=== PATIENT | male | born 1960 | race Caucasian/White ===

== ENCOUNTER 2016-11-04 17:59 | Observation (INO) | payer OTHER ==
[~2016-11-04] VITALS: Ht 185.4 cm; Wt 139.0 kg
[~2016-11-04 17:59] MED LIST: ASPI81TA3 PO; IPRA4AER INHALATION; LACT20SO2 PO; POTA20TA8 PO; PROP10TA6 PO; RIFA550T4 PO; SUCR1TAB56 PO
[2016-11-04] MEDS ORDERED: LACTULOSE 30ML CUP PO STA (18:02)
[2016-11-04] MEDS ORDERED: OMEP20CA16 PO (18:24)
[2016-11-04] MEDS ORDERED: LISI1TAB6 PO (18:29)
[2016-11-04] MEDS ORDERED: FURO40TA4 PO (18:29)
[2016-11-04] MEDS ORDERED: TRAZ50TA18 PO (18:30)
[2016-11-04] MEDS ORDERED: ALBU90AE INHALATION (18:30)
[2016-11-04] MEDS ORDERED: NABU-81 PO (18:31)
[2016-11-04 18:32] LABS: ADD SCAN DIFF NO
[2016-11-04] MEDS ORDERED: METH500T8 PO (18:32)
[2016-11-04 18:35] LABS: BASOPHILS % 0.6 % (0.0-2.0); EOSINOPHILS # 0.2 10^3/ul (0.0-0.5); EOSINOPHILS % 2.8 % (0.0-7.0); HEMATOCRIT 38.4 % (42.0-52.0); HEMOGLOBIN 13.8 g/dl (14.0-18.0); LYMPHOCYTES # 1.3 10^3/ul (0.8-2.9); LYMPHOCYTES % 20.5 % (15.0-51.0); MEAN CORPUSCULAR HEMOGLOBIN 31.1 pg (29.0-33.0); MEAN CORPUSCULAR HGB CONC 35.9 g/dl (32.0-37.0); MEAN CORPUSCULAR VOLUME 86.5 fl (82.0-101.0); MONOCYTE # 0.5 10^3/ul (0.3-0.9); MONOCYTES % 7.6 % (0.0-11.0); NEUTROPHIL # 4.5 10^3/ul (1.6-7.5); NEUTROPHILS % 68.2 % (39.0-77.0); PLATELET COUNT 162 10^3/UL (140-415); RED BLOOD COUNT 4.44 10^6/ul (4.70-6.10); RED CELL DISTRIBUTION WIDTH 13.7 % (11.5-14.5); WHITE BLOOD COUNT 6.5 10^3/ul (4.8-10.8)
[2016-11-04 18:45] LABS: ALBUMIN 4.1 g/dl (3.3-4.9); CHLORIDE 110 mmol/L (97-110); INR 1.18; PROTIME 15.1 Sec (12.2-14.2); PT RATIO 1.2
[2016-11-04 18:46] LABS: POTASSIUM 4.4 mmol/L (3.5-5.1); SODIUM 145 mmol/L (135-144)
[2016-11-04 18:48] LABS: ALANINE AMINOTRANSFERASE 42 IU/L (13-69); ALBUMIN/GLOBULIN RATIO 0.97; ALKALINE PHOSPHATASE 201 IU/L (42-121); ANION GAP 19 (8-16); ASPARTATE AMINO TRANSFERASE 72 IU/L (15-46); BILIRUBIN,INDIRECT 2.4 mg/dl (0-1.1); BILIRUBIN,TOTAL 2.4 mg/dl (0.2-1.3); BLOOD UREA NITROGEN 43 mg/dl (7-20); CARBON DIOXIDE 20 mmol/L (21-31); CREATININE 1.66 mg/dl (0.61-1.24); GLUCOSE 121 mg/dl (70-220); TOTAL PROTEIN 8.3 g/dl (6.1-8.1)
[2016-11-04 18:49] LABS: CALCIUM 10.7 mg/dl (8.4-10.2)
[2016-11-04 18:55] LABS: ACETAMINOPHEN < 10.0 ug/ml (10.0-30.0); ETHANOL < 10.0 mg/dl; SALICYLATE < 1.0 mg/dl (5.0-30.0)
[2016-11-04] MEDS ORDERED: LACTULOSE 30ML CUP NGT ONE (19:00)
[2016-11-04] MEDS ORDERED: ACETAMINOPHEN 325 MG TAB PO PRN (20:00)
[2016-11-04] MEDS ORDERED: LORAZEPAM 2 MG INJ IV ONE ×2 (20:00→21:00)
[2016-11-04] MEDS ORDERED: ONDANSETRON 4 MG INJ IV PRN (20:00)
[2016-11-04] MEDS ORDERED: LACTULOSE 30ML CUP PO ONE (20:00)
[2016-11-04 20:26] LABS: ADD UMIC NO; URINE BILIRUBIN (Dip) NEGATIVE (NEGATIVE); URINE BLOOD (Dip) NEGATIVE (NEGATIVE); URINE COLOR LT. YELLOW (YELLOW); URINE GLUCOSE (Dip) NEGATIVE (NEGATIVE); URINE KETONES (Dip) NEGATIVE (NEGATIVE); URINE LEUKOCYTE ESTERASE (Dip) NEGATIVE (NEGATIVE); URINE NITRITE (Dip) NEGATIVE (NEGATIVE); URINE TOTAL PROTEIN (Dip) NEGATIVE (NEGATIVE); URINE UROBILINOGEN (Dip) 0.2 E.U./dL (0.1-1.0)
--- NOTE | 2016-11-04 20:43 | ERA ---
ER Documentation Chief Complaint Date/Time DATE: 11/04/16 TIME: 20:41 Chief Complaint BROUGHT IN VIA EMS DUE TO ALOC WITH HX OF LIVER CIRRRHOSIS HPI Patient is a 55-year-old male with cirrhosis who presents with altered. Please note the history and physical exam is limited secondary to mental status. The patient was brought in by ambulance. The patient has cirrhosis. The patient was unable to give a history. He came from home. The is at bedside currently. ROS All systems reviewed and are negative except as per history of present illness. Medications Home Meds Reported Medications Methocarbamol* (Methocarbamol*) 500 Mg Tablet, 500 MG PO BID, TAB 11/04/16 Nabumetone* (Nabumetone*) 500 Mg Tablet, 500 MG PO BID, TAB 11/04/16 Trazodone Hcl* (Trazodone Hcl*) 50 Mg Tablet, 50 MG PO QHS, #30 TAB 11/04/16 Albuterol Sulfate (Proair Respiclick) 90 Mcg Aer.pow.ba, 1 PUFF INHALATION Q4 Y for SHORTNESS OF BREATH, #1 BOTTLE 11/04/16 Furosemide* (Furosemide*) 40 Mg Tablet, 40 MG PO DAILY, TAB 11/04/16 Lisinopril/Hydrochlorothiazide (Lisinopril-Hctz 20-12.5 mg Tab) 1 Each Tablet, 1 EACH PO DAILY, TAB 11/04/16 Omeprazole* (Omeprazole*) 20 Mg Capsule.dr, 20 MG PO BID, #60 CAP 11/04/16 Albuterol/Ipratropium* (Combivent Respimat*) 20-100 Mcg/Inh - 4 Gm Aer.w.adap, 1 PUFF INHALATION QID, #1 INHALER 03/02/16 Potassium Chloride* (Klor-Con*) 10 Meq Tabsr, 10 MEQ PO DAILY, TAB.SA 10/29/14 Propranolol Hcl* (Propranolol Hcl*) 10 Mg Tablet, 10 MG PO BID, TAB 10/29/14 Lactulose* (Lactulose*) 20 Gm/30 Ml Solution, 20 GM PO BID, ML 10/29/14 Discontinued Reported Medications Aspirin* (Aspirin* Chew) 81 Mg Tab.chew, 81 MG PO DAILY, TAB.CHEW 06/19/16 Sucralfate* (Carafate*) 1 Gm Tab, 1 GM PO TID, TAB 10/29/14 Discontinued Scripts Rifaximin* (Xifaxan*) 550 Mg Tablet, 550 MG PO BID for 30 Days, TAB home meds Prov:SRIKANTH GALVAN 03/04/16 Allergies Allergies: Coded Allergies: No Known Allergy (Unverified , 06/19/16) PMhx/Soc History of Surgery: No Anesthesia Reaction: No Hx Neurological Disorder: No Hx Respiratory Disorders: Yes (Lung scarring) Hx Cardiac Disorders: Yes (Htn) Hx Psychiatric Problems: No Hx Miscellaneous Medical Probl: Yes (OBESITY, HERNIA REPAIR,CHOLECYSTECTOMY) Hx Alcohol Use: Yes Hx Substance Use: Yes Hx Tobacco Use: Yes Smoking Status: Current every day smoker FmHx Unable to obtain Physical Exam Vitals Vital Signs Date Time Temp Pulse Resp B/P Pulse Ox O2 Delivery O2 Flow Rate FiO2 11/04/16 20:25 98.4 16 16/93 99 Room Air 11/04/16 18:14 98.4 87 18 173/110 99 Physical Exam Const: Altered Head: Atraumatic Eyes: Normal Conjunctiva ENT: Normal External Ears, Nose and Mouth. Neck: Full range of motion..~ No meningismus. Resp: Clear to auscultation bilaterally Cardio: Regular rate and rhythm, no murmurs Abd: Soft, obese, no tenderness abdomen Skin: No petechiae or rashes Back: No midline or flank tenderness Ext: No cyanosis, or edema Neur: Awake but does not answer questions Result Diagram: 11/04/16 1823 11/04/16 1823 Results 24 hrs Laboratory Tests Test 11/04/16 18:15 11/04/16 18:23 11/04/16 19:38 Bedside Glucose 116mg/dL White Blood Count 6.510^3/ul Red Blood Count 4.4410^6/ul Hemoglobin 13.8g/dl Hematocrit 38.4% Mean Corpuscular Volume 86.5fl Mean Corpuscular Hemoglobin 31.1pg Mean Corpuscular Hemoglobin Concent 35.9g/dl Red Cell Distribution Width 13.7% Platelet Count 64595^3/UL Mean Platelet Volume 12.0fl Neutrophils % 68.2% Lymphocytes % 20.5% Monocytes % 7.6% Eosinophils % 2.8% Basophils % 0.6% Nucleated Red Blood Cells % 0.0/100WBC Neutrophils # 4.510^3/ul Lymphocytes # 1.310^3/ul Monocytes # 0.510^3/ul Eosinophils # 0.210^3/ul Basophils # 0.010^3/ul Nucleated Red Blood Cells # 0.010^3/ul Prothrombin Time 15.1Sec Prothrombin Time Ratio 1.2 INR International Normalized Ratio 1.18 Activated Partial Thromboplast Time 32.0Sec Sodium Level 145mmol/L Potassium Level 4.4mmol/L Chloride Level 110mmol/L Carbon Dioxide Level 20mmol/L Anion Gap 19 Blood Urea Nitrogen 43mg/dl Creatinine 1.66mg/dl Glucose Level 121mg/dl Calcium Level 10.7mg/dl Total Bilirubin 2.4mg/dl Direct Bilirubin 0.00mg/dl Indirect Bilirubin 2.4mg/dl Aspartate Amino Transf (AST/SGOT) 72IU/L Alanine Aminotransferase (ALT/SGPT) 42IU/L Alkaline Phosphatase 201IU/L Ammonia 127umol/l Total Protein 8.3g/dl Albumin 4.1g/dl Globulin 4.20g/dl Albumin/Globulin Ratio 0.97 Salicylates Level < 1.0mg/dl Acetaminophen Level < 10.0ug/ml Ethyl Alcohol Level < 10.0mg/dl Urine Color LT. YELLOW Urine Clarity CLEAR Urine pH 6.5 Urine Specific [place] <=1.005 Urine Ketones NEGATIVE Urine Nitrite NEGATIVE Urine Bilirubin NEGATIVE Urine Urobilinogen 0.2 E.U./dL Urine Leukocyte Esterase NEGATIVE Urine Hemoglobin NEGATIVE Urine Glucose NEGATIVE% Urine Total Protein NEGATIVE Current Medications Medications (Trade) Dose Ordered Sig/Aron Route PRN Reason Start Time Stop Time Status Last Admin Dose Admin Lactulose (Enulose) 30 gm ONCE STAT PO 11/04/16 18:02 11/04/16 18:54 DC Lactulose (Enulose) 20 gm ONCE ONCE NGT 11/04/16 19:00 11/04/16 19:43 DC Ondansetron HCl (Zofran Inj) 4 mg BRIDGE ORDER PRN IV NAUSEA AND/OR VOMITING 11/04/16 20:00 11/05/16 19:59 Acetaminophen (Tylenol Tab) 650 mg ER BRIDGE PRN PO MILD PAIN/FEVER 11/04/16 20:00 11/05/16 19:59 Lorazepam (Ativan) 1 mg ONCE ONCE IV 11/04/16 20:00 11/04/16 20:00 DC Lactulose (Enulose) 20 gm ONCE ONCE PO 11/04/16 20:00 11/04/16 20:01 DC 11/04/16 19:50 Procedures/MDM Patient is a 55-year-old male who presents with altered mental status. The patient had an elevated ammonia of 127 which I believe is the cause of his altered mental status. At this point I doubt sepsis. I doubt spontaneous bacterial peritonitis. I doubt cystitis as the urine is negative. I doubt sepsis. I believe the patient will benefit from lactulose treatment. He did pass a bedside swallow evaluation and the lactulose was given by mouth. The patient will be admitted to the care of Dr. Ignacio as he has [employer] insurance. The patient will be admitted to a medical surgical bed. Critical Care: Time: 35 minutes excluding all billable procedures. Treatments/Evaluations: Close monitoring and treatment of unstable vital signs, cardiorespiratory, and neurologic status, while maintaining tight balance of fluid, respiratory, and cardiac interventions. Departure Diagnosis: Primary Impression: Hepatic encephalopathy Additional Impressions: Altered level of consciousness Anemia Qualified Code: D64.9 - Anemia, unspecified type Acute renal failure Qualified Code: N17.9 - Acute renal failure, unspecified acute renal failure type Condition: MICHAEL Hubbard MD Nov 04, 2016 20:43
[2016-11-04 20:52] LABS: BARBITURATES Negative (NEGATIVE); BENZODIAZEPINES Negative (NEGATIVE); CANNABINOIDS Negative (NEGATIVE); COCAINE Negative (NEGATIVE); OPIATES Negative (NEGATIVE)
[2016-11-05] MEDS ORDERED: ONDANSETRON 4 MG INJ IV PRN (00:30)
[2016-11-05] MEDS ORDERED: ACETAMINOPHEN 325 MG TAB PO PRN (00:30)
--- NOTE | 2016-11-05 00:38 | QN ---
Documentation Comment H&P dict a/p GI: cirrhosis secondary to hep c and etho (b) hepatic encephalopathy renal: acute renal failure, check FeNa, renal us, start fluid, hold lisinopril and diuretics proph; BETHEL Cabrera MD Nov 05, 2016 00:38
[2016-11-05] MEDS: SOD CHLORIDE 0.9% 1,000 ML IV SCH ×3 (01:00→23:43)
[2016-11-05] MEDS ORDERED: ALBUTEROL 0.083% (NEB) 2.5 MG/3 ML AMP HHN PRN (01:00)
[2016-11-05] MEDS: LACTULOSE 30ML CUP PO SCH ×5 (01:02→20:44)
[2016-11-05] MEDS: PROPRANOLOL 10 MG TAB PO SCH ×3 (01:11→18:02)
--- NOTE | 2016-11-05 01:52 | HP ---
DATE OF ADMISSION: 11/04/2016 CHIEF COMPLAINT: Altered mental status. HISTORY OF PRESENT ILLNESS: Mr. Jaramillo is brought by paramedics to the emergency room at [facility] with alteration of mental status. He is currently arousable and will answer to his name but is unable to provide any additional history. Calls to family have not been answered. According to the emergency room physician, this came on relatively suddenly. 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 MEDICATIONS AN OUTPATIENT: Include: 1. Combivent. 2. Albuterol. 3. Methocarbamol. 4. Lisinopril HCT. 5. Propranolol. 6. Nabumetone. 7. Trazodone. 8. Lasix. 9. Lactulose. 10. Potassium. 11. Omeprazole. ALLERGIES: NO KNOWN DRUG ALLERGIES. SOCIAL HISTORY: The patient lives at home in [place] with his . Unknown level of ability to p rovide for activities of daily living. FAMILY HISTORY: Unobtainable. REVIEW OF SYSTEMS: Unobtainable secondary to patient's mental status. PHYSICAL EXAMINATION: VITAL SIGNS: Blood pressure 155/90, pulse rate 108, respirations 16, temperature is 98.4. GENERAL: Obese, middle-aged man lying in bed, arousable, not conversational. HEENT: Normocephalic, atraumatic without any scleral icterus, perioral cyanosis. Mucous membranes are moist. NECK: Soft and supple without masses. No evidence of jugular venous distention or carotid bruits. CHEST: Clear to auscultation and percussion anteriorly. HEART: Regular rate and rhythm. S1, S2. No added sounds. ABDOMEN: Soft, nontender. I do not appreciate any ascites or hepatosplenomegaly. EXTREMITIES: Without clubbing, cyanosis or edema. SKIN: Without rashes. NEUROLOGIC: Arousable, not conversational. There is asterixis on exam. The patient is not coopera tive with the remainder of the neuro exam but is spontaneously moving all his limbs. LABORATORY STUDIES: A hemoglobin of 13.8 g/dL, white count of 6500, platelets of 162,000. INR is 1 .2. Sodium 145, potassium 4.4, chloride 110, bicarbonate 20, BUN 43, creatinine 1.66, glucose 121, calcium 10.7. Liver function tests remarkable, AST 72, ALT 42, alkaline phosphatase 201, total bili levi 2.4. Ammonia level is 127. Urine tox screen is negative. UA is negative for signs of infect ion. ASSESSMENT AND PLAN: 1. Gastrointestinal: The patient with likely hepatic encephalopathy. Restart lactulose and rifaxi min, monitor for clinical response. The patient with elevation of liver function tests, likely rela maite to underlying cirrhosis. However, will obtain abdominal ultrasound to rule out biliary disease. Cirrhosis secondary to hepatitis C and alcohol. 2. Renal: The patient with acute renal failure. Check fractional excretion of sodium. Hold lisin opril and diuretics. Begin IV fluids. Check renal ultrasound. 3. Prophylaxis with MAITE hose. Dictated By: BETHEL BARTLETT MD RER/NTS Conf#: [id number] DID#: [id number]
--- NOTE | 2016-11-05 02:07 | RADRPT ---
PROCEDURE: ULTRASOUND RETROPERITONEUM CLINICAL INDICATION: 55-year-old male with renal insufficiency. TECHNIQUE: Multiple sonographic images of the retroperitoneum were obtained. The images were revi ewed on a PACS workstation. COMPARISON: None. FINDINGS: The kidneys are difficult to visualize secondary to the patient's body habitus. The right kidney me asures 10.3 cm in maximal length. The left kidney measures 10.3 cm in maximal length. There are no f ocal areas of abnormal echogenicity. There is no evidence for obstructive uropathy. The bladder is without internal echoes or shadowing stones. IMPRESSION: Unremarkable retroperitoneal ultrasound. .Artur Garcia MD, MD Date Time Electronically viewed and signed by .Artur Garcia MD, on 11/05/2016 02:07 .[place]
[2016-11-05] MEDS: ALBUTEROL/IPRATROPIUM (NEB) 3 ML AMP HHN SCH ×4 (04:31→21:05)
[2016-11-05 05:54] VITALS: TEMP 97.7
[2016-11-05 06:00] LABS: ADD SCAN DIFF NO
[2016-11-05] MEDS: PANTOPRAZOLE (EC) 40 MG TAB PO SCH ×2 (06:00→18:01)
[2016-11-05 06:19] LABS: BASOPHIL # 0.1 10^3/ul (0.0-0.1); BASOPHILS % 0.7 % (0.0-2.0); EOSINOPHILS # 0.3 10^3/ul (0.0-0.5); EOSINOPHILS % 3.7 % (0.0-7.0); HEMATOCRIT 37.2 % (42.0-52.0); LYMPHOCYTES # 1.5 10^3/ul (0.8-2.9); MEAN CORPUSCULAR HGB CONC 34.9 g/dl (32.0-37.0); MEAN CORPUSCULAR VOLUME 88.8 fl (82.0-101.0); MEAN PLATELET VOLUME 12.1 fl (7.4-10.4); MONOCYTE # 0.8 10^3/ul (0.3-0.9); MONOCYTES % 11.2 % (0.0-11.0); NEUTROPHIL # 4.6 10^3/ul (1.6-7.5); PLATELET COUNT 154 10^3/UL (140-415); RED BLOOD COUNT 4.19 10^6/ul (4.70-6.10); RED CELL DISTRIBUTION WIDTH 14.3 % (11.5-14.5); WHITE BLOOD COUNT 7.2 10^3/ul (4.8-10.8)
[2016-11-05 06:56] LABS: ALBUMIN 3.5 g/dl (3.3-4.9)
[2016-11-05 06:57] LABS: POTASSIUM 3.7 mmol/L (3.5-5.1)
[2016-11-05 06:59] LABS: ALBUMIN/GLOBULIN RATIO 0.92; BILIRUBIN,INDIRECT 2.5 mg/dl (0-1.1); BILIRUBIN,TOTAL 2.5 mg/dl (0.2-1.3); CREATININE 1.56 mg/dl (0.61-1.24); TOTAL PROTEIN 7.3 g/dl (6.1-8.1)
[2016-11-05 07:00] LABS: CALCIUM 10.5 mg/dl (8.4-10.2)
--- NOTE | 2016-11-05 07:42 | RADRPT ---
PROCEDURE: US Abdomen (right upper quadrant). CLINICAL INDICATION: Abnormal LFTs TECHNIQUE: Multiple real-time longitudinal and transverse images of the right upper quadrant of th e abdomen were acquired utilizing a curved array transducer. Images were reviewed on a high-resoluti on PACS workstation. COMPARISON: 06/23/2016 FINDINGS: The liver is normal in size and demonstrates coarsened echotexture without the evidence of focal mas s or intrahepatic biliary dilatation. The pancreas, gallbladder, CBD, and portal vein are not well visualized secondary to body habitus and overlying bowel gas by The right kidney measures 10.51 cm in length. There is normal echogenicity within the right kidney. There is no perinephric fluid collection. No hydronephrosis, mass, or calculus is seen. IMPRESSION: 1. Limited exam secondary to patient's body habitus and overlying bowel gas. The pancreas, gallbla dder, CBD, and portal vein was not well visualized. 2. Coarsened hepatic echotexture with nodular surface contour, consistent with cirrhosis. RPTAT: JJ .Oziel Tamayo MD, MD Date Time Electronically viewed and signed by .Oziel Tamayo MD, on 11/05/2016 07:42 .A/
[2016-11-05] MEDS ORDERED: HYDROCHLOROTHIAZIDE 12.5 MG CAP PO SCH (09:00)
[2016-11-05] MEDS ORDERED: LISINOPRIL 20 MG TAB PO SCH (09:00)
[2016-11-05] MEDS: RIFAXIMIN 550 MG TAB PO SCH ×2 (09:00→20:44)
[2016-11-05 11:19] VITALS: BP 138/84; PULSE 90; RESP 20
[2016-11-05 11:40] VITALS: Ht 185.4 cm; Wt 139.0 kg
--- NOTE | 2016-11-05 13:57 | PN ---
Date/Time of Note Date/Time of Note DATE: 11/05/16 TIME: 13:29 Assessment/Plan VTE Prophylaxis VTE Prophylaxis Intervention: SCD's Assessment/Plan Assessment/Plan 55 yo male: 1. Hepatic encephalopathy and ALOC. Patient with known Hep C Cirrhosis and has been on Rifaximin until he ran out 1 1/2 month ago and could not refill due to [place] and lack of prior authorization. Monitor Ammonia level in AM and continue Lactulose Resumed Rifaximin on this admission and Mental status already much improved this afternoon D/c sitter 2. Acute Kidney injury: Holding lisinopril and diuretics. On IV fluids. Renal function improving slowly. Renal ultrasound wnl. 3. Chronic back pain: stable and controlled All meds on hold for now, stable 4. Morbid Obesity. Prophylaxis: Continue SCDs today and PPI for GI ppx Disposition: D/c home in AM if remains stable, will need Rifaximin at discharge Subjective 24 Hr Interval Summary Free Text/Dictation Patient much improved by this afternoon and much more oriented and no need for a sitter Renal function better Exam/Review of Systems Vital Signs Vitals Vital Signs Date Time Temp Pulse Resp B/P Pulse Ox O2 Delivery O2 Flow Rate FiO2 11/05/16 11:19 97.6 90 20 138/84 100 Room Air 11/05/16 08:17 21 Exam Constitutional: alert, obese, oriented (x2 to 3), well developed Respiratory: clear to auscultation, normal air movement Cardiovascular: nl pulses, regular rate and rhythm Gastrointestinal: non-tender, soft Musculoskeletal: nl extremities to inspection Extremities: normal pulses, other (no edema, clubbing or cyanosis ) 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, nl mental status, nl speech, nl strength Results Result Diagram: 11/05/16 0515 11/05/16 0515 Results 24 hrs Laboratory Tests Test 11/04/16 18:15 11/04/16 18:23 11/04/16 19:38 11/05/16 05:15 Bedside Glucose 116 White Blood Count 6.5 7.2 Red Blood Count 4.44 #L 4.19 L Hemoglobin 13.8 #L 13.0 L Hematocrit 38.4 #L 37.2 L Mean Corpuscular Volume 86.5 88.8 Mean Corpuscular Hemoglobin 31.1 31.0 Mean Corpuscular Hemoglobin Concent 35.9 34.9 Red Cell Distribution Width 13.7 14.3 Platelet Count 162 154 Mean Platelet Volume 12.0 #H 12.1 H Neutrophils % 68.2 63.0 Lymphocytes % 20.5 21.0 Monocytes % 7.6 11.2 H Eosinophils % 2.8 3.7 Basophils % 0.6 0.7 Nucleated Red Blood Cells % 0.0 0.0 Neutrophils # 4.5 4.6 Lymphocytes # 1.3 1.5 Monocytes # 0.5 0.8 Eosinophils # 0.2 0.3 Basophils # 0.0 0.1 Nucleated Red Blood Cells # 0.0 0.0 Prothrombin Time 15.1 H Prothrombin Time Ratio 1.2 INR International Normalized Ratio 1.18 Activated Partial Thromboplast Time 32.0 Sodium Level 145 H 147 H Potassium Level 4.4 3.7 Chloride Level 110 113 H Carbon Dioxide Level 20 L 21 Anion Gap 19 H 17 H Blood Urea Nitrogen 43 H 40 H Creatinine 1.66 H 1.56 H Glucose Level 121 103 Calcium Level 10.7 H 10.5 H Total Bilirubin 2.4 H 2.5 H Direct Bilirubin 0.00 0.00 Indirect Bilirubin 2.4 H 2.5 H Aspartate Amino Transf (AST/SGOT) 72 H 68 H Alanine Aminotransferase (ALT/SGPT) 42 43 Alkaline Phosphatase 201 H 173 H Ammonia 127 #H Total Protein 8.3 H 7.3 # Albumin 4.1 3.5 Globulin 4.20 H 3.80 H Albumin/Globulin Ratio 0.97 0.92 Salicylates Level < 1.0 L Acetaminophen Level < 10.0 L Ethyl Alcohol Level < 10.0 Urine Color LT. YELLOW Urine Clarity CLEAR Urine pH 6.5 Urine Specific [place] <=1.005 L Urine Ketones NEGATIVE Urine Nitrite NEGATIVE Urine Bilirubin NEGATIVE Urine Urobilinogen 0.2 E.U./dL Urine Leukocyte Esterase NEGATIVE Urine Hemoglobin NEGATIVE Urine Glucose NEGATIVE Urine Total Protein NEGATIVE Urine Opiates Screen Negative Urine Barbiturates Negative Urine Amphetamines Screen Negative Urine Benzodiazepines Screen Negative Urine Cocaine Screen Negative Urine Cannabinoids Negative Medications Medications Current Medications Lactulose (Enulose) 20 gm QID PO Last administered on 11/05/16t 01:02; Admin Dose 20 GM; Start 11/05/16 at 00:30 Rifaximin (Xifaxan) 550 mg BID PO ; Start 11/05/16 at 09:00 Acetaminophen (Tylenol Tab) 650 mg Q4H PRN PO pain/fever; Start 11/05/16 at 00: 30 Hydralazine HCl (Apresoline) 25 mg Q6H PRN PO sbp>160; Start 11/05/16 at 00:30 Propranolol HCl (Inderal) 10 mg Q8H PO Last administered on 11/05/16 01:11; Admin Dose 10 MG; Start 11/05/16 at 00:30 Ondansetron HCl (Zofran Inj) 4 mg Q4H PRN IV nausea; Start 11/05/16 at 00:30 Lisinopril (Zestril) 20 mg DAILY PO Last administered on 11/05/16 13:19; Admin Dose 20 MG; Start 11/05/16 at 09:00 Pantoprazole (Protonix Tab) 40 mg BID@06,18 PO ; Start 11/05/16 at 06:00 Albuterol/ Ipratropium (Duoneb) 3 ml Q6H HHN Last administered on 11/05/16 08: 16; Admin Dose 3 ML; Start 11/05/16 at 01:00 Albuterol 2.5 mg 2.5 mg Q4H PRN HHN sob/wheeze; Start 11/05/16 at 01:00 Sodium Chloride (NS) 1,000 ml @ 100 mls/hr Q10H IV Last administered on 13:21; Admin Dose 100 MLS/HR; Start 11/05/16 at 01:00 Hydrochlorothiazide (Hydrochlorothiazide) 12.5 mg DAILY PO Last administered on 11/05/16 13:19; Admin Dose 12.5 MG; Start 11/05/16 at 09:00 SRIKANTH GALVAN Nov 05, 2016 13:45
[2016-11-05 20:05] VITALS: BP 136/78; RESP 19
[2016-11-05] MEDS: HYDROmorphONE 2 MG TAB PO PRN (22:28)
[2016-11-06] MEDS: PROPRANOLOL 10 MG TAB PO SCH ×2 (00:30→07:57)
[2016-11-06] MEDS: ALBUTEROL/IPRATROPIUM (NEB) 3 ML AMP HHN SCH ×2 (02:09→09:34)
[2016-11-06] MEDS: HYDROmorphONE 2 MG TAB PO PRN ×2 (02:47→06:46)
[2016-11-06 05:19] LABS: ADD SCAN DIFF NO
[2016-11-06] MEDS: PANTOPRAZOLE (EC) 40 MG TAB PO SCH (05:29)
[2016-11-06 05:32] LABS: BASOPHIL # 0.1 10^3/ul (0.0-0.1); BASOPHILS % 0.8 % (0.0-2.0); EOSINOPHILS # 0.5 10^3/ul (0.0-0.5); EOSINOPHILS % 7.3 % (0.0-7.0); HEMATOCRIT 32.8 % (42.0-52.0); HEMOGLOBIN 11.3 g/dl (14.0-18.0); LYMPHOCYTES # 2.3 10^3/ul (0.8-2.9); LYMPHOCYTES % 36.9 % (15.0-51.0); MEAN CORPUSCULAR HEMOGLOBIN 30.9 pg (29.0-33.0); MEAN CORPUSCULAR HGB CONC 34.5 g/dl (32.0-37.0); MEAN CORPUSCULAR VOLUME 89.6 fl (82.0-101.0); MEAN PLATELET VOLUME 12.4 fl (7.4-10.4); MONOCYTE # 0.8 10^3/ul (0.3-0.9); NEUTROPHIL # 2.7 10^3/ul (1.6-7.5); NEUTROPHILS % 42.7 % (39.0-77.0); PLATELET COUNT 135 10^3/UL (140-415); RED BLOOD COUNT 3.66 10^6/ul (4.70-6.10); RED CELL DISTRIBUTION WIDTH 14.5 % (11.5-14.5); WHITE BLOOD COUNT 6.3 10^3/ul (4.8-10.8)
[2016-11-06 05:40] LABS: ALBUMIN/GLOBULIN RATIO 0.93; BILIRUBIN,INDIRECT 2.4 mg/dl (0-1.1); BILIRUBIN,TOTAL 2.4 mg/dl (0.2-1.3); CALCIUM 9.1 mg/dl (8.4-10.2); CREATININE 1.37 mg/dl (0.61-1.24); POTASSIUM 4.1 mmol/L (3.5-5.1); TOTAL PROTEIN 6.2 g/dl (6.1-8.1)
[2016-11-06 05:42] LABS: MAGNESIUM 1.4 mg/dl (1.7-2.5); PHOSPHORUS 4.3 mg/dl (2.5-4.9)
[2016-11-06 07:47] VITALS: BP 112/62; RESP 19
[2016-11-06] MEDS: RIFAXIMIN 550 MG TAB PO SCH (08:03)
[2016-11-06] MEDS: LACTULOSE 30ML CUP PO SCH ×2 (08:03→12:28)
[2016-11-06] MEDS: SOD CHLORIDE 0.9% 1,000 ML IV SCH (08:03)
--- NOTE | 2016-11-06 11:18 | PDOCDIS ---
Discharge Instructions DIAGNOSIS Discharge Diagnosis: Hepatic encephalopathy CONDITION Patient Condition: Good HOME CARE INSTRUCTIONS: Special Diet: 2 gm na ACTIVITY: Activity Restrictions: Slowly Increase Activity FOLLOW UP/APPOINTMENTS Appointments PCP in the next week. SULY SHORT M.D. Nov 06, 2016 11:18
--- NOTE | 2016-11-06 11:27 | DS ---
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 Patient had acute onset of decreased level of consciousness 36 hours ago. called paramedics, and he was transported with alterred mental status to the [facility] ER. History notable for alcohol and HCV- associated liver disease, with cirrhosis. Patient normally takes lactulose and Rifaxin, but ran out of the latter six weeks ago due to inability to afford the drug. Medical history: 1. Diskitis of the L3-L4, lumbar vertebrae. Blood cultures growing Staph aureus. Treated with IV Levaquin and vancomycin for a total of 6 weeks. 2. Hepatitis C virus infection. Records indicate a history of IV drug use. 3. Esophageal variceal banding, stable. No recent esophageal variceal bleeding. 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 4. Hypertension: Stable. 5. Cirrhosis: Stable. 6. No known drug allergies Hospital Course In the ER, he had an elevated ammonia level of 127 mmol/L, with no fever or other evidence of sepsis. Urine studies were normal. He was placed under observation by Dr. Vamsi Ignacio in a Med/Surg bed, and treated with lactulose, IV fluids, and Rifaxin. He did pass a bedside swallow evaluation in the ER. Creatinine improved from 1.56 to 1.37 this morning, suggestive of a pre- renal azotemia. Ammonia level was improved to 56. Renal ultrasound showed normal kidneys. Abdominal ultrasound showed nodular cirrhosis. He felt significantly better this morning, with resolution of some mild back pain overnight. Good appetite, wants to go home now. Normal neurologic exam this morning. Heavyset, but with normal abdominal, cardiac, and pulmonary exams. No ankle clonus or tremor. No peripheral edema or arthritis. Because of his dehydration and prerenal azotemia, Lasix and HCTZ will be held at discharge. Also hold potassium until diuretics are reinstated. Switching from combination lisinopril/HCTZ to lisinopril alone. Home Meds Active Scripts Lisinopril* (Lisinopril*) 20 Mg Tablet, 20 MG PO DAILY, #30 TAB Prov:SULY SHORT M.D. 11/06/16 Reported Medications Methocarbamol* (Methocarbamol*) 500 Mg Tablet, 500 MG PO BID, TAB 11/04/16 Nabumetone* (Nabumetone*) 500 Mg Tablet, 500 MG PO BID, TAB 11/04/16 Trazodone Hcl* (Trazodone Hcl*) 50 Mg Tablet, 50 MG PO QHS, #30 TAB 11/04/16 Albuterol Sulfate (Proair Respiclick) 90 Mcg Aer.pow.ba, 1 PUFF INHALATION Q4 Y for SHORTNESS OF BREATH, #1 BOTTLE 11/04/16 Omeprazole* (Omeprazole*) 20 Mg Capsule.dr, 20 MG PO BID, #60 CAP 11/04/16 Albuterol/Ipratropium* (Combivent Respimat*) 20-100 Mcg/Inh - 4 Gm Aer.w.adap, 1 PUFF INHALATION QID, #1 INHALER 03/02/16 Propranolol Hcl* (Propranolol Hcl*) 10 Mg Tablet, 10 MG PO BID, TAB 10/29/14 Lactulose* (Lactulose*) 20 Gm/30 Ml Solution, 20 GM PO BID, ML 10/29/14 Discontinued Reported Medications Furosemide* (Furosemide*) 40 Mg Tablet, 40 MG PO DAILY, TAB 11/04/16 Lisinopril/Hydrochlorothiazide (Lisinopril-Hctz 20-12.5 mg Tab) 1 Each Tablet, 1 EACH PO DAILY, TAB 11/04/16 Potassium Chloride* (Klor-Con*) 10 Meq Tabsr, 10 MEQ PO DAILY, TAB.SA 10/29/14 Aspirin* (Aspirin* Chew) 81 Mg Tab.chew, 81 MG PO DAILY, TAB.CHEW 06/19/16 Sucralfate* (Carafate*) 1 Gm Tab, 1 GM PO TID, TAB 10/29/14 Discontinued Scripts Rifaximin* (Xifaxan*) 550 Mg Tablet, 550 MG PO BID for 30 Days, TAB home meds Prov:SRIKANTH GALVAN 03/04/16 Follow-up Plan PCP in the next week. He said his had helped complete forms to obtain the Rifaxin, and he is set for the next year. Pending Labs Laboratory Tests Test 11/06/16 04:33 White Blood Count 6.310^3/ul (4.8-10.8) Red Blood Count 3.6610^6/ul (4.70-6.10) Hemoglobin 11.3g/dl (14.0-18.0) Hematocrit 32.8% (42.0-52.0) Mean Corpuscular Volume 89.6fl (82.0-101.0) Mean Corpuscular Hemoglobin 30.9pg (29.0-33.0) Mean Corpuscular Hemoglobin Concent 34.5g/dl (32.0-37.0) Red Cell Distribution Width 14.5% (11.5-14.5) Platelet Count 77877^3/UL (140-415) Mean Platelet Volume 12.4fl (7.4-10.4) Neutrophils % 42.7% (39.0-77.0) Lymphocytes % 36.9% (15.0-51.0) Monocytes % 12.0% (0.0-11.0) Eosinophils % 7.3% (0.0-7.0) Basophils % 0.8% (0.0-2.0) Nucleated Red Blood Cells % 0.0/100WBC (0.0-0.0) Neutrophils # 2.710^3/ul (1.6-7.5) Lymphocytes # 2.310^3/ul (0.8-2.9) Monocytes # 0.810^3/ul (0.3-0.9) Eosinophils # 0.510^3/ul (0.0-0.5) Basophils # 0.110^3/ul (0.0-0.1) Nucleated Red Blood Cells # 0.010^3/ul (0.0-0.0) Sodium Level 136mmol/L (135-144) Potassium Level 4.1mmol/L (3.5-5.1) Chloride Level 111mmol/L (97-110) Carbon Dioxide Level 20mmol/L (21-31) Anion Gap 9 (8-16) Blood Urea Nitrogen 36mg/dl (7-20) Creatinine 1.37mg/dl (0.61-1.24) Glucose Level 86mg/dl (70-220) Calcium Level 9.1mg/dl (8.4-10.2) Phosphorus Level 4.3mg/dl (2.5-4.9) Magnesium Level 1.4mg/dl (1.7-2.5) Total Bilirubin 2.4mg/dl (0.2-1.3) Direct Bilirubin 0.00mg/dl (0.00-0.20) Indirect Bilirubin 2.4mg/dl (0-1.1) Aspartate Amino Transf (AST/SGOT) 62IU/L (15-46) Alanine Aminotransferase (ALT/SGPT) 43IU/L (13-69) Alkaline Phosphatase 161IU/L (42-121) Ammonia 54umol/l (9-30) Total Protein 6.2g/dl (6.1-8.1) Albumin 3.0g/dl (3.3-4.9) Globulin 3.20g/dl (1.3-3.2) Albumin/Globulin Ratio 0.93 SULY SHORT M.D. Nov 06, 2016 11:27
[2016-11-06] MEDS ORDERED: LISI20TA11 PO (11:37)
== END 2016-11-06 13:00 | disposition home or self-care (01) ==
LOC: E/R 17:59 → PP2 19:33 → E/R 11-05 07:30 → PP2 11-05 07:51 → UNDOADMOB 11-05 07:51 → UNDODISOB 11-06 13:00
PROVIDERS: ADMIT Internal Medicine; ATTEND Internal Medicine
DX: K72.90 Hepatic failure, unspecified without coma (principal); B18.2 Chronic viral hepatitis C; I10 Essential (primary) hypertension; N17.9 Acute kidney failure, unspecified; E86.0 Dehydration; G89.29 Other chronic pain; M54.9 Dorsalgia, unspecified; E66.01 Morbid (severe) obesity due to excess calories; J44.9 Chronic obstructive pulmonary disease, unspecified; K70.30 Alcoholic cirrhosis of liver without ascites; F17.200 Nicotine dependence, unspecified, uncomplicated; Z68.41 Body mass index [BMI] 40.0-44.9, adult
CPT/HCPCS: 36415; 76705; 76775; 80053; 80306; 80307; 81003; 82140; 82962; 83735; 84100; 85025; 85610; 85730; 93005; 94640; 94664; 96360; 96361; 96374; 99291; A4310; G0378; J1170; J2060; J7030

== ENCOUNTER 2017-01-02 09:52 | Inpatient (IN) | payer OTHER ==
[~2017-01-02] VITALS: Ht 185.4 cm; Wt 113.6 kg
[2017-01-02] VITALS (56 sets, daily range): BP systolic 39–132; BP diastolic 23–81; PULSE 58–119; RESP 10–26; TEMP 96.4; Ht 185.4 cm; Wt 113.6 kg
[~2017-01-02 09:52] MED LIST changes: +ALBU90AE INHALATION; -ASPI81TA3 PO; +ETOMIDATE 20 MG INJ ONE; +LISI20TA11 PO; +METH500T8 PO; +NABU-81 PO; +OMEP20CA16 PO; -POTA20TA8 PO; -RIFA550T4 PO; +ROCURONIUM 50 MG INJ ONE; -SUCR1TAB56 PO; +TRAZ50TA18 PO
[2017-01-02] MEDS ORDERED: SOD CHLORIDE 0.9% 1,000 ML IV ONE (10:30)
[2017-01-02] MEDS ORDERED: LACTULOSE 30ML CUP PO ONE (10:30)
--- NOTE | 2017-01-02 10:33 | RADRPT ---
PROCEDURE: XR Chest. CLINICAL INDICATION: Abdominal Pain. Dyspnea. TECHNIQUE: Single frontal chest x-ray. COMPARISON: 06/27/2016 FINDINGS: The lungs are clear of acute infiltrates, edema, effusions, or masses.. The cardiomediastinal silho uette is unremarkable. The osseous structures are intact. IMPRESSION: No acute cardiopulmonary disease. RPTAT: QQ .Ruy Saenz MD, Date Time Electronically viewed and signed by .Ruy Saenz MD, on 01/02/2017 10:33 .L/
--- NOTE | 2017-01-02 10:43 | ERA ---
ER Documentation Chief Complaint Date/Time DATE: 01/02/17 TIME: 10:36 Chief Complaint ALTERED, HX OF CIRRHOSIS, UTO BP OR TEMP X2 HPI 56-year-old man brought in by for decreased mental status 3 days. She states she has a long recurrent history of hepatic encephalopathy and uses lactulose daily, which she has been giving as prescribed. She states his mental status got worse 2 days ago and continued to go downhill till this morning at which point he became mostly nonverbal. He has had no blood per rectum or melena, no fevers or chills, no complaints of chest pain or shortness of breath. He has a history of hepatitis C, alcoholic cirrhosis, but does not drink alcohol currently. ROS All systems reviewed and are negative except as per history of present illness. Medications Home Meds Active Scripts Lisinopril* (Lisinopril*) 20 Mg Tablet, 20 MG PO DAILY, #30 TAB Prov:SULY SHORT M.D. 11/06/16 Reported Medications Methocarbamol* (Methocarbamol*) 500 Mg Tablet, 500 MG PO BID, TAB 11/04/16 Nabumetone* (Nabumetone*) 500 Mg Tablet, 500 MG PO BID, TAB 11/04/16 Trazodone Hcl* (Trazodone Hcl*) 50 Mg Tablet, 50 MG PO QHS, #30 TAB 11/04/16 Albuterol Sulfate (Proair Respiclick) 90 Mcg Aer.pow.ba, 1 PUFF INHALATION Q4 Y for SHORTNESS OF BREATH, #1 BOTTLE 11/04/16 Omeprazole* (Omeprazole*) 20 Mg Capsule.dr, 20 MG PO BID, #60 CAP 11/04/16 Albuterol/Ipratropium* (Combivent Respimat*) 20-100 Mcg/Inh - 4 Gm Aer.w.adap, 1 PUFF INHALATION QID, #1 INHALER 03/02/16 Propranolol Hcl* (Propranolol Hcl*) 10 Mg Tablet, 10 MG PO BID, TAB 10/29/14 Lactulose* (Lactulose*) 20 Gm/30 Ml Solution, 20 GM PO BID, ML 10/29/14 Allergies Allergies: Coded Allergies: No Known Allergy (Unverified , 06/19/16) PMhx/Soc Alcoholic liver cirrhosis, recurrent hepatic encephalopathy, hepatitis C, esophageal varices, hypertension, acute kidney injury Anesthesia Reaction: No Hx Neurological Disorder: No Hx Respiratory Disorders: Yes (Spots on lungs (6 years)- use inhaler comovent/ provent) Hx Cardiac Disorders: Yes (HTN) Hx Psychiatric Problems: No Hx Miscellaneous Medical Probl: Yes (Hep C) Hx Alcohol Use: No Hx Substance Use: No Hx Tobacco Use: No Smoking Status: Never smoker FmHx Family History: diabetes Physical Exam Vitals Vital Signs Date Time Temp Pulse Resp B/P Pulse Ox O2 Delivery O2 Flow Rate FiO2 01/02/17 11:59 83 19 Nasal Cannula 2.0 01/02/17 11:40 75 16 97/65 100 Room Air 01/02/17 11:00 Nasal Cannula 2 01/02/17 09:54 88 20 100 Physical Exam GENERAL: Well-developed, well-nourished, appears encephalopathic HEENT: Dry mucous membranes, pink conjunctiva, no cervical spine tenderness or step-off deformities, no goiter, no jaundice or icterus, extraocular movements intact without pain. No submandibular induration, and no pharyngeal erythema NEURO: Nonverbal, eyes open, pupils equal round reactive to light, not following commands or answering questions, no focal deficits, no facial asymmetry CARDIAC: Regular rate and rhythm, no murmurs rubs or gallops LUNGS: Clear bilaterally no wheezing crackles or stridor ABDOMEN: Soft nontender, no guarding, no rigidity, no rebound, no psoas sign no obturator sign. Normoactive bowel sounds SKIN: Warm and dry to touch, no abrasions, contusions, or hematomas, no lacerations, no ecchymosis, no target lesions, and without ulcers EXTREMITIES: No clubbing cyanosis or edema, calves are bilaterally symmetrical, no Homans sign, no popliteal cord sign. Distal pulses equal and bilateral PSYCH: Normal affect without agitation or irritability Result Diagram: 01/02/17 1046 01/02/17 1046 Results 24 hrs Laboratory Tests Test 01/02/17 10:46 White Blood Count 7.610^3/ul Red Blood Count 3.7110^6/ul Hemoglobin 12.1g/dl Hematocrit 34.0% Mean Corpuscular Volume 91.6fl Mean Corpuscular Hemoglobin 32.6pg Mean Corpuscular Hemoglobin Concent 35.6g/dl Red Cell Distribution Width 13.2% Platelet Count 74811^3/UL Mean Platelet Volume 13.3fl Neutrophils % 65.3% Lymphocytes % 22.3% Monocytes % 10.0% Eosinophils % 1.6% Basophils % 0.4% Nucleated Red Blood Cells % 0.0/100WBC Neutrophils # 5.010^3/ul Lymphocytes # 1.710^3/ul Monocytes # 0.810^3/ul Eosinophils # 0.110^3/ul Basophils # 0.010^3/ul Nucleated Red Blood Cells # 0.010^3/ul Prothrombin Time 17.0Sec Prothrombin Time Ratio 1.3 INR International Normalized Ratio 1.38 Sodium Level 146mmol/L Potassium Level 7.6mmol/L Chloride Level 119mmol/L Carbon Dioxide Level 9mmol/L Anion Gap 26 Blood Urea Nitrogen 127mg/dl Creatinine 8.95mg/dl Glucose Level 93mg/dl Calcium Level 11.1mg/dl Total Bilirubin 2.0mg/dl Direct Bilirubin 0.00mg/dl Indirect Bilirubin 2.0mg/dl Aspartate Amino Transf (AST/SGOT) 79IU/L Alanine Aminotransferase (ALT/SGPT) 57IU/L Alkaline Phosphatase 107IU/L Ammonia 309umol/l Troponin I 0.037ng/ml Total Protein 8.2g/dl Albumin 4.7g/dl Globulin 3.50g/dl Albumin/Globulin Ratio 1.34 Lipase 284U/L Current Medications Medications (Trade) Dose Ordered Sig/Aron Route PRN Reason Start Time Stop Time Status Last Admin Dose Admin Lactulose 40 gm 40 gm ONCE ONCE PO 01/02/17 10:30 01/02/17 10:31 DC 01/02/17 11:49 Sodium Chloride (NS) 1,000 ml @ 1,000 mls/hr Q1H ONCE IV 01/02/17 10:30 01/02/17 11:29 DC 01/02/17 11:50 Furosemide 40 mg 40 mg ONCE ONCE IV 01/02/17 11:30 01/02/17 11:31 DC 01/02/17 11:49 Calcium Gluconate/ Sodium Chloride (Ca Gluc/NS) 110 ml @ 110 mls/hr ONCE ONCE IVPB 01/02/17 11:30 01/02/17 12:29 DC Dextrose (D50w Syringe) 50 ml ONCE STAT IV 01/02/17 11:18 01/02/17 11:22 DC 01/02/17 11:50 Insulin Human Regular (Novolin-R) 8 unit ONCE ONCE IV 01/02/17 11:30 01/02/17 11:31 DC Albuterol (Proventil 0.5% (Neb)) 5 mg ONCE STAT INH 01/02/17 11:18 01/02/17 11:22 DC 01/02/17 11:54 Procedures/MDM IV line was established patient was placed on machine gunner rhythm strip revealed a sinus rhythm at about 80 bpm with upright P and T waves. Patient was afebrile. I administered 500 cc normal saline intravenously, NG tube was passed, and administered lactulose 40 g via NG tube for hyperammonemia. One AP view of the chest performed, read by me reveals no acute infiltrates, normal mediastinum, sharp costophrenic and cardiac borders, no air under the diaphragm. Otherwise unremarkable chest x-ray. EKG performed, read by me: 78 bpm, normal sinus rhythm, normal axis, no acute ST segment changes, with a right ventricular conduction delay with a QRS duration of 100 ms, with good R-wave progression in precordial leads. CBC was unremarkable, electrolytes were abnormal with hyperkalemia 7.6 and a bicarbonate 9 consistent with severe metabolic acidosis, he also has renal failure with a BUN/creatinine of 127/9, liver function tests reveal mild hyperbilirubinemia, troponin negative, ammonia level elevated at just over 300. ABG was attempted although patient could not tolerate so was stopped. I obtained both verbal and written consent from who was at the bedside for central line and hemodialysis catheter placement as well as for intubation for protection of his airway and breathing. I obtained emergent consultation with brim pouncer machine operator regarding the patient's presentation and symptomatology. Emergent consultation with Dr. Suraj Brown nephrology was obtained, he agreed to emergent hemodialysis. I agreed to place the twin port Mark catheter in the right femoral vein. Endotracheal Intubation by me: Pre assessment performed. Etomidate 20 mg IV for sedation and rocuronium 100 mg IV for paralysis Pre-oxygenation performed with 100% oxygen RSI: Performed w/o complication or hypoxic events. Medications as ordered. Blade: Mac 4 ET Tube: 8 cm Depth: 20 cm at the lip Intubation confirmed by colorimetric CO2, equal breath sounds, quiet over the stomach. Central Line Placement by me: Patient consented, sterilely draped, full prep, gown, glove, mask, time out performed. Anesthesia: 1% lidocaine locally Location: Right femoral vein Device: Twin port 12 Erit[place]an, 20 cm Mark catheter Technique: Seldinger technique. Secured with suture. Results: Venous return from all ports with easy saline flush. No complications. The entire guidewire was removed Guide wire retrieved and disposed of. For acute severe hyperkalemia administered calcium gluconate 1 g IV, albuterol 5 mg via nebulizer, furosemide 40 mg IV, dextrose 25 g IV, and regular insulin 8 units IV. For continued sedation patient was placed on a propofol drip. I do not suspect sepsis or septic shock Patient presented severely encephalopathic today and was found to be dehydrated and acidotic with life-threatening hyperkalemia and new onset renal failure. He will require emergent hemodialysis and admission to the intensive care unit. Further management, intervention, imaging, and antibiotics if indicated deferred to admitting team. Critical Care: Time: 40 minutes, this was time separate from other procedures. Treatments/Evaluations: Close monitoring and treatment of unstable vital signs, cardiorespiratory, and neurologic status, while maintaining tight balance of fluid, respiratory, and cardiac interventions. Departure Diagnosis: Primary Impression: Hepatic encephalopathy Additional Impressions: Acute renal failure Qualified Code: N17.9 - Acute renal failure, unspecified acute renal failure type Acute hyperkalemia Uremic encephalopathy Dehydration Hyperammonemia Cirrhosis Qualified Code: K70.31 - Alcoholic cirrhosis of liver with ascites Hepatitis C Qualified Code: B17.11 - Acute hepatitis C virus infection with hepatic coma Condition: Critical LAUREN FERRERA MD Jan 02, 2017 10:43
[2017-01-02 11:06] LABS: ABNORMAL IP MESSAGE 1; BASOPHILS % 0.4 % (0.0-2.0); EOSINOPHILS # 0.1 10^3/ul (0.0-0.5); EOSINOPHILS % 1.6 % (0.0-7.0); HEMOGLOBIN 12.1 g/dl (14.0-18.0); LYMPHOCYTES # 1.7 10^3/ul (0.8-2.9); LYMPHOCYTES % 22.3 % (15.0-51.0); MEAN CORPUSCULAR HEMOGLOBIN 32.6 pg (29.0-33.0); MEAN CORPUSCULAR HGB CONC 35.6 g/dl (32.0-37.0); MEAN CORPUSCULAR VOLUME 91.6 fl (82.0-101.0); MEAN PLATELET VOLUME 13.3 fl (7.4-10.4); MONOCYTE # 0.8 10^3/ul (0.3-0.9); NEUTROPHILS % 65.3 % (39.0-77.0); PLATELET COUNT 147 10^3/UL (140-415); RED BLOOD COUNT 3.71 10^6/ul (4.70-6.10); RED CELL DISTRIBUTION WIDTH 13.2 % (11.5-14.5); WHITE BLOOD COUNT 7.6 10^3/ul (4.8-10.8)
[2017-01-02 11:08] LABS: INR 1.38; PT RATIO 1.3
[2017-01-02 11:10] LABS: ADD SCAN DIFF YES
[2017-01-02 11:14] LABS: ALBUMIN 4.7 g/dl (3.3-4.9); ALBUMIN/GLOBULIN RATIO 1.34; CALCIUM 11.1 mg/dl (8.4-10.2); CREATININE 8.95 mg/dl (0.61-1.24); TOTAL PROTEIN 8.2 g/dl (6.1-8.1)
[2017-01-02 11:18] LABS: POTASSIUM 7.6 mmol/L (3.5-5.1)
[2017-01-02] MEDS ORDERED: DEXTROSE 50% 50 ML SYRINGE IV STA (11:18)
[2017-01-02] MEDS ORDERED: ALBUTEROL 0.5% (NEB) 2.5 MG/0.5 ML AMP INH STA (11:18)
[2017-01-02 11:23] LABS: TROPONIN-I 0.037 ng/ml (0.00-0.12)
[2017-01-02] MEDS ORDERED: FUROSEMIDE 40 MG INJ IV ONE (11:30)
[2017-01-02] MEDS ORDERED: CALCIUM GLUCONATE 10% 1 GM in SOD CHLORIDE 0.9% 100 ML IVPB ONE (11:30)
[2017-01-02] MEDS ORDERED: INSULIN REGULAR 10 ML INJ IV ONE (11:30)
--- NOTE | 2017-01-02 11:46 | RADRPT ---
PROCEDURE: CT Brain without contrast. CLINICAL INDICATION: Neurologic deficit TECHNIQUE: A CT of the brain was performed on multidetector high-resolution CT scanner utilizing a xial sections from the skull base through the vertex without contrast. One or more of the following dose reduction techniques were used: Automated exposure control, Adjustment of the mA and/or kV acc ording to patient size, and/or use of iterative reconstruction technique. DOSE: CTDI = 44 mGy and the DLP = 720 mGy-cm. COMPARISON: Head CT 03/02/2016 FINDINGS: No acute intracranial hemorrhage, significant mass effect or midline shift. The rdz-white different iation is grossly preserved. The ventricles are stable size. Mild volume loss. Vascular calcifications. No significant opacification of the visualized paranasal sinuses or mastoids. IMPRESSION: No significant change. No acute intracranial findings. RPTAT: AA .Babar Mariee MD, MD Date Time Electronically viewed and signed by .Babar Mariee MD, on 01/02/2017 11:45 .T/
[2017-01-02] MEDS ORDERED: PROPOFOL 100 ML IV ONE (13:00)
[2017-01-02 13:26] LABS: AADO2 Arterial 248.3 mmHg (7.0-24.0); Allen Test ACCEPTAB; Arterial Base Excess -16.7 mmol/L (-3.0-3); Arterial COHb 0.2 % (0.0-3.0); Arterial Fraction of Oxyhgb 98.3 % (93.0-99.0); Arterial HCO3 9.8 mmol/L (22.0-26.0); Arterial MetHb 0.6 % (0.0-1.5); Arterial Total Hemglobin 12.9 g/dl (12.0-18.0); MODE VENT - AC
--- NOTE | 2017-01-02 13:30 | RADRPT ---
AMENDMENT: 01/03/2017 10:18:52 AM Ruy Saenz M.d There has also been placement of enteric catheter with the tip coiled in the stomach. PROCEDURE: XR Chest. CLINICAL INDICATION: Status post intubation TECHNIQUE: Single frontal chest x-ray. COMPARISON: 10:21 a.m. FINDINGS: Endotracheal tube has been place with tip 2 cm above the lacey. There is increased mild right basi lar atelectasis. . There are no acute infiltrates or effusions.. Cardiomediastinal silhouette is u nchanged.. The osseous structures are intact. IMPRESSION: Status post intubation. Increased right basilar atelectasis.. RPTAT: QQ .Ruy Saenz MD, MD Date Time Electronically viewed and signed by .Ruy Saenz MD, on 01/03/2017 10:18 .L/
[2017-01-02 13:53] LABS: ADD UMIC NO; UR BILIRUBIN (Dip) NEGATIVE (NEGATIVE); UR BLOOD (Dip) NEGATIVE (NEGATIVE); UR CLARITY CLEAR (CLEAR); UR COLOR YELLOW (YELLOW); UR GLUCOSE (Dip) NEGATIVE (NEGATIVE); UR KETONES (Dip) NEGATIVE (NEGATIVE); UR LEUKOCYTE ESTERASE (Dip) NEGATIVE (NEGATIVE); UR NITRITE (Dip) NEGATIVE (NEGATIVE); UR TOTAL PROTEIN (Dip) NEGATIVE (NEGATIVE); UR UROBILINOGEN (Dip) 0.2 E.U./dL (0.1-1.0)
[2017-01-02] MEDS ORDERED: SODIUM BICARBONATE (IV ADD) 100 MEQ in DEXTROSE 5% 1,000 ML IV SCH (14:00)
--- NOTE | 2017-01-02 14:23 | CONS ---
DATE OF ADMISSION: 01/02/2017 DATE OF CONSULTATION: 01/02/2017 TYPE OF CONSULTATION: Nephrology. REASON FOR CONSULTATION: Acute emergent hemodialysis for acute hyperkalemia, potassium 7.6, acute r enal failure with a BUN 127, creatinine 8.9. Severe metabolic acidosis with a bicarbonate of 9 HISTORY OF PRESENT ILLNESS: This is a 56-year-old male who has a past medical history of hypertensi on, gastroesophageal reflux disease, history of previous liver cirrhosis, history of hepatitis C, ca using liver cirrhosis, history of previous admissions for hepatic encephalopathy. He was brought in by his because of her decreased mental status for the last 3 days. The patient also had some low grade fever at home. The patient has previously had a history of previous longer recurrent hist ory of hepatic encephalopathy and has been using the lactulose as daily. His mental status has been slowly gradually getting worse for the last 2 days and today in the morning he became very nonverba l, noncommunicative. As per the , no history of any melena, fever, bright red blood per rectum, no fevers, chills. The patient was very lethargic in the emergency with a pneumonia level more than 300. His potassium was 7.6, altered, BUN 127, creatinine 8.9. His EKG was consistent with some hyperkalemia changes. ABG was attempted but they were not able to draw any blood gas on that. EKG was performed which sh ows a right ventricular contractions . The patient [facility] and also received lactulose through the NG tube. The chest x-ray shows no acute infiltr ates. The patient had emergent dialysis catheter placement in the emergency room and he is getting admitted to the ICU. Plan is to do emergent hemodialysis on the patient for acute hyperkalemia, sev ere metabolic acidosis and acute renal failure. REVIEW OF SYSTEMS: Unable to obtain from the patient, but as per the , he has been having slowl y decreasing mentation for the past 3 days associated with some decreased p.o. intake, nausea and sh ortness of breath. PAST MEDICAL HISTORY: Notable for hypertension, history of liver cirrhosis from hepatitis C, histor y of gastroesophageal reflux disease. PAST SURGICAL HISTORY: History of cholecystectomy, history of questionable liver stent placement in the liver as per the , history of previous wrist surgery. SOCIAL HISTORY: The patient has a history of hepatitis C, as per the , currently she denies any history of alcohol or smoking or recreational drug use, but the patient is not able to provide any detailed history on that. FAMILY HISTORY: Not available at this time, the patient. PHYSICAL EXAMINATION: VITAL SIGNS: Temperature not able to obtain heart rate 106, respiration 18, blood pressure is 97/65 on admission, after NS bolus it is 123/65, saturation is 100% through the ventilator. GENERAL: The patient is intubated in the emergency room, currently sedated on FIO2 100% on ventilat or. HEENT: Pupils equal, round, reactive to light and accommodation. ET tube in place. NECK: Supple, jugular venous distention up to the mid neck. LUNGS: Bilateral coarse breath sounds with minimal expiratory wheezing present. HEART: S1, S2, with regular rhythm, no murmur. ABDOMEN: Soft, mildly distended. Bowel sounds are hypoactive. EXTREMITIES: 1 to 2+ pitting edema, no clubbing, no cyanosis. NEUROLOGICAL: The patient is currently sedated, intubated on sedation not able to do any full neuro logical examination. PSYCHIATRIC: Not able to assess in this situation. SKIN: No rash. LABORATORY DATA/DIAGNOSTIC IMAGING: Sodium 146, potassium 7.6, chloride 119, bicarbonate 9, BUN 127 , creatinine 8.9, glucose 93, calcium is 11, total bilirubin 2, albumin is 4.7. Ammonia level 309. PT 17, PT INR 1.38. WBC 7.6, hemoglobin 12.1, platelet count 147. ABG, now able to obtain which s hows a pH of 7.19, pCO2 of 26, pO2 438, bicarbonate 9.8. Chest x-ray negative for any acute findings. CT head without contrast done that shows no significan t changes, no acute intracranial findings. The patient had a chest x-ray done after intubation whic h shows increased right basilar atelectasis. IMPRESSION: This is a 56-year-old male who has a history of liver cirrhosis from hepatitis C, histo ry of hypertension and gastroesophageal reflux disease. He was brought in by his for altered m ental status possibly secondary to acute hepatic encephalopathy. He is noted to have acute hyperkal emia with a potassium of 7.6, severe metabolic acidosis with a bicarbonate of 9, BUN 127 and renal h as been consulted for. 1. Acute hyperkalemia with a potassium of 7.6 with EKG changes. 2. Severe metabolic acidosis, bicarbonate 9, pH 7.19 on ABG. 3. Acute kidney injury with a BUN of 127, creatinine of 8.9 on admission, likely secondary to acute tubular necrosis. 4. Acute respiratory failure secondary to possibly acute fluid overload and possibly pneumonia. 5. History of liver cirrhosis from hepatitis C. 6. Hypernatremia. Sodium 146, mild, likely secondary to free water deficits. 7. No evidence of any coagulopathy and patient's albumin has been normal at 4.71. He does have a h istory of liver cirrhosis from hepatitis C. 8. Anemia of chronic disease. PLAN: 1. The patient was seen in the emergency room and he is currently intubated on FIO2 of 100%. Satur ation is around 98% to 100% with FIO2 of 100% on ventilator. 2. The patient received treatment for hyperkalemia including calcium gluconate, including Kayexalat e in the emergency room. I will start the patient on a bicarbonate drip with D5W and 2 amps of sodi um bicarbonate to run at 100 mL per hour. 3. The patient had a dialysis catheter placement in the emergency room and he is waiting for ICU be d available. As soon as the goes to the ICU, the plan is to do emergent hemodialysis with 2K, 2.5 c alcium bath and we will follow up on his potassium in the evening labs. 4. The patient's was at bedside, had a very long discussion with her about his renal failure a nd requirement for hemodialysis. All questions answered. He signed the consent for hemodialysis al so. 5. Ventilator management as per the pulmonary service. The patient is getting admitted by the [facility] by Dr. Juan Jose Flower. I will continue to follow this patient along with the primary car e service and pulmonary service. 6. Lactulose through the NG-tube for his acute hepatic encephalopathy. His ammonia level is 309 on admission. 7. The patient currently seen in the emergency room and he will be getting admitted to the ICU. Dictated By: MARII DALY MD, KP/OZZY Conf#: [id number] DID#: [id number]
[2017-01-02 15:10] LABS: PROTEIN/CREAT RATIO 0.03 RATIO
[2017-01-02] MEDS ORDERED: NORepinephrine 8MG/250 ML (PMX 250 ML ONE (15:16)
[2017-01-02] MEDS ORDERED: ALBUMIN HUMAN 25% 100 ML IV ONE (15:30)
[2017-01-02] MEDS ORDERED: NORepinephrine 8MG/250 ML (PMX 250 ML IV SCH (15:30)
[2017-01-02] MEDS ORDERED: LIDOCAINE 1% (MPF) 5 ML VIAL SC ONE (15:30)
[2017-01-02] MEDS: PROPOFOL 100 ML IV SCH (16:00)
[2017-01-02] MEDS ORDERED: PHENYLephrine 20MG IN 250 ML 250 ML ONE (16:14)
[2017-01-02] MEDS: PHENYLephrine 20MG IN 250 ML 250 ML IV SCH ×2 (16:37→18:30)
[2017-01-02] MEDS: ALBUMIN HUMAN 25% 100 ML IV SCH ×2 (16:38→17:30)
[2017-01-02] MEDS ORDERED: MIDAZOLAM 1 MG/ML 2 ML INJ ONE (16:57)
[2017-01-02] MEDS ORDERED: FENTAnyl 50 MCG/ML VIAL ONE (16:57)
[2017-01-02] MEDS ORDERED: MIDAZOLAM 1 MG/ML 2 ML INJ IV ONE (17:00)
[2017-01-02] MEDS ORDERED: SODIUM BICARBONATE (IV ADD) 100 MEQ in DEXTROSE 5% 1,000 ML IV ONE (17:00)
[2017-01-02] MEDS ORDERED: FENTAnyl 50 MCG/ML VIAL IV ONE (17:00)
--- NOTE | 2017-01-02 17:32 | EN ---
Date/Time of Note Date/Time of Note DATE: 01/02/17 TIME: 17:30 ER Progress Note I was consulted by the ICU to place a central line. In short this is a 56-year-old male who is now on pressors for hypotension, likely septic shock, history of cirrhosis. General: Obtunded, intubated, sedated Head: Normocephalic, atraumatic. Eyes: Reactive ENT: Intubated Neck: Supple, no lymphadenopathy Respiratory: Mechanical breath sounds Cardiovascular: Tachycardia, no murmurs, rubs, or gallops Abdominal: Protuberant : Deferred MSK: Limited movement of all 4 extremities, no bony abnormalities Neurologic: Limited exam, and encephalopathic, limited movement of all 4 extremities Skin: No rash, no significant breakdown Psych: Unable to assess Procedure: Central Line Note: Consent: I had a discussion with the patient and family regarding the procedure and discussed risks, benefits, alternatives. They have given verbal informed consent and a document was signed and placed in the chart. Indication: Critically ill patient requiring specialized vascular access for fluid or pressor management Location: Right IJ Procedure: Sterile procedure was observed throughout insertion of the central line. The insertion site was prepped with sterile solution. Ultrasound-guided identification of the vein was performed. Insertion of a needle into the vein was obtained with return of dark, nonpulsatile blood. The wire was then threaded through the needle without complication. The wire was then identified within the vein using ultrasound. A small skin incision was made, the needle was removed intact, dilation of the vein was performed and insertion of a triple lumen catheter was completed. The catheter was then sutured to the skin. All 3 ports raffy back and flushed without difficulty. A sterile dressing was applied. The patient tolerated the procedure well there were no complications. Emergency Bedside Ultrasound: The patient was verbally consented prior to procedure and understands the risks , benefits, and alternatives. The patient is agreeable to procedure and has given verbal consent. Indication: Central line Probe Type: Linear Findings: Dynamic ultrasound utilizing compressive technique with both linear and horizontal views, additional images showing wire within the venous system were obtained. A post-line chest x-ray was ordered as indicated. I recommended changing sedation from propofol to fentanyl and Versed. I ordered fentanyl and Versed boluses because the patient was agitated upon arrival and needed sedation for the procedure. He was given 100 of fentanyl, 2 of her side. He was given a bolus of propofol 40 mg. Further management by primary team. Diagnostic impression: PASTOR Pena MD Jan 02, 2017 17:32
[2017-01-02] MEDS: FENTAnyl (DRIP) 1000 mcg/100mL 100 ML IV SCH (17:33)
[2017-01-02] MEDS: MIDAZOLAM (DRIP) 50 mg/50 mL 50 ML IV SCH ×2 (17:33→20:03)
--- NOTE | 2017-01-02 17:42 | RADRPT ---
PROCEDURE: XR Chest. CLINICAL INDICATION: central line placement TECHNIQUE: Single frontal chest x-ray. COMPARISON: 01:10 p.m. FINDINGS: There is a new right-sided jugular central venous catheter in place with tip in the superior vena ca va. There is no evidence of pneumothorax. Endotracheal tube and nasogastric tube are in place unch anged. . Right basilar atelectasis is unchanged. Remainder of the lungs are clear.. Cardiomediast inal silhouette is stable.. The osseous structures are intact. IMPRESSION: New right-sided jugular central venous catheter with tip in superior vena cava and no evidence of pn eumothorax. Other tubes and lines are unchanged. Right basilar atelectasis unchanged.. RPTAT: QQ .Ruy Saenz MD, Date Time Electronically viewed and signed by .Ruy Saenz MD, on 01/02/2017 17:42 .L/
--- NOTE | 2017-01-02 18:59 | HP ---
DATE OF ADMISSION: 01/02/2017 CHIEF COMPLAINT: Altered mental status. HISTORY OF PRESENT ILLNESS: This 56-year-old male with long history of alcohol abuse and hepatitis C , brought in by with complaint of altered mental status for the last 2 to 3 days prior to admis karan. His noted a gradual decline in his condition. She denies the patient having fevers, chill s, nausea or vomiting. Initial evaluation revealed severe altered mentation and respiratory distress . Labs showed ammonia level of 307. The patient was also in acute renal failure with BUN of 127, cre atinine of 8.9 and potassium of 7.6. Serum bicarb was as low as 9. PAST MEDICAL HISTORY: 1. Hypertension. 2. End-stage alcoholic liver disease with cirrhosis. 3. Hepatitis C. 4. Gastroesophageal reflux disease. PAST SURGICAL HISTORY: Status post cholecystectomy. SOCIAL HISTORY: The patient has a long history of alcohol abuse, but according to his , he has n ot been smoking or drinking recently. PHYSICAL EXAMINATION: GENERAL: Well-developed, well-nourished male who is very lethargic and nonverbal. VITAL SIGNS: Blood pressure is 95/65, heart rate is 108, respirations 18. HEENT: The patient is intubated. Pupils are equal and reactive to light bilaterally. Oropharynx is c lear. NECK: Supple. LUNGS: Diffuse rhonchi and rales. CARDIAC: Regular rate and rhythm. No murmurs or gallops. ABDOMEN: Soft, somewhat distended. Bowel sounds present. EXTREMITIES: 1+ pitting edema. LABORATORY: Sodium 146, potassium 7.6, chloride 119, BUN 127, creatinine 8.9, bicarbonate is 9, tota l bilirubin 2, ammonia level 309. INR is 1.38. White blood cell count 7.6, hemoglobin 12.1, platelet count 147,000. Chest x-ray and CAT scan of the brain are unremarkable. ASSESSMENT: 1. A 56-year-old male, presenting with hepatic encephalopathy and markedly elevated ammonia. 2. Acute respiratory failure. 3. Acute kidney injury, most likely secondary to dehydration. 4. Profound hyperkalemia. 5. Metabolic acidosis. 6. End-stage alcoholic liver disease. 7. Hepatitis C. 8. Hypernatremia. PLAN: 1. Admit to ICU. 2. Lactulose per NG tube at 45 g 3 times daily. 3. Continue IV propofol. 4. Urgent hemodialysis. Dialysis catheter was placed in the emergency room. 5. Nephrology and pulmonary consultation were requested. Dictated By: REGINA JENNINGS/OZZY Conf#: [id number] DID#: [id number]
[2017-01-02] MEDS: PHENYLephrine 40 MG in DEXTROSE 5% 496 ML IV SCH ×2 (19:18→21:00)
--- NOTE | 2017-01-02 19:33 | RADRPT ---
PROCEDURE: Renal US. CLINICAL INDICATION: acute renal failure, hyperkalemia TECHNIQUE: Multiple sonographic images of the kidneys were obtained. The images were reviewed on a PACS workstation. COMPARISON: November 05, 2016 FINDINGS: The kidneys are well visualized. The right kidney measures 11.7 cm. The left kidney measures 12.3 cm . Kidneys are increased in echogenicity bilaterally suggesting medical renal disease. There is no e vidence for obstructive uropathy. IMPRESSION: Increased echogenicity of the bilateral kidneys suggesting medical renal disease. No hydronephrosis nor gross renal mass. Physician Sunshine Date Time Electronically viewed and signed by Physician Sunshine on 01/02/2017 19:32 ML/
[2017-01-02] MEDS: VASOPRESSIN 60 UNIT in DEXTROSE 5% 57 ML IV SCH (20:00)
[2017-01-02 20:13] LABS: AADO2 Arterial 137.2 mmHg (7.0-24.0); Allen Test ACCEPTAB; Arterial Base Excess -5.2 mmol/L (-3.0-3); Arterial COHb 0.2 % (0.0-3.0); Arterial Fraction of Oxyhgb 98.2 % (93.0-99.0); Arterial HCO3 18.1 mmol/L (22.0-26.0); Arterial MetHb 0.4 % (0.0-1.5); Arterial Total Hemglobin 12.4 g/dl (12.0-18.0); MODE VENT - AC
[2017-01-02] MEDS: LACTULOSE 30ML CUP PO SCH (22:17)
[2017-01-03] VITALS (105 sets, daily range): BP systolic 55–135; BP diastolic 28–91; PULSE 53–79; RESP 10–22
[2017-01-03] MEDS: PHENYLephrine 40 MG in DEXTROSE 5% 496 ML IV SCH ×10 (00:40→23:41)
[2017-01-03] MEDS: SODIUM BICARBONATE (IV ADD) 100 MEQ in DEXTROSE 5% 1,000 ML IV SCH ×8 (01:00→23:38)
[2017-01-03] MEDS: FENTAnyl (DRIP) 1000 mcg/100mL 100 ML IV SCH ×2 (02:07→11:17)
[2017-01-03] MEDS: MIDAZOLAM (DRIP) 50 mg/50 mL 50 ML IV SCH ×3 (02:07→18:32)
[2017-01-03] MEDS: PROPOFOL 100 ML IV SCH ×2 (04:00→15:24)
[2017-01-03] MEDS: PANTOPRAZOLE 40 MG INJ IV SCH (06:31)
[2017-01-03] MEDS: LACTULOSE 30ML CUP PO SCH ×2 (06:31→17:03)
[2017-01-03 06:45] LABS: URIC ACID 8.2 mg/dl (3.1-7.9)
[2017-01-03 07:02] LABS: ADD SCAN DIFF NO
[2017-01-03 07:07] LABS: BASOPHILS % 0.3 % (0.0-2.0); EOSINOPHILS # 0.2 10^3/ul (0.0-0.5); EOSINOPHILS % 1.8 % (0.0-7.0); HEMATOCRIT 29.5 % (42.0-52.0); HEMOGLOBIN 10.8 g/dl (14.0-18.0); LYMPHOCYTES # 2.9 10^3/ul (0.8-2.9); LYMPHOCYTES % 25.8 % (15.0-51.0); MEAN CORPUSCULAR HEMOGLOBIN 31.7 pg (29.0-33.0); MEAN CORPUSCULAR HGB CONC 36.6 g/dl (32.0-37.0); MEAN CORPUSCULAR VOLUME 86.5 fl (82.0-101.0); MONOCYTE # 1.2 10^3/ul (0.3-0.9); MONOCYTES % 10.7 % (0.0-11.0); NEUTROPHIL # 6.9 10^3/ul (1.6-7.5); PLATELET COUNT 103 10^3/UL (140-415); RED BLOOD COUNT 3.41 10^6/ul (4.70-6.10); RED CELL DISTRIBUTION WIDTH 13.1 % (11.5-14.5); WHITE BLOOD COUNT 11.2 10^3/ul (4.8-10.8)
[2017-01-03 07:34] LABS: CALCIUM 9.6 mg/dl (8.4-10.2); CREATININE 5.47 mg/dl (0.61-1.24)
--- NOTE | 2017-01-03 07:58 | RADRPT ---
PROCEDURE: XR Chest. CLINICAL INDICATION: aloc TECHNIQUE: Single frontal view of the chest was obtained. COMPARISON: Chest x-ray from 01/02/2017 FINDINGS: The endotracheal tube and enteric tube are unchanged in position. A right internal jugular central venous introducer sheath is again noted. There is stable cardiomegaly mild to moderate pulmonary vascular congestion. There is increased prominence of a discoid opacity at the right lung base due to subsegmental atelec tasis and / or infiltrate. There is no significant pleural effusion or pneumothorax. IMPRESSION: Increased prominence of a discoid opacity at the right lung base due to subsegmental atelectasis and / or infiltrate. Stable cardiomegaly and mild to moderate pulmonary vascular congestion. Lines and support tubes are unchanged. RPTAT: EE Physician Aguilar Date Time Electronically viewed and signed by Physician Aguilar on 01/03/2017 07:58 /
[2017-01-03 07:59] LABS: Allen Test ACCEPTAB; Arterial Base Excess -3.7 mmol/L (-3.0-3); Arterial COHb 0.1 % (0.0-3.0); Arterial Fraction of Oxyhgb 97.7 % (93.0-99.0); Arterial MetHb 0.4 % (0.0-1.5); Arterial Total Hemglobin 11.8 g/dl (12.0-18.0); MODE VENT - AC
[2017-01-03] MEDS: VASOPRESSIN 60 UNIT in DEXTROSE 5% 57 ML IV SCH ×2 (08:00→20:00)
--- NOTE | 2017-01-03 08:44 | CONS ---
Date/Time of Note Date/Time of Note DATE: 01/03/17 TIME: 08:37 Assessment/Plan Assessment/Plan Additional Assessment/Plan 1. Acute hyperkalemia with a potassium of 7.6 on admission, started on Emergent HD 2. Severe metabolic acidosis, bicarbonate 9, pH 7.19 on ABG on admission, on bicarbonate drip 3. Acute kidney injury with a BUN of 127, creatinine of 8.9 on admission, likely secondary to acute tubular necrosis. 4. Acute respiratory failure secondary to possibly acute fluid overload and possibly pneumonia.intubated on ventilator 5. History of liver cirrhosis from hepatitis C. 6. Hypernatremia. Sodium 146 on admission 7. No evidence of any coagulopathy and patient's albumin has been normal at 4.71. He does have a history of liver cirrhosis from hepatitis C. 8. Anemia of chronic disease. PLAN: pt was emegently started on HD yesterday due to hyperkalemia, severe metabolic acidosis and resp failure Today K normal, HCO3 improving, made good urine output on Bicarbonater drip with 2 ampoules of HCO3- PH on ABG better Ventilator care as per pulmonary On two pressors, BP labile, will hold off on HD and plan for HD tomorrow Renal US negative for hydronephrosis, echogenicity c/w CKD will continue to follow up Consultation Date/Type/Reason Admit Date/Time Jan 02, 2017 at 12:58 Initial Consult Date Dec Type of Consultation: NEPHROLOGY Reason for Consultation acute hyperkalemia, Acute renal failure, Liver cirrhosis, severe metabolic acidosis Referring Provider: REGINA GARCIA MD 24 HR Interval Summary Free Text/Dictation pt was emergently dialyzed yesterday, today K normal, HCO3 improving, made good urine output, BP labile on two pressors Exam/Review of Systems Vital Signs Vitals Vital Signs Date Time Temp Pulse Resp B/P Pulse Ox O2 Delivery O2 Flow Rate FiO2 01/03/17 08:15 56 13 78/43 100 01/03/17 08:00 97.7 Mechanical Ventilator 01/03/17 07:03 40 01/02/17 11:59 2.0 Intake and Output 01/02/17 01/02/17 01/03/17 15:00 23:00 07:00 Intake Total 3704.75 ml 2643 ml Output Total 1585 ml 500 ml Balance 2119.75 ml 2143 ml Exam GENERAL: intubated on ventilator,sedated HEENT: Pupils equal, round, reactive to light and accommodation. ET tube in place. NECK: Supple, + JVD. + right IJ Mark LUNGS: Bilateral coarse breath sounds with minimal expiratory wheezing present. HEART: S1, S2, with regular rhythm, no murmur. ABDOMEN: Soft, mildly distended. Non tender EXTREMITIES: 1 to 2+ pitting edema, no clubbing, no cyanosis. NEUROLOGICAL: The patient is currently sedated, intubated on sedation not able to do any full neurological examination. Results Result Diagram: 01/03/17 0455 01/03/17 0455 Results 24 hrs Laboratory Tests Test 01/02/17 10:45 01/02/17 10:46 01/02/17 13:35 01/02/17 20:00 Blood Gas Specimen Source Blood arterial Blood arterial Arterial Blood Date Drawn 01/02/2017 1:16:09 PM 01/02/2017 8:00:28 PM Arterial Blood pH (Temp corrected) 7.194 *L 7.415 Arterial Blood pCO2 (Temp correct) 26.0 L 28.9 L Arterial Blood pO2 (Temp corrected) 438.7 H 258.8 H Arterial Blood HCO3 9.8 *L 18.1 L Arterial Blood Base Excess -16.7 L -5.2 L Arterial Blood Oxygen Saturation 99.1 H 98.8 H Jose Enrique Test ACCEPTAB ACCEPTAB Arterial Blood Gas Puncture Site Left Radial Left Radial Arterial Blood Carboxyhemoglobin 0.2 0.2 Arterial Blood Methemoglobin 0.6 0.4 Blood Gas A-a O2 Differential 248.3 H 137.2 H Oxyhemoglobin Percent 98.3 98.2 Total Hemoglobin 12.9 12.4 Blood Gas Temperature 37.0 37.0 Blood Gas Respiration Rate 14.0 14.0 Blood Gas Modality VENT - AC VENT - AC FiO2 100.0 60.0 Blood Gas Tidal Volume 600.0 600.0 Blood Gas Low PEEP Setting 5.0 5.0 Blood Gas Critical Value Read Back MD MAISHA Blood Gas Notified Whom IZAIAH RODRIGUEZ Blood Gas Notified Time 01/02/2017 1:26:06 PM 01/02/2017 8:13:06 PM White Blood Count 7.6 # Red Blood Count 3.71 L Hemoglobin 12.1 L Hematocrit 34.0 L Mean Corpuscular Volume 91.6 Mean Corpuscular Hemoglobin 32.6 Mean Corpuscular Hemoglobin Concent 35.6 Red Cell Distribution Width 13.2 Platelet Count 147 Mean Platelet Volume 13.3 H Neutrophils % 65.3 Lymphocytes % 22.3 Monocytes % 10.0 Eosinophils % 1.6 Basophils % 0.4 Nucleated Red Blood Cells % 0.0 Neutrophils # 5.0 Lymphocytes # 1.7 Monocytes # 0.8 Eosinophils # 0.1 Basophils # 0.0 Nucleated Red Blood Cells # 0.0 Prothrombin Time 17.0 H Prothrombin Time Ratio 1.3 INR International Normalized Ratio 1.38 Sodium Level 146 H Potassium Level 7.6 *H Chloride Level 119 H Carbon Dioxide Level 9 *L Anion Gap 26 H Blood Urea Nitrogen 127 H Creatinine 8.95 H Glucose Level 93 Calcium Level 11.1 H Total Bilirubin 2.0 H Direct Bilirubin 0.00 Indirect Bilirubin 2.0 H Aspartate Amino Transf (AST/SGOT) 79 H Alanine Aminotransferase (ALT/SGPT) 57 Alkaline Phosphatase 107 Ammonia 309 #H Troponin I 0.037 Total Protein 8.2 H Albumin 4.7 Globulin 3.50 H Albumin/Globulin Ratio 1.34 Lipase 284 Urine Color YELLOW Urine Clarity CLEAR Urine pH 5.5 Urine Specific [place] 1.025 Urine Ketones NEGATIVE Urine Nitrite NEGATIVE Urine Bilirubin NEGATIVE Urine Urobilinogen 0.2 E.U./dL Urine Leukocyte Esterase NEGATIVE Urine Eosinophils % 0.0 Urine Hemoglobin NEGATIVE Urine Random Creatinine 336.23 Urine Random Sodium < 13 L Urine Protein/Creatinine Ratio 0.03 Urine Glucose NEGATIVE Urine Total Protein 12.0 H Blood Gas Actual Respiration Rate 16 Test 01/03/17 04:55 01/03/17 07:00 White Blood Count 11.2 #H Red Blood Count 3.41 L Hemoglobin 10.8 L Hematocrit 29.5 L Mean Corpuscular Volume 86.5 Mean Corpuscular Hemoglobin 31.7 Mean Corpuscular Hemoglobin Concent 36.6 Red Cell Distribution Width 13.1 Platelet Count 103 #L Mean Platelet Volume 13.0 H Neutrophils % 61.0 Lymphocytes % 25.8 Monocytes % 10.7 Eosinophils % 1.8 Basophils % 0.3 Nucleated Red Blood Cells % 0.0 Neutrophils # 6.9 Lymphocytes # 2.9 Monocytes # 1.2 H Eosinophils # 0.2 Basophils # 0.0 Nucleated Red Blood Cells # 0.0 Sodium Level 138 Potassium Level 4.0 # Chloride Level 105 # Carbon Dioxide Level 20 #L Anion Gap 17 #H Blood Urea Nitrogen 85 #H Creatinine 5.47 #H Glucose Level 203 # Uric Acid 8.2 H Calcium Level 9.6 Creatine Kinase 146 Blood Gas Specimen Source Blood arterial Arterial Blood Date Drawn 01/03/2017 7:10:53 AM Arterial Blood pH (Temp corrected) 7.457 H Arterial Blood pCO2 (Temp correct) 27.5 L Arterial Blood pO2 (Temp corrected) 156.6 H Arterial Blood HCO3 19.0 L Arterial Blood Base Excess -3.7 L Arterial Blood Oxygen Saturation 98.2 H Jose Enrique Test ACCEPTAB Arterial Blood Gas Puncture Site Right Radial Arterial Blood Carboxyhemoglobin 0.1 Arterial Blood Methemoglobin 0.4 Blood Gas A-a O2 Differential 97.0 H Oxyhemoglobin Percent 97.7 Total Hemoglobin 11.8 L Blood Gas Temperature 37.0 Blood Gas Respiration Rate 14.0 Blood Gas Actual Respiration Rate 17 Blood Gas Modality VENT - AC FiO2 40.0 Blood Gas Tidal Volume 600.0 Blood Gas Low PEEP Setting 5.0 Blood Gas Notified Whom JLD Blood Gas Notified Time 01/03/2017 7:58:58 AM Medications Medications Current Medications Norepinephrine 16 mg/Dextrose 500 ml @ 1.87 mls/hr TITRATE IV Last administered on 01/03/17 06:43; Admin Dose 42.18 MLS/HR; Start 01/02/17 at 20:00 Propofol (Diprivan) 100 ml @ 3.409 mls/ hr Q12H IV ; Start 01/02/17 at 16:00 Lactulose (Enulose) 45 gm Q8 PO Last administered on 01/03/17 06:31; Admin Dose 45 GM; Start 01/02/17 at 22:00 Pantoprazole 40 mg 40 mg DAILY@06 IV Last administered on 01/03/17 06:31; Admin Dose 40 MG; Start 01/03/17 at 06:00 Phenylephrine HCl 250 ml @ 75 mls/hr TITRATE IV Last administered on 01/02/17 18:30; Admin Dose 225 MLS/HR; Start 01/02/17 at 16:30; Stop 01/03/17 at 16:29 Phenylephrine HCl 40 mg/Dextrose 500 ml @ 0 mls/hr TITRATE IV Last administered on 01/03/17 06:35; Admin Dose 183.75 MLS/HR; Start 01/02/17 at 17:00 Midazolam HCl 50 ml @ 1 mls/hr TITRATE IV Last administered on 01/03/17 06:41; Admin Dose 7 MLS/HR; Start 01/02/17 at 17:30 Fentanyl 100 ml @ 2.5 mls/hr TITRATE IV Last administered on 01/03/17 02:07; Admin Dose 10 MLS/HR; Start 01/02/17 at 17:30 Vasopressin 60 unit/Dextrose 60 ml @ 0 mls/hr Q12H IV ; Start 01/02/17 at 20:00 Sodium Bicarbonate/ Dextrose (Na Bicarb/D5W) 1,100 ml @ 100 mls/hr Q11H IV ; Start 01/03/17 at 01:00 MARII DALY MD Jan 03, 2017 08:44
--- NOTE | 2017-01-03 10:23 | PN ---
Date/Time of Note Date/Time of Note DATE: 01/03/17 TIME: 10:00 Assessment/Plan VTE Prophylaxis VTE Prophylaxis Intervention: SCD's Lines/Catheters IV Catheter Type (from Nrsg): Central Line Central line still needed: Yes (for IV access and HD ) Urinary Cath still in place: Yes Reason Cath still needed: other (indicate) (ARF ) Assessment/Plan Assessment/Plan 56-year-old male: 1. Hepatic encephalopathy and markedly elevated ammonia level on admission. Known Cirrhosis/ESLD, HepC On lactulose and will add rifaximin Repeat Ammonia pending Currently on Vent 2. Acute respiratory failure with Severe Encephalopathy and Acute renal failure and also Shock state Intubated in ED and on Vent on sedation and 2 pressors Pulmonary following S/p Emergent HD last night . 3. Acute Renal Failure, likely pre renal secondary to dehydration VS ATN with Severe Hyperkalemia Dr Brown following from Nephrology S/p emergent HD UOP OK overnight and hyperkalemia corrected Monitor renal function 4. Severe hyperkalemia. s/p Emergent HD 5. Metabolic acidosis in setting on of ARF, s/p HD overnight and patient currently on Bicarb gtt Following renal function Nephrology following 6. End-stage alcoholic liver disease, with also known Hep C, cirrhosis Resume Rifaximin along with Lactulose Check coags 7. Hypernatremia with ARF and hypovolemia; resolved this AM on Bicarb gtt and also correcting with HD Prophylaxis; on PPI for GI ppx and SCDs for DVT ppx Disposition: Critical condition, fair prognosis for now, follow up Nephro and Pulmonary recs Subjective 24 Hr Interval Summary Free Text/Dictation Patient sedated and intubated, on 2 pressors S/p HD for hyperK and severe Acidosis on admission Repeat Ammonia pending, Nephro and pulmonary following Exam/Review of Systems Vital Signs Vitals Vital Signs Date Time Temp Pulse Resp B/P Pulse Ox O2 Delivery O2 Flow Rate FiO2 01/03/17 09:00 54 12 96/42 100 Mechanical Ventilator 01/03/17 09:00 40 01/03/17 08:00 97.7 01/02/17 11:59 2.0 Intake and Output 01/02/17 01/02/17 01/03/17 15:00 23:00 07:00 Intake Total 3704.75 ml 2643 ml Output Total 1585 ml 500 ml Balance 2119.75 ml 2143 ml Exam Constitutional: other (sedated and intubated ) Respiratory: diminished breath sounds (bases ), other (on Vent ) Cardiovascular: nl pulses, regular rate and rhythm Gastrointestinal: non-tender, soft Extremities: normal pulses, other (no edema, clubbing or cyanosis ) Neurological: other (sedated and intubated ) Results Result Diagram: 01/03/17 0455 01/03/17 0455 Results 24 hrs Laboratory Tests Test 01/02/17 10:45 01/02/17 10:46 01/02/17 13:35 01/02/17 20:00 Blood Gas Specimen Source Blood arterial Blood arterial Arterial Blood Date Drawn 01/02/2017 1:16:09 PM 01/02/2017 8:00:28 PM Arterial Blood pH (Temp corrected) 7.194 *L 7.415 Arterial Blood pCO2 (Temp correct) 26.0 L 28.9 L Arterial Blood pO2 (Temp corrected) 438.7 H 258.8 H Arterial Blood HCO3 9.8 *L 18.1 L Arterial Blood Base Excess -16.7 L -5.2 L Arterial Blood Oxygen Saturation 99.1 H 98.8 H Jose Enrique Test ACCEPTAB ACCEPTAB Arterial Blood Gas Puncture Site Left Radial Left Radial Arterial Blood Carboxyhemoglobin 0.2 0.2 Arterial Blood Methemoglobin 0.6 0.4 Blood Gas A-a O2 Differential 248.3 H 137.2 H Oxyhemoglobin Percent 98.3 98.2 Total Hemoglobin 12.9 12.4 Blood Gas Temperature 37.0 37.0 Blood Gas Respiration Rate 14.0 14.0 Blood Gas Modality VENT - AC VENT - AC FiO2 100.0 60.0 Blood Gas Tidal Volume 600.0 600.0 Blood Gas Low PEEP Setting 5.0 5.0 Blood Gas Critical Value Read Back MD MAISHA Blood Gas Notified Whom IZAIAH RODRIGUEZ Blood Gas Notified Time 01/02/2017 1:26:06 PM 01/02/2017 8:13:06 PM White Blood Count 7.6 # Red Blood Count 3.71 L Hemoglobin 12.1 L Hematocrit 34.0 L Mean Corpuscular Volume 91.6 Mean Corpuscular Hemoglobin 32.6 Mean Corpuscular Hemoglobin Concent 35.6 Red Cell Distribution Width 13.2 Platelet Count 147 Mean Platelet Volume 13.3 H Neutrophils % 65.3 Lymphocytes % 22.3 Monocytes % 10.0 Eosinophils % 1.6 Basophils % 0.4 Nucleated Red Blood Cells % 0.0 Neutrophils # 5.0 Lymphocytes # 1.7 Monocytes # 0.8 Eosinophils # 0.1 Basophils # 0.0 Nucleated Red Blood Cells # 0.0 Prothrombin Time 17.0 H Prothrombin Time Ratio 1.3 INR International Normalized Ratio 1.38 Sodium Level 146 H Potassium Level 7.6 *H Chloride Level 119 H Carbon Dioxide Level 9 *L Anion Gap 26 H Blood Urea Nitrogen 127 H Creatinine 8.95 H Glucose Level 93 Calcium Level 11.1 H Total Bilirubin 2.0 H Direct Bilirubin 0.00 Indirect Bilirubin 2.0 H Aspartate Amino Transf (AST/SGOT) 79 H Alanine Aminotransferase (ALT/SGPT) 57 Alkaline Phosphatase 107 Ammonia 309 #H Troponin I 0.037 Total Protein 8.2 H Albumin 4.7 Globulin 3.50 H Albumin/Globulin Ratio 1.34 Lipase 284 Urine Color YELLOW Urine Clarity CLEAR Urine pH 5.5 Urine Specific [place] 1.025 Urine Ketones NEGATIVE Urine Nitrite NEGATIVE Urine Bilirubin NEGATIVE Urine Urobilinogen 0.2 E.U./dL Urine Leukocyte Esterase NEGATIVE Urine Eosinophils % 0.0 Urine Hemoglobin NEGATIVE Urine Random Creatinine 336.23 Urine Random Sodium < 13 L Urine Protein/Creatinine Ratio 0.03 Urine Glucose NEGATIVE Urine Total Protein 12.0 H Blood Gas Actual Respiration Rate 16 Test 01/03/17 04:55 01/03/17 07:00 01/03/17 09:18 White Blood Count 11.2 #H Red Blood Count 3.41 L Hemoglobin 10.8 L Hematocrit 29.5 L Mean Corpuscular Volume 86.5 Mean Corpuscular Hemoglobin 31.7 Mean Corpuscular Hemoglobin Concent 36.6 Red Cell Distribution Width 13.1 Platelet Count 103 #L Mean Platelet Volume 13.0 H Neutrophils % 61.0 Lymphocytes % 25.8 Monocytes % 10.7 Eosinophils % 1.8 Basophils % 0.3 Nucleated Red Blood Cells % 0.0 Neutrophils # 6.9 Lymphocytes # 2.9 Monocytes # 1.2 H Eosinophils # 0.2 Basophils # 0.0 Nucleated Red Blood Cells # 0.0 Sodium Level 138 Potassium Level 4.0 # Chloride Level 105 # Carbon Dioxide Level 20 #L Anion Gap 17 #H Blood Urea Nitrogen 85 #H Creatinine 5.47 #H Glucose Level 203 # Uric Acid 8.2 H Calcium Level 9.6 Creatine Kinase 146 Blood Gas Specimen Source Blood arterial Arterial Blood Date Drawn 01/03/2017 7:10:53 AM Arterial Blood pH (Temp corrected) 7.457 H Arterial Blood pCO2 (Temp correct) 27.5 L Arterial Blood pO2 (Temp corrected) 156.6 H Arterial Blood HCO3 19.0 L Arterial Blood Base Excess -3.7 L Arterial Blood Oxygen Saturation 98.2 H Jose Enrique Test ACCEPTAB Arterial Blood Gas Puncture Site Right Radial Arterial Blood Carboxyhemoglobin 0.1 Arterial Blood Methemoglobin 0.4 Blood Gas A-a O2 Differential 97.0 H Oxyhemoglobin Percent 97.7 Total Hemoglobin 11.8 L Blood Gas Temperature 37.0 Blood Gas Respiration Rate 14.0 Blood Gas Actual Respiration Rate 17 Blood Gas Modality VENT - AC FiO2 40.0 Blood Gas Tidal Volume 600.0 Blood Gas Low PEEP Setting 5.0 Blood Gas Notified Whom JLD Blood Gas Notified Time 01/03/2017 7:58:58 AM Bedside Glucose 95 Medications Medications Current Medications Norepinephrine 16 mg/Dextrose 500 ml @ 1.87 mls/hr TITRATE IV Last administered on 01/03/17 06:43; Admin Dose 42.18 MLS/HR; Start 01/02/17 at 20:00 Propofol (Diprivan) 100 ml @ 3.409 mls/ hr Q12H IV ; Start 01/02/17 at 16:00 Lactulose (Enulose) 45 gm Q8 PO Last administered on 01/03/17 06:31; Admin Dose 45 GM; Start 01/02/17 at 22:00 Pantoprazole 40 mg 40 mg DAILY@06 IV Last administered on 01/03/17 06:31; Admin Dose 40 MG; Start 01/03/17 at 06:00 Phenylephrine HCl 250 ml @ 75 mls/hr TITRATE IV Last administered on 01/02/17 18:30; Admin Dose 225 MLS/HR; Start 01/02/17 at 16:30; Stop 01/03/17 at 16:29 Phenylephrine HCl 40 mg/Dextrose 500 ml @ 0 mls/hr TITRATE IV Last administered on 01/03/17 09:11; Admin Dose 195 MLS/HR; Start 01/02/17 at 17:00 Midazolam HCl 50 ml @ 1 mls/hr TITRATE IV Last administered on 01/03/17 06:41; Admin Dose 7 MLS/HR; Start 01/02/17 at 17:30 Fentanyl 100 ml @ 2.5 mls/hr TITRATE IV Last administered on 01/03/17 02:07; Admin Dose 10 MLS/HR; Start 01/02/17 at 17:30 Vasopressin 60 unit/Dextrose 60 ml @ 0 mls/hr Q12H IV ; Start 01/02/17 at 20:00 Sodium Bicarbonate/ Dextrose (Na Bicarb/D5W) 1,100 ml @ 100 mls/hr Q11H IV ; Start 01/03/17 at 01:00 SRIKANTH GALVAN Jan 03, 2017 10:13
[2017-01-03 11:43] LABS: CREATININE 5.65 mg/dl (0.61-1.24); POTASSIUM 3.9 mmol/L (3.5-5.1)
--- NOTE | 2017-01-03 12:22 | CONS ---
DATE OF ADMISSION: 01/02/2017 DATE OF CONSULTATION: CONSULTATION: Pulmonary. REASON FOR CONSULTATION: Ventilator management. Thank you, Dr. Flower for this consultation. HISTORY OF PRESENT ILLNESS: This is a 56-year-old gentleman with multiple medical problems includin g essential hypertension, hepatitis C, advanced liver disease secondary to cirrhosis, who came in ye with altered mental status, found to have acute renal failure with hyperkalemia and signific ant metabolic acidosis. The patient was intubated, placed on mechanical ventilation and received em ergent hemodialysis with correction of metabolic acidosis and hyperkalemia. This morning he remains intubated on mechanical ventilation pending further hemodialysis. PAST MEDICAL HISTORY: Hep C, ETOH, hypertension, hyperlipidemia. MEDICATIONS: Per chart. ALLERGIES: NONE. SOCIAL HISTORY: Nonsmoker, alcohol positive history. SYSTEMS REVIEW: A 12-point review of systems currently unable to perform. PHYSICAL EXAMINATION: GENERAL: Chronically ill appearing gentleman, appears comfortable at rest, no acute distress. VITAL SIGNS: Currently afebrile, pulse is 54, blood pressure 98/38, O2 saturation 96%, FIO2 of 40%, orally intubated. HEENT: Dry mucous membranes. Pupils equal, reactive to light. CARDIAC: S1, S2, no added sounds or murmurs. CHEST: Diminished air entry bilaterally with rales. ABDOMEN: Soft, nontender. No guarding or rebound. EXTREMITIES: No cyanosis, clubbing or edema. NEUROLOGIC: Generalized weakness. LABORATORY DATA: White count 11.2, hemoglobin 10.8, platelets of 103. BUN 85, creatinine 5.47. AB G: pH 7.54, pCO2 of 27, pO2 156, bicarbonate was 19. DIAGNOSTIC DATA: Chest x-ray was reviewed, shows discoid opacification right lung base consistent w ith atelectasis. IMPRESSION AND PLAN: 1. Acute renal failure with hyperkalemia and metabolic acidosis. 2. Possible hepatorenal syndrome. 3. Hypoxemic respiratory failure secondary to above. 4. Incomplete data. PLAN: 1. Continue mechanical ventilation. 2. Continue hemodialysis with correction of metabolic acidosis. 3. Continue vasopressors if needed. 4. Broad-spectrum antibiotics. 5. DVT and GI prophylaxis. Dictated By: EDILSON CALVO/OZZY Conf#: [id number] DID#: [id number]
[2017-01-03] MEDS ORDERED: GLUCOSE GEL 15 GRAM TUBE BUCCAL PRN (13:00)
[2017-01-03] MEDS ORDERED: GLUCAGON 1 MG INJ IM PRN (13:00)
[2017-01-03] MEDS ORDERED: DEXTROSE 50% 50 ML SYRINGE IV PRN ×2 (13:00)
[2017-01-03] MEDS ORDERED: GLUCOSE GEL 15 GRAM TUBE PO PRN ×2 (13:00)
[2017-01-03] MEDS: INSULIN ASPART [NOVOLOG] 3 ML PEN SC SCH ×3 (13:18→21:18)
[2017-01-03] MEDS ORDERED: LACTULOSE 30ML CUP NGT ONE (13:30)
[2017-01-03 14:24] LABS: ADD SCAN DIFF NO
[2017-01-03 14:27] LABS: ABNORMAL IP MESSAGE 1; BASOPHILS % 0.2 % (0.0-2.0); EOSINOPHILS # 0.3 10^3/ul (0.0-0.5); EOSINOPHILS % 3.2 % (0.0-7.0); HEMATOCRIT 28.3 % (42.0-52.0); HEMOGLOBIN 10.6 g/dl (14.0-18.0); LYMPHOCYTES # 2.5 10^3/ul (0.8-2.9); LYMPHOCYTES % 28.7 % (15.0-51.0); MEAN CORPUSCULAR HEMOGLOBIN 32.4 pg (29.0-33.0); MEAN CORPUSCULAR HGB CONC 37.5 g/dl (32.0-37.0); MEAN CORPUSCULAR VOLUME 86.5 fl (82.0-101.0); MONOCYTE # 1.4 10^3/ul (0.3-0.9); MONOCYTES % 16.1 % (0.0-11.0); NEUTROPHIL # 4.4 10^3/ul (1.6-7.5); NEUTROPHILS % 51.3 % (39.0-77.0); PLATELET COUNT 93 10^3/UL (140-415); RED BLOOD COUNT 3.27 10^6/ul (4.70-6.10); RED CELL DISTRIBUTION WIDTH 13.2 % (11.5-14.5); WHITE BLOOD COUNT 8.6 10^3/ul (4.8-10.8)
[2017-01-03] MEDS: RIFAXIMIN 550 MG TAB PO SCH ×2 (14:36→23:39)
[2017-01-03 14:48] LABS: ADD SCAN DIFF NO
[2017-01-03 15:49] LABS: ABNORMAL IP MESSAGE 1; HEMATOCRIT 27.9 % (42.0-52.0); HEMOGLOBIN 10.4 g/dl (14.0-18.0); MEAN CORPUSCULAR HEMOGLOBIN 32.3 pg (29.0-33.0); MEAN CORPUSCULAR HGB CONC 37.3 g/dl (32.0-37.0); MEAN CORPUSCULAR VOLUME 86.6 fl (82.0-101.0); MEAN PLATELET VOLUME 13.1 fl (7.4-10.4); PLATELET COUNT 91 10^3/UL (140-415); RED BLOOD COUNT 3.22 10^6/ul (4.70-6.10); WHITE BLOOD COUNT 8.4 10^3/ul (4.8-10.8)
[2017-01-03 18:38] LABS: INR 1.89; PROTIME 21.9 Sec (12.2-14.2); PT RATIO 1.7
[2017-01-03 19:51] LABS: EOSINOPHILS # 0.3 10^3/ul (0.0-0.5); LYMPHOCYTES # 3.2 10^3/ul (0.8-2.9); MONOCYTE # 0.8 10^3/ul (0.3-0.9)
[2017-01-03 19:52] LABS: PLATELET ESTIMATE PLT APPEAR DECREASED
[2017-01-04] VITALS (89 sets, daily range): BP systolic 73–117; BP diastolic 23–82; PULSE 70–108; RESP 9–23
[2017-01-04] MEDS: LACTULOSE 30ML CUP PO SCH ×4 (00:18→18:09)
[2017-01-04] MEDS: FENTAnyl (DRIP) 1000 mcg/100mL 100 ML IV SCH ×3 (00:18→22:13)
[2017-01-04] MEDS: INSULIN ASPART [NOVOLOG] 3 ML PEN SC SCH ×6 (00:58→21:32)
[2017-01-04] MEDS: PHENYLephrine 40 MG in DEXTROSE 5% 496 ML IV SCH ×8 (02:45→22:14)
[2017-01-04] MEDS: PROPOFOL 100 ML IV SCH ×2 (03:34→16:00)
[2017-01-04] MEDS: MIDAZOLAM (DRIP) 50 mg/50 mL 50 ML IV SCH ×3 (03:35→22:13)
[2017-01-04] MEDS: PANTOPRAZOLE 40 MG INJ IV SCH (05:47)
[2017-01-04 06:06] LABS: ADD SCAN DIFF NO
[2017-01-04 06:28] LABS: INR 1.66; PROTIME 19.7 Sec (12.2-14.2); PT RATIO 1.5
[2017-01-04 06:29] LABS: PARTIAL THROMBOPLASTIN TIME 34.1 Sec (25.0-35.0)
[2017-01-04 06:36] LABS: ALBUMIN 3.6 g/dl (3.3-4.9); ALBUMIN/GLOBULIN RATIO 1.63; BILIRUBIN,INDIRECT 3.4 mg/dl (0-1.1); BILIRUBIN,TOTAL 3.4 mg/dl (0.2-1.3); CALCIUM 9.1 mg/dl (8.4-10.2); CREATININE 4.27 mg/dl (0.61-1.24); POTASSIUM 3.4 mmol/L (3.5-5.1); TOTAL PROTEIN 5.8 g/dl (6.1-8.1)
[2017-01-04 06:52] LABS: PHOSPHORUS 4.2 mg/dl (2.5-4.9)
[2017-01-04 07:16] LABS: MAGNESIUM 0.8 mg/dl (1.7-2.5)
--- NOTE | 2017-01-04 07:20 | RADRPT ---
PROCEDURE: XR Chest. CLINICAL INDICATION: pain TECHNIQUE: Single portable view of the chest was obtained COMPARISON: Yesterday FINDINGS: There is mild cardiomegaly with decreased pulmonary vascular congestion.. The heart, lungs and media stinum are otherwise unchanged. There is an endotracheal tube, nasogastric tube and right-sided cent ral line in place.. RPTAT: AA IMPRESSION: Mild cardiomegaly with decreased pulmonary vascular congestion. No other significant change. .Rogelio Weiner MD, MD Date Time Electronically viewed and signed by .Rogelio Weiner MD, on 01/04/2017 07:20 .S/
[2017-01-04 07:36] LABS: ABNORMAL IP MESSAGE 1; BASOPHILS % 0.1 % (0.0-2.0); EOSINOPHILS # 0.3 10^3/ul (0.0-0.5); EOSINOPHILS % 3.9 % (0.0-7.0); HEMATOCRIT 26.5 % (42.0-52.0); LYMPHOCYTES # 1.9 10^3/ul (0.8-2.9); LYMPHOCYTES % 25.6 % (15.0-51.0); MEAN CORPUSCULAR HEMOGLOBIN 32.4 pg (29.0-33.0); MEAN CORPUSCULAR HGB CONC 37.7 g/dl (32.0-37.0); MEAN CORPUSCULAR VOLUME 85.8 fl (82.0-101.0); MEAN PLATELET VOLUME 13.2 fl (7.4-10.4); MONOCYTE # 1.2 10^3/ul (0.3-0.9); MONOCYTES % 16.9 % (0.0-11.0); NEUTROPHIL # 3.9 10^3/ul (1.6-7.5); NEUTROPHILS % 53.1 % (39.0-77.0); PLATELET COUNT 74 10^3/UL (140-415); RED BLOOD COUNT 3.09 10^6/ul (4.70-6.10); WHITE BLOOD COUNT 7.3 10^3/ul (4.8-10.8)
[2017-01-04 07:54] LABS: AADO2 Arterial 110.1 mmHg (7.0-24.0); Allen Test ACCEPTAB; Arterial Base Excess 0.5 mmol/L (-3.0-3); Arterial COHb 0.2 % (0.0-3.0); Arterial HCO3 23.2 mmol/L (22.0-26.0); Arterial MetHb 0.3 % (0.0-1.5); MODE VENT - AC
[2017-01-04] MEDS ORDERED: MAGNESIUM SULFATE 2 GM/50 ML 50 ML IVPB ONE ×2 (08:00→12:00)
[2017-01-04] MEDS: RIFAXIMIN 550 MG TAB PO SCH ×2 (08:41→21:28)
[2017-01-04] MEDS ORDERED: SOD CHLORIDE 0.9% 250 ML IV* ONE (09:12)
--- NOTE | 2017-01-04 09:37 | CONS ---
Date/Time of Note Date/Time of Note DATE: 01/04/17 TIME: 09:35 Consult Date/Type/Reason Admit Date/Time Jan 02, 2017 at 12:58 Initial Consult Date Type of Consultation: Pulmonary ICU Ordering Provider: REGINA GARCIA MD Subjective Patient continues mechanical ventilation. Has irregular breathing pattern which results in stacking of breaths. Attempted various ventilation modalities including volume control plus, SIMV, increasing flow rates. Objective Vital Signs Date Time Temp Pulse Resp B/P Pulse Ox O2 Delivery O2 Flow Rate FiO2 01/04/17 07:30 104 11 81/51 92 Mechanical Ventilator 01/04/17 07:15 98.7 01/04/17 05:06 30 01/02/17 11:59 2.0 Intake and Output 01/03/17 01/03/17 01/04/17 15:00 23:00 07:00 Intake Total 2938.87 ml 3135.00 ml 3336.25 ml Output Total 105 ml 468 ml 1200 ml Balance 2833.87 ml 2667.00 ml 2136.25 ml Exam PHYSICAL EXAMINATION: GENERAL: Chronically ill appearing gentleman, appears comfortable at rest, no acute distress. VITAL SIGNS: HEENT: Dry mucous membranes. Pupils equal, reactive to light. CARDIAC: S1, S2, no added sounds or murmurs. CHEST: Diminished air entry bilaterally with rales. ABDOMEN: Soft, nontender. No guarding or rebound. EXTREMITIES: No cyanosis, clubbing or edema. NEUROLOGIC: Generalized weakness. Results/Medications Result Diagram: 01/04/17 0500 01/04/17 0500 Results 24 hrs Laboratory Tests Test 01/03/17 10:55 01/03/17 11:22 01/03/17 13:00 01/03/17 13:16 Sodium Level 133 L Potassium Level 3.9 Chloride Level 100 Carbon Dioxide Level 22 Anion Gap 15 Blood Urea Nitrogen 85 H Creatinine 5.65 H Glucose Level 242 H Lactic Acid Level 2.4 H Calcium Level 9.0 Ammonia 304 H Bedside Glucose 207 243 H White Blood Count 8.6 # Red Blood Count 3.27 L Hemoglobin 10.6 L Hematocrit 28.3 L Mean Corpuscular Volume 86.5 Mean Corpuscular Hemoglobin 32.4 Mean Corpuscular Hemoglobin Concent 37.5 H Red Cell Distribution Width 13.2 Platelet Count 93 L Mean Platelet Volume 13.0 H Neutrophils % 51.3 Lymphocytes % 28.7 Monocytes % 16.1 H Eosinophils % 3.2 Basophils % 0.2 Nucleated Red Blood Cells % 0.0 Neutrophils # 4.4 Lymphocytes # 2.5 Monocytes # 1.4 H Eosinophils # 0.3 Basophils # 0.0 Nucleated Red Blood Cells # 0.0 Test 01/03/17 14:40 01/03/17 16:20 01/03/17 18:00 01/03/17 21:14 White Blood Count 8.4 Red Blood Count 3.22 L Hemoglobin 10.4 L Hematocrit 27.9 L Mean Corpuscular Volume 86.6 Mean Corpuscular Hemoglobin 32.3 Mean Corpuscular Hemoglobin Concent 37.3 H Red Cell Distribution Width 13.0 Platelet Count 91 L Mean Platelet Volume 13.1 H Neutrophils % 48.0 Band Neutrophils % 2.0 Lymphocytes % 38.0 Monocytes % 9.0 Eosinophils % 3.0 Neutrophils # 4.0 Lymphocytes # 3.2 H Monocytes # 0.8 Eosinophils # 0.3 Platelet Estimate PLT APPEAR DECREASED Bedside Glucose 203 181 Prothrombin Time 21.9 #H Prothrombin Time Ratio 1.7 INR International Normalized Ratio 1.89 Test 01/04/17 00:55 01/04/17 04:51 01/04/17 05:00 01/04/17 05:54 Bedside Glucose 168 160 Lab Scanned Report BLOOD TRANSFUSION White Blood Count 7.3 Red Blood Count 3.09 L Hemoglobin 10.0 L Hematocrit 26.5 L Mean Corpuscular Volume 85.8 Mean Corpuscular Hemoglobin 32.4 Mean Corpuscular Hemoglobin Concent 37.7 H Red Cell Distribution Width 13.0 Platelet Count 74 L Mean Platelet Volume 13.2 H Neutrophils % 53.1 Lymphocytes % 25.6 Monocytes % 16.9 H Eosinophils % 3.9 Basophils % 0.1 Nucleated Red Blood Cells % 0.0 Neutrophils # 3.9 Lymphocytes # 1.9 Monocytes # 1.2 H Eosinophils # 0.3 Basophils # 0.0 Nucleated Red Blood Cells # 0.0 Prothrombin Time 19.7 H Prothrombin Time Ratio 1.5 INR International Normalized Ratio 1.66 Activated Partial Thromboplast Time 34.1 Sodium Level 128 L Potassium Level 3.4 L Chloride Level 91 L Carbon Dioxide Level 24 Anion Gap 16 Blood Urea Nitrogen 74 H Creatinine 4.27 #H Glucose Level 158 Lactic Acid Level 3.5 H Calcium Level 9.1 Phosphorus Level 4.2 Magnesium Level 0.8 *L Total Bilirubin 3.4 H Direct Bilirubin 0.00 Indirect Bilirubin 3.4 H Aspartate Amino Transf (AST/SGOT) 71 H Alanine Aminotransferase (ALT/SGPT) 61 Alkaline Phosphatase 66 Ammonia 117 #H Total Protein 5.8 #L Albumin 3.6 # Globulin 2.20 Albumin/Globulin Ratio 1.63 Test 01/04/17 07:00 01/04/17 08:43 Blood Gas Specimen Source Blood arterial Arterial Blood Date Drawn 01/04/2017 7:20:33 AM Arterial Blood pH (Temp corrected) 7.492 H Arterial Blood pCO2 (Temp correct) 31.0 L Arterial Blood pO2 (Temp corrected) 67.4 L Arterial Blood HCO3 23.2 Arterial Blood Base Excess 0.5 Arterial Blood Oxygen Saturation 92.5 L Jose Enrique Test ACCEPTAB Arterial Blood Gas Puncture Site Right Radial Arterial Blood Carboxyhemoglobin 0.2 Arterial Blood Methemoglobin 0.3 Blood Gas A-a O2 Differential 110.1 H Oxyhemoglobin Percent 92.0 L Total Hemoglobin 11.0 L Blood Gas Temperature 37.0 Blood Gas Respiration Rate 14.0 Blood Gas Actual Respiration Rate 21 Blood Gas Modality VENT - AC FiO2 30.0 Blood Gas Tidal Volume 600.0 Blood Gas Low PEEP Setting 5.0 Blood Gas Notified Whom JLD Blood Gas Notified Time 01/04/2017 7:54:14 AM Bedside Glucose 174 Medications Current Medications Norepinephrine 16 mg/Dextrose 500 ml @ 1.87 mls/hr TITRATE IV Last administered on 01/04/17 02:14; Admin Dose 37.5 MLS/HR; Start 01/02/17 at 20:00 Propofol (Diprivan) 100 ml @ 3.409 mls/ hr Q12H IV ; Start 01/02/17 at 16:00 Pantoprazole 40 mg 40 mg DAILY@06 IV Last administered on 01/04/17 05:47; Admin Dose 40 MG; Start 01/03/17 at 06:00 Phenylephrine HCl 40 mg/Dextrose 500 ml @ 0 mls/hr TITRATE IV Last administered on 01/04/17 08:07; Admin Dose 225 MLS/HR; Start 01/02/17 at 17:00 Midazolam HCl 50 ml @ 1 mls/hr TITRATE IV Last administered on 01/04/17 03:35; Admin Dose 5 MLS/HR; Start 01/02/17 at 17:30 Fentanyl 100 ml @ 2.5 mls/hr TITRATE IV Last administered on 01/04/17 00:18; Admin Dose 7.5 MLS/HR; Start 01/02/17 at 17:30 Vasopressin 60 unit/Dextrose 60 ml @ 0 mls/hr Q12H IV ; Start 01/02/17 at 20:00 Sodium Bicarbonate/ Dextrose (Na Bicarb/D5W) 1,100 ml @ 100 mls/hr Q11H IV Last administered on 01/03/17 23:38; Admin Dose 100 MLS/HR; Start 01/03/17 at 01: 00 Lactulose (Enulose) 45 gm Q6 PO Last administered on 01/04/17 05:47; Admin Dose 45 GM; Start 01/03/17 at 18:00 Insulin Aspart (Novolog Insulin Pen) NOVOLOG *MODERATE* ALGORI... Q4 SC Last administered on 01/04/17 08:47; Admin Dose 2 UNIT; Start 01/03/17 at 13:00 Miscellaneous Information 1 ea NOTE XX ; Start 01/03/17 at 13:00 Glucose (Glutose) 15 gm Q15M PRN PO DECREASED GLUCOSE; Start 01/03/17 at 13:00 Glucose (Glutose) 22.5 gm Q15M PRN PO DECREASED GLUCOSE; Start 01/03/17 at 13:00 Dextrose (D50w Syringe) 25 ml Q15M PRN IV DECREASED GLUCOSE; Start 01/03/17 at 13:00 Dextrose (D50w Syringe) 50 ml Q15M PRN IV DECREASED GLUCOSE; Start 01/03/17 at 13:00 Glucagon (Glucagen) 1 mg Q15M PRN IM DECREASED GLUCOSE; Start 01/03/17 at 13:00 Glucose (Glutose) 15 gm Q15M PRN BUCCAL DECREASED GLUCOSE; Start 01/03/17 at 13: 00 Rifaximin 550 mg 550 mg BID PO Last administered on 01/04/17 08:41; Admin Dose 550 MG; Start 01/03/17 at 14:30 Magnesium Sulfate 50 ml @ 25 mls/hr ONCE ONCE IVPB Last administered on 08:12; Admin Dose 25 MLS/HR; Start 01/04/17 at 08:00; Stop 01/04/17 at 09:59 Meropenem (Merrem 1 Gm/100 ml (Pmx)) 100 ml @ 200 mls/hr Q24H IVPB ; Start 01/04 at 10:30 Assessment/Plan Chief Complaint/Hosp Course IMPRESSION AND PLAN: 1. Acute renal failure with hyperkalemia and metabolic acidosis. Now status post hemodialysis 2. Possible hepatorenal syndrome. History of hepatitis C 3. Hypoxemic respiratory failure secondary to above. 4. Encephalopathy likely toxic metabolic 5. Septic shock currently requiring 2 vasopressors 6. Hyponatremia likely secondary to acute renal failure. 7. Thrombocytopenia possibly DIC. 6. Will check DIC panel PLAN: 1. Continue mechanical ventilation. We will attempt SIMV mechanical ventilation 2. Continue hemodialysis with correction of metabolic acidosis. 3. Continue vasopressors as needed. Will consider stress dose steroids. I will check cortisol level. 4. Broad-spectrum antibiotics. 5. DVT and GI prophylaxis. 6. Check DIC panel 7. Correct low sodium with hemodialysis Disposition Continue ICU care prognosis is guarded Family conference regarding goals of care Problems: EDILSON SIFUENTES MD, [facility] Jan 04, 2017 09:37
--- NOTE | 2017-01-04 10:25 | PN ---
Date/Time of Note Date/Time of Note DATE: 01/04/17 TIME: 10:04 Assessment/Plan VTE Prophylaxis VTE Prophylaxis Intervention: SCD's Lines/Catheters IV Catheter Type (from Nrsg): Central Line Central line still needed: Yes (for HD and IV access) Urinary Cath still in place: Yes Reason Cath still needed: other (indicate) (ARF ) Assessment/Plan Assessment/Plan 56-year-old male: 1. Hepatic encephalopathy and markedly elevated ammonia level on admission. Known Cirrhosis/ESLD, HepC On lactulose and Rifaximin with ammonia down to 117 this AM Will trend Currently on Vent 2. Acute respiratory failure with Severe Encephalopathy and Acute renal failure and also Shock state Intubated in ED and on Vent on sedation and 2 pressors maxed out Pulmonary following and adjusting Vent settings S/p Emergent HD on admission Starting Meropenem today and trending Lactic Acid level, Blood cx and Urine Cx NGTD 3. Acute Renal Failure, likely pre renal secondary to dehydration VS ATN with Severe Hyperkalemia Dr Brown following from Nephrology S/p emergent HD on admission UOP OK overnight and hyperkalemia corrected Monitor renal function 4. Severe hyperkalemia. Resolved post Emergent HD on admission 5. Metabolic acidosis in setting on of ARF, s/p HD overnight and patient currently on Bicarb gtt Following renal function Nephrology following 6. End-stage alcoholic liver disease, with also known Hep C, cirrhosis with Hepatic Encephalopathy and also coagulopathy on Rifaximin and Lactulose and correcting coagulopathy with FFP. 7. Hypernatremia with ARF and hypovolemia; resolved this AM on Bicarb gtt and also correcting with HD Prophylaxis: on PPI for GI ppx and SCDs for DVT ppx Disposition: Critical condition, fair prognosis for now, follow up Nephro and Pulmonary recs Subjective 24 Hr Interval Summary Free Text/Dictation Patient remains on 2 pressors , vented, sedated Patient coagulopathic and receiving FFP Ammonia down to 117, continue current rx Lactate slightly up this AM, starting Merem Exam/Review of Systems Vital Signs Vitals Vital Signs Date Time Temp Pulse Resp B/P Pulse Ox O2 Delivery O2 Flow Rate FiO2 01/04/17 09:30 107 13 103/49 94 Mechanical Ventilator 01/04/17 07:15 98.7 01/04/17 05:06 30 01/02/17 11:59 2.0 Intake and Output 01/03/17 01/03/17 01/04/17 15:00 23:00 07:00 Intake Total 2938.87 ml 3135.00 ml 3336.25 ml Output Total 105 ml 468 ml 1200 ml Balance 2833.87 ml 2667.00 ml 2136.25 ml Exam Constitutional: obese, other (sedated ) Respiratory: diminished breath sounds (bases bilaterally ) Cardiovascular: other (tachycardic ), regular rate and rhythm Gastrointestinal: distended (mild), non-tender, soft Musculoskeletal: other (no edema, clubbing or cyanosis ) Extremities: normal pulses, other (no edema, clubbing or cyanosis ) Neurological: other (sedated ) Results Result Diagram: 01/04/17 0500 01/04/17 0500 Results 24 hrs Laboratory Tests Test 01/03/17 10:55 01/03/17 11:22 01/03/17 13:00 01/03/17 13:16 Sodium Level 133 L Potassium Level 3.9 Chloride Level 100 Carbon Dioxide Level 22 Anion Gap 15 Blood Urea Nitrogen 85 H Creatinine 5.65 H Glucose Level 242 H Lactic Acid Level 2.4 H Calcium Level 9.0 Ammonia 304 H Bedside Glucose 207 243 H White Blood Count 8.6 # Red Blood Count 3.27 L Hemoglobin 10.6 L Hematocrit 28.3 L Mean Corpuscular Volume 86.5 Mean Corpuscular Hemoglobin 32.4 Mean Corpuscular Hemoglobin Concent 37.5 H Red Cell Distribution Width 13.2 Platelet Count 93 L Mean Platelet Volume 13.0 H Neutrophils % 51.3 Lymphocytes % 28.7 Monocytes % 16.1 H Eosinophils % 3.2 Basophils % 0.2 Nucleated Red Blood Cells % 0.0 Neutrophils # 4.4 Lymphocytes # 2.5 Monocytes # 1.4 H Eosinophils # 0.3 Basophils # 0.0 Nucleated Red Blood Cells # 0.0 Test 01/03/17 14:40 01/03/17 16:20 01/03/17 18:00 01/03/17 21:14 White Blood Count 8.4 Red Blood Count 3.22 L Hemoglobin 10.4 L Hematocrit 27.9 L Mean Corpuscular Volume 86.6 Mean Corpuscular Hemoglobin 32.3 Mean Corpuscular Hemoglobin Concent 37.3 H Red Cell Distribution Width 13.0 Platelet Count 91 L Mean Platelet Volume 13.1 H Neutrophils % 48.0 Band Neutrophils % 2.0 Lymphocytes % 38.0 Monocytes % 9.0 Eosinophils % 3.0 Neutrophils # 4.0 Lymphocytes # 3.2 H Monocytes # 0.8 Eosinophils # 0.3 Platelet Estimate PLT APPEAR DECREASED Bedside Glucose 203 181 Prothrombin Time 21.9 #H Prothrombin Time Ratio 1.7 INR International Normalized Ratio 1.89 Test 01/04/17 00:55 01/04/17 04:51 01/04/17 05:00 01/04/17 05:54 Bedside Glucose 168 160 Lab Scanned Report BLOOD TRANSFUSION White Blood Count 7.3 Red Blood Count 3.09 L Hemoglobin 10.0 L Hematocrit 26.5 L Mean Corpuscular Volume 85.8 Mean Corpuscular Hemoglobin 32.4 Mean Corpuscular Hemoglobin Concent 37.7 H Red Cell Distribution Width 13.0 Platelet Count 74 L Mean Platelet Volume 13.2 H Neutrophils % 53.1 Lymphocytes % 25.6 Monocytes % 16.9 H Eosinophils % 3.9 Basophils % 0.1 Nucleated Red Blood Cells % 0.0 Neutrophils # 3.9 Lymphocytes # 1.9 Monocytes # 1.2 H Eosinophils # 0.3 Basophils # 0.0 Nucleated Red Blood Cells # 0.0 Prothrombin Time 19.7 H Prothrombin Time Ratio 1.5 INR International Normalized Ratio 1.66 Activated Partial Thromboplast Time 34.1 Sodium Level 128 L Potassium Level 3.4 L Chloride Level 91 L Carbon Dioxide Level 24 Anion Gap 16 Blood Urea Nitrogen 74 H Creatinine 4.27 #H Glucose Level 158 Lactic Acid Level 3.5 H Calcium Level 9.1 Phosphorus Level 4.2 Magnesium Level 0.8 *L Total Bilirubin 3.4 H Direct Bilirubin 0.00 Indirect Bilirubin 3.4 H Aspartate Amino Transf (AST/SGOT) 71 H Alanine Aminotransferase (ALT/SGPT) 61 Alkaline Phosphatase 66 Ammonia 117 #H Total Protein 5.8 #L Albumin 3.6 # Globulin 2.20 Albumin/Globulin Ratio 1.63 Test 01/04/17 07:00 01/04/17 08:43 Blood Gas Specimen Source Blood arterial Arterial Blood Date Drawn 01/04/2017 7:20:33 AM Arterial Blood pH (Temp corrected) 7.492 H Arterial Blood pCO2 (Temp correct) 31.0 L Arterial Blood pO2 (Temp corrected) 67.4 L Arterial Blood HCO3 23.2 Arterial Blood Base Excess 0.5 Arterial Blood Oxygen Saturation 92.5 L Jose Enrique Test ACCEPTAB Arterial Blood Gas Puncture Site Right Radial Arterial Blood Carboxyhemoglobin 0.2 Arterial Blood Methemoglobin 0.3 Blood Gas A-a O2 Differential 110.1 H Oxyhemoglobin Percent 92.0 L Total Hemoglobin 11.0 L Blood Gas Temperature 37.0 Blood Gas Respiration Rate 14.0 Blood Gas Actual Respiration Rate 21 Blood Gas Modality VENT - AC FiO2 30.0 Blood Gas Tidal Volume 600.0 Blood Gas Low PEEP Setting 5.0 Blood Gas Notified Whom JLD Blood Gas Notified Time 01/04/2017 7:54:14 AM Bedside Glucose 174 Medications Medications Current Medications Norepinephrine 16 mg/Dextrose 500 ml @ 1.87 mls/hr TITRATE IV Last administered on 01/04/17 02:14; Admin Dose 37.5 MLS/HR; Start 01/02/17 at 20:00 Propofol (Diprivan) 100 ml @ 3.409 mls/ hr Q12H IV ; Start 01/02/17 at 16:00 Pantoprazole 40 mg 40 mg DAILY@06 IV Last administered on 01/04/17 05:47; Admin Dose 40 MG; Start 01/03/17 at 06:00 Phenylephrine HCl 40 mg/Dextrose 500 ml @ 0 mls/hr TITRATE IV Last administered on 01/04/17 08:07; Admin Dose 225 MLS/HR; Start 01/02/17 at 17:00 Midazolam HCl 50 ml @ 1 mls/hr TITRATE IV Last administered on 01/04/17 03:35; Admin Dose 5 MLS/HR; Start 01/02/17 at 17:30 Fentanyl 100 ml @ 2.5 mls/hr TITRATE IV Last administered on 01/04/17 00:18; Admin Dose 7.5 MLS/HR; Start 01/02/17 at 17:30 Vasopressin 60 unit/Dextrose 60 ml @ 0 mls/hr Q12H IV ; Start 01/02/17 at 20:00 Sodium Bicarbonate/ Dextrose (Na Bicarb/D5W) 1,100 ml @ 100 mls/hr Q11H IV Last administered on 01/03/17 23:38; Admin Dose 100 MLS/HR; Start 01/03/17 at 01: 00 Lactulose (Enulose) 45 gm Q6 PO Last administered on 01/04/17 05:47; Admin Dose 45 GM; Start 01/03/17 at 18:00 Insulin Aspart (Novolog Insulin Pen) NOVOLOG *MODERATE* ALGORI... Q4 SC Last administered on 01/04/17 08:47; Admin Dose 2 UNIT; Start 01/03/17 at 13:00 Miscellaneous Information 1 ea NOTE XX ; Start 01/03/17 at 13:00 Glucose (Glutose) 15 gm Q15M PRN PO DECREASED GLUCOSE; Start 01/03/17 at 13:00 Glucose (Glutose) 22.5 gm Q15M PRN PO DECREASED GLUCOSE; Start 01/03/17 at 13:00 Dextrose (D50w Syringe) 25 ml Q15M PRN IV DECREASED GLUCOSE; Start 01/03/17 at 13:00 Dextrose (D50w Syringe) 50 ml Q15M PRN IV DECREASED GLUCOSE; Start 01/03/17 at 13:00 Glucagon (Glucagen) 1 mg Q15M PRN IM DECREASED GLUCOSE; Start 01/03/17 at 13:00 Glucose (Glutose) 15 gm Q15M PRN BUCCAL DECREASED GLUCOSE; Start 01/03/17 at 13: 00 Rifaximin 550 mg 550 mg BID PO Last administered on 01/04/17 08:41; Admin Dose 550 MG; Start 01/03/17 at 14:30 Meropenem (Merrem 1 Gm/100 ml (Pmx)) 100 ml @ 200 mls/hr Q24H IVPB ; Start 01/04 at 10:30 Procedures Procedures PROCEDURE: XR Chest. CLINICAL INDICATION: pain TECHNIQUE: Single portable view of the chest was obtained COMPARISON: Yesterday FINDINGS: There is mild cardiomegaly with decreased pulmonary vascular congestion.. The heart, lungs and mediastinum are otherwise unchanged. There is an endotracheal tube, nasogastric tube and right-sided central line in place.. RPTAT: AA IMPRESSION: Mild cardiomegaly with decreased pulmonary vascular congestion. No other significant change. .Rogelio Weiner MD, MD Date Time Electronically viewed and signed by .Rogelio Weiner MD, on 01/04/2017 07: 20 .Connor/ SRIKANTH GALVAN Jan 04, 2017 10:14
[2017-01-04] MEDS: SODIUM BICARBONATE (IV ADD) 100 MEQ in DEXTROSE 5% 1,000 ML IV SCH ×2 (10:51→17:43)
[2017-01-04 11:17] LABS: AADO2 Arterial 162.2 mmHg (7.0-24.0); Allen Test ACCEPTAB; Arterial Base Excess -1.3 mmol/L (-3.0-3); Arterial COHb 0.1 % (0.0-3.0); Arterial Fraction of Oxyhgb 94.2 % (93.0-99.0); Arterial HCO3 22.5 mmol/L (22.0-26.0); Arterial MetHb 0.4 % (0.0-1.5); Arterial Total Hemglobin 10.8 g/dl (12.0-18.0); MODE VENT - SIMV
[2017-01-04 11:19] LABS: Blood Gas PS 15
[2017-01-04 11:46] LABS: PLATELET COUNT 79 10^3/UL (140-415)
[2017-01-04 11:53] LABS: INR 1.77; PROTIME 20.8 Sec (12.2-14.2); PT RATIO 1.6
[2017-01-04] MEDS: MEROPENEM 1 GM/100 ML (PMX) 100 ML IVPB SCH (11:59)
[2017-01-04 12:01] LABS: PARTIAL THROMBOPLASTIN TIME 39.5 Sec (25.0-35.0)
[2017-01-04 12:35] LABS: D-DIMER 8336.16 ng/ml (<460)
[2017-01-04 13:25] LABS: FIBRIN SPLIT PRODUCT <10 ug/ml (<10)
--- NOTE | 2017-01-04 21:16 | CONS ---
Date/Time of Note Date/Time of Note DATE: 01/04/17 TIME: 21:13 Assessment/Plan Assessment/Plan Additional Assessment/Plan 1. Acute hyperkalemia with a potassium of 7.6 on admission, s/p One session of Emergent HD 2. Severe metabolic acidosis, bicarbonate 9, pH 7.19 on ABG on admission, on bicarbonate drip 3. Acute kidney injury with a BUN of 127, creatinine of 8.9 on admission, likely secondary to acute tubular necrosis. 4. Acute respiratory failure secondary to possibly acute fluid overload and possibly pneumonia.intubated on ventilator 5. History of liver cirrhosis from hepatitis C. 6. Hypernatremia. Sodium 146 on admission 7. No evidence of any coagulopathy and patient's albumin has been normal at 4.71. He does have a history of liver cirrhosis from hepatitis C. 8. Anemia of chronic disease. PLAN: S/p Emergent HD due to hyperkalemia, severe metabolic acidosis and resp failure Today K normal, HCO3 improving, made good urine output 1.7 L in last 24 hr, on two pressors for BP support on Bicarbonater drip with 2 ampoules of HCO3- improving, if HCo3 normal in AM, plan is to d/c bicarbonate drip Ventilator care as per pulmonary Renal US negative for hydronephrosis, echogenicity c/w CKD will continue to follow up Consultation Date/Type/Reason Admit Date/Time Jan 02, 2017 at 12:58 Initial Consult Date Dec Type of Consultation: NEPHROLOGY Referring Provider: REGINA GARCIA MD 24 HR Interval Summary Free Text/Dictation pt remains intubated on two pressors, K normal, Good urine output 1.7 L Exam/Review of Systems Vital Signs Vitals Vital Signs Date Time Temp Pulse Resp B/P Pulse Ox O2 Delivery O2 Flow Rate FiO2 01/04/17 20:45 101 9 102/57 96 01/04/17 20:00 99.1 Mechanical Ventilator 01/04/17 17:15 40 01/02/17 11:59 2.0 Intake and Output 01/03/17 01/03/17 01/04/17 15:00 23:00 07:00 Intake Total 2938.87 ml 3135.00 ml 3436.25 ml Output Total 105 ml 468 ml 1200 ml Balance 2833.87 ml 2667.00 ml 2236.25 ml Exam GENERAL: intubated on ventilator,sedated HEENT: Pupils equal, round, reactive to light and accommodation. ET tube in place. NECK: Supple, + JVD. + right IJ Mark LUNGS: Bilateral coarse breath sounds with minimal expiratory wheezing present. HEART: S1, S2, with regular rhythm, no murmur. ABDOMEN: Soft, mildly distended. Non tender EXTREMITIES: 1 to 2+ pitting edema, no clubbing, no cyanosis. NEUROLOGICAL: The patient is currently sedated, intubated on sedation not able to do any full neurological examination. Results Result Diagram: 01/04/17 1110 01/04/17 0500 Results 24 hrs Laboratory Tests Test 01/03/17 21:14 01/04/17 00:55 01/04/17 04:51 01/04/17 05:00 Bedside Glucose 181 168 Lab Scanned Report BLOOD TRANSFUSION White Blood Count 7.3 Red Blood Count 3.09 L Hemoglobin 10.0 L Hematocrit 26.5 L Mean Corpuscular Volume 85.8 Mean Corpuscular Hemoglobin 32.4 Mean Corpuscular Hemoglobin Concent 37.7 H Red Cell Distribution Width 13.0 Platelet Count 74 L Mean Platelet Volume 13.2 H Neutrophils % 53.1 Lymphocytes % 25.6 Monocytes % 16.9 H Eosinophils % 3.9 Basophils % 0.1 Nucleated Red Blood Cells % 0.0 Neutrophils # 3.9 Lymphocytes # 1.9 Monocytes # 1.2 H Eosinophils # 0.3 Basophils # 0.0 Nucleated Red Blood Cells # 0.0 Prothrombin Time 19.7 H Prothrombin Time Ratio 1.5 INR International Normalized Ratio 1.66 Activated Partial Thromboplast Time 34.1 Sodium Level 128 L Potassium Level 3.4 L Chloride Level 91 L Carbon Dioxide Level 24 Anion Gap 16 Blood Urea Nitrogen 74 H Creatinine 4.27 #H Glucose Level 158 Lactic Acid Level 3.5 H Calcium Level 9.1 Phosphorus Level 4.2 Magnesium Level 0.8 *L Total Bilirubin 3.4 H Direct Bilirubin 0.00 Indirect Bilirubin 3.4 H Aspartate Amino Transf (AST/SGOT) 71 H Alanine Aminotransferase (ALT/SGPT) 61 Alkaline Phosphatase 66 Ammonia 117 #H Total Protein 5.8 #L Albumin 3.6 # Globulin 2.20 Albumin/Globulin Ratio 1.63 Test 01/04/17 05:54 01/04/17 07:00 01/04/17 08:43 01/04/17 09:30 Bedside Glucose 160 174 Blood Gas Specimen Source Blood arterial Arterial Blood Date Drawn 01/04/2017 7:20:33 AM Arterial Blood pH (Temp corrected) 7.492 H Arterial Blood pCO2 (Temp correct) 31.0 L Arterial Blood pO2 (Temp corrected) 67.4 L Arterial Blood HCO3 23.2 Arterial Blood Base Excess 0.5 Arterial Blood Oxygen Saturation 92.5 L Jose Enrique Test ACCEPTAB Arterial Blood Gas Puncture Site Right Radial Arterial Blood Carboxyhemoglobin 0.2 Arterial Blood Methemoglobin 0.3 Blood Gas A-a O2 Differential 110.1 H Oxyhemoglobin Percent 92.0 L Total Hemoglobin 11.0 L Blood Gas Temperature 37.0 Blood Gas Respiration Rate 14.0 Blood Gas Actual Respiration Rate 21 Blood Gas Modality VENT - AC FiO2 30.0 Blood Gas Tidal Volume 600.0 Blood Gas Low PEEP Setting 5.0 Blood Gas Notified Whom JLD Blood Gas Notified Time 01/04/2017 7:54:14 AM Lactic Acid Level 3.1 H Magnesium Level 1.3 L Test 01/04/17 11:00 01/04/17 11:10 01/04/17 13:02 01/04/17 17:44 Blood Gas Specimen Source Blood arterial Arterial Blood Date Drawn 01/04/2017 11:00:00 AM Arterial Blood pH (Temp corrected) 7.433 Arterial Blood pCO2 (Temp correct) 34.4 L Arterial Blood pO2 (Temp corrected) 83.4 Arterial Blood HCO3 22.5 Arterial Blood Base Excess -1.3 Arterial Blood Oxygen Saturation 94.7 L Jose Enrique Test ACCEPTAB Arterial Blood Gas Puncture Site Right Radial Arterial Blood Carboxyhemoglobin 0.1 Arterial Blood Methemoglobin 0.4 Blood Gas A-a O2 Differential 162.2 H Oxyhemoglobin Percent 94.2 Total Hemoglobin 10.8 L Blood Gas Temperature 37.0 Blood Gas Respiration Rate 16.0 Blood Gas Actual Respiration Rate 18 Blood Gas Modality VENT - SIMV FiO2 40.0 Blood Gas Tidal Volume 600.0 Blood Gas Low PEEP Setting 5.0 Blood Gas Pressure Support 15 Blood Gas Notified Whom JLD Blood Gas Notified Time 01/04/2017 11:17:00 AM Platelet Count 79 L Prothrombin Time 20.8 H Prothrombin Time Ratio 1.6 INR International Normalized Ratio 1.77 Activated Partial Thromboplast Time 39.5 H Thrombin Time 18.0 Fibrinogen 161.0 L Plasma Fibrin Degradation Products <10 D-Dimer 8336.16 H D-Dimer Comment Bedside Glucose 186 160 Test 01/04/17 18:00 Magnesium Level 1.7 Medications Medications Current Medications Norepinephrine 16 mg/Dextrose 500 ml @ 1.87 mls/hr TITRATE IV Last administered on 01/04/17 12:23; Admin Dose 56.25 MLS/HR; Start 01/02/17 at 20:00 Propofol (Diprivan) 100 ml @ 3.409 mls/ hr Q12H IV ; Start 01/02/17 at 16:00 Pantoprazole 40 mg 40 mg DAILY@06 IV Last administered on 01/04/17 05:47; Admin Dose 40 MG; Start 01/03/17 at 06:00 Phenylephrine HCl 40 mg/Dextrose 500 ml @ 0 mls/hr TITRATE IV Last administered on 01/04/17 19:38; Admin Dose 180 MLS/HR; Start 01/02/17 at 17:00 Midazolam HCl 50 ml @ 1 mls/hr TITRATE IV Last administered on 01/04/17 13:36; Admin Dose 5 MLS/HR; Start 01/02/17 at 17:30 Fentanyl 100 ml @ 2.5 mls/hr TITRATE IV Last administered on 01/04/17 12:34; Admin Dose 10 MLS/HR; Start 01/02/17 at 17:30 Sodium Bicarbonate/ Dextrose (Na Bicarb/D5W) 1,100 ml @ 50 mls/hr Q22H IV Last administered on 01/04/17 17:43; Admin Dose 50 MLS/HR; Start 01/03/17 at 01: 00 Lactulose (Enulose) 45 gm Q6 PO Last administered on 01/04/17 18:09; Admin Dose 45 GM; Start 01/03/17 at 18:00 Insulin Aspart (Novolog Insulin Pen) NOVOLOG *MODERATE* ALGORI... Q4 SC Last administered on 01/04/17 17:48; Admin Dose 2 UNIT; Start 01/03/17 at 13:00 Miscellaneous Information 1 ea NOTE XX ; Start 01/03/17 at 13:00 Glucose (Glutose) 15 gm Q15M PRN PO DECREASED GLUCOSE; Start 01/03/17 at 13:00 Glucose (Glutose) 22.5 gm Q15M PRN PO DECREASED GLUCOSE; Start 01/03/17 at 13:00 Dextrose (D50w Syringe) 25 ml Q15M PRN IV DECREASED GLUCOSE; Start 01/03/17 at 13:00 Dextrose (D50w Syringe) 50 ml Q15M PRN IV DECREASED GLUCOSE; Start 01/03/17 at 13:00 Glucagon (Glucagen) 1 mg Q15M PRN IM DECREASED GLUCOSE; Start 01/03/17 at 13:00 Glucose (Glutose) 15 gm Q15M PRN BUCCAL DECREASED GLUCOSE; Start 01/03/17 at 13: 00 Rifaximin 550 mg 550 mg BID PO Last administered on 01/04/17 08:41; Admin Dose 550 MG; Start 01/03/17 at 14:30 Meropenem (Merrem 1 Gm/100 ml (Pmx)) 100 ml @ 200 mls/hr Q24H IVPB Last administered on 01/04/17 11:59; Admin Dose 200 MLS/HR; Start 01/04/17 at 10:30 MARII DALY MD Jan 04, 2017 21:16
[2017-01-05] VITALS (102 sets, daily range): BP systolic 65–133; BP diastolic 34–84; PULSE 91–128; RESP 10–32
[2017-01-05] MEDS: LACTULOSE 30ML CUP PO SCH ×4 (00:54→17:33)
[2017-01-05] MEDS: VASOPRESSIN 60 UNIT in DEXTROSE 5% 57 ML IV SCH ×3 (01:00→14:26)
[2017-01-05] MEDS: PHENYLephrine 40 MG in DEXTROSE 5% 496 ML IV SCH ×4 (01:24→07:47)
[2017-01-05] MEDS: INSULIN ASPART [NOVOLOG] 3 ML PEN SC SCH ×6 (01:26→21:01)
[2017-01-05 01:54] LABS: HEMATOCRIT 23.4 % (42.0-52.0)
[2017-01-05] MEDS: PROPOFOL 100 ML IV SCH ×2 (04:00→14:34)
[2017-01-05] MEDS: PANTOPRAZOLE 40 MG INJ IV SCH (05:35)
[2017-01-05 06:04] LABS: ADD SCAN DIFF NO
[2017-01-05 06:10] LABS: ABNORMAL IP MESSAGE 1; BASOPHILS % 0.1 % (0.0-2.0); EOSINOPHILS # 0.4 10^3/ul (0.0-0.5); EOSINOPHILS % 4.7 % (0.0-7.0); HEMATOCRIT 22.6 % (42.0-52.0); HEMOGLOBIN 8.7 g/dl (14.0-18.0); LYMPHOCYTES # 1.5 10^3/ul (0.8-2.9); LYMPHOCYTES % 18.6 % (15.0-51.0); MEAN CORPUSCULAR HEMOGLOBIN 32.2 pg (29.0-33.0); MEAN CORPUSCULAR VOLUME 83.7 fl (82.0-101.0); MEAN PLATELET VOLUME 12.4 fl (7.4-10.4); MONOCYTE # 1.5 10^3/ul (0.3-0.9); NEUTROPHIL # 4.6 10^3/ul (1.6-7.5); NEUTROPHILS % 57.2 % (39.0-77.0); PLATELET COUNT 75 10^3/UL (140-415); RED CELL DISTRIBUTION WIDTH 12.8 % (11.5-14.5); WHITE BLOOD COUNT 8.1 10^3/ul (4.8-10.8)
[2017-01-05 06:26] LABS: INR 1.69; PT RATIO 1.6
[2017-01-05 06:27] LABS: PARTIAL THROMBOPLASTIN TIME 39.3 Sec (25.0-35.0)
[2017-01-05 06:34] LABS: MAGNESIUM 1.3 mg/dl (1.7-2.5); PHOSPHORUS 4.8 mg/dl (2.5-4.9)
[2017-01-05 06:41] LABS: MEAN CORPUSCULAR HGB CONC 38.5 g/dl (32.0-37.0)
[2017-01-05 06:46] LABS: LACTIC ACID 2.6 mmol/L (0.5-2.2)
[2017-01-05 06:54] LABS: ALBUMIN 3.2 g/dl (3.3-4.9); ALBUMIN/GLOBULIN RATIO 1.45; BILIRUBIN,DIRECT 0.2 mg/dl (0.00-0.20); BILIRUBIN,INDIRECT 4.4 mg/dl (0-1.1); BILIRUBIN,TOTAL 4.6 mg/dl (0.2-1.3); CALCIUM 8.5 mg/dl (8.4-10.2); CREATININE 3.21 mg/dl (0.61-1.24); TOTAL PROTEIN 5.4 g/dl (6.1-8.1)
--- NOTE | 2017-01-05 07:53 | RADRPT ---
PROCEDURE: XR Chest. CLINICAL INDICATION: pna chf TECHNIQUE: Single frontal view of the chest was obtained. COMPARISON: Chest x-ray from 01/04/2017 FINDINGS: The endotracheal tube, enteric tube, and right IJ line are unchanged. There is stable cardiomegaly mild to moderate pulmonary vascular congestion. There are stable low lung volumes. No definite focal infiltrates are identified. There is no significant pleural effusion or pneumothorax. IMPRESSION: No significant interval change compared to the prior chest x-ray from . RPTAT: EE Physician Aguilar Date Time Electronically viewed and signed by Physician Aguilar on 01/05/2017 07:53 RA/
[2017-01-05 09:06] LABS: AADO2 Arterial 181.1 mmHg (7.0-24.0); Allen Test ACCEPTAB; Arterial Base Excess -0.6 mmol/L (-3.0-3); Arterial COHb 0.2 % (0.0-3.0); Arterial Fraction of Oxyhgb 95.2 % (93.0-99.0); Arterial HCO3 23.8 mmol/L (22.0-26.0); Arterial MetHb 0.5 % (0.0-1.5); Arterial Total Hemglobin 9.3 g/dl (12.0-18.0); Blood Gas PS 15; MODE VENT - SIMV
[2017-01-05] MEDS: RIFAXIMIN 550 MG TAB PO SCH ×2 (09:26→20:56)
[2017-01-05] MEDS ORDERED: FUROSEMIDE 20 MG INJ IV ONE (09:30)
[2017-01-05] MEDS ORDERED: MAGNESIUM SULFATE 2 GM/50 ML 50 ML IVPB ONE (09:30)
[2017-01-05] MEDS: MEROPENEM 1 GM/100 ML (PMX) 100 ML IVPB SCH (10:12)
[2017-01-05] MEDS: PHENYLephrine 80 MG in SOD CHLORIDE 0.9% 250 ML IV* SCH ×3 (10:26→18:34)
--- NOTE | 2017-01-05 10:39 | PN ---
Date/Time of Note Date/Time of Note DATE: 01/05/17 TIME: 09:44 Assessment/Plan VTE Prophylaxis VTE Prophylaxis Intervention: SCD's Lines/Catheters IV Catheter Type (from Nrsg): Central Line Central line still needed: Yes (for IV access ) Urinary Cath still in place: Yes Reason Cath still needed: other (indicate) (monitor UOP ) Assessment/Plan Assessment/Plan 56-year-old male: 1. Hepatic encephalopathy and markedly elevated ammonia level on admission. Known Cirrhosis/ESLD, HepC. Now unresponsive off sedation and Na this AM at 115 On lactulose and Rifaximin with ammonia down to 117 this AM. Patient still with no BMs despite getting lactulose for the past 3 days ... Also more unstable with Na down to 91 this AM, and now on 3 pressors. Will trend Ammonia Currently on Vent 2. Acute respiratory failure with Severe Encephalopathy and Acute renal failure and also Shock state Intubated in ED and on Vent on sedation and 2 pressors maxed out Pulmonary following and adjusting Vent settings S/p Emergent HD on admission On Meropenem today and trending Lactic Acid level, Blood cx and Urine Cx NGTD 3. Acute Renal Failure, likely pre renal secondary to dehydration VS ATN with Severe Hyperkalemia Dr Brown following from Nephrology S/p emergent HD on admission UOP adequate Monitoring renal function 4. Severe hyperkalemia. Resolved post Emergent HD on admission 5. Metabolic acidosis in setting on of ARF, s/p HD overnight and patient currently on Bicarb gtt Following renal function Nephrology following 6. End-stage alcoholic liver disease, with also known Hep C, cirrhosis with Hepatic Encephalopathy and also coagulopathy on Rifaximin and Lactulose and correcting coagulopathy with FFP. 7. Hyponatremia this AM down to 115 , IVF changed and adjusted and repeat BMP at 12 pm today per Nephrology. Dr Brown following Prophylaxis: on PPI for GI ppx and SCDs for DVT ppx Disposition: Critical condition, poor prognosis, follow up Nephro and Pulmonary recs Subjective 24 Hr Interval Summary Free Text/Dictation Patient doing poorly this AM, Na at 115 this AM On 3 pressors maxed out to keep SBP above 90 this AM and off sedation overnight and still unresponsive this AM Also still with no BM overnight Exam/Review of Systems Vital Signs Vitals Vital Signs Date Time Temp Pulse Resp B/P Pulse Ox O2 Delivery O2 Flow Rate FiO2 01/05/17 08:30 94 12 114/44 100 Mechanical Ventilator 01/05/17 08:00 40 01/05/17 07:45 99.9 01/02/17 11:59 2.0 Intake and Output 01/04/17 01/04/17 01/05/17 15:00 23:00 07:00 Intake Total 2593.47 ml 2472.75 ml 2346.85 ml Output Total 825 ml 775 ml Balance 2593.47 ml 1647.75 ml 1571.85 ml Exam Constitutional: non-verbal, other (non responsive ) Eyes: other (pupils sluggishly reactive, pinpoint ) Respiratory: diminished breath sounds (bilaterally ), other (on Vent ) Cardiovascular: nl pulses, regular rate and rhythm Gastrointestinal: non-tender, soft Musculoskeletal: nl extremities to inspection Extremities: normal pulses, other (no edema, clubbing or cyanosis ) Neurological: unresponsive Results Result Diagram: 01/05/17 0544 01/05/17 0544 Results 24 hrs Laboratory Tests Test 01/04/17 11:00 01/04/17 11:10 01/04/17 13:02 01/04/17 17:44 Blood Gas Specimen Source Blood arterial Arterial Blood Date Drawn 01/04/2017 11:00:00 AM Arterial Blood pH (Temp corrected) 7.433 Arterial Blood pCO2 (Temp correct) 34.4 L Arterial Blood pO2 (Temp corrected) 83.4 Arterial Blood HCO3 22.5 Arterial Blood Base Excess -1.3 Arterial Blood Oxygen Saturation 94.7 L Jose Enrique Test ACCEPTAB Arterial Blood Gas Puncture Site Right Radial Arterial Blood Carboxyhemoglobin 0.1 Arterial Blood Methemoglobin 0.4 Blood Gas A-a O2 Differential 162.2 H Oxyhemoglobin Percent 94.2 Total Hemoglobin 10.8 L Blood Gas Temperature 37.0 Blood Gas Respiration Rate 16.0 Blood Gas Actual Respiration Rate 18 Blood Gas Modality VENT - SIMV FiO2 40.0 Blood Gas Tidal Volume 600.0 Blood Gas Low PEEP Setting 5.0 Blood Gas Pressure Support 15 Blood Gas Notified Whom JLD Blood Gas Notified Time 01/04/2017 11:17:00 AM Platelet Count 79 L Prothrombin Time 20.8 H Prothrombin Time Ratio 1.6 INR International Normalized Ratio 1.77 Activated Partial Thromboplast Time 39.5 H Thrombin Time 18.0 Fibrinogen 161.0 L Plasma Fibrin Degradation Products <10 D-Dimer 8336.16 H D-Dimer Comment Bedside Glucose 186 160 Test 01/04/17 18:00 01/04/17 21:30 01/05/17 01:23 01/05/17 01:30 Magnesium Level 1.7 Bedside Glucose 187 150 Hemoglobin 9.0 L Hematocrit 23.4 L Lactic Acid Level 2.5 H Test 01/05/17 04:51 01/05/17 05:11 01/05/17 05:44 01/05/17 07:00 Lab Scanned Report BLOOD TRANSFUSION Bedside Glucose 212 White Blood Count 8.1 Red Blood Count 2.70 L Hemoglobin 8.7 L Hematocrit 22.6 L Mean Corpuscular Volume 83.7 Mean Corpuscular Hemoglobin 32.2 Mean Corpuscular Hemoglobin Concent 38.5 H Red Cell Distribution Width 12.8 Platelet Count 75 L Mean Platelet Volume 12.4 H Neutrophils % 57.2 Lymphocytes % 18.6 Monocytes % 19.0 H Eosinophils % 4.7 Basophils % 0.1 Nucleated Red Blood Cells % 0.0 Neutrophils # 4.6 Lymphocytes # 1.5 Monocytes # 1.5 H Eosinophils # 0.4 Basophils # 0.0 Nucleated Red Blood Cells # 0.0 Prothrombin Time 20.0 H Prothrombin Time Ratio 1.6 INR International Normalized Ratio 1.69 Activated Partial Thromboplast Time 39.3 H Sodium Level 115 *L Potassium Level 4.0 Chloride Level 79 #L Carbon Dioxide Level 25 Anion Gap 15 Blood Urea Nitrogen 66 H Creatinine 3.21 #H Glucose Level 169 Lactic Acid Level 2.6 H Calcium Level 8.5 Phosphorus Level 4.8 Magnesium Level 1.3 L Total Bilirubin 4.6 H Direct Bilirubin 0.20 # Indirect Bilirubin 4.4 H Aspartate Amino Transf (AST/SGOT) 135 #H Alanine Aminotransferase (ALT/SGPT) 118 H Alkaline Phosphatase 80 Ammonia 91 H Total Protein 5.4 L Albumin 3.2 L Globulin 2.20 Albumin/Globulin Ratio 1.45 Random Cortisol 10.6 Blood Gas Specimen Source Blood arterial Arterial Blood Date Drawn 01/05/2017 8:20:34 AM Arterial Blood pH (Temp corrected) 7.414 Arterial Blood pCO2 (Temp correct) 38.0 Arterial Blood pO2 (Temp corrected) 96.5 Arterial Blood HCO3 23.8 Arterial Blood Base Excess -0.6 Arterial Blood Oxygen Saturation 95.9 Jose Enrique Test ACCEPTAB Arterial Blood Gas Puncture Site Right Radial Arterial Blood Carboxyhemoglobin 0.2 Arterial Blood Methemoglobin 0.5 Blood Gas A-a O2 Differential 181.1 H Oxyhemoglobin Percent 95.2 Total Hemoglobin 9.3 L Blood Gas Temperature 37.0 Blood Gas Respiration Rate 16.0 Blood Gas Actual Respiration Rate 21 Blood Gas Modality VENT - SIMV FiO2 45.0 Blood Gas Tidal Volume 600.0 Blood Gas Low PEEP Setting 5.0 Blood Gas Pressure Support 15 Blood Gas Notified Whom JLD Blood Gas Notified Time 01/05/2017 9:06:19 AM Test 01/05/17 09:26 Bedside Glucose 215 Medications Medications Current Medications Propofol (Diprivan) 100 ml @ 3.409 mls/ hr Q12H IV ; Start 01/02/17 at 16:00 Pantoprazole 40 mg 40 mg DAILY@06 IV Last administered on 01/05/17 05:35; Admin Dose 40 MG; Start 01/03/17 at 06:00 Midazolam HCl 50 ml @ 1 mls/hr TITRATE IV Last administered on 01/04/17 22:13; Admin Dose 5 MLS/HR; Start 01/02/17 at 17:30 Fentanyl (Sublimaze) 100 ml @ 2.5 mls/hr TITRATE IV Last administered on 22:13; Admin Dose 10 MLS/HR; Start 01/02/17 at 17:30 Lactulose (Enulose) 45 gm Q6 PO Last administered on 01/05/17 05:35; Admin Dose 45 GM; Start 01/03/17 at 18:00 Insulin Aspart (Novolog Insulin Pen) NOVOLOG *MODERATE* ALGORI... Q4 SC Last administered on 01/05/17 09:29; Admin Dose 4 UNIT; Start 01/03/17 at 13:00 Miscellaneous Information 1 ea NOTE XX ; Start 01/03/17 at 13:00 Glucose (Glutose) 15 gm Q15M PRN PO DECREASED GLUCOSE; Start 01/03/17 at 13:00 Glucose (Glutose) 22.5 gm Q15M PRN PO DECREASED GLUCOSE; Start 01/03/17 at 13:00 Dextrose (D50w Syringe) 25 ml Q15M PRN IV DECREASED GLUCOSE; Start 01/03/17 at 13:00 Dextrose (D50w Syringe) 50 ml Q15M PRN IV DECREASED GLUCOSE; Start 01/03/17 at 13:00 Glucagon (Glucagen) 1 mg Q15M PRN IM DECREASED GLUCOSE; Start 01/03/17 at 13:00 Glucose (Glutose) 15 gm Q15M PRN BUCCAL DECREASED GLUCOSE; Start 01/03/17 at 13: 00 Rifaximin 550 mg 550 mg BID PO Last administered on 01/05/17 09:26; Admin Dose 550 MG; Start 01/03/17 at 14:30 Meropenem 100 ml @ 200 mls/hr Q24H IVPB Last administered on 01/04/17 11:59; Admin Dose 200 MLS/HR; Start 01/04/17 at 10:30 Vasopressin 60 unit/Dextrose 60 ml @ 1.2 mls/hr Q12H IV Last administered on 01:00; Admin Dose 1.2 MLS/HR; Start 01/05/17 at 01:30 Magnesium Sulfate 50 ml @ 25 mls/hr ONCE ONCE IVPB ; Start 01/05/17 at 09:30; Stop 01/05/17 at 11:29 Norepinephrine 32 mg/Sodium Chloride 250 ml @ 0 mls/hr TITRATE IV* ; Start at 10:30 Phenylephrine HCl/ Sodium Chloride (Kam-Syneph/NS) 258 ml @ 0 mls/hr TITRATE IV * ; Start 01/05/17 at 10:30 SRIKANTH GALVAN Jan 05, 2017 09:54
[2017-01-05] MEDS: NOREPINEPHRINE IV* SCH (10:49)
[2017-01-05] MEDS: NS IV* SCH (10:49)
--- NOTE | 2017-01-05 11:04 | CONS ---
Date/Time of Note Date/Time of Note DATE: 01/05/17 TIME: 10:59 Consult Date/Type/Reason Admit Date/Time Jan 02, 2017 at 12:58 Type of Consultation: Pulmonary Ordering Provider: REGINA GARCIA MD Subjective Unresponsive on mechanical ventilation off sedation. Still requiring multiple vasopressors. Objective Vital Signs Date Time Temp Pulse Resp B/P Pulse Ox O2 Delivery O2 Flow Rate FiO2 01/05/17 08:30 94 12 114/44 100 Mechanical Ventilator 01/05/17 08:00 40 01/05/17 07:45 99.9 01/02/17 11:59 2.0 Intake and Output 01/04/17 01/04/17 01/05/17 14:59 22:59 06:59 Intake Total 2472.22 ml 2425.75 ml 2615.10 ml Output Total 725 ml 875 ml Balance 2472.22 ml 1700.75 ml 1740.10 ml Exam PHYSICAL EXAMINATION: GENERAL: Chronically ill appearing gentleman, appears comfortable at rest, no acute distress. VITAL SIGNS: HEENT: Dry mucous membranes. Pupils minimally responsive CARDIAC: S1, S2, no added sounds or murmurs. CHEST: Diminished air entry bilaterally with rales. ABDOMEN: Soft, nontender. No guarding or rebound. EXTREMITIES: No cyanosis, clubbing or edema. NEUROLOGIC: Generalized weakness. Unable to assess. Results/Medications Result Diagram: 01/05/17 0544 01/05/17 0544 Results 24 hrs Laboratory Tests Test 01/04/17 11:00 01/04/17 11:10 01/04/17 13:02 01/04/17 17:44 Blood Gas Specimen Source Blood arterial Arterial Blood Date Drawn 01/04/2017 11:00:00 AM Arterial Blood pH (Temp corrected) 7.433 Arterial Blood pCO2 (Temp correct) 34.4 L Arterial Blood pO2 (Temp corrected) 83.4 Arterial Blood HCO3 22.5 Arterial Blood Base Excess -1.3 Arterial Blood Oxygen Saturation 94.7 L Jose Enrique Test ACCEPTAB Arterial Blood Gas Puncture Site Right Radial Arterial Blood Carboxyhemoglobin 0.1 Arterial Blood Methemoglobin 0.4 Blood Gas A-a O2 Differential 162.2 H Oxyhemoglobin Percent 94.2 Total Hemoglobin 10.8 L Blood Gas Temperature 37.0 Blood Gas Respiration Rate 16.0 Blood Gas Actual Respiration Rate 18 Blood Gas Modality VENT - SIMV FiO2 40.0 Blood Gas Tidal Volume 600.0 Blood Gas Low PEEP Setting 5.0 Blood Gas Pressure Support 15 Blood Gas Notified Whom JLD Blood Gas Notified Time 01/04/2017 11:17:00 AM Platelet Count 79 L Prothrombin Time 20.8 H Prothrombin Time Ratio 1.6 INR International Normalized Ratio 1.77 Activated Partial Thromboplast Time 39.5 H Thrombin Time 18.0 Fibrinogen 161.0 L Plasma Fibrin Degradation Products <10 D-Dimer 8336.16 H D-Dimer Comment Bedside Glucose 186 160 Test 01/04/17 18:00 01/04/17 21:30 01/05/17 01:23 01/05/17 01:30 Magnesium Level 1.7 Bedside Glucose 187 150 Hemoglobin 9.0 L Hematocrit 23.4 L Lactic Acid Level 2.5 H Test 01/05/17 04:51 01/05/17 05:11 01/05/17 05:44 01/05/17 07:00 Lab Scanned Report BLOOD TRANSFUSION Bedside Glucose 212 White Blood Count 8.1 Red Blood Count 2.70 L Hemoglobin 8.7 L Hematocrit 22.6 L Mean Corpuscular Volume 83.7 Mean Corpuscular Hemoglobin 32.2 Mean Corpuscular Hemoglobin Concent 38.5 H Red Cell Distribution Width 12.8 Platelet Count 75 L Mean Platelet Volume 12.4 H Neutrophils % 57.2 Lymphocytes % 18.6 Monocytes % 19.0 H Eosinophils % 4.7 Basophils % 0.1 Nucleated Red Blood Cells % 0.0 Neutrophils # 4.6 Lymphocytes # 1.5 Monocytes # 1.5 H Eosinophils # 0.4 Basophils # 0.0 Nucleated Red Blood Cells # 0.0 Prothrombin Time 20.0 H Prothrombin Time Ratio 1.6 INR International Normalized Ratio 1.69 Activated Partial Thromboplast Time 39.3 H Sodium Level 115 *L Potassium Level 4.0 Chloride Level 79 #L Carbon Dioxide Level 25 Anion Gap 15 Blood Urea Nitrogen 66 H Creatinine 3.21 #H Glucose Level 169 Lactic Acid Level 2.6 H Calcium Level 8.5 Phosphorus Level 4.8 Magnesium Level 1.3 L Total Bilirubin 4.6 H Direct Bilirubin 0.20 # Indirect Bilirubin 4.4 H Aspartate Amino Transf (AST/SGOT) 135 #H Alanine Aminotransferase (ALT/SGPT) 118 H Alkaline Phosphatase 80 Ammonia 91 H Total Protein 5.4 L Albumin 3.2 L Globulin 2.20 Albumin/Globulin Ratio 1.45 Random Cortisol 10.6 Blood Gas Specimen Source Blood arterial Arterial Blood Date Drawn 01/05/2017 8:20:34 AM Arterial Blood pH (Temp corrected) 7.414 Arterial Blood pCO2 (Temp correct) 38.0 Arterial Blood pO2 (Temp corrected) 96.5 Arterial Blood HCO3 23.8 Arterial Blood Base Excess -0.6 Arterial Blood Oxygen Saturation 95.9 Jose Enrique Test ACCEPTAB Arterial Blood Gas Puncture Site Right Radial Arterial Blood Carboxyhemoglobin 0.2 Arterial Blood Methemoglobin 0.5 Blood Gas A-a O2 Differential 181.1 H Oxyhemoglobin Percent 95.2 Total Hemoglobin 9.3 L Blood Gas Temperature 37.0 Blood Gas Respiration Rate 16.0 Blood Gas Actual Respiration Rate 21 Blood Gas Modality VENT - SIMV FiO2 45.0 Blood Gas Tidal Volume 600.0 Blood Gas Low PEEP Setting 5.0 Blood Gas Pressure Support 15 Blood Gas Notified Whom JLD Blood Gas Notified Time 01/05/2017 9:06:19 AM Test 01/05/17 09:26 Bedside Glucose 215 Medications Current Medications Propofol (Diprivan) 100 ml @ 3.409 mls/ hr Q12H IV ; Start 01/02/17 at 16:00 Pantoprazole 40 mg 40 mg DAILY@06 IV Last administered on 01/05/17 05:35; Admin Dose 40 MG; Start 01/03/17 at 06:00 Midazolam HCl 50 ml @ 1 mls/hr TITRATE IV Last administered on 01/04/17 22:13; Admin Dose 5 MLS/HR; Start 01/02/17 at 17:30 Fentanyl (Sublimaze) 100 ml @ 2.5 mls/hr TITRATE IV Last administered on 22:13; Admin Dose 10 MLS/HR; Start 01/02/17 at 17:30 Lactulose (Enulose) 45 gm Q6 PO Last administered on 01/05/17 05:35; Admin Dose 45 GM; Start 01/03/17 at 18:00 Insulin Aspart (Novolog Insulin Pen) NOVOLOG *MODERATE* ALGORI... Q4 SC Last administered on 01/05/17 09:29; Admin Dose 4 UNIT; Start 01/03/17 at 13:00 Miscellaneous Information 1 ea NOTE XX ; Start 01/03/17 at 13:00 Glucose (Glutose) 15 gm Q15M PRN PO DECREASED GLUCOSE; Start 01/03/17 at 13:00 Glucose (Glutose) 22.5 gm Q15M PRN PO DECREASED GLUCOSE; Start 01/03/17 at 13:00 Dextrose (D50w Syringe) 25 ml Q15M PRN IV DECREASED GLUCOSE; Start 01/03/17 at 13:00 Dextrose (D50w Syringe) 50 ml Q15M PRN IV DECREASED GLUCOSE; Start 01/03/17 at 13:00 Glucagon (Glucagen) 1 mg Q15M PRN IM DECREASED GLUCOSE; Start 01/03/17 at 13:00 Glucose (Glutose) 15 gm Q15M PRN BUCCAL DECREASED GLUCOSE; Start 01/03/17 at 13: 00 Rifaximin 550 mg 550 mg BID PO Last administered on 01/05/17 09:26; Admin Dose 550 MG; Start 01/03/17 at 14:30 Meropenem 100 ml @ 200 mls/hr Q24H IVPB Last administered on 01/05/17 10:12; Admin Dose 200 MLS/HR; Start 01/04/17 at 10:30 Vasopressin 60 unit/Dextrose 60 ml @ 1.2 mls/hr Q12H IV Last administered on 01:00; Admin Dose 1.2 MLS/HR; Start 01/05/17 at 01:30 Magnesium Sulfate 50 ml @ 25 mls/hr ONCE ONCE IVPB Last administered on 10:48; Admin Dose 25 MLS/HR; Start 01/05/17 at 09:30; Stop 01/05/17 at 11:29 Norepinephrine 32 mg/Sodium Chloride 250 ml @ 0 mls/hr TITRATE IV* Last administered on 01/05/17 10:49; Admin Dose 14.06 MLS/HR; Start 01/05/17 at 10:30 Phenylephrine HCl/ Sodium Chloride (Kam-Syneph/NS) 258 ml @ 0 mls/hr TITRATE IV * Last administered on 01/05/17 10:26; Admin Dose 50.31 MLS/HR; Start 01/05/17 at 10:30 Assessment/Plan Chief Complaint/Hosp Course IMPRESSION AND PLAN: 1. Acute renal failure with hyperkalemia and metabolic acidosis. Now status post hemodialysis significant hyponatremia. 2. Possible hepatorenal syndrome. History of hepatitis C 3. Hypoxemic respiratory failure secondary to above. 4. Encephalopathy likely toxic metabolic 5. Septic shock currently requiring 2 vasopressors 6. Hyponatremia likely secondary to acute renal failure. 7. Thrombocytopenia possibly DIC likely secondary to steroids. PLAN: 1. Continue mechanical ventilation. Continue SIMV ventilation 2. Continue hemodialysis with correction of metabolic acidosis and hyponatremia 3. Continue vasopressors 4. Broad-spectrum antibiotics. 5. DVT and GI prophylaxis. 6. Labs suggestive of DIC. 7. Low cortisol suggestive of adrenal insufficiency I will start stress dose hydrocortisone. Disposition Continue ICU care prognosis is guarded Family conference regarding goals of care Problems: EDILSON SIFUENTES MD, [facility] Jan 05, 2017 11:04
--- NOTE | 2017-01-05 11:13 | RADRPT ---
PROCEDURE: XR Abdomen CLINICAL INDICATION: Small bowel obstruction versus ileus TECHNIQUE: An AP supine radiograph of the abdomen was submitted. COMPARISON: None FINDINGS: Surgical caden project in the right upper quadrant. A right femoral venous catheter is evident. The bowel gas pattern is unremarkable. No organomegaly or discrete mass is identified. No pathological calcification is identified. Moderate degenerative spine changes are noted. The soft tissues are quite generous. IMPRESSION: 1. Previous right upper quadrant abdominal surgery. 2. Nonspecific bowel gas pattern. 3. A right femoral venous catheter is evident. 4. Degenerative spine changes. Physician Rachel Date Time Electronically viewed and signed by Physician Rachel on 01/05/2017 11:13 /
[2017-01-05 12:42] LABS: CALCIUM 8.7 mg/dl (8.4-10.2); CREATININE 2.8 mg/dl (0.61-1.24); POTASSIUM 4.2 mmol/L (3.5-5.1)
--- NOTE | 2017-01-05 13:24 | RADRPT ---
PROCEDURE: CT Brain without contrast. CLINICAL INDICATION: Unresponsive. History of hepatic encephalopathy. TECHNIQUE: A CT of the brain was performed on a multidetector CT scanner utilizing axial sections from the skull base through the vertex without contrast. Images were reviewed on a high-resolution [employer] workstation. Exam CTDI = 44.03 mGy and the DLP = 720.23 mGy-cm. One or more of the following dose reduction techniques were used: Automated exposure control Adjustment of the mA and/or kV according to patient size. Use of iterative reconstruction technique. COMPARISON: Head CT 01/02/2017 FINDINGS: There is age appropriate mild generalized volume loss. There is no evidence of intracranial hemorrh age, mass effect or midline shift. No abnormal intra-axial or extra-axial fluid collections are see n. The density of the brain is normal and the rdz/white matter differentiation is well preserved. The osseous structures are unremarkable. Mild mucosal thickening is seen in the left sphenoid sinus and ethmoid air cells. There is opacification of the left maxillary sinus. Vascular calcifications are identified. IMPRESSION: 1. No intracranial hemorrhage, mass effect or midline shift. 2. Intracranial atherosclerosis. RPTAT: BB .Gerald Anaya MD, MD Date Time Electronically viewed and signed by .Gerald Anaya MD, MD on 01/05/2017 13:24 .O/
--- NOTE | 2017-01-05 13:58 | RADRPT ---
PROCEDURE: CT Abdomen and Pelvis without contrast. CLINICAL INDICATION: Abdominal distension. Cirrhosis. Evaluate for bowel obstruction. TECHNIQUE: CT scan of the abdomen and pelvis without contrast was performed on a multidetector hig h-resolution CT scanner. The patient was scanned without intravenous contrast. Coronal and sagittal reformatted images were obtained from the axial source images. Images were reviewed on a high-resol [employer] PACS workstation. The total exam CTDI equals 23.87 mGy and the total exam DLP equals 1833.69 m Gy-cm. One or more of the following dose reduction techniques were used: Automated exposure control. Adjustment of the mA and/or kV according to patient size. Use of iterative reconstruction technique. COMPARISON: CT abdomen and pelvis 06/19/2016 FINDINGS: CT abdomen: The lung bases are remarkable for dense bibasilar consolidations. The heart size is normal, without pericardial thickening or effusion. There is atrophic right hepatic lobe with surface nodularity in keeping with cirrhosis. There is mi ld splenomegaly. The gallbladder is surgically absent. There is no biliary ductal dilatation. The stomach is partially collapsed, but is grossly unremarkable. NG tube is seen with tip in the stomach . The pancreas as visualized is normal. The adrenal glands are symmetric and normal. The kidney s are symmetrically unremarkable as well. No renal calculus or obstructive uropathy or mass lesion is seen. The aorta is of normal caliber. Aortic vascular calcifications are present. There is no retroperit parsons lymphadenopathy. The jd hepatis region is clear. The bowel and mesentery, as visualized, are equally unremarkable. There are multiple fat-containing ventral abdominal hernias. CT pelvis: The small bowel loops situated within the pelvis are unremarkable. There is a normal appendix. The urinary bladder is decompressed with Warner catheter in place. There are fat-containing bilateral in guinal hernias. The pelvic organs are normal. The pelvic sidewalls and inguinal regions are clear. The sigmoid colon and rectum are unremarkable. No mass, lymphadenopathy, or free fluid is seen. N o acute inflammation is seen. There is a marked discogenic disease with discogenic endplate changes at T12-L1. Moderately severe discogenic changes at L1-L2 and L3-L4 are again identified. There is mild anterolisthesis of L4 on L5 related to facet arthropathy. No osteolytic or osteoblastic lesion is detected. IMPRESSION: 1. No evidence of bowel obstruction. 2. Morphologic changes of cirrhosis. Mild splenomegaly. Trace perihepatic ascites. 3. Dense consolidations in the lung bases suggesting atelectasis. Superimposed infection is difficu lt to exclude. 4. Multiple fat containing ventral abdominal hernias. 5. Aortoiliac atherosclerosis. 6. New marked discogenic disease at T12-L1. No substantial change in moderately severe discogenic disease at L1-L2 and L3-L4. RPTAT: BB .Gerald Anaya MD, MD Date Time Electronically viewed and signed by .Gerald Anaya MD, on 01/05/2017 13:58 .O/
[2017-01-05] MEDS: HYDROCORTISONE 100 MG INJ IV SCH ×2 (14:24→22:25)
--- NOTE | 2017-01-05 16:07 | CONS ---
Date/Time of Note Date/Time of Note DATE: 01/05/17 TIME: 16:03 Assessment/Plan Assessment/Plan Additional Assessment/Plan 1. Acute hyperkalemia with a potassium of 7.6 on admission, s/p One session of Emergent HD 01/03/17 2. Severe metabolic acidosis, bicarbonate 9, pH 7.19 on ABG on admission,s/p Bicarbonate 3. Acute kidney injury with a BUN of 127, creatinine of 8.9 on admission, likely secondary to acute tubular necrosis. 4. Acute respiratory failure secondary to possibly acute fluid overload and possibly pneumonia.intubated on ventilator 5. History of liver cirrhosis from hepatitis C. 6. Hypernatremia. Sodium 146 on admission 7. No evidence of any coagulopathy and patient's albumin has been normal at 4.71. He does have a history of liver cirrhosis from hepatitis C. 8. Anemia of chronic disease. PLAN: S/p Emergent HD due to hyperkalemia, severe metabolic acidosis and resp failure Today K normal, HCO3 improving, made good urine in last 24 hr , stop bicarbonate drip, lasix 20mg iV x 1 dose now on three pressors for BP support Ventilator care as per pulmonary Renal US negative for hydronephrosis, echogenicity c/w CKD will continue to follow up d/w with at bedside, poor prognosis Consultation Date/Type/Reason Admit Date/Time Jan 02, 2017 at 12:58 Initial Consult Date Dec Type of Consultation: NEPHROLOGY Referring Provider: REGINA GARCIA MD 24 HR Interval Summary Free Text/Dictation pt stable, afebrile, BP labile on three pressors, Cr still high but pt will make Good urine output Exam/Review of Systems Vital Signs Vitals Vital Signs Date Time Temp Pulse Resp B/P Pulse Ox O2 Delivery O2 Flow Rate FiO2 01/05/17 15:00 118 16 102/59 97 Mechanical Ventilator 01/05/17 13:00 99.4 01/05/17 08:00 40 01/02/17 11:59 2.0 Intake and Output 01/04/17 01/04/17 01/05/17 15:00 23:00 07:00 Intake Total 2593.47 ml 2472.75 ml 2346.85 ml Output Total 825 ml 775 ml Balance 2593.47 ml 1647.75 ml 1571.85 ml Exam GENERAL: intubated on ventilator,sedated HEENT: Pupils equal, round, reactive to light and accommodation. ET tube in place. NECK: Supple, + JVD. + right IJ Mark LUNGS: Bilateral coarse breath sounds with minimal expiratory wheezing present. HEART: S1, S2, with regular rhythm, no murmur. ABDOMEN: Soft, mildly distended. Non tender EXTREMITIES: 1 to 2+ pitting edema, no clubbing, no cyanosis. NEUROLOGICAL: The patient is currently sedated, intubated on sedation not able to do any full neurological examination. Results Result Diagram: 01/05/17 0544 01/05/17 1210 Results 24 hrs Laboratory Tests Test 01/04/17 17:44 01/04/17 18:00 01/04/17 21:30 01/05/17 01:23 Bedside Glucose 160 187 150 Magnesium Level 1.7 Test 01/05/17 01:30 01/05/17 04:51 01/05/17 05:11 01/05/17 05:44 Hemoglobin 9.0 L 8.7 L Hematocrit 23.4 L 22.6 L Lactic Acid Level 2.5 H 2.6 H Lab Scanned Report BLOOD TRANSFUSION Bedside Glucose 212 White Blood Count 8.1 Red Blood Count 2.70 L Mean Corpuscular Volume 83.7 Mean Corpuscular Hemoglobin 32.2 Mean Corpuscular Hemoglobin Concent 38.5 H Red Cell Distribution Width 12.8 Platelet Count 75 L Mean Platelet Volume 12.4 H Neutrophils % 57.2 Lymphocytes % 18.6 Monocytes % 19.0 H Eosinophils % 4.7 Basophils % 0.1 Nucleated Red Blood Cells % 0.0 Neutrophils # 4.6 Lymphocytes # 1.5 Monocytes # 1.5 H Eosinophils # 0.4 Basophils # 0.0 Nucleated Red Blood Cells # 0.0 Prothrombin Time 20.0 H Prothrombin Time Ratio 1.6 INR International Normalized Ratio 1.69 Activated Partial Thromboplast Time 39.3 H Sodium Level 115 *L Potassium Level 4.0 Chloride Level 79 #L Carbon Dioxide Level 25 Anion Gap 15 Blood Urea Nitrogen 66 H Creatinine 3.21 #H Glucose Level 169 Calcium Level 8.5 Phosphorus Level 4.8 Magnesium Level 1.3 L Total Bilirubin 4.6 H Direct Bilirubin 0.20 # Indirect Bilirubin 4.4 H Aspartate Amino Transf (AST/SGOT) 135 #H Alanine Aminotransferase (ALT/SGPT) 118 H Alkaline Phosphatase 80 Ammonia 91 H Total Protein 5.4 L Albumin 3.2 L Globulin 2.20 Albumin/Globulin Ratio 1.45 Random Cortisol 10.6 Test 01/05/17 07:00 01/05/17 09:26 01/05/17 12:10 01/05/17 14:24 Blood Gas Specimen Source Blood arterial Arterial Blood Date Drawn 01/05/2017 8:20:34 AM Arterial Blood pH (Temp corrected) 7.414 Arterial Blood pCO2 (Temp correct) 38.0 Arterial Blood pO2 (Temp corrected) 96.5 Arterial Blood HCO3 23.8 Arterial Blood Base Excess -0.6 Arterial Blood Oxygen Saturation 95.9 Jose Enrique Test ACCEPTAB Arterial Blood Gas Puncture Site Right Radial Arterial Blood Carboxyhemoglobin 0.2 Arterial Blood Methemoglobin 0.5 Blood Gas A-a O2 Differential 181.1 H Oxyhemoglobin Percent 95.2 Total Hemoglobin 9.3 L Blood Gas Temperature 37.0 Blood Gas Respiration Rate 16.0 Blood Gas Actual Respiration Rate 21 Blood Gas Modality VENT - SIMV FiO2 45.0 Blood Gas Tidal Volume 600.0 Blood Gas Low PEEP Setting 5.0 Blood Gas Pressure Support 15 Blood Gas Notified Whom JLD Blood Gas Notified Time 01/05/2017 9:06:19 AM Bedside Glucose 215 141 Sodium Level 114 *L Potassium Level 4.2 Chloride Level 79 L Carbon Dioxide Level 26 Anion Gap 13 Blood Urea Nitrogen 60 H Creatinine 2.80 H Glucose Level 141 Calcium Level 8.7 Medications Medications Current Medications Propofol (Diprivan) 100 ml @ 3.409 mls/ hr Q12H IV ; Start 01/02/17 at 16:00 Pantoprazole 40 mg 40 mg DAILY@06 IV Last administered on 01/05/17 05:35; Admin Dose 40 MG; Start 01/03/17 at 06:00 Midazolam HCl 50 ml @ 1 mls/hr TITRATE IV Last administered on 01/04/17 22:13; Admin Dose 5 MLS/HR; Start 01/02/17 at 17:30 Fentanyl (Sublimaze) 100 ml @ 2.5 mls/hr TITRATE IV Last administered on 22:13; Admin Dose 10 MLS/HR; Start 01/02/17 at 17:30 Lactulose (Enulose) 45 gm Q6 PO Last administered on 01/05/17 14:24; Admin Dose 45 GM; Start 01/03/17 at 18:00 Insulin Aspart (Novolog Insulin Pen) NOVOLOG *MODERATE* ALGORI... Q4 SC Last administered on 01/05/17 14:26; Admin Dose 2 UNIT; Start 01/03/17 at 13:00 Miscellaneous Information 1 ea NOTE XX ; Start 01/03/17 at 13:00 Glucose (Glutose) 15 gm Q15M PRN PO DECREASED GLUCOSE; Start 01/03/17 at 13:00 Glucose (Glutose) 22.5 gm Q15M PRN PO DECREASED GLUCOSE; Start 01/03/17 at 13:00 Dextrose (D50w Syringe) 25 ml Q15M PRN IV DECREASED GLUCOSE; Start 01/03/17 at 13:00 Dextrose (D50w Syringe) 50 ml Q15M PRN IV DECREASED GLUCOSE; Start 01/03/17 at 13:00 Glucagon (Glucagen) 1 mg Q15M PRN IM DECREASED GLUCOSE; Start 01/03/17 at 13:00 Glucose (Glutose) 15 gm Q15M PRN BUCCAL DECREASED GLUCOSE; Start 01/03/17 at 13: 00 Rifaximin 550 mg 550 mg BID PO Last administered on 01/05/17 09:26; Admin Dose 550 MG; Start 01/03/17 at 14:30 Meropenem 100 ml @ 200 mls/hr Q24H IVPB Last administered on 01/05/17 10:12; Admin Dose 200 MLS/HR; Start 01/04/17 at 10:30 Vasopressin 60 unit/Dextrose 60 ml @ 1.2 mls/hr Q12H IV Last administered on 14:26; Admin Dose 1.2 MLS/HR; Start 01/05/17 at 01:30 Norepinephrine 32 mg/Sodium Chloride 250 ml @ 0 mls/hr TITRATE IV* Last administered on 01/05/17 10:49; Admin Dose 14.06 MLS/HR; Start 01/05/17 at 10:30 Phenylephrine HCl/ Sodium Chloride (Kam-Syneph/NS) 258 ml @ 0 mls/hr TITRATE IV * Last administered on 01/05/17 13:57; Admin Dose 58.05 MLS/HR; Start 01/05/17 at 10:30 Hydrocortisone (Solu-Cortef) 100 mg Q8 IV Last administered on 01/05/17t 14:24; Admin Dose 100 MG; Start 01/05/17 at 14:00 MARII DALY MD Jan 05, 2017 16:07
[2017-01-06] VITALS (105 sets, daily range): BP systolic 92–135; BP diastolic 41–105; PULSE 105–141; RESP 10–28
[2017-01-06] MEDS: LACTULOSE 30ML CUP PO SCH ×4 (00:16→20:25)
[2017-01-06] MEDS: PHENYLephrine 80 MG in SOD CHLORIDE 0.9% 250 ML IV* SCH (00:18)
[2017-01-06] MEDS: NS IV* SCH ×2 (00:21→20:00)
[2017-01-06] MEDS: NOREPINEPHRINE IV* SCH ×2 (00:21→20:00)
[2017-01-06] MEDS: INSULIN ASPART [NOVOLOG] 3 ML PEN SC SCH ×6 (01:26→20:45)
[2017-01-06] MEDS: VASOPRESSIN 60 UNIT in DEXTROSE 5% 57 ML IV SCH ×2 (01:30→12:09)
[2017-01-06] MEDS: PROPOFOL 100 ML IV SCH ×2 (04:00→14:34)
[2017-01-06 05:12] LABS: ADD SCAN DIFF NO
[2017-01-06 05:20] LABS: ABNORMAL IP MESSAGE 1; BASOPHILS % 0.1 % (0.0-2.0); EOSINOPHILS % 0.1 % (0.0-7.0); HEMATOCRIT 25.4 % (42.0-52.0); HEMOGLOBIN 9.5 g/dl (14.0-18.0); LYMPHOCYTES # 0.4 10^3/ul (0.8-2.9); LYMPHOCYTES % 4.5 % (15.0-51.0); MEAN CORPUSCULAR HEMOGLOBIN 31.6 pg (29.0-33.0); MEAN CORPUSCULAR HGB CONC 37.4 g/dl (32.0-37.0); MEAN CORPUSCULAR VOLUME 84.4 fl (82.0-101.0); MEAN PLATELET VOLUME 12.7 fl (7.4-10.4); MONOCYTE # 0.5 10^3/ul (0.3-0.9); MONOCYTES % 5.7 % (0.0-11.0); NEUTROPHIL # 7.1 10^3/ul (1.6-7.5); NEUTROPHILS % 89.2 % (39.0-77.0); PLATELET COUNT 85 10^3/UL (140-415); RED BLOOD COUNT 3.01 10^6/ul (4.70-6.10); RED CELL DISTRIBUTION WIDTH 13.2 % (11.5-14.5)
[2017-01-06] MEDS: PANTOPRAZOLE 40 MG INJ IV SCH (05:29)
[2017-01-06 05:44] LABS: ALBUMIN 3.5 g/dl (3.3-4.9); ALBUMIN/GLOBULIN RATIO 1.45; BILIRUBIN,DIRECT 0.5 mg/dl (0.00-0.20); BILIRUBIN,INDIRECT 3.8 mg/dl (0-1.1); BILIRUBIN,TOTAL 4.3 mg/dl (0.2-1.3); CALCIUM 9.3 mg/dl (8.4-10.2); CREATININE 2.21 mg/dl (0.61-1.24); POTASSIUM 4.3 mmol/L (3.5-5.1); TOTAL PROTEIN 5.9 g/dl (6.1-8.1)
[2017-01-06 05:46] LABS: MAGNESIUM 1.5 mg/dl (1.7-2.5)
[2017-01-06] MEDS: HYDROCORTISONE 100 MG INJ IV SCH ×3 (05:51→22:12)
--- NOTE | 2017-01-06 08:47 | RADRPT ---
PROCEDURE: XR Chest. CLINICAL INDICATION: Shortness of breath TECHNIQUE: A single AP view of the chest was obtained. COMPARISON: Chest x-ray dated 01/05/2017 FINDINGS: The endotracheal tube tip is approximately 4.4 cm above the lacey. The tip of the enteric tube ex tends below the left diaphragm. There is a right internal jugular central venous catheter with tip t he mid SVC. Lung volumes are low with compressive changes, vascular crowding and basilar atelectasis. No focal a irspace opacity, pleural effusion or pneumothorax is seen. The cardiomediastinal silhouette is with in normal limits for size. Calcifications are seen within the aortic arch. The osseous structures de monstrate senescent changes. IMPRESSION: 1. Low lung volumes with compressive changes and basilar atelectasis. 2. Prominent appearance of the pulmonary arteries, at least partially related to low lung volumes. 3. Aortic atherosclerosis. 4. Tubes and lines, as described above. RPTAT: .Yael Villarreal MD, MD Date Time Electronically viewed and signed by .Yael Villarreal MD, on 01/06/2017 08:46 .G/
[2017-01-06 08:55] LABS: AADO2 Arterial 135.6 mmHg (7.0-24.0); Allen Test ACCEPTAB; Arterial Base Excess -3.3 mmol/L (-3.0-3); Arterial COHb 0.2 % (0.0-3.0); Arterial Fraction of Oxyhgb 96.6 % (93.0-99.0); Arterial HCO3 19.9 mmol/L (22.0-26.0); Arterial MetHb 0.4 % (0.0-1.5); Arterial Total Hemglobin 10.6 g/dl (12.0-18.0); Blood Gas PS 15; MODE VENT - SIMV
[2017-01-06] MEDS: RIFAXIMIN 550 MG TAB PO SCH ×2 (08:59→20:25)
--- NOTE | 2017-01-06 09:08 | CONS ---
Date/Time of Note Date/Time of Note DATE: 01/06/17 TIME: 09:03 Assessment/Plan Assessment/Plan Additional Assessment/Plan 1. Acute hyperkalemia with a potassium of 7.6 on admission, s/p One session of Emergent HD 01/03/17 2. Severe metabolic acidosis, bicarbonate 9, pH 7.19 on ABG on admission,s/p Bicarbonate drip- now stable off drip 3. Acute kidney injury with a BUN of 127, creatinine of 8.9 on admission, likely secondary to acute tubular necrosis. 4. Acute respiratory failure secondary to possibly acute fluid overload and possibly pneumonia.intubated on ventilator 5. History of liver cirrhosis from hepatitis C. 6. Hypernatremia. Sodium 146 on admission - then pt becomes hyponatremic to 114- now Na improved to 123 on 01/06/17 7. No evidence of any coagulopathy and patient's albumin has been normal at 4.71. He does have a history of liver cirrhosis from hepatitis C. 8. Anemia of chronic disease. PLAN: S/p Emergent HD due to hyperkalemia, severe metabolic acidosis and resp failure now only one pressors, BP still labile, Plan is to give albumin 25% 100ml IV x 1 followed by lasix 20mg iV x 1 dose Ventilator care as per pulmonary Renal US negative for hydronephrosis, echogenicity c/w CKD will continue to follow up Consultation Date/Type/Reason Admit Date/Time Jan 02, 2017 at 12:58 Initial Consult Date Dec Type of Consultation: NEPHROLOGY Referring Provider: REGINA GARCIA MD 24 HR Interval Summary Free Text/Dictation pt remains intubated, on 1 pressors now, received one lasix dose and 4 L Urine output, BP still labile, Na improving Exam/Review of Systems Vital Signs Vitals Vital Signs Date Time Temp Pulse Resp B/P Pulse Ox O2 Delivery O2 Flow Rate FiO2 01/06/17 08:00 116 01/06/17 06:30 14 100/59 98 01/06/17 06:00 Mechanical Ventilator 01/06/17 05:15 40 01/06/17 04:00 97.8 01/02/17 11:59 2.0 Intake and Output 01/05/17 01/05/17 01/06/17 15:00 23:00 07:00 Intake Total 1395.87 ml 398.96 ml 433.53 ml Output Total 1700 ml 1550 ml 3125 ml Balance -304.13 ml -1151.04 ml -2691.47 ml Exam GENERAL: intubated on ventilator,sedated HEENT: Pupils equal, round, reactive to light and accommodation. ET tube in place. NECK: Supple, + JVD. + right IJ Mark LUNGS: Bilateral coarse breath sounds with minimal expiratory wheezing present. HEART: S1, S2, with regular rhythm, no murmur. ABDOMEN: Soft, mildly distended. Non tender EXTREMITIES: 1 to 2+ pitting edema, no clubbing, no cyanosis. NEUROLOGICAL: The patient is currently sedated, intubated on sedation not able to do any full neurological examination. Results Result Diagram: 01/06/17 0400 01/06/17 0400 Results 24 hrs Laboratory Tests Test 01/05/17 09:26 01/05/17 12:10 01/05/17 14:24 01/05/17 17:31 Bedside Glucose 215 141 135 Sodium Level 114 *L Potassium Level 4.2 Chloride Level 79 L Carbon Dioxide Level 26 Anion Gap 13 Blood Urea Nitrogen 60 H Creatinine 2.80 H Glucose Level 141 Calcium Level 8.7 Test 01/05/17 20:58 01/06/17 01:20 01/06/17 04:00 01/06/17 05:26 Bedside Glucose 176 172 177 White Blood Count 8.0 Red Blood Count 3.01 L Hemoglobin 9.5 L Hematocrit 25.4 L Mean Corpuscular Volume 84.4 Mean Corpuscular Hemoglobin 31.6 Mean Corpuscular Hemoglobin Concent 37.4 H Red Cell Distribution Width 13.2 Platelet Count 85 L Mean Platelet Volume 12.7 H Neutrophils % 89.2 H Lymphocytes % 4.5 L Monocytes % 5.7 Eosinophils % 0.1 Basophils % 0.1 Nucleated Red Blood Cells % 0.0 Neutrophils # 7.1 Lymphocytes # 0.4 L Monocytes # 0.5 Eosinophils # 0.0 Basophils # 0.0 Nucleated Red Blood Cells # 0.0 Sodium Level 123 L Potassium Level 4.3 Chloride Level 85 L Carbon Dioxide Level 23 Anion Gap 19 H Blood Urea Nitrogen 52 H Creatinine 2.21 H Glucose Level 153 Calcium Level 9.3 Phosphorus Level 5.0 H Magnesium Level 1.5 L Total Bilirubin 4.3 H Direct Bilirubin 0.50 #H Indirect Bilirubin 3.8 H Aspartate Amino Transf (AST/SGOT) 158 H Alanine Aminotransferase (ALT/SGPT) 138 H Alkaline Phosphatase 106 Total Protein 5.9 L Albumin 3.5 Globulin 2.40 Albumin/Globulin Ratio 1.45 Test 01/06/17 07:00 01/06/17 08:54 Blood Gas Specimen Source Blood arterial Arterial Blood Date Drawn 01/06/2017 7:20:54 AM Arterial Blood pH (Temp corrected) 7.444 Arterial Blood pCO2 (Temp correct) 29.7 L Arterial Blood pO2 (Temp corrected) 115.4 H Arterial Blood HCO3 19.9 L Arterial Blood Base Excess -3.3 L Arterial Blood Oxygen Saturation 97.2 Jose Enrique Test ACCEPTAB Arterial Blood Gas Puncture Site Right Radial Arterial Blood Carboxyhemoglobin 0.2 Arterial Blood Methemoglobin 0.4 Blood Gas A-a O2 Differential 135.6 H Oxyhemoglobin Percent 96.6 Total Hemoglobin 10.6 L Blood Gas Temperature 37.0 Blood Gas Respiration Rate 16.0 Blood Gas Actual Respiration Rate 21 Blood Gas Modality VENT - SIMV FiO2 40.0 Blood Gas Tidal Volume 600.0 Blood Gas Low PEEP Setting 5.0 Blood Gas Pressure Support 15 Blood Gas Notified Whom JLD Blood Gas Notified Time 01/06/2017 8:07:43 AM Bedside Glucose 198 Medications Medications Current Medications Propofol (Diprivan) 100 ml @ 3.409 mls/ hr Q12H IV ; Start 01/02/17 at 16:00 Pantoprazole 40 mg 40 mg DAILY@06 IV Last administered on 01/06/17 05:29; Admin Dose 40 MG; Start 01/03/17 at 06:00 Midazolam HCl 50 ml @ 1 mls/hr TITRATE IV Last administered on 01/04/17 22:13; Admin Dose 5 MLS/HR; Start 01/02/17 at 17:30 Fentanyl (Sublimaze) 100 ml @ 2.5 mls/hr TITRATE IV Last administered on 22:13; Admin Dose 10 MLS/HR; Start 01/02/17 at 17:30 Lactulose (Enulose) 45 gm Q6 PO Last administered on 01/06/17 05:29; Admin Dose 45 GM; Start 01/03/17 at 18:00 Insulin Aspart (Novolog Insulin Pen) NOVOLOG *MODERATE* ALGORI... Q4 SC Last administered on 01/06/17 09:00; Admin Dose 4 UNIT; Start 01/03/17 at 13:00 Miscellaneous Information 1 ea NOTE XX ; Start 01/03/17 at 13:00 Glucose (Glutose) 15 gm Q15M PRN PO DECREASED GLUCOSE; Start 01/03/17 at 13:00 Glucose (Glutose) 22.5 gm Q15M PRN PO DECREASED GLUCOSE; Start 01/03/17 at 13:00 Dextrose (D50w Syringe) 25 ml Q15M PRN IV DECREASED GLUCOSE; Start 01/03/17 at 13:00 Dextrose (D50w Syringe) 50 ml Q15M PRN IV DECREASED GLUCOSE; Start 01/03/17 at 13:00 Glucagon (Glucagen) 1 mg Q15M PRN IM DECREASED GLUCOSE; Start 01/03/17 at 13:00 Glucose (Glutose) 15 gm Q15M PRN BUCCAL DECREASED GLUCOSE; Start 01/03/17 at 13: 00 Rifaximin 550 mg 550 mg BID PO Last administered on 01/06/17 08:59; Admin Dose 550 MG; Start 01/03/17 at 14:30 Meropenem 100 ml @ 200 mls/hr Q24H IVPB Last administered on 01/05/17 10:12; Admin Dose 200 MLS/HR; Start 01/04/17 at 10:30 Vasopressin 60 unit/Dextrose 60 ml @ 1.2 mls/hr Q12H IV Last administered on 14:26; Admin Dose 1.2 MLS/HR; Start 01/05/17 at 01:30 Norepinephrine 32 mg/Sodium Chloride 250 ml @ 0 mls/hr TITRATE IV* Last administered on 01/06/17 00:21; Admin Dose 14.06 MLS/HR; Start 01/05/17 at 10:30 Phenylephrine HCl/ Sodium Chloride (Kam-Syneph/NS) 258 ml @ 0 mls/hr TITRATE IV * Last administered on 01/06/17 00:18; Admin Dose 19.35 MLS/HR; Start 01/05/17 at 10:30 Hydrocortisone (Solu-Cortef) 100 mg Q8 IV Last administered on 01/06/17 05:51; Admin Dose 100 MG; Start 01/05/17 at 14:00 MARII DALY MD Jan 06, 2017 09:08
--- NOTE | 2017-01-06 09:08 | PN ---
Date/Time of Note Date/Time of Note DATE: 01/06/17 TIME: 09:01 Assessment/Plan VTE Prophylaxis VTE Prophylaxis Intervention: SCD's Lines/Catheters IV Catheter Type (from Nrsg): misael Central line still needed: Yes (for HD access ) Urinary Cath still in place: Yes Reason Cath still needed: other (indicate) (ARF, monitoring renal function ) Assessment/Plan Assessment/Plan 56-year-old male: 1. Hepatic encephalopathy and markedly elevated ammonia level on admission. Known Cirrhosis/ESLD, HepC. Now minimally responsive to noxious stimuli, Na level pending. CT Head OK Finally having BMs and rectal tube in place On lactulose and Rifaximin, CT abdo OK Na better up to 123 Currently on Vent 2. Acute respiratory failure with Severe Encephalopathy and Acute renal failure and also Shock state Intubated in ED and on Vent off sedation and down to 1 pressor Pulmonary following and adjusting Vent settings S/p Emergent HD on admission On Meropenem today, Blood cx and Urine Cx NGTD 3. Acute Renal Failure, likely pre renal secondary to dehydration VS ATN with Severe Hyperkalemia Dr Brown following from Nephrology S/p emergent HD on admission, improving renal function over the past few days. on diuresis UOP adequate Monitoring renal function 4. Severe hyperkalemia. Resolved post Emergent HD on admission 5. Metabolic acidosis in setting on of ARF, s/p HD on admission. Renal function improved Following renal function Nephrology following 6. End-stage alcoholic liver disease, with also known Hep C, cirrhosis with Hepatic Encephalopathy and also coagulopathy On Rifaximin and Lactulose. Correcting coagulopathy with FFP. 7. Hyponatremia this AM, Na up to 123 On IVF adjusted, monitoring Nephrology, Dr Brown following Prophylaxis: on PPI for GI ppx and SCDs for DVT ppx Disposition: Critical condition still, fair prognosis, follow up Nephro and Pulmonary recs Subjective 24 Hr Interval Summary Free Text/Dictation Patient doing a little better this AM, sluggishly opens eyes with noxious stimuli, OFF heavy sedation for 36 hrs at least Down to 1 pressor and diuresing with Lasix per Nephro, Na up to 123 Finally with BMs overnight and Ammonia pencding this AM Exam/Review of Systems Vital Signs Vitals Vital Signs Date Time Temp Pulse Resp B/P Pulse Ox O2 Delivery O2 Flow Rate FiO2 01/06/17 08:00 116 6/8/17 06:30 14 100/59 98 01/06/17 06:00 Mechanical Ventilator 01/06/17 05:15 40 01/06/17 04:00 97.8 01/02/17 11:59 2.0 Intake and Output 01/05/17 01/05/17 01/06/17 15:00 23:00 07:00 Intake Total 1395.87 ml 398.96 ml 433.53 ml Output Total 1700 ml 1550 ml 3125 ml Balance -304.13 ml -1151.04 ml -2691.47 ml Exam Constitutional: obese, other (lethargic and minimally responsive for now ) Respiratory: diminished breath sounds (bases), other (on Vent ) Cardiovascular: nl pulses, regular rate and rhythm Gastrointestinal: bowel sounds, non-tender, soft Musculoskeletal: nl extremities to inspection Extremities: normal pulses, other (anasarca ) Neurological: lethargic, other (slughishly open eyes to noxious stimuli ) Results Result Diagram: 01/06/17 0400 01/06/17 0400 Results 24 hrs Laboratory Tests Test 01/05/17 09:26 01/05/17 12:10 01/05/17 14:24 01/05/17 17:31 Bedside Glucose 215 141 135 Sodium Level 114 *L Potassium Level 4.2 Chloride Level 79 L Carbon Dioxide Level 26 Anion Gap 13 Blood Urea Nitrogen 60 H Creatinine 2.80 H Glucose Level 141 Calcium Level 8.7 Test 01/05/17 20:58 01/06/17 01:20 01/06/17 04:00 01/06/17 05:26 Bedside Glucose 176 172 177 White Blood Count 8.0 Red Blood Count 3.01 L Hemoglobin 9.5 L Hematocrit 25.4 L Mean Corpuscular Volume 84.4 Mean Corpuscular Hemoglobin 31.6 Mean Corpuscular Hemoglobin Concent 37.4 H Red Cell Distribution Width 13.2 Platelet Count 85 L Mean Platelet Volume 12.7 H Neutrophils % 89.2 H Lymphocytes % 4.5 L Monocytes % 5.7 Eosinophils % 0.1 Basophils % 0.1 Nucleated Red Blood Cells % 0.0 Neutrophils # 7.1 Lymphocytes # 0.4 L Monocytes # 0.5 Eosinophils # 0.0 Basophils # 0.0 Nucleated Red Blood Cells # 0.0 Sodium Level 123 L Potassium Level 4.3 Chloride Level 85 L Carbon Dioxide Level 23 Anion Gap 19 H Blood Urea Nitrogen 52 H Creatinine 2.21 H Glucose Level 153 Calcium Level 9.3 Phosphorus Level 5.0 H Magnesium Level 1.5 L Total Bilirubin 4.3 H Direct Bilirubin 0.50 #H Indirect Bilirubin 3.8 H Aspartate Amino Transf (AST/SGOT) 158 H Alanine Aminotransferase (ALT/SGPT) 138 H Alkaline Phosphatase 106 Total Protein 5.9 L Albumin 3.5 Globulin 2.40 Albumin/Globulin Ratio 1.45 Test 01/06/17 07:00 01/06/17 08:54 Blood Gas Specimen Source Blood arterial Arterial Blood Date Drawn 01/06/2017 7:20:54 AM Arterial Blood pH (Temp corrected) 7.444 Arterial Blood pCO2 (Temp correct) 29.7 L Arterial Blood pO2 (Temp corrected) 115.4 H Arterial Blood HCO3 19.9 L Arterial Blood Base Excess -3.3 L Arterial Blood Oxygen Saturation 97.2 Jose Enrique Test ACCEPTAB Arterial Blood Gas Puncture Site Right Radial Arterial Blood Carboxyhemoglobin 0.2 Arterial Blood Methemoglobin 0.4 Blood Gas A-a O2 Differential 135.6 H Oxyhemoglobin Percent 96.6 Total Hemoglobin 10.6 L Blood Gas Temperature 37.0 Blood Gas Respiration Rate 16.0 Blood Gas Actual Respiration Rate 21 Blood Gas Modality VENT - SIMV FiO2 40.0 Blood Gas Tidal Volume 600.0 Blood Gas Low PEEP Setting 5.0 Blood Gas Pressure Support 15 Blood Gas Notified Whom JLD Blood Gas Notified Time 01/06/2017 8:07:43 AM Bedside Glucose 198 Medications Medications Current Medications Propofol (Diprivan) 100 ml @ 3.409 mls/ hr Q12H IV ; Start 01/02/17 at 16:00 Pantoprazole 40 mg 40 mg DAILY@06 IV Last administered on 01/06/17 05:29; Admin Dose 40 MG; Start 01/03/17 at 06:00 Midazolam HCl 50 ml @ 1 mls/hr TITRATE IV Last administered on 01/04/17 22:13; Admin Dose 5 MLS/HR; Start 01/02/17 at 17:30 Fentanyl (Sublimaze) 100 ml @ 2.5 mls/hr TITRATE IV Last administered on 22:13; Admin Dose 10 MLS/HR; Start 01/02/17 at 17:30 Lactulose (Enulose) 45 gm Q6 PO Last administered on 01/06/17 05:29; Admin Dose 45 GM; Start 01/03/17 at 18:00 Insulin Aspart (Novolog Insulin Pen) NOVOLOG *MODERATE* ALGORI... Q4 SC Last administered on 01/06/17 09:00; Admin Dose 4 UNIT; Start 01/03/17 at 13:00 Miscellaneous Information 1 ea NOTE XX ; Start 01/03/17 at 13:00 Glucose (Glutose) 15 gm Q15M PRN PO DECREASED GLUCOSE; Start 01/03/17 at 13:00 Glucose (Glutose) 22.5 gm Q15M PRN PO DECREASED GLUCOSE; Start 01/03/17 at 13:00 Dextrose (D50w Syringe) 25 ml Q15M PRN IV DECREASED GLUCOSE; Start 01/03/17 at 13:00 Dextrose (D50w Syringe) 50 ml Q15M PRN IV DECREASED GLUCOSE; Start 01/03/17 at 13:00 Glucagon (Glucagen) 1 mg Q15M PRN IM DECREASED GLUCOSE; Start 01/03/17 at 13:00 Glucose (Glutose) 15 gm Q15M PRN BUCCAL DECREASED GLUCOSE; Start 01/03/17 at 13: 00 Rifaximin 550 mg 550 mg BID PO Last administered on 01/06/17 08:59; Admin Dose 550 MG; Start 01/03/17 at 14:30 Meropenem 100 ml @ 200 mls/hr Q24H IVPB Last administered on 01/05/17 10:12; Admin Dose 200 MLS/HR; Start 01/04/17 at 10:30 Vasopressin 60 unit/Dextrose 60 ml @ 1.2 mls/hr Q12H IV Last administered on 14:26; Admin Dose 1.2 MLS/HR; Start 01/05/17 at 01:30 Norepinephrine 32 mg/Sodium Chloride 250 ml @ 0 mls/hr TITRATE IV* Last administered on 01/06/17 00:21; Admin Dose 14.06 MLS/HR; Start 01/05/17 at 10:30 Phenylephrine HCl/ Sodium Chloride (Kam-Syneph/NS) 258 ml @ 0 mls/hr TITRATE IV * Last administered on 01/06/17 00:18; Admin Dose 19.35 MLS/HR; Start 01/05/17 at 10:30 Hydrocortisone (Solu-Cortef) 100 mg Q8 IV Last administered on 01/06/17t 05:51; Admin Dose 100 MG; Start 01/05/17 at 14:00 SRIKANTH GALAVN Jan 06, 2017 09:08
[2017-01-06] MEDS ORDERED: ALBUMIN HUMAN 25% 100 ML IV ONE (09:30)
[2017-01-06] MEDS ORDERED: MAGNESIUM SULFATE 2 GM/50 ML 50 ML IVPB ONE (09:30)
[2017-01-06] MEDS ORDERED: FUROSEMIDE 20 MG INJ IV ONE (10:30)
[2017-01-06] MEDS: MEROPENEM 1 GM/100 ML (PMX) 100 ML IVPB SCH (10:35)
--- NOTE | 2017-01-06 11:11 | CONS ---
Date/Time of Note Date/Time of Note DATE: 01/06/17 TIME: 11:09 Consult Date/Type/Reason Admit Date/Time Jan 02, 2017 at 12:58 Type of Consultation: Pulmonary Ordering Provider: REGINA GARCIA MD Subjective Patient remains somnolent on mechanical ventilation Decreasing vasopressor requirements Objective Vital Signs Date Time Temp Pulse Resp B/P Pulse Ox O2 Delivery O2 Flow Rate FiO2 01/06/17 10:00 108 16 131/60 98 Mechanical Ventilator 01/06/17 08:00 98.3 01/06/17 05:15 40 01/02/17 11:59 2.0 Intake and Output 01/05/17 01/05/17 01/06/17 14:59 22:59 06:59 Intake Total 1323.19 ml 422.78 ml 482.39 ml Output Total 1500 ml 1550 ml 3325 ml Balance -176.81 ml -1127.22 ml -2842.61 ml Exam PHYSICAL EXAMINATION: GENERAL: Chronically ill appearing gentleman, appears comfortable at rest, no acute distress. VITAL SIGNS: HEENT: Dry mucous membranes. Pupils minimally responsive CARDIAC: S1, S2, no added sounds or murmurs. CHEST: Diminished air entry bilaterally with rales. ABDOMEN: Soft, nontender. No guarding or rebound. EXTREMITIES: No cyanosis, clubbing or edema. NEUROLOGIC: Generalized weakness. Unable to assess. Results/Medications Result Diagram: 01/06/17 0400 01/06/17 0400 Results 24 hrs Laboratory Tests Test 01/05/17 12:10 01/05/17 14:24 01/05/17 17:31 01/05/17 20:58 Sodium Level 114 *L Potassium Level 4.2 Chloride Level 79 L Carbon Dioxide Level 26 Anion Gap 13 Blood Urea Nitrogen 60 H Creatinine 2.80 H Glucose Level 141 Calcium Level 8.7 Bedside Glucose 141 135 176 Test 01/06/17 01:20 01/06/17 04:00 01/06/17 05:26 01/06/17 07:00 Bedside Glucose 172 177 White Blood Count 8.0 Red Blood Count 3.01 L Hemoglobin 9.5 L Hematocrit 25.4 L Mean Corpuscular Volume 84.4 Mean Corpuscular Hemoglobin 31.6 Mean Corpuscular Hemoglobin Concent 37.4 H Red Cell Distribution Width 13.2 Platelet Count 85 L Mean Platelet Volume 12.7 H Neutrophils % 89.2 H Lymphocytes % 4.5 L Monocytes % 5.7 Eosinophils % 0.1 Basophils % 0.1 Nucleated Red Blood Cells % 0.0 Neutrophils # 7.1 Lymphocytes # 0.4 L Monocytes # 0.5 Eosinophils # 0.0 Basophils # 0.0 Nucleated Red Blood Cells # 0.0 Sodium Level 123 L Potassium Level 4.3 Chloride Level 85 L Carbon Dioxide Level 23 Anion Gap 19 H Blood Urea Nitrogen 52 H Creatinine 2.21 H Glucose Level 153 Calcium Level 9.3 Phosphorus Level 5.0 H Magnesium Level 1.5 L Total Bilirubin 4.3 H Direct Bilirubin 0.50 #H Indirect Bilirubin 3.8 H Aspartate Amino Transf (AST/SGOT) 158 H Alanine Aminotransferase (ALT/SGPT) 138 H Alkaline Phosphatase 106 Total Protein 5.9 L Albumin 3.5 Globulin 2.40 Albumin/Globulin Ratio 1.45 Blood Gas Specimen Source Blood arterial Arterial Blood Date Drawn 01/06/2017 7:20:54 AM Arterial Blood pH (Temp corrected) 7.444 Arterial Blood pCO2 (Temp correct) 29.7 L Arterial Blood pO2 (Temp corrected) 115.4 H Arterial Blood HCO3 19.9 L Arterial Blood Base Excess -3.3 L Arterial Blood Oxygen Saturation 97.2 Jose Enrique Test ACCEPTAB Arterial Blood Gas Puncture Site Right Radial Arterial Blood Carboxyhemoglobin 0.2 Arterial Blood Methemoglobin 0.4 Blood Gas A-a O2 Differential 135.6 H Oxyhemoglobin Percent 96.6 Total Hemoglobin 10.6 L Blood Gas Temperature 37.0 Blood Gas Respiration Rate 16.0 Blood Gas Actual Respiration Rate 21 Blood Gas Modality VENT - SIMV FiO2 40.0 Blood Gas Tidal Volume 600.0 Blood Gas Low PEEP Setting 5.0 Blood Gas Pressure Support 15 Blood Gas Notified Whom JLD Blood Gas Notified Time 01/06/2017 8:07:43 AM Test 01/06/17 08:54 Bedside Glucose 198 Medications Current Medications Propofol (Diprivan) 100 ml @ 3.409 mls/ hr Q12H IV ; Start 01/02/17 at 16:00 Pantoprazole 40 mg 40 mg DAILY@06 IV Last administered on 01/06/17 05:29; Admin Dose 40 MG; Start 01/03/17 at 06:00 Midazolam HCl 50 ml @ 1 mls/hr TITRATE IV Last administered on 01/04/17 22:13; Admin Dose 5 MLS/HR; Start 01/02/17 at 17:30 Fentanyl (Sublimaze) 100 ml @ 2.5 mls/hr TITRATE IV Last administered on 22:13; Admin Dose 10 MLS/HR; Start 01/02/17 at 17:30 Lactulose (Enulose) 45 gm Q6 PO Last administered on 01/06/17 05:29; Admin Dose 45 GM; Start 01/03/17 at 18:00 Insulin Aspart (Novolog Insulin Pen) NOVOLOG *MODERATE* ALGORI... Q4 SC Last administered on 01/06/17 09:00; Admin Dose 4 UNIT; Start 01/03/17 at 13:00 Miscellaneous Information 1 ea NOTE XX ; Start 01/03/17 at 13:00 Glucose (Glutose) 15 gm Q15M PRN PO DECREASED GLUCOSE; Start 01/03/17 at 13:00 Glucose (Glutose) 22.5 gm Q15M PRN PO DECREASED GLUCOSE; Start 01/03/17 at 13:00 Dextrose (D50w Syringe) 25 ml Q15M PRN IV DECREASED GLUCOSE; Start 01/03/17 at 13:00 Dextrose (D50w Syringe) 50 ml Q15M PRN IV DECREASED GLUCOSE; Start 01/03/17 at 13:00 Glucagon (Glucagen) 1 mg Q15M PRN IM DECREASED GLUCOSE; Start 01/03/17 at 13:00 Glucose (Glutose) 15 gm Q15M PRN BUCCAL DECREASED GLUCOSE; Start 01/03/17 at 13: 00 Rifaximin 550 mg 550 mg BID PO Last administered on 01/06/17 08:59; Admin Dose 550 MG; Start 01/03/17 at 14:30 Meropenem 100 ml @ 200 mls/hr Q24H IVPB Last administered on 01/06/17 10:35; Admin Dose 200 MLS/HR; Start 01/04/17 at 10:30 Vasopressin 60 unit/Dextrose 60 ml @ 1.2 mls/hr Q12H IV Last administered on 14:26; Admin Dose 1.2 MLS/HR; Start 01/05/17 at 01:30 Norepinephrine 32 mg/Sodium Chloride 250 ml @ 0 mls/hr TITRATE IV* Last administered on 01/06/17 00:21; Admin Dose 14.06 MLS/HR; Start 01/05/17 at 10:30 Phenylephrine HCl/ Sodium Chloride (Kam-Syneph/NS) 258 ml @ 0 mls/hr TITRATE IV * Last administered on 01/06/17 00:18; Admin Dose 19.35 MLS/HR; Start 01/05/17 at 10:30 Hydrocortisone 100 mg 100 mg Q8 IV Last administered on 01/06/17 05:51; Admin Dose 100 MG; Start 01/05/17 at 14:00 Magnesium Sulfate (Magnesium Sulfate 2 Gm/50 ml) 50 ml @ 25 mls/hr ONCE ONCE IVPB Last administered on 01/06/17 09:35; Admin Dose 25 MLS/HR; Start 01/06/17 at 09:30; Stop 01/06/17 at 11:29 Assessment/Plan Chief Complaint/Hosp Course IMPRESSION AND PLAN: 1. Acute renal failure with hyperkalemia and metabolic acidosis. Improving hyponatremia 2. Possible hepatorenal syndrome. History of hepatitis C 3. Hypoxemic respiratory failure secondary to above. 4. Encephalopathy likely toxic metabolic 5. Septic shock currently requiring 2 vasopressors 6. Hyponatremia likely secondary to acute renal failure. 7. Thrombocytopenia possibly DIC likely secondary to steroids. PLAN: 1. Continue mechanical ventilation. Continue SIMV ventilation 2. Continue hemodialysis with correction of metabolic acidosis and hyponatremia 3. Continue vasopressors 4. Broad-spectrum antibiotics. 5. DVT and GI prophylaxis. 6. Labs suggestive of DIC. 7. Continue stress dose steroids 8. Consider EEG and neurology evaluation for anoxic brain injury Disposition Continue ICU care prognosis is guarded Family conference regarding goals of care Problems: EDILSON SIFUENTES MD, [facility] Jan 06, 2017 11:11
[2017-01-06] MEDS ORDERED: LORAZEPAM 2 MG INJ IM PRN (11:30)
[2017-01-06] MEDS: LORAZEPAM 2 MG INJ IV PRN ×3 (12:01→20:24)
[2017-01-06] MEDS: morphine 2 MG INJ IV PRN ×2 (15:22→20:12)
[2017-01-06] MEDS: MIDAZOLAM (DRIP) 50 mg/50 mL 50 ML IV SCH (20:47)
[2017-01-06] MEDS ORDERED: LEVALBUTEROL (HFA) 15 GM INHALER INH SCH (22:00)
[2017-01-06] MEDS: IPRATROPIUM (HFA) 12.9 GM INHALER INH SCH (22:35)
[2017-01-07] VITALS (102 sets, daily range): BP systolic 86–142; BP diastolic 50–122; PULSE 99–127; RESP 7–36
[2017-01-07] MEDS: INSULIN ASPART [NOVOLOG] 3 ML PEN SC SCH ×6 (01:12→21:01)
[2017-01-07] MEDS: VASOPRESSIN 60 UNIT in DEXTROSE 5% 57 ML IV SCH ×2 (01:30→13:30)
[2017-01-07] MEDS: IPRATROPIUM (HFA) 12.9 GM INHALER INH SCH ×4 (01:34→20:13)
[2017-01-07] MEDS: LEVALBUTEROL (HFA) 15 GM INHALER INH SCH ×4 (01:34→20:13)
[2017-01-07] MEDS: MIDAZOLAM (DRIP) 50 mg/50 mL 50 ML IV SCH ×3 (02:13→18:45)
[2017-01-07] MEDS: PROPOFOL 100 ML IV SCH ×2 (04:00→15:38)
[2017-01-07 04:52] LABS: ADD SCAN DIFF NO
[2017-01-07 04:57] LABS: ABNORMAL IP MESSAGE 1; EOSINOPHILS % 0.1 % (0.0-7.0); HEMATOCRIT 21.4 % (42.0-52.0); HEMOGLOBIN 8.2 g/dl (14.0-18.0); LYMPHOCYTES # 0.4 10^3/ul (0.8-2.9); LYMPHOCYTES % 4.5 % (15.0-51.0); MEAN CORPUSCULAR HEMOGLOBIN 33.1 pg (29.0-33.0); MEAN CORPUSCULAR VOLUME 86.3 fl (82.0-101.0); MONOCYTES % 11.6 % (0.0-11.0); NEUTROPHIL # 6.9 10^3/ul (1.6-7.5); NEUTROPHILS % 83.4 % (39.0-77.0); PLATELET COUNT 96 10^3/UL (140-415); RED BLOOD COUNT 2.48 10^6/ul (4.70-6.10); RED CELL DISTRIBUTION WIDTH 13.3 % (11.5-14.5); WHITE BLOOD COUNT 8.3 10^3/ul (4.8-10.8)
[2017-01-07 05:18] LABS: PHOSPHORUS 2.8 mg/dl (2.5-4.9)
[2017-01-07 05:23] LABS: CALCIUM 10.1 mg/dl (8.4-10.2); CREATININE 1.56 mg/dl (0.61-1.24); POTASSIUM 3.9 mmol/L (3.5-5.1)
[2017-01-07 05:28] LABS: MEAN CORPUSCULAR HGB CONC 38.3 g/dl (32.0-37.0)
[2017-01-07] MEDS: HYDROCORTISONE 100 MG INJ IV SCH ×3 (06:15→22:13)
[2017-01-07] MEDS: PANTOPRAZOLE 40 MG INJ IV SCH (06:15)
--- NOTE | 2017-01-07 08:48 | RADRPT ---
PROCEDURE: XR Chest. CLINICAL INDICATION: pna chf TECHNIQUE: Single frontal view of the chest was obtained. COMPARISON: Chest x-ray from 01/06/2017 FINDINGS: The endotracheal tube and enteric tube are unchanged in position. There is stable mild to moderate cardiomegaly and mild pulmonary vascular congestion. There is decreased prominence of patchy opacities in bilateral lower lung zones, likely due to impro dash atelectasis. There is no significant pleural effusion or pneumothorax. IMPRESSION: Improved bibasilar atelectasis. Stable cardiomegaly and mild pulmonary vascular congestion. Lines and support tubes are unchanged. RPTAT: EE Physician Aguilar Date Time Electronically viewed and signed by Physician Aguilar on 01/07/2017 08:48 RA/
[2017-01-07 08:52] LABS: AADO2 Arterial 110.3 mmHg (7.0-24.0); Allen Test ACCEPTAB; Arterial COHb 0.2 % (0.0-3.0); Arterial Fraction of Oxyhgb 95.4 % (93.0-99.0); Arterial HCO3 26.6 mmol/L (22.0-26.0); Arterial MetHb 0.7 % (0.0-1.5); Arterial Total Hemglobin 9.3 g/dl (12.0-18.0); Blood Gas PS 15; MODE VENT - SIMV
[2017-01-07] MEDS: LACTULOSE 30ML CUP PO SCH ×2 (09:12→20:41)
[2017-01-07] MEDS: RIFAXIMIN 550 MG TAB PO SCH ×2 (09:12→20:42)
--- NOTE | 2017-01-07 09:28 | PN ---
Date/Time of Note Date/Time of Note DATE: 01/07/17 TIME: 09:18 Assessment/Plan VTE Prophylaxis VTE Prophylaxis Intervention: SCD's Lines/Catheters IV Catheter Type (from Nrs): Mark Central line still needed: Yes (HD access) Urinary Cath still in place: Yes Reason Cath still needed: other (indicate) (s/p ARF and monitoring UOP while on Lasix ) Assessment/Plan Assessment/Plan 56-year-old male: 1. Hepatic encephalopathy and markedly elevated ammonia level on admission. Known Cirrhosis/ESLD, HepC. Finally having multiple BMs and rectal tube in place Now Ammonia down to 17 and much more responsive, Na better at 131. Much more responsive and had to go back on Versed gtt overnight On lactulose down to q12hrs and Rifaximin, CT abdo OK Currently on Vent 2. Acute respiratory failure with Severe Encephalopathy and Acute renal failure and also Shock state. All resolving currently. Back on minimal sedation and down to 1 pressor which is being titrated down Pulmonary following and adjusting Vent settings S/p Emergent HD on admission, none needed now On Meropenem Blood cx and Urine Cx NGTD 3. Acute Renal Failure, likely pre renal secondary to dehydration VS ATN with Severe Hyperkalemia. All resolved or resolving currently. Dr Brown following from Nephrology S/p emergent HD on admission, now on diuresis UOP adequate Monitoring renal function 4. Severe hyperkalemia. Resolved post Emergent HD on admission 5. Metabolic acidosis in setting on of ARF, s/p HD on admission. Resolved with improving renal function. Nephrology following 6. End-stage alcoholic liver disease, with also known Hep C, cirrhosis with Hepatic Encephalopathy and also coagulopathy. Stabilizing On Rifaximin and Lactulose. Correcting coagulopathy with FFP prn. 7. Hyponatremia, resolving with Na up to 131 On IVF adjusted, monitoring Nephrology, Dr Brown following Prophylaxis: on PPI for GI ppx and SCDs for DVT ppx Disposition: Stabilizing over the past 2 days, fair prognosis, follow up Nephro and Pulmonary recs Subjective 24 Hr Interval Summary Free Text/Dictation Patient improving clinically VS are stabilizing and down to 1 pressor which is being titrated down BM while on Lactulose Renal function recovering well Exam/Review of Systems Vital Signs Vitals Vital Signs Date Time Temp Pulse Resp B/P Pulse Ox O2 Delivery O2 Flow Rate FiO2 01/07/17 08:33 114 01/07/17 08:00 40 01/07/17 06:15 26 96/68 98 01/07/17 06:00 Mechanical Ventilator 01/07/17 04:00 98.6 Intake and Output 01/06/17 01/06/17 01/07/17 15:00 23:00 07:00 Intake Total 262.78 ml 234.70 ml 114.56 ml Output Total 1170 ml 1725 ml 1450 ml Balance -907.22 ml -1490.30 ml -1335.44 ml Exam Constitutional: obese, other (on some sedation but responsive ) Respiratory: diminished breath sounds (bases), other (On Vent ) Cardiovascular: nl pulses, regular rate and rhythm Gastrointestinal: non-tender, other (obese ), soft Musculoskeletal: nl extremities to inspection Extremities: normal pulses, other (no edema, clubbing or cyanosis ) Neurological: other (sedated and intubated ) Results Result Diagram: 01/07/17 0345 01/07/17 0345 Results 24 hrs Laboratory Tests Test 01/06/17 10:42 01/06/17 12:06 01/06/17 16:06 01/06/17 20:42 Ammonia 17 # Bedside Glucose 181 175 159 Test 01/07/17 01:09 01/07/17 03:45 01/07/17 05:16 01/07/17 07:00 Bedside Glucose 170 151 White Blood Count 8.3 Red Blood Count 2.48 L Hemoglobin 8.2 L Hematocrit 21.4 L Mean Corpuscular Volume 86.3 Mean Corpuscular Hemoglobin 33.1 H Mean Corpuscular Hemoglobin Concent 38.3 H Red Cell Distribution Width 13.3 Platelet Count 96 L Mean Platelet Volume 12.0 H Neutrophils % 83.4 H Lymphocytes % 4.5 L Monocytes % 11.6 H Eosinophils % 0.1 Basophils % 0.0 Nucleated Red Blood Cells % 0.0 Neutrophils # 6.9 Lymphocytes # 0.4 L Monocytes # 1.0 H Eosinophils # 0.0 Basophils # 0.0 Nucleated Red Blood Cells # 0.0 Sodium Level 131 L Potassium Level 3.9 Chloride Level 92 L Carbon Dioxide Level 28 Anion Gap 15 Blood Urea Nitrogen 65 H Creatinine 1.56 H Glucose Level 136 Calcium Level 10.1 Phosphorus Level 2.8 # Magnesium Level 2.0 Blood Gas Specimen Source Blood arterial Arterial Blood Date Drawn 01/07/2017 8:45:07 AM Arterial Blood pH (Temp corrected) 7.475 H Arterial Blood pCO2 (Temp correct) 37.0 Arterial Blood pO2 (Temp corrected) 96.2 Arterial Blood HCO3 26.6 H Arterial Blood Base Excess 3.0 Arterial Blood Oxygen Saturation 96.3 Jose Enrique Test ACCEPTAB Arterial Blood Gas Puncture Site Right Radial Arterial Blood Carboxyhemoglobin 0.2 Arterial Blood Methemoglobin 0.7 Blood Gas A-a O2 Differential 110.3 H Oxyhemoglobin Percent 95.4 Total Hemoglobin 9.3 L Blood Gas Temperature 37.0 Blood Gas Respiration Rate 16.0 Blood Gas Actual Respiration Rate 16 Blood Gas Modality VENT - SIMV FiO2 35.0 Blood Gas Tidal Volume 600.0 Blood Gas Low PEEP Setting 5.0 Blood Gas Inspiratory Pressure 21.0 Blood Gas Pressure Support 15 Blood Gas Notified Whom SM Blood Gas Notified Time 01/07/2017 8:51:52 AM Medications Medications Current Medications Propofol (Diprivan) 100 ml @ 3.409 mls/ hr Q12H IV ; Start 01/02/17 at 16:00 Pantoprazole 40 mg 40 mg DAILY@06 IV Last administered on 01/07/17 06:15; Admin Dose 40 MG; Start 01/03/17 at 06:00 Midazolam HCl 50 ml @ 1 mls/hr TITRATE IV Last administered on 01/07/17 02:13; Admin Dose 7 MLS/HR; Start 01/02/17 at 17:30; Status Future hold Fentanyl (Sublimaze) 100 ml @ 2.5 mls/hr TITRATE IV Last administered on 22:13; Admin Dose 10 MLS/HR; Start 01/02/17 at 17:30; Status Future Hold Insulin Aspart (Novolog Insulin Pen) NOVOLOG *MODERATE* ALGORI... Q4 SC Last administered on 01/07/17 09:15; Admin Dose 2 UNIT; Start 01/03/17 at 13:00 Miscellaneous Information 1 ea NOTE XX ; Start 01/03/17 at 13:00 Glucose (Glutose) 15 gm Q15M PRN PO DECREASED GLUCOSE; Start 01/03/17 at 13:00 Glucose (Glutose) 22.5 gm Q15M PRN PO DECREASED GLUCOSE; Start 01/03/17 at 13:00 Dextrose (D50w Syringe) 25 ml Q15M PRN IV DECREASED GLUCOSE; Start 01/03/17 at 13:00 Dextrose (D50w Syringe) 50 ml Q15M PRN IV DECREASED GLUCOSE; Start 01/03/17 at 13:00 Glucagon (Glucagen) 1 mg Q15M PRN IM DECREASED GLUCOSE; Start 01/03/17 at 13:00 Glucose (Glutose) 15 gm Q15M PRN BUCCAL DECREASED GLUCOSE; Start 01/03/17 at 13: 00 Rifaximin 550 mg 550 mg BID PO Last administered on 01/07/17 09:12; Admin Dose 550 MG; Start 01/03/17 at 14:30 Meropenem 100 ml @ 200 mls/hr Q24H IVPB Last administered on 01/06/17 10:35; Admin Dose 200 MLS/HR; Start 01/04/17 at 10:30 Vasopressin 60 unit/Dextrose 60 ml @ 1.2 mls/hr Q12H IV Last administered on 14:26; Admin Dose 1.2 MLS/HR; Start 01/05/17 at 01:30 Norepinephrine 32 mg/Sodium Chloride 250 ml @ 0 mls/hr TITRATE IV* Last administered on 01/06/17 20:00; Admin Dose 11.25 MLS/HR; Start 01/05/17 at 10:30 Phenylephrine HCl/ Sodium Chloride (Kam-Syneph/NS) 258 ml @ 0 mls/hr TITRATE IV * Last administered on 01/06/17 00:18; Admin Dose 19.35 MLS/HR; Start 01/05/17 at 10:30 Hydrocortisone (Solu-Cortef) 100 mg Q8 IV Last administered on 01/07/17 06:15; Admin Dose 100 MG; Start 01/05/17 at 14:00 Morphine Sulfate (morphine) 2 mg Q4H PRN IV PAIN Last administered on 01/06/17 20:12; Admin Dose 2 MG; Start 01/06/17 at 11:30 Lorazepam (Ativan) 1 mg Q4H PRN IV AGITATION Last administered on 01/06/17 20: 24; Admin Dose 1 MG; Start 01/06/17 at 12:00 Lactulose (Enulose) 45 gm Q12 PO Last administered on 01/07/17 09:12; Admin Dose 45 GM; Start 01/06/17 at 21:00 SRIKANTH GALVAN Jan 07, 2017 09:28
[2017-01-07] MEDS: MEROPENEM 1 GM/100 ML (PMX) 100 ML IVPB SCH (10:15)
--- NOTE | 2017-01-07 10:23 | CONS ---
Date/Time of Note Date/Time of Note DATE: 01/07/17 TIME: 10:21 Consult Date/Type/Reason Admit Date/Time Jan 02, 2017 at 12:58 Type of Consultation: Pulmonary Ordering Provider: REGINA GARCIA MD Subjective Opening eyes beginning to follow simple commands Continues on 1 vasopressor Objective Vital Signs Date Time Temp Pulse Resp B/P Pulse Ox O2 Delivery O2 Flow Rate FiO2 01/07/17 08:33 114 01/07/17 08:00 40 01/07/17 06:15 26 96/68 98 01/07/17 06:00 Mechanical Ventilator 01/07/17 04:00 98.6 Intake and Output 01/06/17 01/06/17 01/07/17 15:00 23:00 07:00 Intake Total 262.78 ml 234.70 ml 114.56 ml Output Total 1170 ml 1725 ml 1450 ml Balance -907.22 ml -1490.30 ml -1335.44 ml Exam PHYSICAL EXAMINATION: GENERAL: Chronically ill appearing gentleman, appears comfortable at rest, no acute distress. VITAL SIGNS: HEENT: Dry mucous membranes. Pupils minimally responsive CARDIAC: S1, S2, no added sounds or murmurs. CHEST: Diminished air entry bilaterally with rales. ABDOMEN: Soft, nontender. No guarding or rebound. EXTREMITIES: No cyanosis, clubbing or edema. NEUROLOGIC: Generalized weakness. Unable to assess. Results/Medications Result Diagram: 01/07/17 0345 01/07/17 0345 Results 24 hrs Laboratory Tests Test 01/06/17 10:42 01/06/17 12:06 01/06/17 16:06 01/06/17 20:42 Ammonia 17 # Bedside Glucose 181 175 159 Test 01/07/17 01:09 01/07/17 03:45 01/07/17 05:16 01/07/17 07:00 Bedside Glucose 170 151 White Blood Count 8.3 Red Blood Count 2.48 L Hemoglobin 8.2 L Hematocrit 21.4 L Mean Corpuscular Volume 86.3 Mean Corpuscular Hemoglobin 33.1 H Mean Corpuscular Hemoglobin Concent 38.3 H Red Cell Distribution Width 13.3 Platelet Count 96 L Mean Platelet Volume 12.0 H Neutrophils % 83.4 H Lymphocytes % 4.5 L Monocytes % 11.6 H Eosinophils % 0.1 Basophils % 0.0 Nucleated Red Blood Cells % 0.0 Neutrophils # 6.9 Lymphocytes # 0.4 L Monocytes # 1.0 H Eosinophils # 0.0 Basophils # 0.0 Nucleated Red Blood Cells # 0.0 Sodium Level 131 L Potassium Level 3.9 Chloride Level 92 L Carbon Dioxide Level 28 Anion Gap 15 Blood Urea Nitrogen 65 H Creatinine 1.56 H Glucose Level 136 Calcium Level 10.1 Phosphorus Level 2.8 # Magnesium Level 2.0 Blood Gas Specimen Source Blood arterial Arterial Blood Date Drawn 01/07/2017 8:45:07 AM Arterial Blood pH (Temp corrected) 7.475 H Arterial Blood pCO2 (Temp correct) 37.0 Arterial Blood pO2 (Temp corrected) 96.2 Arterial Blood HCO3 26.6 H Arterial Blood Base Excess 3.0 Arterial Blood Oxygen Saturation 96.3 Jose Enrique Test ACCEPTAB Arterial Blood Gas Puncture Site Right Radial Arterial Blood Carboxyhemoglobin 0.2 Arterial Blood Methemoglobin 0.7 Blood Gas A-a O2 Differential 110.3 H Oxyhemoglobin Percent 95.4 Total Hemoglobin 9.3 L Blood Gas Temperature 37.0 Blood Gas Respiration Rate 16.0 Blood Gas Actual Respiration Rate 16 Blood Gas Modality VENT - SIMV FiO2 35.0 Blood Gas Tidal Volume 600.0 Blood Gas Low PEEP Setting 5.0 Blood Gas Inspiratory Pressure 21.0 Blood Gas Pressure Support 15 Blood Gas Notified Whom SM Blood Gas Notified Time 01/07/2017 8:51:52 AM Test 01/07/17 09:11 Bedside Glucose 168 Medications Current Medications Propofol (Diprivan) 100 ml @ 3.409 mls/ hr Q12H IV ; Start 01/02/17 at 16:00 Pantoprazole 40 mg 40 mg DAILY@06 IV Last administered on 01/07/17 06:15; Admin Dose 40 MG; Start 01/03/17 at 06:00 Midazolam HCl 50 ml @ 1 mls/hr TITRATE IV Last administered on 01/07/17 10:00; Admin Dose 7 MLS/HR; Start 01/02/17 at 17:30; Status Future hold Fentanyl (Sublimaze) 100 ml @ 2.5 mls/hr TITRATE IV Last administered on 22:13; Admin Dose 10 MLS/HR; Start 01/02/17 at 17:30; Status Future Hold Insulin Aspart (Novolog Insulin Pen) NOVOLOG *MODERATE* ALGORI... Q4 SC Last administered on 01/07/17 09:15; Admin Dose 2 UNIT; Start 01/03/17 at 13:00 Miscellaneous Information 1 ea NOTE XX ; Start 01/03/17 at 13:00 Glucose (Glutose) 15 gm Q15M PRN PO DECREASED GLUCOSE; Start 01/03/17 at 13:00 Glucose (Glutose) 22.5 gm Q15M PRN PO DECREASED GLUCOSE; Start 01/03/17 at 13:00 Dextrose (D50w Syringe) 25 ml Q15M PRN IV DECREASED GLUCOSE; Start 01/03/17 at 13:00 Dextrose (D50w Syringe) 50 ml Q15M PRN IV DECREASED GLUCOSE; Start 01/03/17 at 13:00 Glucagon (Glucagen) 1 mg Q15M PRN IM DECREASED GLUCOSE; Start 01/03/17 at 13:00 Glucose (Glutose) 15 gm Q15M PRN BUCCAL DECREASED GLUCOSE; Start 01/03/17 at 13: 00 Rifaximin 550 mg 550 mg BID PO Last administered on 01/07/17 09:12; Admin Dose 550 MG; Start 01/03/17 at 14:30 Meropenem 100 ml @ 200 mls/hr Q24H IVPB Last administered on 01/07/17 10:15; Admin Dose 200 MLS/HR; Start 01/04/17 at 10:30 Vasopressin 60 unit/Dextrose 60 ml @ 1.2 mls/hr Q12H IV Last administered on 14:26; Admin Dose 1.2 MLS/HR; Start 01/05/17 at 01:30 Norepinephrine 32 mg/Sodium Chloride 250 ml @ 0 mls/hr TITRATE IV* Last administered on 01/06/17 20:00; Admin Dose 11.25 MLS/HR; Start 01/05/17 at 10:30 Phenylephrine HCl/ Sodium Chloride (Kam-Syneph/NS) 258 ml @ 0 mls/hr TITRATE IV * Last administered on 01/06/17 00:18; Admin Dose 19.35 MLS/HR; Start 01/05/17 at 10:30 Hydrocortisone (Solu-Cortef) 100 mg Q8 IV Last administered on 01/07/17 06:15; Admin Dose 100 MG; Start 01/05/17 at 14:00 Morphine Sulfate (morphine) 2 mg Q4H PRN IV PAIN Last administered on 01/06/17 20:12; Admin Dose 2 MG; Start 01/06/17 at 11:30 Lorazepam (Ativan) 1 mg Q4H PRN IV AGITATION Last administered on 01/06/17 20: 24; Admin Dose 1 MG; Start 01/06/17 at 12:00 Lactulose (Enulose) 45 gm Q12 PO Last administered on 01/07/17 09:12; Admin Dose 45 GM; Start 01/06/17 at 21:00 Assessment/Plan Chief Complaint/Hosp Course IMPRESSION AND PLAN: 1. Acute renal failure with hyperkalemia and metabolic acidosis. Improving hyponatremia 2. Possible hepatorenal syndrome. History of hepatitis C 3. Hypoxemic respiratory failure secondary to above. 4. Encephalopathy likely toxic metabolic clinically improving 5. Septic shock currently requiring Levophed 6. Hyponatremia likely secondary to acute renal failure. 7. Thrombocytopenia possibly DIC likely secondary to sepsis. 8. Possible relative adrenal insufficiency. Cortisol level of 10. PLAN: 1. Continue mechanical ventilation. Continue SIMV ventilation. Hold off on weaning trials until off vasopressors 2. Continue hemodialysis with correction of metabolic acidosis and hyponatremia 3. Continue vasopressors, decrease as tolerated 4. Broad-spectrum antibiotics. De-escalate once off vasopressors 5. DVT and GI prophylaxis. 6. Labs suggestive of DIC. 7. Continue stress dose steroids Disposition Continue ICU care Anticipate CPAP trial tomorrow if hemodynamically improving Problems: EDILSON SIFUENTES MD, [facility] Jan 07, 2017 10:23
--- NOTE | 2017-01-07 17:42 | CONS ---
Date/Time of Note Date/Time of Note DATE: 01/07/17 TIME: 17:39 Assessment/Plan Assessment/Plan Additional Assessment/Plan 1. Acute hyperkalemia with a potassium of 7.6 on admission, s/p One session of Emergent HD 01/03/17- now improved 2. Severe metabolic acidosis, bicarbonate 9, pH 7.19 on ABG on admission,s/p Bicarbonate drip- now stable off drip 3. Acute kidney injury with a BUN of 127, creatinine of 8.9 on admission, likely secondary to acute tubular necrosis. 4. Acute respiratory failure secondary to possibly acute fluid overload and possibly pneumonia.intubated on ventilator 5. History of liver cirrhosis from hepatitis C. 6. Hypernatremia. Sodium 146 on admission - then pt becomes hyponatremic to 114- now Na improved to 123 on 01/06/17 7. No evidence of any coagulopathy and patient's albumin has been normal at 4.71. He does have a history of liver cirrhosis from hepatitis C. 8. Anemia of chronic disease. PLAN: S/p Emergent HD due to hyperkalemia, severe metabolic acidosis and resp failure - now K 3.9, Cr 1.54 now only one pressors, BP still labile,. Urine output 2.7 L Ventilator care as per pulmonary Renal US negative for hydronephrosis, echogenicity c/w CKD will continue to follow up and monitor urine output IV abx as per primary care team Consultation Date/Type/Reason Admit Date/Time Jan 02, 2017 at 12:58 Initial Consult Date Dec Type of Consultation: NEPHROLOGY Referring Provider: REGINA GARCIA MD 24 HR Interval Summary Free Text/Dictation , making good urine output, had BM, renal funciton has been i mproving Exam/Review of Systems Vital Signs Vitals Vital Signs Date Time Temp Pulse Resp B/P Pulse Ox O2 Delivery O2 Flow Rate FiO2 01/07/17 17:00 114 21 115/68 97 Mechanical Ventilator 01/07/17 16:00 99.4 01/07/17 15:10 35 Intake and Output 01/06/17 01/06/17 01/07/17 15:00 23:00 07:00 Intake Total 362.78 ml 234.70 ml 127.18 ml Output Total 1170 ml 1725 ml 1540 ml Balance -807.22 ml -1490.30 ml -1412.82 ml Results Result Diagram: 01/07/17 0345 01/07/17 0345 Results 24 hrs Laboratory Tests Test 01/06/17 20:42 01/07/17 01:09 01/07/17 03:45 01/07/17 05:16 Bedside Glucose 159 170 151 White Blood Count 8.3 Red Blood Count 2.48 L Hemoglobin 8.2 L Hematocrit 21.4 L Mean Corpuscular Volume 86.3 Mean Corpuscular Hemoglobin 33.1 H Mean Corpuscular Hemoglobin Concent 38.3 H Red Cell Distribution Width 13.3 Platelet Count 96 L Mean Platelet Volume 12.0 H Neutrophils % 83.4 H Lymphocytes % 4.5 L Monocytes % 11.6 H Eosinophils % 0.1 Basophils % 0.0 Nucleated Red Blood Cells % 0.0 Neutrophils # 6.9 Lymphocytes # 0.4 L Monocytes # 1.0 H Eosinophils # 0.0 Basophils # 0.0 Nucleated Red Blood Cells # 0.0 Sodium Level 131 L Potassium Level 3.9 Chloride Level 92 L Carbon Dioxide Level 28 Anion Gap 15 Blood Urea Nitrogen 65 H Creatinine 1.56 H Glucose Level 136 Calcium Level 10.1 Phosphorus Level 2.8 # Magnesium Level 2.0 Test 01/07/17 07:00 01/07/17 09:11 01/07/17 13:20 01/07/17 16:05 Blood Gas Specimen Source Blood arterial Arterial Blood Date Drawn 01/07/2017 8:45:07 AM Arterial Blood pH (Temp corrected) 7.475 H Arterial Blood pCO2 (Temp correct) 37.0 Arterial Blood pO2 (Temp corrected) 96.2 Arterial Blood HCO3 26.6 H Arterial Blood Base Excess 3.0 Arterial Blood Oxygen Saturation 96.3 Jose Enrique Test ACCEPTAB Arterial Blood Gas Puncture Site Right Radial Arterial Blood Carboxyhemoglobin 0.2 Arterial Blood Methemoglobin 0.7 Blood Gas A-a O2 Differential 110.3 H Oxyhemoglobin Percent 95.4 Total Hemoglobin 9.3 L Blood Gas Temperature 37.0 Blood Gas Respiration Rate 16.0 Blood Gas Actual Respiration Rate 16 Blood Gas Modality VENT - SIMV FiO2 35.0 Blood Gas Tidal Volume 600.0 Blood Gas Low PEEP Setting 5.0 Blood Gas Inspiratory Pressure 21.0 Blood Gas Pressure Support 15 Blood Gas Notified Whom Blood Gas Notified Time 01/07/2017 8:51:52 AM Bedside Glucose 168 160 167 Medications Medications Current Medications Propofol (Diprivan) 100 ml @ 3.409 mls/ hr Q12H IV ; Start 01/02/17 at 16:00 Pantoprazole 40 mg 40 mg DAILY@06 IV Last administered on 01/07/17 06:15; Admin Dose 40 MG; Start 01/03/17 at 06:00 Midazolam HCl 50 ml @ 1 mls/hr TITRATE IV Last administered on 01/07/17 10:00; Admin Dose 7 MLS/HR; Start 01/02/17 at 17:30; Status Future hold Fentanyl (Sublimaze) 100 ml @ 2.5 mls/hr TITRATE IV Last administered on 22:13; Admin Dose 10 MLS/HR; Start 01/02/17 at 17:30; Status Future Hold Insulin Aspart (Novolog Insulin Pen) NOVOLOG *MODERATE* ALGORI... Q4 SC Last administered on 01/07/17 16:09; Admin Dose 2 UNIT; Start 01/03/17 at 13:00 Miscellaneous Information 1 ea NOTE XX ; Start 01/03/17 at 13:00 Glucose (Glutose) 15 gm Q15M PRN PO DECREASED GLUCOSE; Start 01/03/17 at 13:00 Glucose (Glutose) 22.5 gm Q15M PRN PO DECREASED GLUCOSE; Start 01/03/17 at 13:00 Dextrose (D50w Syringe) 25 ml Q15M PRN IV DECREASED GLUCOSE; Start 01/03/17 at 13:00 Dextrose (D50w Syringe) 50 ml Q15M PRN IV DECREASED GLUCOSE; Start 01/03/17 at 13:00 Glucagon (Glucagen) 1 mg Q15M PRN IM DECREASED GLUCOSE; Start 01/03/17 at 13:00 Glucose (Glutose) 15 gm Q15M PRN BUCCAL DECREASED GLUCOSE; Start 01/03/17 at 13: 00 Rifaximin 550 mg 550 mg BID PO Last administered on 01/07/17 09:12; Admin Dose 550 MG; Start 01/03/17 at 14:30 Meropenem 100 ml @ 200 mls/hr Q24H IVPB Last administered on 01/07/17 10:15; Admin Dose 200 MLS/HR; Start 01/04/17 at 10:30 Vasopressin 60 unit/Dextrose 60 ml @ 1.2 mls/hr Q12H IV Last administered on 14:26; Admin Dose 1.2 MLS/HR; Start 01/05/17 at 01:30 Norepinephrine 32 mg/Sodium Chloride 250 ml @ 0 mls/hr TITRATE IV* Last administered on 01/06/17 20:00; Admin Dose 11.25 MLS/HR; Start 01/05/17 at 10:30 Phenylephrine HCl/ Sodium Chloride (Kam-Syneph/NS) 258 ml @ 0 mls/hr TITRATE IV * Last administered on 01/06/17 00:18; Admin Dose 19.35 MLS/HR; Start 01/05/17 at 10:30 Hydrocortisone (Solu-Cortef) 100 mg Q8 IV Last administered on 01/07/17 13:22; Admin Dose 100 MG; Start 01/05/17 at 14:00 Morphine Sulfate (morphine) 2 mg Q4H PRN IV PAIN Last administered on 01/06/17 20:12; Admin Dose 2 MG; Start 01/06/17 at 11:30 Lorazepam (Ativan) 1 mg Q4H PRN IV AGITATION Last administered on 01/06/17 20: 24; Admin Dose 1 MG; Start 01/06/17 at 12:00 Lactulose (Enulose) 45 gm Q12 PO Last administered on 01/07/17 09:12; Admin Dose 45 GM; Start 01/06/17 at 21:00 MARII DALY MD Jan 07, 2017 17:41
[2017-01-08] VITALS (96 sets, daily range): BP systolic 81–145; BP diastolic 45–83; PULSE 75–123; RESP 10–28
[2017-01-08] MEDS: INSULIN ASPART [NOVOLOG] 3 ML PEN SC SCH ×6 (01:06→21:00)
[2017-01-08] MEDS: IPRATROPIUM (HFA) 12.9 GM INHALER INH SCH ×4 (01:08→19:23)
[2017-01-08] MEDS: LEVALBUTEROL (HFA) 15 GM INHALER INH SCH ×4 (01:08→19:23)
[2017-01-08] MEDS: VASOPRESSIN 60 UNIT in DEXTROSE 5% 57 ML IV SCH ×2 (01:30→12:49)
[2017-01-08] MEDS: MIDAZOLAM (DRIP) 50 mg/50 mL 50 ML IV SCH ×4 (01:33→20:05)
[2017-01-08] MEDS: PROPOFOL 100 ML IV SCH ×3 (04:00→22:13)
[2017-01-08 05:03] LABS: ADD SCAN DIFF NO
[2017-01-08 05:10] LABS: ABNORMAL IP MESSAGE 1; HEMATOCRIT 21.4 % (42.0-52.0); HEMOGLOBIN 7.7 g/dl (14.0-18.0); MEAN CORPUSCULAR HEMOGLOBIN 32.4 pg (29.0-33.0); MEAN CORPUSCULAR VOLUME 89.9 fl (82.0-101.0); MEAN PLATELET VOLUME 11.4 fl (7.4-10.4); PLATELET COUNT 99 10^3/UL (140-415); RED BLOOD COUNT 2.38 10^6/ul (4.70-6.10); RED CELL DISTRIBUTION WIDTH 13.7 % (11.5-14.5); WHITE BLOOD COUNT 8.1 10^3/ul (4.8-10.8)
[2017-01-08 05:25] LABS: INR 1.5; PROTIME 18.2 Sec (12.2-14.2); PT RATIO 1.4
[2017-01-08 05:26] LABS: PARTIAL THROMBOPLASTIN TIME 28.1 Sec (25.0-35.0)
[2017-01-08] MEDS: HYDROCORTISONE 100 MG INJ IV SCH ×3 (05:35→21:35)
[2017-01-08] MEDS: PANTOPRAZOLE 40 MG INJ IV SCH (05:35)
[2017-01-08 05:56] LABS: ALBUMIN 3.1 g/dl (3.3-4.9); ALBUMIN/GLOBULIN RATIO 1.29; BILIRUBIN,INDIRECT 1.2 mg/dl (0-1.1); BILIRUBIN,TOTAL 1.2 mg/dl (0.2-1.3); CALCIUM 10.2 mg/dl (8.4-10.2); CREATININE 1.37 mg/dl (0.61-1.24); POTASSIUM 3.6 mmol/L (3.5-5.1); TOTAL PROTEIN 5.5 g/dl (6.1-8.1)
[2017-01-08 05:57] LABS: PHOSPHORUS 2.4 mg/dl (2.5-4.9)
[2017-01-08 08:18] LABS: LYMPHOCYTES # 0.9 10^3/ul (0.8-2.9); MONOCYTE # 0.9 10^3/ul (0.3-0.9); MYELOCYTES # 0.1
[2017-01-08] MEDS: RIFAXIMIN 550 MG TAB PO SCH ×2 (08:48→21:35)
[2017-01-08] MEDS: LACTULOSE 30ML CUP PO SCH ×2 (08:48→21:34)
[2017-01-08 08:57] LABS: AADO2 Arterial 72.6 mmHg (7.0-24.0); Allen Test ACCEPTAB; Arterial Base Excess 8.1 mmol/L (-3.0-3); Arterial COHb 0.2 % (0.0-3.0); Arterial Fraction of Oxyhgb 95.5 % (93.0-99.0); Arterial HCO3 31.8 mmol/L (22.0-26.0); Arterial MetHb 0.7 % (0.0-1.5); Arterial Total Hemglobin 8.6 g/dl (12.0-18.0); Blood Gas PS 15; MODE VENT - SIMV
[2017-01-08] MEDS: MEROPENEM 1 GM/100 ML (PMX) 100 ML IVPB SCH (10:01)
--- NOTE | 2017-01-08 10:09 | PN ---
Date/Time of Note Date/Time of Note DATE: 01/08/17 TIME: 09:47 Assessment/Plan VTE Prophylaxis VTE Prophylaxis Intervention: SCD's Lines/Catheters IV Catheter Type (from Nrs): misael cath Urinary Cath still in place: Yes Reason Cath still needed: other (indicate) (monitor UOP ) Assessment/Plan Assessment/Plan 56-year-old male: 1. Hepatic encephalopathy and markedly elevated ammonia level on admission. Known Cirrhosis/ESLD, HepC. Finally having multiple BMs and rectal tube in place Now Ammonia down to 20's and much more responsive. On lactulose down to q12hrs and Rifaximin, CT abdo OK Currently on Vent 2. Acute respiratory failure with Severe Encephalopathy and Acute renal failure and also Shock state. All resolving currently. Off sedation alert and follows commands. Pulmonary following and adjusting Vent settings S/p Emergent HD on admission, none needed now On Meropenem Blood cx and Urine Cx NGTD 3. Acute Renal Failure, likely pre renal secondary to dehydration VS ATN with Severe Hyperkalemia. All resolved or resolving currently. Dr Brown following from Nephrology S/p emergent HD on admission, now on diuresis UOP adequate Monitoring renal function 4. Severe hyperkalemia. Resolved post Emergent HD on admission 5. Metabolic acidosis in setting on of ARF, s/p HD on admission. Resolved with improving renal function. Nephrology following 6. End-stage alcoholic liver disease, with also known Hep C, cirrhosis with Hepatic Encephalopathy and also coagulopathy. Stabilizing On Rifaximin and Lactulose. Correcting coagulopathy with FFP prn. 7. Hyponatremia, resolving with Na up to 138 On IVF adjusted, monitoring Nephrology, Dr Brown following 8. Acute on chronic anemia, no acute bleeding seen. Recheck h/h and blood transfusion likely today if Hb confirmed less than 8 Repeat Anemia work up Prophylaxis: on PPI for GI ppx and SCDs for DVT ppx Disposition: Stabilizing over the past 2 days, fair prognosis, follow up Nephro and Pulmonary recs Subjective 24 Hr Interval Summary Free Text/Dictation Patient doing OK and stable with low grade temp this AM Labs OK except for Hb of 7.7 On Vent and levo for pressors Exam/Review of Systems Vital Signs Vitals Vital Signs Date Time Temp Pulse Resp B/P Pulse Ox O2 Delivery O2 Flow Rate FiO2 01/08/17 08:00 110 01/08/17 06:15 21 91/61 97 Mechanical Ventilator 01/08/17 05:10 30 01/08/17 04:00 99.1 Intake and Output 01/07/17 01/07/17 01/08/17 15:00 23:00 07:00 Intake Total 296.78 ml 329.36 ml 349.18 ml Output Total 705 ml 1520 ml 890 ml Balance -408.22 ml -1190.64 ml -540.82 ml Exam Constitutional: other (wakes up off sedation ) Respiratory: diminished breath sounds (bases but better ), other (on Vent ) Cardiovascular: nl pulses, regular rate and rhythm Gastrointestinal: non-tender, soft Musculoskeletal: nl extremities to inspection Extremities: normal pulses, other (anasarca much improved to resolving ) Neurological: other (off Versed and awake and following commands ) Results Result Diagram: 01/08/17 0340 01/08/17 0340 Results 24 hrs Laboratory Tests Test 01/07/17 13:20 01/07/17 16:05 01/07/17 20:45 01/08/17 01:03 Bedside Glucose 160 167 158 153 Test 01/08/17 03:40 01/08/17 05:33 01/08/17 07:00 01/08/17 08:48 White Blood Count 8.1 Red Blood Count 2.38 L Hemoglobin 7.7 L Hematocrit 21.4 L Mean Corpuscular Volume 89.9 Mean Corpuscular Hemoglobin 32.4 Mean Corpuscular Hemoglobin Concent 36.0 Red Cell Distribution Width 13.7 Platelet Count 99 L Mean Platelet Volume 11.4 H Neutrophils % 74.0 Band Neutrophils % 2.0 Lymphocytes % 11.0 L Monocytes % 11.0 Myelocytes % 1.0 H Promyelocytes % 1.0 H Nucleated Red Blood Cells % 1.0 H Neutrophils # 6.0 Lymphocytes # 0.9 Monocytes # 0.9 Myelocytes # 0.1 Promyelocytes # 0.1 Prothrombin Time 18.2 H Prothrombin Time Ratio 1.4 INR International Normalized Ratio 1.50 Activated Partial Thromboplast Time 28.1 Sodium Level 138 Potassium Level 3.6 Chloride Level 98 Carbon Dioxide Level 30 Anion Gap 14 Blood Urea Nitrogen 74 H Creatinine 1.37 H Glucose Level 126 Calcium Level 10.2 Phosphorus Level 2.4 L Magnesium Level 2.0 Total Bilirubin 1.2 # Direct Bilirubin 0.00 # Indirect Bilirubin 1.2 H Aspartate Amino Transf (AST/SGOT) 104 H Alanine Aminotransferase (ALT/SGPT) 112 H Alkaline Phosphatase 89 Ammonia 27 Total Protein 5.5 L Albumin 3.1 L Globulin 2.40 Albumin/Globulin Ratio 1.29 Bedside Glucose 150 160 Blood Gas Specimen Source Blood arterial Arterial Blood Date Drawn 01/08/2017 8:35:18 AM Arterial Blood pH (Temp corrected) 7.510 H Arterial Blood pCO2 (Temp correct) 40.8 Arterial Blood pO2 (Temp corrected) 93.4 Arterial Blood HCO3 31.8 H Arterial Blood Base Excess 8.1 H Arterial Blood Oxygen Saturation 96.4 Jose Enrique Test ACCEPTAB Arterial Blood Gas Puncture Site Right Radial Arterial Blood Carboxyhemoglobin 0.2 Arterial Blood Methemoglobin 0.7 Blood Gas A-a O2 Differential 72.6 H Oxyhemoglobin Percent 95.5 Total Hemoglobin 8.6 L Blood Gas Temperature 37.0 Blood Gas Respiration Rate 16.0 Blood Gas Actual Respiration Rate 16 Blood Gas Modality VENT - SIMV FiO2 30.0 Blood Gas Tidal Volume 600.0 Blood Gas Low PEEP Setting 5.0 Blood Gas Pressure Support 15 Blood Gas Notified Whom Melinda SPEAR Blood Gas Notified Time 01/08/2017 8:57:11 AM Medications Medications Current Medications Propofol (Diprivan) 100 ml @ 3.409 mls/ hr Q12H IV ; Start 01/02/17 at 16:00 Pantoprazole 40 mg 40 mg DAILY@06 IV Last administered on 01/08/17 05:35; Admin Dose 40 MG; Start 01/03/17 at 06:00 Midazolam HCl 50 ml @ 1 mls/hr TITRATE IV Last administered on 01/08/17 01:33 ; Admin Dose 7 MLS/HR; Start 01/02/17 at 17:30; Status Future hold Fentanyl (Sublimaze) 100 ml @ 2.5 mls/hr TITRATE IV Last administered on 22:13; Admin Dose 10 MLS/HR; Start 01/02/17 at 17:30; Status Future Hold Insulin Aspart (Novolog Insulin Pen) NOVOLOG *MODERATE* ALGORI... Q4 SC Last administered on 01/08/17 08:50; Admin Dose 2 UNIT; Start 01/03/17 at 13:00 Miscellaneous Information 1 ea NOTE XX ; Start 01/03/17 at 13:00 Glucose (Glutose) 15 gm Q15M PRN PO DECREASED GLUCOSE; Start 01/03/17 at 13:00 Glucose (Glutose) 22.5 gm Q15M PRN PO DECREASED GLUCOSE; Start 01/03/17 at 13:00 Dextrose (D50w Syringe) 25 ml Q15M PRN IV DECREASED GLUCOSE; Start 01/03/17 at 13:00 Dextrose (D50w Syringe) 50 ml Q15M PRN IV DECREASED GLUCOSE; Start 01/03/17 at 13:00 Glucagon (Glucagen) 1 mg Q15M PRN IM DECREASED GLUCOSE; Start 01/03/17 at 13:00 Glucose (Glutose) 15 gm Q15M PRN BUCCAL DECREASED GLUCOSE; Start 01/03/17 at 13: 00 Rifaximin 550 mg 550 mg BID PO Last administered on 01/08/17 08:48; Admin Dose 550 MG; Start 01/03/17 at 14:30 Meropenem 100 ml @ 200 mls/hr Q24H IVPB Last administered on 01/07/17 10:15; Admin Dose 200 MLS/HR; Start 01/04/17 at 10:30 Vasopressin 60 unit/Dextrose 60 ml @ 1.2 mls/hr Q12H IV Last administered on 14:26; Admin Dose 1.2 MLS/HR; Start 01/05/17 at 01:30 Norepinephrine 32 mg/Sodium Chloride 250 ml @ 0 mls/hr TITRATE IV* Last administered on 01/06/17 20:00; Admin Dose 11.25 MLS/HR; Start 01/05/17 at 10:30 Phenylephrine HCl/ Sodium Chloride (Kam-Syneph/NS) 258 ml @ 0 mls/hr TITRATE IV * Last administered on 01/06/17 00:18; Admin Dose 19.35 MLS/HR; Start 01/05/17 at 10:30 Hydrocortisone (Solu-Cortef) 100 mg Q8 IV Last administered on 01/08/17 05:35 ; Admin Dose 100 MG; Start 01/05/17 at 14:00 Morphine Sulfate (morphine) 2 mg Q4H PRN IV PAIN Last administered on 01/06/17 20:12; Admin Dose 2 MG; Start 01/06/17 at 11:30 Lorazepam (Ativan) 1 mg Q4H PRN IV AGITATION Last administered on 01/06/17 20: 24; Admin Dose 1 MG; Start 01/06/17 at 12:00 Lactulose (Enulose) 45 gm Q12 PO Last administered on 01/08/17 08:48; Admin Dose 45 GM; Start 01/06/17 at 21:00 Acetaminophen (Tylenol Liquid) 650 mg Q6H PRN GTB PAIN AND OR ELEVATED TEMP; Start 01/08/17 at 09:30 SRIKANTH GALVAN Jan 08, 2017 09:57
--- NOTE | 2017-01-08 10:18 | RADRPT ---
PROCEDURE: XR Chest. CLINICAL INDICATION: Congestive heart failure TECHNIQUE: Single frontal chest x-ray. COMPARISON: 01/07/2017 FINDINGS: Endotracheal tube, nasogastric tube, right jugular central venous catheter in place unchanged. Card iomegaly with hilar vascular congestion is unchanged. Bibasilar atelectasis is unchanged. . There is no new alveolar infiltrates, edema, or effusions.. Rotational artifact limits evaluation.. The o sseous structures are intact. IMPRESSION: Tubes and lines unchanged. Cardiomegaly with hilar vascular congestion and bibasilar atelectasis unchanged.. RPTAT: QQ .Ruy Saenz MD, MD Date Time Electronically viewed and signed by .Ruy Saenz MD, MD on 01/08/2017 10:18 .L/
[2017-01-08 10:35] LABS: IRON 103 ug/dl (35-150)
[2017-01-08 10:45] LABS: TOTAL IRON BINDING CAPACITY 203 ug/dl (241-421)
[2017-01-08 11:50] LABS: HEMATOCRIT 21.6 % (42.0-52.0); HEMOGLOBIN 7.7 g/dl (14.0-18.0)
--- NOTE | 2017-01-08 11:54 | CONS ---
Date/Time of Note Date/Time of Note DATE: 01/08/17 TIME: 11:44 Assessment/Plan Assessment/Plan Additional Assessment/Plan 1. Acute hyperkalemia with a potassium of 7.6 on admission, s/p One session of Emergent HD 01/03/17- now improved 2. Severe metabolic acidosis, bicarbonate 9, pH 7.19 on ABG on admission,s/p Bicarbonate drip- now stable off drip 3. Acute kidney injury with a BUN of 127, creatinine of 8.9 on admission, likely secondary to acute tubular necrosis. 4. Acute respiratory failure secondary to possibly acute fluid overload and possibly pneumonia.intubated on ventilator 5. History of liver cirrhosis from hepatitis C. 6. Hypernatremia. Sodium 146 on admission - then pt becomes hyponatremic to 114- now Na improved to 123 on 01/06/17 7. No evidence of any coagulopathy and patient's albumin has been normal at 4.71. He does have a history of liver cirrhosis from hepatitis C. 8. Anemia of chronic disease.- H/H- 7.7/21.4 - repeat CBC per primary- fu, no obvious bleeding from any orifice reported by staff PLAN: S/p Emergent HD due to hyperkalemia, severe metabolic acidosis and resp failure - now K 3.6, Cr 1.37 today now only one pressors, BP still labile,. Urine output 2.1L Ventilator care as per pulmonary Renal US negative for hydronephrosis, echogenicity c/w CKD will continue to follow up and monitor urine output IV abx as per primary care team Further recommendations depend upon patient's clinical course. Plan of care dw Dr Lauryn Brown /staff Consultation Date/Type/Reason Admit Date/Time Jan 02, 2017 at 12:58 Initial Consult Date Type of Consultation: NEPHROLOGY Referring Provider: REGINA GARCIA MD 24 HR Interval Summary Free Text/Dictation urine output 2.1, afebrile, had BM- rectal tube , Cr 1.37- improving. lulú saff Exam/Review of Systems Vital Signs Vitals Vital Signs Date Time Temp Pulse Resp B/P Pulse Ox O2 Delivery O2 Flow Rate FiO2 01/08/17 10:30 97 16 93/48 95 01/08/17 10:00 Mechanical Ventilator 01/08/17 08:00 100.0 01/08/17 08:00 30 Intake and Output 01/07/17 01/07/17 01/08/17 15:00 23:00 07:00 Intake Total 296.78 ml 329.36 ml 389.18 ml Output Total 705 ml 1520 ml 940 ml Balance -408.22 ml -1190.64 ml -550.82 ml Exam Constitutional: alert, well developed Psych: nl mood/affect Respiratory: diminished breath sounds, normal air movement Cardiovascular: nl pulses, other (right groinn - HD cath- intact, left IJ- intact), regular rate and rhythm Gastrointestinal: non-tender, other (OGT noted- intact, no residual), soft Musculoskeletal: nl extremities to inspection Extremities: normal pulses Neurological: other (awake, open eyes to name, squeezs hand, ) Skin: nl turgor Lymph: nontender Results Result Diagram: 01/08/17 0340 01/08/17 0340 Results 24 hrs Laboratory Tests Test 01/07/17 13:20 01/07/17 16:05 01/07/17 20:45 01/08/17 01:03 Bedside Glucose 160 167 158 153 Test 01/08/17 03:40 01/08/17 05:33 01/08/17 07:00 01/08/17 08:48 White Blood Count 8.1 Red Blood Count 2.38 L Hemoglobin 7.7 L Hematocrit 21.4 L Mean Corpuscular Volume 89.9 Mean Corpuscular Hemoglobin 32.4 Mean Corpuscular Hemoglobin Concent 36.0 Red Cell Distribution Width 13.7 Platelet Count 99 L Mean Platelet Volume 11.4 H Neutrophils % 74.0 Band Neutrophils % 2.0 Lymphocytes % 11.0 L Monocytes % 11.0 Myelocytes % 1.0 H Promyelocytes % 1.0 H Nucleated Red Blood Cells % 1.0 H Neutrophils # 6.0 Lymphocytes # 0.9 Monocytes # 0.9 Myelocytes # 0.1 Promyelocytes # 0.1 Prothrombin Time 18.2 H Prothrombin Time Ratio 1.4 INR International Normalized Ratio 1.50 Activated Partial Thromboplast Time 28.1 Sodium Level 138 Potassium Level 3.6 Chloride Level 98 Carbon Dioxide Level 30 Anion Gap 14 Blood Urea Nitrogen 74 H Creatinine 1.37 H Glucose Level 126 Calcium Level 10.2 Phosphorus Level 2.4 L Magnesium Level 2.0 Iron Level 103 Total Iron Binding Capacity 203 L Percent Iron Saturation 51 Total Bilirubin 1.2 # Direct Bilirubin 0.00 # Indirect Bilirubin 1.2 H Aspartate Amino Transf (AST/SGOT) 104 H Alanine Aminotransferase (ALT/SGPT) 112 H Alkaline Phosphatase 89 Ammonia 27 Total Protein 5.5 L Albumin 3.1 L Globulin 2.40 Albumin/Globulin Ratio 1.29 Bedside Glucose 150 160 Blood Gas Specimen Source Blood arterial Arterial Blood Date Drawn 01/08/2017 8:35:18 AM Arterial Blood pH (Temp corrected) 7.510 H Arterial Blood pCO2 (Temp correct) 40.8 Arterial Blood pO2 (Temp corrected) 93.4 Arterial Blood HCO3 31.8 H Arterial Blood Base Excess 8.1 H Arterial Blood Oxygen Saturation 96.4 Jose Enrique Test ACCEPTAB Arterial Blood Gas Puncture Site Right Radial Arterial Blood Carboxyhemoglobin 0.2 Arterial Blood Methemoglobin 0.7 Blood Gas A-a O2 Differential 72.6 H Oxyhemoglobin Percent 95.5 Total Hemoglobin 8.6 L Blood Gas Temperature 37.0 Blood Gas Respiration Rate 16.0 Blood Gas Actual Respiration Rate 16 Blood Gas Modality VENT - SIMV FiO2 30.0 Blood Gas Tidal Volume 600.0 Blood Gas Low PEEP Setting 5.0 Blood Gas Pressure Support 15 Blood Gas Notified Whom Melinda SPEAR Blood Gas Notified Time 01/08/2017 8:57:11 AM Medications Medications Current Medications Propofol (Diprivan) 100 ml @ 3.409 mls/ hr Q12H IV ; Start 01/02/17 at 16:00 Pantoprazole 40 mg 40 mg DAILY@06 IV Last administered on 01/08/17 05:35; Admin Dose 40 MG; Start 01/03/17 at 06:00 Midazolam HCl 50 ml @ 1 mls/hr TITRATE IV Last administered on 01/08/17 01:33 ; Admin Dose 7 MLS/HR; Start 01/02/17 at 17:30; Status Future hold Fentanyl (Sublimaze) 100 ml @ 2.5 mls/hr TITRATE IV Last administered on 22:13; Admin Dose 10 MLS/HR; Start 01/02/17 at 17:30; Status Future Hold Insulin Aspart (Novolog Insulin Pen) NOVOLOG *MODERATE* ALGORI... Q4 SC Last administered on 01/08/17 08:50; Admin Dose 2 UNIT; Start 01/03/17 at 13:00 Miscellaneous Information 1 ea NOTE XX ; Start 01/03/17 at 13:00 Glucose (Glutose) 15 gm Q15M PRN PO DECREASED GLUCOSE; Start 01/03/17 at 13:00 Glucose (Glutose) 22.5 gm Q15M PRN PO DECREASED GLUCOSE; Start 01/03/17 at 13:00 Dextrose (D50w Syringe) 25 ml Q15M PRN IV DECREASED GLUCOSE; Start 01/03/17 at 13:00 Dextrose (D50w Syringe) 50 ml Q15M PRN IV DECREASED GLUCOSE; Start 01/03/17 at 13:00 Glucagon (Glucagen) 1 mg Q15M PRN IM DECREASED GLUCOSE; Start 01/03/17 at 13:00 Glucose (Glutose) 15 gm Q15M PRN BUCCAL DECREASED GLUCOSE; Start 01/03/17 at 13: 00 Rifaximin 550 mg 550 mg BID PO Last administered on 01/08/17 08:48; Admin Dose 550 MG; Start 01/03/17 at 14:30 Meropenem 100 ml @ 200 mls/hr Q24H IVPB Last administered on 01/08/17 10:01; Admin Dose 200 MLS/HR; Start 01/04/17 at 10:30 Vasopressin 60 unit/Dextrose 60 ml @ 1.2 mls/hr Q12H IV Last administered on 14:26; Admin Dose 1.2 MLS/HR; Start 01/05/17 at 01:30 Norepinephrine 32 mg/Sodium Chloride 250 ml @ 0 mls/hr TITRATE IV* Last administered on 01/06/17 20:00; Admin Dose 11.25 MLS/HR; Start 01/05/17 at 10:30 Phenylephrine HCl/ Sodium Chloride (Kam-Syneph/NS) 258 ml @ 0 mls/hr TITRATE IV * Last administered on 01/06/17 00:18; Admin Dose 19.35 MLS/HR; Start 01/05/17 at 10:30 Hydrocortisone (Solu-Cortef) 100 mg Q8 IV Last administered on 01/08/17 05:35 ; Admin Dose 100 MG; Start 01/05/17 at 14:00 Morphine Sulfate (morphine) 2 mg Q4H PRN IV PAIN Last administered on 01/06/17 20:12; Admin Dose 2 MG; Start 01/06/17 at 11:30 Lorazepam (Ativan) 1 mg Q4H PRN IV AGITATION Last administered on 01/06/17 20: 24; Admin Dose 1 MG; Start 01/06/17 at 12:00 Lactulose (Enulose) 45 gm Q12 PO Last administered on 01/08/17 08:48; Admin Dose 45 GM; Start 01/06/17 at 21:00 Acetaminophen (Tylenol Liquid) 650 mg Q6H PRN GTB PAIN AND OR ELEVATED TEMP; Start 01/08/17 at 09:30 GERBER ASHTON Jan 08, 2017 11:54
[2017-01-08] MEDS: NOREPINEPHRINE IV* SCH (12:28)
[2017-01-08] MEDS: NS IV* SCH (12:28)
[2017-01-08] MEDS ORDERED: LIDOCAINE 1% (MPF) 5 ML VIAL SC ONE (13:00)
[2017-01-08] MEDS: LORAZEPAM 2 MG INJ IV PRN ×2 (13:43→21:35)
[2017-01-08] MEDS: ACETAMINOPHEN 650MG/20.3ML CUP GTB PRN (14:00)
[2017-01-08] MEDS: FENTAnyl (DRIP) 1000 mcg/100mL 100 ML IV SCH ×2 (14:29→21:38)
[2017-01-08] MEDS ORDERED: NORepinephrine 32 MG in SOD CHLORIDE 0.9% 218 ML IV* SCH (15:00)
--- NOTE | 2017-01-08 15:28 | CONS ---
Date/Time of Note Date/Time of Note DATE: 01/08/17 TIME: 15:24 Consult Date/Type/Reason Admit Date/Time Jan 02, 2017 at 12:58 Initial Consult Date Type of Consultation: Pulm/CCM Ordering Provider: REGINA GARCIA MD Subjective Overall appears to be improving. Off levophed gtt. UO ~ 40 ml/hr Objective Vital Signs Date Time Temp Pulse Resp B/P Pulse Ox O2 Delivery O2 Flow Rate FiO2 01/08/17 15:00 85 18 99/67 94 Mechanical Ventilator 01/08/17 12:00 99.3 01/08/17 08:00 30 Intake and Output 01/07/17 01/07/17 01/08/17 14:59 22:59 06:59 Intake Total 275.84 ml 312.17 ml 399.93 ml Output Total 680 ml 1555 ml 970 ml Balance -404.16 ml -1242.83 ml -570.07 ml Exam HEENT: Dry mucous membranes. Pupils minimally responsive CARDIAC: S1, S2, no added sounds or murmurs. CHEST: Diminished air entry bilaterally with rales. ABDOMEN: Soft, nontender. No guarding or rebound. EXTREMITIES: No cyanosis, + edema Results/Medications Result Diagram: 01/08/17 1145 01/08/17 0340 Results 24 hrs Laboratory Tests Test 01/07/17 16:05 01/07/17 20:45 01/08/17 01:03 01/08/17 03:40 Bedside Glucose 167 158 153 White Blood Count 8.1 Red Blood Count 2.38 L Hemoglobin 7.7 L Hematocrit 21.4 L Mean Corpuscular Volume 89.9 Mean Corpuscular Hemoglobin 32.4 Mean Corpuscular Hemoglobin Concent 36.0 Red Cell Distribution Width 13.7 Platelet Count 99 L Mean Platelet Volume 11.4 H Neutrophils % 74.0 Band Neutrophils % 2.0 Lymphocytes % 11.0 L Monocytes % 11.0 Myelocytes % 1.0 H Promyelocytes % 1.0 H Nucleated Red Blood Cells % 1.0 H Neutrophils # 6.0 Lymphocytes # 0.9 Monocytes # 0.9 Myelocytes # 0.1 Promyelocytes # 0.1 Prothrombin Time 18.2 H Prothrombin Time Ratio 1.4 INR International Normalized Ratio 1.50 Activated Partial Thromboplast Time 28.1 Sodium Level 138 Potassium Level 3.6 Chloride Level 98 Carbon Dioxide Level 30 Anion Gap 14 Blood Urea Nitrogen 74 H Creatinine 1.37 H Glucose Level 126 Calcium Level 10.2 Phosphorus Level 2.4 L Magnesium Level 2.0 Iron Level 103 Total Iron Binding Capacity 203 L Percent Iron Saturation 51 Ferritin 682.0 H Total Bilirubin 1.2 # Direct Bilirubin 0.00 # Indirect Bilirubin 1.2 H Aspartate Amino Transf (AST/SGOT) 104 H Alanine Aminotransferase (ALT/SGPT) 112 H Alkaline Phosphatase 89 Ammonia 27 Total Protein 5.5 L Albumin 3.1 L Globulin 2.40 Albumin/Globulin Ratio 1.29 Test 01/08/17 05:33 01/08/17 07:00 01/08/17 08:48 01/08/17 11:45 Bedside Glucose 150 160 Blood Gas Specimen Source Blood arterial Arterial Blood Date Drawn 01/08/2017 8:35:18 AM Arterial Blood pH (Temp corrected) 7.510 H Arterial Blood pCO2 (Temp correct) 40.8 Arterial Blood pO2 (Temp corrected) 93.4 Arterial Blood HCO3 31.8 H Arterial Blood Base Excess 8.1 H Arterial Blood Oxygen Saturation 96.4 Jose Enrique Test ACCEPTAB Arterial Blood Gas Puncture Site Right Radial Arterial Blood Carboxyhemoglobin 0.2 Arterial Blood Methemoglobin 0.7 Blood Gas A-a O2 Differential 72.6 H Oxyhemoglobin Percent 95.5 Total Hemoglobin 8.6 L Blood Gas Temperature 37.0 Blood Gas Respiration Rate 16.0 Blood Gas Actual Respiration Rate 16 Blood Gas Modality VENT - SIMV FiO2 30.0 Blood Gas Tidal Volume 600.0 Blood Gas Low PEEP Setting 5.0 Blood Gas Pressure Support 15 Blood Gas Notified Whom Melinda SPEAR Blood Gas Notified Time 01/08/2017 8:57:11 AM Hemoglobin 7.7 L Hematocrit 21.6 L Test 01/08/17 13:18 Bedside Glucose 157 Medications Current Medications Propofol (Diprivan) 100 ml @ 3.409 mls/ hr Q12H IV ; Start 01/02/17 at 16:00 Pantoprazole 40 mg 40 mg DAILY@06 IV Last administered on 01/08/17 05:35; Admin Dose 40 MG; Start 01/03/17 at 06:00 Midazolam HCl 50 ml @ 1 mls/hr TITRATE IV Last administered on 01/08/17 11:48 ; Admin Dose 2 MLS/HR; Start 01/02/17 at 17:30; Status Future hold Fentanyl (Sublimaze) 100 ml @ 2.5 mls/hr TITRATE IV Last administered on 14:29; Admin Dose 2.5 MLS/HR; Start 01/02/17 at 17:30; Status Future hold Insulin Aspart (Novolog Insulin Pen) NOVOLOG *MODERATE* ALGORI... Q4 SC Last administered on 01/08/17 13:20; Admin Dose 2 UNIT; Start 01/03/17 at 13:00 Miscellaneous Information 1 ea NOTE XX ; Start 01/03/17 at 13:00 Glucose (Glutose) 15 gm Q15M PRN PO DECREASED GLUCOSE; Start 01/03/17 at 13:00 Glucose (Glutose) 22.5 gm Q15M PRN PO DECREASED GLUCOSE; Start 01/03/17 at 13:00 Dextrose (D50w Syringe) 25 ml Q15M PRN IV DECREASED GLUCOSE; Start 01/03/17 at 13:00 Dextrose (D50w Syringe) 50 ml Q15M PRN IV DECREASED GLUCOSE; Start 01/03/17 at 13:00 Glucagon (Glucagen) 1 mg Q15M PRN IM DECREASED GLUCOSE; Start 01/03/17 at 13:00 Glucose (Glutose) 15 gm Q15M PRN BUCCAL DECREASED GLUCOSE; Start 01/03/17 at 13: 00 Rifaximin 550 mg 550 mg BID PO Last administered on 01/08/17 08:48; Admin Dose 550 MG; Start 01/03/17 at 14:30 Meropenem 100 ml @ 200 mls/hr Q24H IVPB Last administered on 01/08/17 10:01; Admin Dose 200 MLS/HR; Start 01/04/17 at 10:30 Vasopressin 60 unit/Dextrose 60 ml @ 1.2 mls/hr Q12H IV Last administered on 14:26; Admin Dose 1.2 MLS/HR; Start 01/05/17 at 01:30 Phenylephrine HCl/ Sodium Chloride (Kam-Syneph/NS) 258 ml @ 0 mls/hr TITRATE IV * Last administered on 01/06/17 00:18; Admin Dose 19.35 MLS/HR; Start 01/05/17 at 10:30 Hydrocortisone (Solu-Cortef) 100 mg Q8 IV Last administered on 01/08/17 13:19 ; Admin Dose 100 MG; Start 01/05/17 at 14:00 Morphine Sulfate (morphine) 2 mg Q4H PRN IV PAIN Last administered on 01/06/17 20:12; Admin Dose 2 MG; Start 01/06/17 at 11:30 Lorazepam (Ativan) 1 mg Q4H PRN IV AGITATION Last administered on 01/08/17 13: 43; Admin Dose 1 MG; Start 01/06/17 at 12:00 Lactulose (Enulose) 45 gm Q12 PO Last administered on 01/08/17 08:48; Admin Dose 45 GM; Start 01/06/17 at 21:00 Acetaminophen 650 mg 650 mg Q6H PRN GTB PAIN AND OR ELEVATED TEMP Last administered on 01/08/17 14:00; Admin Dose 650 MG; Start 01/08/17 at 09:30 Norepinephrine/ Sodium Chloride (Levophed/NS) 250 ml @ 0.46 mls/hr TITRATE IV* ; Start 01/08/17 at 15:00 Assessment/Plan Additional Assessment/Plan IMPRESSION: 1. s/p refractory shock 2. Acute renal failure--likely prerenal v. ATN- improved 3. Hypoxemic respiratory failure secondary to above. 4. Hepatic Encephalopathy 5. ESCLD 6. Hyponatremia likely secondary to acute renal failure. 7. Thrombocytopenia 8. Possible relative adrenal insufficiency. RECS: 1. Wean to CPAP with PS in am 2. Hold TFs after midnight 3. Maintain off pressors 4. Continue lactulose 5. DVT and GI prophylaxis. 6. Titrate hydrocortisone 35 min cc time DENYS BROWN MD Jan 08, 2017 15:28
[2017-01-08] MEDS ORDERED: SOD CHLORIDE 0.9% 250 ML IV* ONE (17:11)
--- NOTE | 2017-01-08 17:17 | RADRPT ---
PROCEDURE: Ultrasound guidance for PICC line placement by PICC line nurse. CLINICAL INDICATION: Central IV access TECHNIQUE: Ultrasound guidance was provided to PICC line nurse. Limited scanning of the upper ext remity veins is performed. COMPARISON: None FINDINGS: Limited scans of the upper extremity shows patent upper extremity veins. IMPRESSION: Ultrasound guidance provided to PICC line nurse for PICC line placement. RPTAT: QQ .Ruy Saenz MD, Date Time Electronically viewed and signed by .Ruy Saenz MD, on 01/08/2017 17:16 .L/
--- NOTE | 2017-01-08 18:18 | RADRPT ---
PROCEDURE: XR Chest. CLINICAL INDICATION: PICC line placement TECHNIQUE: Single frontal chest x-ray. COMPARISON: 08:07 a.m. FINDINGS: There is a right arm PICC line and wire in place however the tip appears to recoiled into the right axilla. . The endotracheal tube, nasogastric tube in place unchanged.. Low lung volumes with cardi omegaly, hilar vascular congestion and bibasilar atelectasis is unchanged.. The osseous structures a re intact. IMPRESSION: Right arm PICC line wire malpositioned with tip recoiled into the right axilla. Otherwise no change. . Call report: A call report of the findings was made to patient's nurse Tanya on 01/08/2017 6:16:23 PM . RPTAT: QQ .Ruy Saenz MD, Date Time Electronically viewed and signed by .Ruy Saenz MD, MD on 01/08/2017 18:18 .L/
--- NOTE | 2017-01-08 23:02 | RADRPT ---
PROCEDURE: XR Chest. CLINICAL INDICATION: Endotracheal and nasogastric tube placement. TECHNIQUE: Portable AP view of the chest was obtained. COMPARISON: 01/08/2017 at 19:40 FINDINGS: The cardiomediastinal silhouette is mildly enlarged. Distal tip of the endotracheal tube remains in good position projecting 3.6 cm above the lacey. The distal tip of the nasogastric tube is tracea ble below the diaphragm and projects in the left upper quadrant of the abdomen the region of the sto mach. Bibasilar subsegmental atelectasis is again noted, small pleural effusions are difficult to e xclude. A mild element of pulmonary vascular congestion appears stable. The osseous structures are intact with no evidence for acute abnormality. RPTAT:HJJR IMPRESSION: 1. Distal tip of the endotracheal tube remains in good position projecting 3.6 cm above the lacey. 2. Nasogastric tube tip projects in the left upper quadrant of the abdomen the region of the stomac h. 3. Right greater than left lower lobe subsegmental atelectasis not significantly changed from the e arlier exam. Physician Riley Date Time Electronically viewed and signed by Physician Riley on 01/08/2017 23:02 JR/
[2017-01-09] VITALS (52 sets, daily range): BP systolic 81–131; BP diastolic 45–89; PULSE 37–106; RESP 11–27
[2017-01-09] MEDS: MIDAZOLAM (DRIP) 50 mg/50 mL 50 ML IV SCH (00:46)
[2017-01-09] MEDS: INSULIN ASPART [NOVOLOG] 3 ML PEN SC SCH ×6 (01:00→21:00)
[2017-01-09] MEDS: IPRATROPIUM (HFA) 12.9 GM INHALER INH SCH ×3 (01:58→13:10)
[2017-01-09] MEDS: LEVALBUTEROL (HFA) 15 GM INHALER INH SCH ×3 (01:58→13:10)
[2017-01-09 05:05] LABS: AADO2 Arterial 102.2 mmHg (7.0-24.0); Allen Test ACCEPTAB; Arterial Base Excess 6.2 mmol/L (-3.0-3); Arterial COHb 0.2 % (0.0-3.0); Arterial Fraction of Oxyhgb 91.4 % (93.0-99.0); Arterial MetHb 0.4 % (0.0-1.5); Arterial Total Hemglobin 9.3 g/dl (12.0-18.0); Blood Gas Mean Airway Pressure 11; Blood Gas PS 15; MODE VENT - SIMV
[2017-01-09] MEDS: HYDROCORTISONE 100 MG INJ IV SCH ×3 (05:55→21:30)
[2017-01-09] MEDS: PANTOPRAZOLE 40 MG INJ IV SCH (05:55)
[2017-01-09 06:06] LABS: ADD SCAN DIFF NO
[2017-01-09 06:25] LABS: INR 1.49; PROTIME 18.1 Sec (12.2-14.2); PT RATIO 1.4
[2017-01-09 06:26] LABS: PARTIAL THROMBOPLASTIN TIME 25.4 Sec (25.0-35.0)
[2017-01-09 06:29] LABS: ALBUMIN 3.3 g/dl (3.3-4.9); ALBUMIN/GLOBULIN RATIO 1.43; BILIRUBIN,INDIRECT 1.6 mg/dl (0-1.1); BILIRUBIN,TOTAL 1.6 mg/dl (0.2-1.3); CREATININE 1.13 mg/dl (0.61-1.24); POTASSIUM 3.9 mmol/L (3.5-5.1); TOTAL PROTEIN 5.6 g/dl (6.1-8.1)
[2017-01-09] MEDS: VASOPRESSIN 60 UNIT in DEXTROSE 5% 57 ML IV SCH ×2 (07:28→12:47)
[2017-01-09] MEDS: PROPOFOL 100 ML IV SCH ×3 (07:28→08:05)
[2017-01-09 07:52] LABS: PHOSPHORUS 1.9 mg/dl (2.5-4.9)
[2017-01-09] MEDS: RIFAXIMIN 550 MG TAB PO SCH ×2 (09:01→21:00)
[2017-01-09] MEDS: LACTULOSE 30ML CUP PO SCH (09:01)
[2017-01-09] MEDS: MEROPENEM 1 GM/100 ML (PMX) 100 ML IVPB SCH (09:45)
[2017-01-09 10:11] LABS: ABNORMAL IP MESSAGE 1; BASOPHILS % 0.3 % (0.0-2.0); EOSINOPHILS % 0.3 % (0.0-7.0); HEMATOCRIT 25.2 % (42.0-52.0); LYMPHOCYTES # 0.7 10^3/ul (0.8-2.9); LYMPHOCYTES % 10.6 % (15.0-51.0); MEAN CORPUSCULAR HEMOGLOBIN 32.5 pg (29.0-33.0); MEAN CORPUSCULAR HGB CONC 35.7 g/dl (32.0-37.0); MEAN PLATELET VOLUME 11.7 fl (7.4-10.4); MONOCYTE # 1.3 10^3/ul (0.3-0.9); NEUTROPHIL # 4.1 10^3/ul (1.6-7.5); NEUTROPHILS % 60.9 % (39.0-77.0); NUCLEATED RED BLOOD CELLS # 0.1 10^3/ul (0.0-0.0); NUCLEATED RED BLOOD CELLS% 1.9 /100WBC (0.0-0.0); PLATELET COUNT 96 10^3/UL (140-415); RED BLOOD COUNT 2.77 10^6/ul (4.70-6.10); RED CELL DISTRIBUTION WIDTH 14.2 % (11.5-14.5); WHITE BLOOD COUNT 6.7 10^3/ul (4.8-10.8)
--- NOTE | 2017-01-09 10:24 | PN ---
Date/Time of Note Date/Time of Note DATE: 01/09/17 TIME: 10:15 Assessment/Plan VTE Prophylaxis VTE Prophylaxis Intervention: SCD's Lines/Catheters IV Catheter Type (from Nrsg): Mid Line Central line still needed: Yes (for IV access ) Urinary Cath still in place: Yes Reason Cath still needed: other (indicate) (Monitor UOP ) Assessment/Plan Assessment/Plan 56-year-old male: 1. Hepatic encephalopathy and markedly elevated ammonia level on admission. Known Cirrhosis/ESLD, HepC. Finally having multiple BMs and rectal tube in place Now Ammonia down to <9 and much more responsive. On lactulose down to daily Currently on Vent 2. Acute respiratory failure with Severe Encephalopathy and Acute renal failure and also Shock state. All resolving currently. Off sedation alert and follows commands. Pulmonary following and adjusting Vent settings S/p Emergent HD on admission, none needed now On Meropenem Blood cx and Urine Cx NGTD 3. Acute Renal Failure, likely pre renal secondary to dehydration VS ATN with Severe Hyperkalemia. All resolved or resolving currently. Dr Brown following from Nephrology S/p emergent HD on admission, now on diuresis UOP adequate Monitoring renal function 4. Severe hyperkalemia. Resolved post Emergent HD on admission 5. Metabolic acidosis in setting on of ARF, s/p HD on admission. Resolved with improving renal function. Nephrology following 6. End-stage alcoholic liver disease, with also known Hep C, cirrhosis with Hepatic Encephalopathy and also coagulopathy. Stabilizing On Rifaximin and Lactulose. Correcting coagulopathy with FFP prn. 7. Hyponatremia, resolving with Na up to 138 On IVF adjusted, monitoring Nephrology, Dr Brown following 8. Acute on chronic anemia, no acute bleeding seen. s/p 1 units pRBC Repeat h/h pending this AM. Prophylaxis: on PPI for GI ppx and SCDs for DVT ppx Disposition: Stabilizing over the past few days, fair prognosis, follow up Nephro and Pulmonary recs Subjective 24 Hr Interval Summary Free Text/Dictation Patient off all sedations and following commands, denies pain Noted to have ectopies, electrolytes OK Afebrile CBC pending Exam/Review of Systems Vital Signs Vitals Vital Signs Date Time Temp Pulse Resp B/P Pulse Ox O2 Delivery O2 Flow Rate FiO2 01/09/17 09:52 37 01/09/17 09:30 16 118/78 100 01/09/17 09:00 Mechanical Ventilator 01/09/17 05:18 40 01/09/17 04:00 97.4 Intake and Output 01/08/17 01/08/17 01/09/17 15:00 23:00 07:00 Intake Total 446.79 ml 476.818 ml 319.418 ml Output Total 670 ml 740 ml 475 ml Balance -223.21 ml -263.182 ml -155.582 ml Exam Constitutional: other (easily arousable and following commands ) Respiratory: diminished breath sounds (at bases ), other (on vent ) Cardiovascular: nl pulses, regular rate and rhythm Gastrointestinal: non-tender, soft Musculoskeletal: nl extremities to inspection Extremities: normal pulses, other (minimal anasarca ) Neurological: FINISHING MACHINE TENDER II-XII intact, lethargic, other (arousable ) Results Result Diagram: 01/08/17 1145 01/09/17 0530 Results 24 hrs Laboratory Tests Test 01/08/17 11:45 01/08/17 13:18 01/08/17 18:57 01/08/17 21:30 Hemoglobin 7.7 L Hematocrit 21.6 L Bedside Glucose 157 166 134 Test 01/09/17 02:47 01/09/17 05:00 01/09/17 05:23 01/09/17 05:30 Bedside Glucose 135 Blood Gas Specimen Source Blood arterial Arterial Blood Date Drawn 01/09/2017 4:48:15 AM Arterial Blood pH (Temp corrected) 7.490 H Arterial Blood pCO2 (Temp correct) 40.3 Arterial Blood pO2 (Temp corrected) 64.4 L Arterial Blood HCO3 30.0 H Arterial Blood Base Excess 6.2 H Arterial Blood Oxygen Saturation 92.0 L Jose Enrique Test ACCEPTAB Arterial Blood Gas Puncture Site Right Radial Arterial Blood Carboxyhemoglobin 0.2 Arterial Blood Methemoglobin 0.4 Blood Gas A-a O2 Differential 102.2 H Oxyhemoglobin Percent 91.4 L Total Hemoglobin 9.3 L Blood Gas Temperature 37.0 Blood Gas Respiration Rate 16.0 Blood Gas Actual Respiration Rate 16 Blood Gas Modality VENT - SIMV FiO2 30.0 Blood Gas Tidal Volume 600.0 Blood Gas Mean Airway Pressure 11 Blood Gas Low PEEP Setting 5.0 Blood Gas Inspiratory Pressure 24.0 Blood Gas Pressure Support 15 Blood Gas Notified Elijah BUTCHER RCP Blood Gas Notified Time 01/09/2017 5:04:10 AM Lab Scanned Report BLOOD TRANSFUSION Prothrombin Time 18.1 H Prothrombin Time Ratio 1.4 INR International Normalized Ratio 1.49 Activated Partial Thromboplast Time 25.4 Sodium Level 143 Potassium Level 3.9 Chloride Level 104 Carbon Dioxide Level 34 H Anion Gap 9 # Blood Urea Nitrogen 78 H Creatinine 1.13 Glucose Level 127 Calcium Level 10.0 Phosphorus Level 1.9 L Magnesium Level 2.0 Total Bilirubin 1.6 H Direct Bilirubin 0.00 Indirect Bilirubin 1.6 H Aspartate Amino Transf (AST/SGOT) 110 H Alanine Aminotransferase (ALT/SGPT) 101 H Alkaline Phosphatase 81 Ammonia < 9 L Total Protein 5.6 L Albumin 3.3 Globulin 2.30 Albumin/Globulin Ratio 1.43 Test 01/09/17 06:01 01/09/17 09:06 Bedside Glucose 131 142 Medications Medications Current Medications Pantoprazole 40 mg 40 mg DAILY@06 IV Last administered on 01/09/17 05:55; Admin Dose 40 MG; Start 01/03/17 at 06:00 Midazolam HCl 50 ml @ 1 mls/hr TITRATE IV Last administered on 01/09/17 00:46 ; Admin Dose 7 MLS/HR; Start 01/02/17 at 17:30; Status Future hold Fentanyl (Sublimaze) 100 ml @ 2.5 mls/hr TITRATE IV Last administered on 21:38; Admin Dose 10 MLS/HR; Start 01/02/17 at 17:30; Status Future hold Insulin Aspart (Novolog Insulin Pen) NOVOLOG *MODERATE* ALGORI... Q4 SC Last administered on 01/09/17 09:07; Admin Dose 1 UNIT; Start 01/03/17 at 13:00 Miscellaneous Information 1 ea NOTE XX ; Start 01/03/17 at 13:00 Glucose (Glutose) 15 gm Q15M PRN PO DECREASED GLUCOSE; Start 01/03/17 at 13:00 Glucose (Glutose) 22.5 gm Q15M PRN PO DECREASED GLUCOSE; Start 01/03/17 at 13:00 Dextrose (D50w Syringe) 25 ml Q15M PRN IV DECREASED GLUCOSE; Start 01/03/17 at 13:00 Dextrose (D50w Syringe) 50 ml Q15M PRN IV DECREASED GLUCOSE; Start 01/03/17 at 13:00 Glucagon (Glucagen) 1 mg Q15M PRN IM DECREASED GLUCOSE; Start 01/03/17 at 13:00 Glucose (Glutose) 15 gm Q15M PRN BUCCAL DECREASED GLUCOSE; Start 01/03/17 at 13: 00 Rifaximin 550 mg 550 mg BID PO Last administered on 01/09/17 09:01; Admin Dose 550 MG; Start 01/03/17 at 14:30 Meropenem 100 ml @ 200 mls/hr Q24H IVPB Last administered on 01/09/17 09:45; Admin Dose 200 MLS/HR; Start 01/04/17 at 10:30 Vasopressin 60 unit/Dextrose 60 ml @ 1.2 mls/hr Q12H IV Last administered on 14:26; Admin Dose 1.2 MLS/HR; Start 01/05/17 at 01:30 Phenylephrine HCl/ Sodium Chloride (Kam-Syneph/NS) 258 ml @ 0 mls/hr TITRATE IV * Last administered on 01/06/17 00:18; Admin Dose 19.35 MLS/HR; Start 01/05/17 at 10:30 Morphine Sulfate (morphine) 2 mg Q4H PRN IV PAIN Last administered on 01/06/17 20:12; Admin Dose 2 MG; Start 01/06/17 at 11:30 Lorazepam (Ativan) 1 mg Q4H PRN IV AGITATION Last administered on 01/08/17 21: 35; Admin Dose 1 MG; Start 01/06/17 at 12:00 Acetaminophen 650 mg 650 mg Q6H PRN GTB PAIN AND OR ELEVATED TEMP Last administered on 01/08/17 14:00; Admin Dose 650 MG; Start 01/08/17 at 09:30 Norepinephrine/ Sodium Chloride (Levophed/NS) 250 ml @ 0.46 mls/hr TITRATE IV* Last administered on 01/09/17 07:50; Admin Dose 0.93 MLS/HR; Start 01/08/17 at 15:00 Hydrocortisone 50 mg 50 mg Q8 IV Last administered on 01/09/17 05:55; Admin Dose 50 MG; Start 01/08/17 at 22:00 Propofol (Diprivan) 100 ml @ 3.409 mls/ hr Q12H IV Last administered on t 07:40; Admin Dose 10.228 MLS/HR; Start 01/08/17 at 22:30 Lactulose (Enulose) 30 gm DAILY PO ; Start 01/10/17 at 09:00; Status SRIKANTH PAN Jan 09, 2017 10:24
--- NOTE | 2017-01-09 13:16 | CONS ---
Date/Time of Note Date/Time of Note DATE: 01/09/17 TIME: 13:06 Assessment/Plan Assessment/Plan Additional Assessment/Plan 1 Anemia of chronic disease.- H/H- 7.7/21.4- sp blood transfusion- H/H is -9.0/ 25.2 - no obvious bleeding from any orifice reported by staff 1. Acute hyperkalemia with a potassium of 7.6 on admission, s/p One session of Emergent HD 01/03/17- now improved 2. Severe metabolic acidosis, bicarbonate 9, pH 7.19 on ABG on admission,s/p Bicarbonate drip- now stable off drip 3. Acute kidney injury with a BUN of 127, creatinine of 8.9 on admission, likely secondary to acute tubular necrosis. 4. Acute respiratory failure secondary to possibly acute fluid overload and possibly pneumonia.intubated on ventilator 5. History of liver cirrhosis from hepatitis C. 6. Hypernatremia. Sodium 146 on admission - then pt becomes hyponatremic to 114- now Na improved - 143 - 01/09/2017 7. No evidence of any coagulopathy and patient's albumin has been normal at 4.71. He does have a history of liver cirrhosis from hepatitis C. PLAN: S/p Emergent HD due to hyperkalemia, severe metabolic acidosis and resp failure - now K wnl, Cr 1.13 today now only one pressors, BP still labile,. Urine output 1,4L Ventilator care as per pulmonary Renal US negative for hydronephrosis, echogenicity c/w CKD will continue to follow up and monitor urine output IV abx as per primary care team Further recommendations depend upon patient's clinical course. Plan of care dw Dr Lauryn Brown /staff Consultation Date/Type/Reason Admit Date/Time Jan 02, 2017 at 12:58 Type of Consultation: Pulm/CCM Referring Provider: REGINA GARCIA MD 24 HR Interval Summary Free Text/Dictation opens eyes at times, remains intubated, no vasopressors, tolerates OGT feeding, urine output 1.4, afebrile, had BM- rectal tube , Cr 1.13- improving. lulú saff Constitutional: requiring IVF, requiring O2 Exam/Review of Systems Vital Signs Vitals Vital Signs Date Time Temp Pulse Resp B/P Pulse Ox O2 Delivery O2 Flow Rate FiO2 01/09/17 12:00 89 01/09/17 11:45 15 115/67 100 01/09/17 11:00 Mechanical Ventilator 01/09/17 08:00 98.0 01/09/17 08:00 40 Intake and Output 01/08/17 01/08/17 01/09/17 15:00 23:00 07:00 Intake Total 446.79 ml 476.818 ml 319.418 ml Output Total 670 ml 740 ml 475 ml Balance -223.21 ml -263.182 ml -155.582 ml Exam Respiratory: clear to auscultation, normal air movement Cardiovascular: nl pulses, regular rate and rhythm Gastrointestinal: non-tender, soft Musculoskeletal: nl extremities to inspection Extremities: normal pulses Results Result Diagram: 01/09/17 0906 01/09/17 0530 Results 24 hrs Laboratory Tests Test 01/08/17 13:18 01/08/17 18:57 01/08/17 21:30 01/09/17 02:47 Bedside Glucose 157 166 134 135 Test 01/09/17 05:00 01/09/17 05:23 01/09/17 05:30 01/09/17 06:01 Blood Gas Specimen Source Blood arterial Arterial Blood Date Drawn 01/09/2017 4:48:15 AM Arterial Blood pH (Temp corrected) 7.490 H Arterial Blood pCO2 (Temp correct) 40.3 Arterial Blood pO2 (Temp corrected) 64.4 L Arterial Blood HCO3 30.0 H Arterial Blood Base Excess 6.2 H Arterial Blood Oxygen Saturation 92.0 L Jose Enrique Test ACCEPTAB Arterial Blood Gas Puncture Site Right Radial Arterial Blood Carboxyhemoglobin 0.2 Arterial Blood Methemoglobin 0.4 Blood Gas A-a O2 Differential 102.2 H Oxyhemoglobin Percent 91.4 L Total Hemoglobin 9.3 L Blood Gas Temperature 37.0 Blood Gas Respiration Rate 16.0 Blood Gas Actual Respiration Rate 16 Blood Gas Modality VENT - SIMV FiO2 30.0 Blood Gas Tidal Volume 600.0 Blood Gas Mean Airway Pressure 11 Blood Gas Low PEEP Setting 5.0 Blood Gas Inspiratory Pressure 24.0 Blood Gas Pressure Support 15 Blood Gas Notified Whom HADLEY JIMENEZ Blood Gas Notified Time 01/09/2017 5:04:10 AM Lab Scanned Report BLOOD TRANSFUSION Prothrombin Time 18.1 H Prothrombin Time Ratio 1.4 INR International Normalized Ratio 1.49 Activated Partial Thromboplast Time 25.4 Sodium Level 143 Potassium Level 3.9 Chloride Level 104 Carbon Dioxide Level 34 H Anion Gap 9 # Blood Urea Nitrogen 78 H Creatinine 1.13 Glucose Level 127 Calcium Level 10.0 Phosphorus Level 1.9 L Magnesium Level 2.0 Total Bilirubin 1.6 H Direct Bilirubin 0.00 Indirect Bilirubin 1.6 H Aspartate Amino Transf (AST/SGOT) 110 H Alanine Aminotransferase (ALT/SGPT) 101 H Alkaline Phosphatase 81 Ammonia < 9 L Total Protein 5.6 L Albumin 3.3 Globulin 2.30 Albumin/Globulin Ratio 1.43 Bedside Glucose 131 Test 01/09/17 09:06 White Blood Count 6.7 Red Blood Count 2.77 L Hemoglobin 9.0 L Hematocrit 25.2 L Mean Corpuscular Volume 91.0 Mean Corpuscular Hemoglobin 32.5 Mean Corpuscular Hemoglobin Concent 35.7 Red Cell Distribution Width 14.2 Platelet Count 96 L Mean Platelet Volume 11.7 H Neutrophils % 60.9 Lymphocytes % 10.6 L Monocytes % 20.0 H Eosinophils % 0.3 Basophils % 0.3 Nucleated Red Blood Cells % 1.9 H Neutrophils # 4.1 Lymphocytes # 0.7 L Monocytes # 1.3 H Eosinophils # 0.0 Basophils # 0.0 Nucleated Red Blood Cells # 0.1 H Bedside Glucose 142 Medications Medications Current Medications Pantoprazole 40 mg 40 mg DAILY@06 IV Last administered on 01/09/17 05:55; Admin Dose 40 MG; Start 01/03/17 at 06:00 Midazolam HCl 50 ml @ 1 mls/hr TITRATE IV Last administered on 01/09/17 00:46 ; Admin Dose 7 MLS/HR; Start 01/02/17 at 17:30; Status Future hold Fentanyl (Sublimaze) 100 ml @ 2.5 mls/hr TITRATE IV Last administered on 21:38; Admin Dose 10 MLS/HR; Start 01/02/17 at 17:30; Status Future hold Insulin Aspart (Novolog Insulin Pen) NOVOLOG *MODERATE* ALGORI... Q4 SC Last administered on 01/09/17 09:07; Admin Dose 1 UNIT; Start 01/03/17 at 13:00 Miscellaneous Information 1 ea NOTE XX ; Start 01/03/17 at 13:00 Glucose (Glutose) 15 gm Q15M PRN PO DECREASED GLUCOSE; Start 01/03/17 at 13:00 Glucose (Glutose) 22.5 gm Q15M PRN PO DECREASED GLUCOSE; Start 01/03/17 at 13:00 Dextrose (D50w Syringe) 25 ml Q15M PRN IV DECREASED GLUCOSE; Start 01/03/17 at 13:00 Dextrose (D50w Syringe) 50 ml Q15M PRN IV DECREASED GLUCOSE; Start 01/03/17 at 13:00 Glucagon (Glucagen) 1 mg Q15M PRN IM DECREASED GLUCOSE; Start 01/03/17 at 13:00 Glucose (Glutose) 15 gm Q15M PRN BUCCAL DECREASED GLUCOSE; Start 01/03/17 at 13: 00 Rifaximin 550 mg 550 mg BID PO Last administered on 01/09/17 09:01; Admin Dose 550 MG; Start 01/03/17 at 14:30 Meropenem 100 ml @ 200 mls/hr Q24H IVPB Last administered on 01/09/17 09:45; Admin Dose 200 MLS/HR; Start 01/04/17 at 10:30 Vasopressin 60 unit/Dextrose 60 ml @ 1.2 mls/hr Q12H IV Last administered on 14:26; Admin Dose 1.2 MLS/HR; Start 01/05/17 at 01:30 Phenylephrine HCl/ Sodium Chloride (Kam-Syneph/NS) 258 ml @ 0 mls/hr TITRATE IV * Last administered on 01/06/17 00:18; Admin Dose 19.35 MLS/HR; Start 01/05/17 at 10:30 Morphine Sulfate (morphine) 2 mg Q4H PRN IV PAIN Last administered on 01/06/17 20:12; Admin Dose 2 MG; Start 01/06/17 at 11:30 Lorazepam (Ativan) 1 mg Q4H PRN IV AGITATION Last administered on 01/08/17 21: 35; Admin Dose 1 MG; Start 01/06/17 at 12:00 Acetaminophen 650 mg 650 mg Q6H PRN GTB PAIN AND OR ELEVATED TEMP Last administered on 01/08/17 14:00; Admin Dose 650 MG; Start 01/08/17 at 09:30 Norepinephrine/ Sodium Chloride (Levophed/NS) 250 ml @ 0.46 mls/hr TITRATE IV* Last administered on 01/09/17 07:50; Admin Dose 0.93 MLS/HR; Start 01/08/17 at 15:00 Hydrocortisone 50 mg 50 mg Q8 IV Last administered on 01/09/17 05:55; Admin Dose 50 MG; Start 01/08/17 at 22:00 Propofol (Diprivan) 100 ml @ 3.409 mls/ hr Q12H IV Last administered on 07:40; Admin Dose 10.228 MLS/HR; Start 01/08/17 at 22:30 Lactulose (Enulose) 30 gm DAILY PO ; Start 01/10/17 at 09:00 GERBER ASHTON Jan 09, 2017 13:16
[2017-01-09 13:39] LABS: AADO2 Arterial 141.9 mmHg (7.0-24.0); Allen Test ACCEPTAB; Arterial COHb 0.1 % (0.0-3.0); Arterial Fraction of Oxyhgb 94.8 % (93.0-99.0); Arterial HCO3 32.3 mmol/L (22.0-26.0); Arterial MetHb 0.6 % (0.0-1.5); Arterial Total Hemglobin 10.2 g/dl (12.0-18.0); Blood Gas PS 10; MODE VENT - CPAP
--- NOTE | 2017-01-09 14:22 | CONS ---
Date/Time of Note Date/Time of Note DATE: 01/09/17 TIME: 14:18 Consult Date/Type/Reason Admit Date/Time Jan 02, 2017 at 12:58 Type of Consultation: Pulm/CCM Ordering Provider: REGINA GARCIA MD Subjective Tolerating CPAP 5 PS 10 with RR 15 and VT 500+; RSBI 30. Awake and alert. Objective Vital Signs Date Time Temp Pulse Resp B/P Pulse Ox O2 Delivery O2 Flow Rate FiO2 01/09/17 13:15 99 14 117/74 99 01/09/17 13:00 Mechanical Ventilator 01/09/17 08:00 98.0 01/09/17 08:00 40 Intake and Output 01/08/17 01/08/17 01/09/17 15:00 23:00 07:00 Intake Total 446.79 ml 476.818 ml 329.646 ml Output Total 670 ml 740 ml 525 ml Balance -223.21 ml -263.182 ml -195.354 ml Exam HEENT: ET tube in place CARDIAC: S1, S2, no added sounds or murmurs. CHEST: Diminished air entry bilaterally with rales. ABDOMEN: Soft, nontender. No guarding or rebound. EXTREMITIES: No cyanosis, + edema Results/Medications Result Diagram: 01/09/17 0906 01/09/17 0530 Results 24 hrs Laboratory Tests Test 01/08/17 18:57 01/08/17 21:30 01/09/17 02:47 01/09/17 05:00 Bedside Glucose 166 134 135 Blood Gas Specimen Source Blood arterial Arterial Blood Date Drawn 01/09/2017 4:48:15 AM Arterial Blood pH (Temp corrected) 7.490 H Arterial Blood pCO2 (Temp correct) 40.3 Arterial Blood pO2 (Temp corrected) 64.4 L Arterial Blood HCO3 30.0 H Arterial Blood Base Excess 6.2 H Arterial Blood Oxygen Saturation 92.0 L Jose Enrique Test ACCEPTAB Arterial Blood Gas Puncture Site Right Radial Arterial Blood Carboxyhemoglobin 0.2 Arterial Blood Methemoglobin 0.4 Blood Gas A-a O2 Differential 102.2 H Oxyhemoglobin Percent 91.4 L Total Hemoglobin 9.3 L Blood Gas Temperature 37.0 Blood Gas Respiration Rate 16.0 Blood Gas Actual Respiration Rate 16 Blood Gas Modality VENT - SIMV FiO2 30.0 Blood Gas Tidal Volume 600.0 Blood Gas Mean Airway Pressure 11 Blood Gas Low PEEP Setting 5.0 Blood Gas Inspiratory Pressure 24.0 Blood Gas Pressure Support 15 Blood Gas Notified Whom [facility]LEY [facility] Blood Gas Notified Time 01/09/2017 5:04:10 AM Test 01/09/17 05:23 01/09/17 05:30 01/09/17 06:01 01/09/17 09:06 Lab Scanned Report BLOOD TRANSFUSION Prothrombin Time 18.1 H Prothrombin Time Ratio 1.4 INR International Normalized Ratio 1.49 Activated Partial Thromboplast Time 25.4 Sodium Level 143 Potassium Level 3.9 Chloride Level 104 Carbon Dioxide Level 34 H Anion Gap 9 # Blood Urea Nitrogen 78 H Creatinine 1.13 Glucose Level 127 Calcium Level 10.0 Phosphorus Level 1.9 L Magnesium Level 2.0 Total Bilirubin 1.6 H Direct Bilirubin 0.00 Indirect Bilirubin 1.6 H Aspartate Amino Transf (AST/SGOT) 110 H Alanine Aminotransferase (ALT/SGPT) 101 H Alkaline Phosphatase 81 Ammonia < 9 L Total Protein 5.6 L Albumin 3.3 Globulin 2.30 Albumin/Globulin Ratio 1.43 Bedside Glucose 131 142 White Blood Count 6.7 Red Blood Count 2.77 L Hemoglobin 9.0 L Hematocrit 25.2 L Mean Corpuscular Volume 91.0 Mean Corpuscular Hemoglobin 32.5 Mean Corpuscular Hemoglobin Concent 35.7 Red Cell Distribution Width 14.2 Platelet Count 96 L Mean Platelet Volume 11.7 H Neutrophils % 60.9 Lymphocytes % 10.6 L Monocytes % 20.0 H Eosinophils % 0.3 Basophils % 0.3 Nucleated Red Blood Cells % 1.9 H Neutrophils # 4.1 Lymphocytes # 0.7 L Monocytes # 1.3 H Eosinophils # 0.0 Basophils # 0.0 Nucleated Red Blood Cells # 0.1 H Test 01/09/17 13:17 01/09/17 13:27 Bedside Glucose 133 Blood Gas Specimen Source Blood arterial Arterial Blood Date Drawn 01/09/2017 1:25:46 PM Arterial Blood pH (Temp corrected) 7.431 Arterial Blood pCO2 (Temp correct) 49.6 H Arterial Blood pO2 (Temp corrected) 86.3 Arterial Blood HCO3 32.3 H Arterial Blood Base Excess 7.0 H Arterial Blood Oxygen Saturation 95.5 Jose Enrique Test ACCEPTAB Arterial Blood Gas Puncture Site Right Radial Arterial Blood Carboxyhemoglobin 0.1 Arterial Blood Methemoglobin 0.6 Blood Gas A-a O2 Differential 141.9 H Oxyhemoglobin Percent 94.8 Total Hemoglobin 10.2 L Blood Gas Temperature 37.0 Blood Gas Actual Respiration Rate 17 Blood Gas Modality VENT - CPAP FiO2 40.0 Blood Gas Low PEEP Setting 5.0 Blood Gas Pressure Support 10 Blood Gas Notified Whom Melinda SPEAR Blood Gas Notified Time 01/09/2017 1:39:30 PM Medications Current Medications Pantoprazole 40 mg 40 mg DAILY@06 IV Last administered on 01/09/17 05:55; Admin Dose 40 MG; Start 01/03/17 at 06:00 Midazolam HCl 50 ml @ 1 mls/hr TITRATE IV Last administered on 01/09/17 00:46 ; Admin Dose 7 MLS/HR; Start 01/02/17 at 17:30; Status Future hold Fentanyl (Sublimaze) 100 ml @ 2.5 mls/hr TITRATE IV Last administered on 21:38; Admin Dose 10 MLS/HR; Start 01/02/17 at 17:30; Status Future hold Insulin Aspart (Novolog Insulin Pen) NOVOLOG *MODERATE* ALGORI... Q4 SC Last administered on 01/09/17 09:07; Admin Dose 1 UNIT; Start 01/03/17 at 13:00 Miscellaneous Information 1 ea NOTE XX ; Start 01/03/17 at 13:00 Glucose (Glutose) 15 gm Q15M PRN PO DECREASED GLUCOSE; Start 01/03/17 at 13:00 Glucose (Glutose) 22.5 gm Q15M PRN PO DECREASED GLUCOSE; Start 01/03/17 at 13:00 Dextrose (D50w Syringe) 25 ml Q15M PRN IV DECREASED GLUCOSE; Start 01/03/17 at 13:00 Dextrose (D50w Syringe) 50 ml Q15M PRN IV DECREASED GLUCOSE; Start 01/03/17 at 13:00 Glucagon (Glucagen) 1 mg Q15M PRN IM DECREASED GLUCOSE; Start 01/03/17 at 13:00 Glucose (Glutose) 15 gm Q15M PRN BUCCAL DECREASED GLUCOSE; Start 01/03/17 at 13: 00 Rifaximin 550 mg 550 mg BID PO Last administered on 01/09/17 09:01; Admin Dose 550 MG; Start 01/03/17 at 14:30 Meropenem 100 ml @ 200 mls/hr Q24H IVPB Last administered on 01/09/17 09:45; Admin Dose 200 MLS/HR; Start 01/04/17 at 10:30 Vasopressin 60 unit/Dextrose 60 ml @ 1.2 mls/hr Q12H IV Last administered on 14:26; Admin Dose 1.2 MLS/HR; Start 01/05/17 at 01:30 Phenylephrine HCl/ Sodium Chloride (Kam-Syneph/NS) 258 ml @ 0 mls/hr TITRATE IV * Last administered on 01/06/17 00:18; Admin Dose 19.35 MLS/HR; Start 01/05/17 at 10:30 Morphine Sulfate (morphine) 2 mg Q4H PRN IV PAIN Last administered on 01/06/17 20:12; Admin Dose 2 MG; Start 01/06/17 at 11:30 Lorazepam (Ativan) 1 mg Q4H PRN IV AGITATION Last administered on 01/08/17 21: 35; Admin Dose 1 MG; Start 01/06/17 at 12:00 Acetaminophen 650 mg 650 mg Q6H PRN GTB PAIN AND OR ELEVATED TEMP Last administered on 01/08/17 14:00; Admin Dose 650 MG; Start 01/08/17 at 09:30 Norepinephrine/ Sodium Chloride (Levophed/NS) 250 ml @ 0.46 mls/hr TITRATE IV* Last administered on 01/09/17 07:50; Admin Dose 0.93 MLS/HR; Start 01/08/17 at 15:00 Hydrocortisone 50 mg 50 mg Q8 IV Last administered on 01/09/17 13:18; Admin Dose 50 MG; Start 01/08/17 at 22:00 Propofol (Diprivan) 100 ml @ 3.409 mls/ hr Q12H IV Last administered on 07:40; Admin Dose 10.228 MLS/HR; Start 01/08/17 at 22:30 Lactulose (Enulose) 30 gm DAILY PO ; Start 01/10/17 at 09:00 Assessment/Plan Additional Assessment/Plan IMPRESSION: 1. s/p refractory shock 2. Acute renal failure--likely prerenal v. ATN- improved 3. Hypoxemic respiratory failure. 4. Hepatic Encephalopathy 5. ESCLD 6. Hyponatremia likely secondary to acute renal failure. 7. Thrombocytopenia 8. Possible relative adrenal insufficiency. RECS: 1. Extubate to NC 2. Swallow eval in am 3. Maintain off pressors 4. Continue lactulose 5. Cont hydrocortisone titration 35 min cc time DENYS BROWN MD Jan 09, 2017 14:22
--- NOTE | 2017-01-09 14:41 | RADRPT ---
Vent Rate: 87 bpm RR Interval: 0 msec [place] Interval: 194 msec QRS Duration: 102 msec QT Interval: 404 msec QTC Interval: 486 msec P-R-T [place]: 26 - 1 - 48 degrees Normal sinus rhythm Prolonged QT Abnormal ECG Nonspecific ST-T changes No previous tracing available for comparison Electronically Signed By: Ruy Mckenna [id number]
[2017-01-09] MEDS: LEVALBUTEROL (NEB) 0.63 MG/3 ML AMP HHN SCH (21:01)
[2017-01-09] MEDS: IPRATROPIUM (NEB) 0.5 MG/2.5 ML AMP HHN SCH (21:02)
[2017-01-10] VITALS (24 sets, daily range): BP systolic 88–147; BP diastolic 61–110; PULSE 96–106; RESP 12–23
[2017-01-10 00:23] LABS: AADO2 Arterial 58.6 mmHg (7.0-24.0); Allen Test ACCEPTAB; Arterial Base Excess 8.9 mmol/L (-3.0-3); Arterial COHb 0.2 % (0.0-3.0); Arterial Fraction of Oxyhgb 94.2 % (93.0-99.0); Arterial HCO3 33.9 mmol/L (22.0-26.0); Arterial MetHb 0.1 % (0.0-1.5); Arterial Total Hemglobin 10.7 g/dl (12.0-18.0); MODE NASAL CANNULA
[2017-01-10] MEDS: INSULIN ASPART [NOVOLOG] 3 ML PEN SC SCH ×6 (01:00→21:00)
[2017-01-10] MEDS: LEVALBUTEROL (NEB) 0.63 MG/3 ML AMP HHN SCH ×4 (01:38→19:43)
[2017-01-10] MEDS: IPRATROPIUM (NEB) 0.5 MG/2.5 ML AMP HHN SCH ×4 (01:38→19:43)
[2017-01-10] MEDS: PANTOPRAZOLE 40 MG INJ IV SCH (07:05)
[2017-01-10] MEDS: HYDROCORTISONE 100 MG INJ IV SCH ×3 (07:05→21:23)
[2017-01-10 08:05] LABS: ADD SCAN DIFF NO
[2017-01-10 08:13] LABS: ABNORMAL IP MESSAGE 1; EOSINOPHILS % 0.2 % (0.0-7.0); HEMATOCRIT 29.4 % (42.0-52.0); HEMOGLOBIN 9.9 g/dl (14.0-18.0); LYMPHOCYTES # 0.9 10^3/ul (0.8-2.9); LYMPHOCYTES % 16.5 % (15.0-51.0); MEAN CORPUSCULAR HEMOGLOBIN 31.9 pg (29.0-33.0); MEAN CORPUSCULAR HGB CONC 33.7 g/dl (32.0-37.0); MEAN CORPUSCULAR VOLUME 94.8 fl (82.0-101.0); MEAN PLATELET VOLUME 10.9 fl (7.4-10.4); MONOCYTE # 0.9 10^3/ul (0.3-0.9); MONOCYTES % 16.2 % (0.0-11.0); NEUTROPHIL # 3.3 10^3/ul (1.6-7.5); NEUTROPHILS % 57.8 % (39.0-77.0); NUCLEATED RED BLOOD CELLS% 0.7 /100WBC (0.0-0.0); PLATELET COUNT 90 10^3/UL (140-415); RED CELL DISTRIBUTION WIDTH 14.7 % (11.5-14.5); WHITE BLOOD COUNT 5.6 10^3/ul (4.8-10.8)
[2017-01-10 08:29] LABS: ALBUMIN 3.5 g/dl (3.3-4.9); ALBUMIN/GLOBULIN RATIO 1.4; BILIRUBIN,INDIRECT 1.5 mg/dl (0-1.1); BILIRUBIN,TOTAL 1.5 mg/dl (0.2-1.3); CALCIUM 10.2 mg/dl (8.4-10.2); CREATININE 0.95 mg/dl (0.61-1.24); POTASSIUM 3.6 mmol/L (3.5-5.1)
[2017-01-10 09:21] LABS: INR 1.47; PROTIME 17.9 Sec (12.2-14.2); PT RATIO 1.4
[2017-01-10 09:22] LABS: PARTIAL THROMBOPLASTIN TIME 25.1 Sec (25.0-35.0)
--- NOTE | 2017-01-10 09:48 | CONS ---
Date/Time of Note Date/Time of Note DATE: 01/10/17 TIME: 09:47 Consult Date/Type/Reason Admit Date/Time Jan 02, 2017 at 12:58 Type of Consultation: Pulm/CCM Ordering Provider: REGINA GARCIA MD Subjective Patient comfortable this morning mild confusion but no respiratory distress Objective Vital Signs Date Time Temp Pulse Resp B/P Pulse Ox O2 Delivery O2 Flow Rate FiO2 01/10/17 08:00 98 01/10/17 07:23 16 100 Nasal Cannula 3.0 01/10/17 07:00 122/81 01/10/17 04:00 98.4 01/09/17 21:15 31 Intake and Output 01/09/17 01/09/17 01/10/17 14:59 22:59 06:59 Intake Total 129.594 ml Output Total 395 ml 635 ml 975 ml Balance -265.406 ml -635 ml -975 ml Exam GENERAL: Obese gentleman chronically ill-appearing VITAL SIGNS: per chart NECK: Supple. No JVD or lymphadenopathy. CARDIAC EXAM: S1, S2. No added sounds or murmurs. CHEST: clear bilaterally, No added sounds, rales or wheezes ABDOMEN: Soft, nontender. No guarding or rebound. EXTREMITIES: No cyanosis, clubbing or edema. NEUROLOGIC: Generalized weakness. No focal deficits. Results/Medications Result Diagram: 01/10/17 0745 01/10/17 0745 Results 24 hrs Laboratory Tests Test 01/09/17 13:17 01/09/17 13:27 01/09/17 16:51 01/09/17 21:35 Bedside Glucose 133 126 127 Blood Gas Specimen Source Blood arterial Arterial Blood Date Drawn 01/09/2017 1:25:46 PM Arterial Blood pH (Temp corrected) 7.431 Arterial Blood pCO2 (Temp correct) 49.6 H Arterial Blood pO2 (Temp corrected) 86.3 Arterial Blood HCO3 32.3 H Arterial Blood Base Excess 7.0 H Arterial Blood Oxygen Saturation 95.5 Jose Enrique Test ACCEPTAB Arterial Blood Gas Puncture Site Right Radial Arterial Blood Carboxyhemoglobin 0.1 Arterial Blood Methemoglobin 0.6 Blood Gas A-a O2 Differential 141.9 H Oxyhemoglobin Percent 94.8 Total Hemoglobin 10.2 L Blood Gas Temperature 37.0 Blood Gas Actual Respiration Rate 17 Blood Gas Modality VENT - CPAP FiO2 40.0 Blood Gas Low PEEP Setting 5.0 Blood Gas Pressure Support 10 Blood Gas Notified Whom Melinda SPEAR Blood Gas Notified Time 01/09/2017 1:39:30 PM Test 01/10/17 00:14 01/10/17 01:28 01/10/17 05:00 01/10/17 07:45 Blood Gas Specimen Source Blood arterial Arterial Blood Date Drawn 01/10/2017 12:11:34 AM Arterial Blood pH (Temp corrected) 7.457 H Arterial Blood pCO2 (Temp correct) 49.1 H Arterial Blood pO2 (Temp corrected) 75.9 L Arterial Blood HCO3 33.9 H Arterial Blood Base Excess 8.9 H Arterial Blood Oxygen Saturation 94.5 L Jose Enrique Test ACCEPTAB Arterial Blood Gas Puncture Site Right Radial Arterial Blood Carboxyhemoglobin 0.2 Arterial Blood Methemoglobin 0.1 Blood Gas A-a O2 Differential 58.6 H Oxyhemoglobin Percent 94.2 Total Hemoglobin 10.7 L Blood Gas Temperature 37.0 Blood Gas Actual Respiration Rate 22 Blood Gas Modality NASAL CANNULA FiO2 27.0 Blood Gas Notified Whom [facility] Blood Gas Notified Time 01/10/2017 12:22:49 AM Bedside Glucose 117 107 White Blood Count 5.6 Red Blood Count 3.10 L Hemoglobin 9.9 L Hematocrit 29.4 L Mean Corpuscular Volume 94.8 Mean Corpuscular Hemoglobin 31.9 Mean Corpuscular Hemoglobin Concent 33.7 Red Cell Distribution Width 14.7 H Platelet Count 90 L Mean Platelet Volume 10.9 H Neutrophils % 57.8 Lymphocytes % 16.5 Monocytes % 16.2 H Eosinophils % 0.2 Basophils % 0.0 Nucleated Red Blood Cells % 0.7 H Neutrophils # 3.3 Lymphocytes # 0.9 Monocytes # 0.9 Eosinophils # 0.0 Basophils # 0.0 Nucleated Red Blood Cells # 0.0 Prothrombin Time 17.9 H Prothrombin Time Ratio 1.4 INR International Normalized Ratio 1.47 Activated Partial Thromboplast Time 25.1 Sodium Level 152 H Potassium Level 3.6 Chloride Level 111 H Carbon Dioxide Level 30 Anion Gap 15 Blood Urea Nitrogen 62 H Creatinine 0.95 Glucose Level 95 Calcium Level 10.2 Total Bilirubin 1.5 H Direct Bilirubin 0.00 Indirect Bilirubin 1.5 H Aspartate Amino Transf (AST/SGOT) 100 H Alanine Aminotransferase (ALT/SGPT) 110 H Alkaline Phosphatase 102 Ammonia < 0 L Total Protein 6.0 L Albumin 3.5 Globulin 2.50 Albumin/Globulin Ratio 1.40 Medications Current Medications Pantoprazole (Protonix Iv) 40 mg DAILY@06 IV Last administered on 01/10/17 07: 05; Admin Dose 40 MG; Start 01/03/17 at 06:00 Insulin Aspart (Novolog Insulin Pen) NOVOLOG *MODERATE* ALGORI... Q4 SC Last administered on 01/09/17 09:07; Admin Dose 1 UNIT; Start 01/03/17 at 13:00 Miscellaneous Information 1 ea NOTE XX ; Start 01/03/17 at 13:00 Glucose (Glutose) 15 gm Q15M PRN PO DECREASED GLUCOSE; Start 01/03/17 at 13:00 Glucose (Glutose) 22.5 gm Q15M PRN PO DECREASED GLUCOSE; Start 01/03/17 at 13:00 Dextrose (D50w Syringe) 25 ml Q15M PRN IV DECREASED GLUCOSE; Start 01/03/17 at 13:00 Dextrose (D50w Syringe) 50 ml Q15M PRN IV DECREASED GLUCOSE; Start 01/03/17 at 13:00 Glucagon (Glucagen) 1 mg Q15M PRN IM DECREASED GLUCOSE; Start 01/03/17 at 13:00 Glucose (Glutose) 15 gm Q15M PRN BUCCAL DECREASED GLUCOSE; Start 01/03/17 at 13: 00 Rifaximin 550 mg 550 mg BID PO Last administered on 01/09/17 09:01; Admin Dose 550 MG; Start 01/03/17 at 14:30 Meropenem (Merrem 1 Gm/100 ml (Pmx)) 100 ml @ 200 mls/hr Q24H IVPB Last administered on 01/09/17 09:45; Admin Dose 200 MLS/HR; Start 01/04/17 at 10:30 Morphine Sulfate (morphine) 2 mg Q4H PRN IV PAIN Last administered on 01/06/17 20:12; Admin Dose 2 MG; Start 01/06/17 at 11:30 Lorazepam (Ativan) 1 mg Q4H PRN IV AGITATION Last administered on 01/08/17 21: 35; Admin Dose 1 MG; Start 01/06/17 at 12:00 Acetaminophen 650 mg 650 mg Q6H PRN GTB PAIN AND OR ELEVATED TEMP Last administered on 01/08/17 14:00; Admin Dose 650 MG; Start 01/08/17 at 09:30 Norepinephrine/ Sodium Chloride (Levophed/NS) 250 ml @ 0.46 mls/hr TITRATE IV* Last administered on 01/09/17 07:50; Admin Dose 0.93 MLS/HR; Start 01/08/17 at 15:00 Hydrocortisone (Solu-Cortef) 50 mg Q8 IV Last administered on 01/10/17 07:05; Admin Dose 50 MG; Start 01/08/17 at 22:00 Lactulose (Enulose) 30 gm DAILY PO ; Start 01/10/17 at 09:00 Assessment/Plan Chief Complaint/Hosp Course Additional Assessment/Plan IMPRESSION: 1. s/p refractory shock 2. Acute renal failure--likely prerenal v. ATN- improved 3. Hypoxemic respiratory failure. 4. Hepatic Encephalopathy 5. ESCLD 6. Hyponatremia likely secondary to acute renal failure. 7. Thrombocytopenia 8. Possible relative adrenal insufficiency. RECS: 1. Nasal cannula oxygen 2. Swallow eval this morning 3. Maintain off pressors 4. Continue lactulose 5. Cont hydrocortisone titration 6. PT eval Disposition Transfer to telemetry Problems: EDILSON SIFUENTES MD, [facility] Jan 10, 2017 09:48
[2017-01-10 10:00] LABS: PHOSPHORUS 2.6 mg/dl (2.5-4.9)
--- NOTE | 2017-01-10 10:01 | PN ---
Date/Time of Note Date/Time of Note DATE: 01/10/17 TIME: 09:44 Assessment/Plan VTE Prophylaxis VTE Prophylaxis Intervention: SCD's Lines/Catheters IV Catheter Type (from Nrsg): Mid Line Central line still needed: Yes (for IV access ) Urinary Cath still in place: Yes Reason Cath still needed: other (indicate) (monitoring UOP ) Assessment/Plan Assessment/Plan 56-year-old male: 1. Hepatic encephalopathy, Ammonia level on admission. Known Cirrhosis/ESLD, HepC. Finally having multiple BMs and rectal tube in place Now Ammonia down to <9 and much more responsive. On lactulose down to daily and rifaximin Extubated 2. Acute respiratory failure with Severe Encephalopathy and Acute renal failure and also Shock state. All resolving currently. S/p extubation yesterday afternoon Lethargic but easily arousable and follows commands when awake. On Meropenem Blood cx and Urine Cx NGTD 3. Acute Renal Failure, likely pre renal secondary to dehydration VS ATN with Severe Hyperkalemia. Resolved Dr Brown following from Nephrology S/p emergent HD on admission, now seems hypovolemic with Hypernatremia. Will need IVF if fails swallow eval today. 4. Severe hyperkalemia. Resolved post Emergent HD on admission 5. Metabolic acidosis in setting on of ARF, s/p HD on admission. Resolved with improving renal function. Nephrology following 6. End-stage alcoholic liver disease, with also known Hep C, cirrhosis with Hepatic Encephalopathy and also coagulopathy. Stabilizing On Rifaximin and Lactulose. Correcting coagulopathy with FFP prn. 7. Hypernatremia, with Na up to 152 NGT placement with free H2O, and may need IVF. Nephrology, Dr Brown following 8. Acute on chronic anemia, no acute bleeding seen. s/p 1 units pRBC H/H stable so far. Prophylaxis: on PPI for GI ppx and SCDs for DVT ppx Disposition: Extubated yesterday and failed swallow eval this AM, NGT placement pending. Fair prognosis. Follow up Nephro and Pulmonary recs May transfer to Telemetry front bed later today if remains stable. Subjective 24 Hr Interval Summary Free Text/Dictation Patient extubated yesterday afternoon Failed swallow eval today PT eval pending and NGT to be placed May transfer to Telemetry front bed later today if remains stable. Exam/Review of Systems Vital Signs Vitals Vital Signs Date Time Temp Pulse Resp B/P Pulse Ox O2 Delivery O2 Flow Rate FiO2 01/10/17 08:00 98 01/10/17 07:23 16 100 Nasal Cannula 3.0 01/10/17 07:00 122/81 01/10/17 04:00 98.4 01/09/17 21:15 31 Intake and Output 01/09/17 01/09/17 01/10/17 15:00 23:00 07:00 Intake Total 119.366 ml Output Total 385 ml 745 ml 900 ml Balance -265.634 ml -745 ml -900 ml Exam Constitutional: other (lethargic but easily arousable ) Respiratory: diminished breath sounds (bases and needing frequent suctionning ) Cardiovascular: nl pulses, regular rate and rhythm Gastrointestinal: non-tender, soft Musculoskeletal: nl extremities to inspection Extremities: edema (some dependent edema generalised ), normal pulses, other ( no clubbign or cyanosis) Neurological: INSTALLATION TECH II-XII intact, lethargic, other (generalised weakness ) Results Result Diagram: 01/10/17 0745 01/10/17 0745 Results 24 hrs Laboratory Tests Test 01/09/17 13:17 01/09/17 13:27 01/09/17 16:51 01/09/17 21:35 Bedside Glucose 133 126 127 Blood Gas Specimen Source Blood arterial Arterial Blood Date Drawn 01/09/2017 1:25:46 PM Arterial Blood pH (Temp corrected) 7.431 Arterial Blood pCO2 (Temp correct) 49.6 H Arterial Blood pO2 (Temp corrected) 86.3 Arterial Blood HCO3 32.3 H Arterial Blood Base Excess 7.0 H Arterial Blood Oxygen Saturation 95.5 Jose Enrique Test ACCEPTAB Arterial Blood Gas Puncture Site Right Radial Arterial Blood Carboxyhemoglobin 0.1 Arterial Blood Methemoglobin 0.6 Blood Gas A-a O2 Differential 141.9 H Oxyhemoglobin Percent 94.8 Total Hemoglobin 10.2 L Blood Gas Temperature 37.0 Blood Gas Actual Respiration Rate 17 Blood Gas Modality VENT - CPAP FiO2 40.0 Blood Gas Low PEEP Setting 5.0 Blood Gas Pressure Support 10 Blood Gas Notified Whom Melinda SPEAR Blood Gas Notified Time 01/09/2017 1:39:30 PM Test 01/10/17 00:14 01/10/17 01:28 01/10/17 05:00 01/10/17 07:45 Blood Gas Specimen Source Blood arterial Arterial Blood Date Drawn 01/10/2017 12:11:34 AM Arterial Blood pH (Temp corrected) 7.457 H Arterial Blood pCO2 (Temp correct) 49.1 H Arterial Blood pO2 (Temp corrected) 75.9 L Arterial Blood HCO3 33.9 H Arterial Blood Base Excess 8.9 H Arterial Blood Oxygen Saturation 94.5 L Jose Enrique Test ACCEPTAB Arterial Blood Gas Puncture Site Right Radial Arterial Blood Carboxyhemoglobin 0.2 Arterial Blood Methemoglobin 0.1 Blood Gas A-a O2 Differential 58.6 H Oxyhemoglobin Percent 94.2 Total Hemoglobin 10.7 L Blood Gas Temperature 37.0 Blood Gas Actual Respiration Rate 22 Blood Gas Modality NASAL CANNULA FiO2 27.0 Blood Gas Notified Whom [facility] Blood Gas Notified Time 01/10/2017 12:22:49 AM Bedside Glucose 117 107 White Blood Count 5.6 Red Blood Count 3.10 L Hemoglobin 9.9 L Hematocrit 29.4 L Mean Corpuscular Volume 94.8 Mean Corpuscular Hemoglobin 31.9 Mean Corpuscular Hemoglobin Concent 33.7 Red Cell Distribution Width 14.7 H Platelet Count 90 L Mean Platelet Volume 10.9 H Neutrophils % 57.8 Lymphocytes % 16.5 Monocytes % 16.2 H Eosinophils % 0.2 Basophils % 0.0 Nucleated Red Blood Cells % 0.7 H Neutrophils # 3.3 Lymphocytes # 0.9 Monocytes # 0.9 Eosinophils # 0.0 Basophils # 0.0 Nucleated Red Blood Cells # 0.0 Prothrombin Time 17.9 H Prothrombin Time Ratio 1.4 INR International Normalized Ratio 1.47 Activated Partial Thromboplast Time 25.1 Sodium Level 152 H Potassium Level 3.6 Chloride Level 111 H Carbon Dioxide Level 30 Anion Gap 15 Blood Urea Nitrogen 62 H Creatinine 0.95 Glucose Level 95 Calcium Level 10.2 Total Bilirubin 1.5 H Direct Bilirubin 0.00 Indirect Bilirubin 1.5 H Aspartate Amino Transf (AST/SGOT) 100 H Alanine Aminotransferase (ALT/SGPT) 110 H Alkaline Phosphatase 102 Ammonia < 0 L Total Protein 6.0 L Albumin 3.5 Globulin 2.50 Albumin/Globulin Ratio 1.40 Medications Medications Current Medications Pantoprazole (Protonix Iv) 40 mg DAILY@06 IV Last administered on 01/10/17t 07: 05; Admin Dose 40 MG; Start 01/03/17 at 06:00 Insulin Aspart (Novolog Insulin Pen) NOVOLOG *MODERATE* ALGORI... Q4 SC Last administered on 01/09/17 09:07; Admin Dose 1 UNIT; Start 01/03/17 at 13:00 Miscellaneous Information 1 ea NOTE XX ; Start 01/03/17 at 13:00 Glucose (Glutose) 15 gm Q15M PRN PO DECREASED GLUCOSE; Start 01/03/17 at 13:00 Glucose (Glutose) 22.5 gm Q15M PRN PO DECREASED GLUCOSE; Start 01/03/17 at 13:00 Dextrose (D50w Syringe) 25 ml Q15M PRN IV DECREASED GLUCOSE; Start 01/03/17 at 13:00 Dextrose (D50w Syringe) 50 ml Q15M PRN IV DECREASED GLUCOSE; Start 01/03/17 at 13:00 Glucagon (Glucagen) 1 mg Q15M PRN IM DECREASED GLUCOSE; Start 01/03/17 at 13:00 Glucose (Glutose) 15 gm Q15M PRN BUCCAL DECREASED GLUCOSE; Start 01/03/17 at 13: 00 Rifaximin 550 mg 550 mg BID PO Last administered on 01/09/17 09:01; Admin Dose 550 MG; Start 01/03/17 at 14:30 Meropenem (Merrem 1 Gm/100 ml (Pmx)) 100 ml @ 200 mls/hr Q24H IVPB Last administered on 01/09/17 09:45; Admin Dose 200 MLS/HR; Start 01/04/17 at 10:30 Morphine Sulfate (morphine) 2 mg Q4H PRN IV PAIN Last administered on 01/06/17 20:12; Admin Dose 2 MG; Start 01/06/17 at 11:30 Lorazepam (Ativan) 1 mg Q4H PRN IV AGITATION Last administered on 01/08/17 21: 35; Admin Dose 1 MG; Start 01/06/17 at 12:00 Acetaminophen 650 mg 650 mg Q6H PRN GTB PAIN AND OR ELEVATED TEMP Last administered on 01/08/17 14:00; Admin Dose 650 MG; Start 01/08/17 at 09:30 Norepinephrine/ Sodium Chloride (Levophed/NS) 250 ml @ 0.46 mls/hr TITRATE IV* Last administered on 01/09/17 07:50; Admin Dose 0.93 MLS/HR; Start 01/08/17 at 15:00 Hydrocortisone (Solu-Cortef) 50 mg Q8 IV Last administered on 01/10/17 07:05; Admin Dose 50 MG; Start 01/08/17 at 22:00 Lactulose (Enulose) 30 gm DAILY PO ; Start 01/10/17 at 09:00 SRIKANTH GALVAN Jan 10, 2017 09:54
[2017-01-10] MEDS ORDERED: LIDOCAINE 1% (MPF) 5 ML VIAL SC ONE (10:30)
[2017-01-10] MEDS: MEROPENEM 1 GM/100 ML (PMX) 100 ML IVPB SCH (10:30)
--- NOTE | 2017-01-10 13:40 | RADRPT ---
PROCEDURE: XR Chest AP portable CLINICAL INDICATION: Verify NG tube placement TECHNIQUE: An AP portable radiograph of the chest was submitted. COMPARISON: 06/27/2016 FINDINGS: Support Hardware: An NG tube has been placed with the tip distal to the gas esophageal junction. The right upper extremity PICC catheter has been removed. Cardiovascular: The heart is mildly enlarged, the aorta appears atherosclerotic, and the peripheral pulmonary vasculature is upper normal. Lung Pool: A suboptimal inspiration compresses lung parenchyma exaggerating the perihilar intersti tial markings. No alveolar infiltrate is evident. Pleural Spaces: No pneumothorax or pleural effusion is identified. Osseous Structures: Mild degenerative spine changes are noted. Soft Tissues: The soft tissues appear generous. IMPRESSION: 1. Satisfactorily placed NG tube an interval removal of the right upper extremity PICC catheter. 2. Mild cardiomegaly with atherosclerotic change of the aorta but with the pulmonary vasculature upp er normal. 3. Suboptimal inspiration exaggerating the perihilar interstitial markings which have increased ove r the previous study. Interstitial pneumonitis cannot entirely be excluded. Physician Rachel Date Time Electronically viewed and signed by Physician Rachel on 01/10/2017 13:40 /
[2017-01-10] MEDS: LACTULOSE 30ML CUP PO SCH (14:35)
[2017-01-10] MEDS: RIFAXIMIN 550 MG TAB PO SCH ×2 (14:35→21:23)
--- NOTE | 2017-01-10 16:39 | CONS ---
Date/Time of Note Date/Time of Note DATE: 01/10/17 TIME: 16:33 Assessment/Plan Assessment/Plan Additional Assessment/Plan 1. Acute hyperkalemia with a potassium of 7.6 on admission, s/p One session of Emergent HD 01/03/17- now improved 2. Severe metabolic acidosis s/p Bicarbonate drip, now stable 3. Acute kidney injury with a BUN of 127, creatinine of 8.9 on admission, likely secondary to acute tubular necrosis. 4. Acute respiratory failure secondary to possibly acute fluid overload and possibly pneumonia.intubated on ventilator s/p Extubation 5. History of liver cirrhosis from hepatitis C. 6. acute encephalopathy possibly hepatic encephalopathy from liver cirrhosis 7. 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 Hyponatremia > hypernatremia PLAN: S/p Emergent HD x 1 due to hyperkalemia, severe metabolic acidosis and resp failure- Cr normal, Knormal, Na trending up- Fee water 200 cc Q 4 hr x 2 days then reassess s/p Extubated, still lethargic on lactulsoe for high ammonia Renal US negative for hydronephrosis, echogenicity c/w CKD makign good urine output, no indicatio for renal replacement therpay at this time IV abx as per primary care team will follow up Consultation Date/Type/Reason Admit Date/Time Jan 02, 2017 at 12:58 Initial Consult Date Dec Type of Consultation: NEPHROLOGY Referring Provider: REGINA GARCIA MD 24 HR Interval Summary Free Text/Dictation pt extubated, doing ok, BP stable, HR still high, pt is lethargic confused Exam/Review of Systems Vital Signs Vitals Vital Signs Date Time Temp Pulse Resp B/P Pulse Ox O2 Delivery O2 Flow Rate FiO2 01/10/17 16:00 100 01/10/17 13:30 15 97 Nasal Cannula 3.0 01/10/17 12:00 97.7 114/67 01/09/17 21:15 31 Intake and Output 01/09/17 01/09/17 01/10/17 15:00 23:00 07:00 Intake Total 119.366 ml Output Total 385 ml 745 ml 900 ml Balance -265.634 ml -745 ml -900 ml Exam Constitutional: other (easily arousable and following commands ) Respiratory: diminished breath sounds (at bases ), other (on vent ) Cardiovascular: nl pulses, regular rate and rhythm Gastrointestinal: non-tender, soft Musculoskeletal: nl extremities to inspection Extremities: normal pulses, other (minimal anasarca ) Neurological: TUBE SIZER AND CUTTER OPERATOR II-XII intact, lethargic, other (arousable ) Results Result Diagram: 01/10/17 0745 01/10/17 0745 Results 24 hrs Laboratory Tests Test 01/09/17 16:51 01/09/17 21:35 01/10/17 00:14 01/10/17 01:28 Bedside Glucose 126 127 117 Blood Gas Specimen Source Blood arterial Arterial Blood Date Drawn 01/10/2017 12:11:34 AM Arterial Blood pH (Temp corrected) 7.457 H Arterial Blood pCO2 (Temp correct) 49.1 H Arterial Blood pO2 (Temp corrected) 75.9 L Arterial Blood HCO3 33.9 H Arterial Blood Base Excess 8.9 H Arterial Blood Oxygen Saturation 94.5 L Jose Enrique Test ACCEPTAB Arterial Blood Gas Puncture Site Right Radial Arterial Blood Carboxyhemoglobin 0.2 Arterial Blood Methemoglobin 0.1 Blood Gas A-a O2 Differential 58.6 H Oxyhemoglobin Percent 94.2 Total Hemoglobin 10.7 L Blood Gas Temperature 37.0 Blood Gas Actual Respiration Rate 22 Blood Gas Modality NASAL CANNULA FiO2 27.0 Blood Gas Notified Elijah [employer] Blood Gas Notified Time 01/10/2017 12:22:49 AM Test 01/10/17 05:00 01/10/17 07:45 01/10/17 12:01 01/10/17 13:10 Bedside Glucose 107 112 White Blood Count 5.6 Red Blood Count 3.10 L Hemoglobin 9.9 L Hematocrit 29.4 L Mean Corpuscular Volume 94.8 Mean Corpuscular Hemoglobin 31.9 Mean Corpuscular Hemoglobin Concent 33.7 Red Cell Distribution Width 14.7 H Platelet Count 90 L Mean Platelet Volume 10.9 H Neutrophils % 57.8 Lymphocytes % 16.5 Monocytes % 16.2 H Eosinophils % 0.2 Basophils % 0.0 Nucleated Red Blood Cells % 0.7 H Neutrophils # 3.3 Lymphocytes # 0.9 Monocytes # 0.9 Eosinophils # 0.0 Basophils # 0.0 Nucleated Red Blood Cells # 0.0 Prothrombin Time 17.9 H Prothrombin Time Ratio 1.4 INR International Normalized Ratio 1.47 Activated Partial Thromboplast Time 25.1 Sodium Level 152 H Potassium Level 3.6 Chloride Level 111 H Carbon Dioxide Level 30 Anion Gap 15 Blood Urea Nitrogen 62 H Creatinine 0.95 Glucose Level 95 Calcium Level 10.2 Phosphorus Level 2.6 Magnesium Level 2.0 Total Bilirubin 1.5 H Direct Bilirubin 0.00 Indirect Bilirubin 1.5 H Aspartate Amino Transf (AST/SGOT) 100 H Alanine Aminotransferase (ALT/SGPT) 110 H Alkaline Phosphatase 102 Ammonia < 0 L Total Protein 6.0 L Albumin 3.5 Globulin 2.50 Albumin/Globulin Ratio 1.40 Lab Scanned Report REFERENCE LAB Medications Medications Current Medications Pantoprazole (Protonix Iv) 40 mg DAILY@06 IV Last administered on 01/10/17 07: 05; Admin Dose 40 MG; Start 01/03/17 at 06:00 Insulin Aspart (Novolog Insulin Pen) NOVOLOG *MODERATE* ALGORI... Q4 SC Last administered on 01/09/17 09:07; Admin Dose 1 UNIT; Start 01/03/17 at 13:00 Miscellaneous Information 1 ea NOTE XX ; Start 01/03/17 at 13:00 Glucose (Glutose) 15 gm Q15M PRN PO DECREASED GLUCOSE; Start 01/03/17 at 13:00 Glucose (Glutose) 22.5 gm Q15M PRN PO DECREASED GLUCOSE; Start 01/03/17 at 13:00 Dextrose (D50w Syringe) 25 ml Q15M PRN IV DECREASED GLUCOSE; Start 01/03/17 at 13:00 Dextrose (D50w Syringe) 50 ml Q15M PRN IV DECREASED GLUCOSE; Start 01/03/17 at 13:00 Glucagon (Glucagen) 1 mg Q15M PRN IM DECREASED GLUCOSE; Start 01/03/17 at 13:00 Glucose (Glutose) 15 gm Q15M PRN BUCCAL DECREASED GLUCOSE; Start 01/03/17 at 13: 00 Rifaximin 550 mg 550 mg BID PO Last administered on 01/10/17 14:35; Admin Dose 550 MG; Start 01/03/17 at 14:30 Meropenem (Merrem 1 Gm/100 ml (Pmx)) 100 ml @ 200 mls/hr Q24H IVPB Last administered on 01/09/17 09:45; Admin Dose 200 MLS/HR; Start 01/04/17 at 10:30 Morphine Sulfate (morphine) 2 mg Q4H PRN IV PAIN Last administered on 01/06/17 20:12; Admin Dose 2 MG; Start 01/06/17 at 11:30 Lorazepam (Ativan) 1 mg Q4H PRN IV AGITATION Last administered on 01/08/17 21: 35; Admin Dose 1 MG; Start 01/06/17 at 12:00 Acetaminophen 650 mg 650 mg Q6H PRN GTB PAIN AND OR ELEVATED TEMP Last administered on 01/08/17 14:00; Admin Dose 650 MG; Start 01/08/17 at 09:30 Norepinephrine/ Sodium Chloride (Levophed/NS) 250 ml @ 0.46 mls/hr TITRATE IV* Last administered on 01/09/17 07:50; Admin Dose 0.93 MLS/HR; Start 01/08/17 at 15:00 Hydrocortisone (Solu-Cortef) 50 mg Q8 IV Last administered on 01/10/17 07:05; Admin Dose 50 MG; Start 01/08/17 at 22:00 Lactulose (Enulose) 30 gm DAILY PO Last administered on 01/10/17 14:35; Admin Dose 30 GM; Start 01/10/17 at 09:00 MARII DALY MD Jan 10, 2017 16:39
--- NOTE | 2017-01-10 16:54 | RADRPT ---
PROCEDURE: XR Chest. CLINICAL INDICATION: Check PICC line position. TECHNIQUE: Single frontal view. COMPARISON: Prior study done earlier the same day. FINDINGS: There is a right arm PICC line with the tip in the cavoatrial junction region. The nasogastric tube remains in satisfactory position with the tip in the stomach. Mild bilateral perihilar interstitial disease is unchanged. The heart is enlarged. There is calcification in the aorta consistent with atherosclerosis. There is no pleural effusion. There is no pneumothorax. IMPRESSION: 1. Satisfactory position of right arm PICC line. 2. No other change from the prior study done earlier the same day. RPTAT: QQ .Jose Martin MD, MD Date Time Electronically viewed and signed by .Jose Martin MD, on 01/10/2017 16:54 .R/
--- NOTE | 2017-01-10 17:02 | RADRPT ---
PROCEDURE: Ultrasound guidance for placement of needle in right upper extremity vein. CLINICAL INDICATION: Venous access. TECHNIQUE: Limited sonography of the right upper extremity was performed. Ultrasound images were recorded and stored in the patient's medical record. COMPARISON: None. FINDINGS: The ultrasound images demonstrate a patent right upper extremity vein. The PICC line was inserted b y the PICC line nurse. IMPRESSION: 1. Ultrasound guidance for a needle placement in a right upper extremity vein. 2. The visualized right upper extremity vein is patent. RPTAT: QQ .Jose Martin MD, MD Date Time Electronically viewed and signed by .Jose Martin MD, MD on 01/10/2017 17:02 .R/
--- NOTE | 2017-01-10 19:15 | RADRPT ---
PROCEDURE: XR Chest. CLINICAL INDICATION: Nasogastric tube placement. TECHNIQUE: Single frontal view of the chest. COMPARISON: 06/27/2016. FINDINGS: New nasogastric tube in place with tip and side port in the distal stomach. Right central venous line again seen with tip in the superior vena cava right atrial junction. Cardiomegaly. Decreased lung inflation accentuates pulmonary vascular markings. Mild pulmonary vas cular ingestion and patchy air space disease at lung bases. No signs of pleural fluid or pneumothora x are seen. The osseous structures and soft tissues are unremarkable. IMPRESSION: Nasogastric tube in place with tip in the distal stomach. RPTAT: [facility] Physician Roselia Date Time Electronically viewed and signed by Physician Roselia on 01/10/2017 19:15 RS/
[2017-01-11] VITALS (24 sets, daily range): BP systolic 91–152; BP diastolic 63–136; PULSE 91–122; RESP 9–21
[2017-01-11] MEDS: INSULIN ASPART [NOVOLOG] 3 ML PEN SC SCH ×6 (01:00→20:28)
[2017-01-11] MEDS: LEVALBUTEROL (NEB) 0.63 MG/3 ML AMP HHN SCH ×4 (02:23→20:19)
[2017-01-11] MEDS: IPRATROPIUM (NEB) 0.5 MG/2.5 ML AMP HHN SCH ×4 (02:23→20:19)
[2017-01-11] MEDS: morphine 2 MG INJ IV PRN ×2 (03:43→19:12)
[2017-01-11] MEDS: HYDROCORTISONE 100 MG INJ IV SCH ×2 (06:09→20:28)
[2017-01-11] MEDS: PANTOPRAZOLE 40 MG INJ IV SCH (06:09)
[2017-01-11 06:41] LABS: ADD SCAN DIFF NO
[2017-01-11 06:50] LABS: ABNORMAL IP MESSAGE 1; EOSINOPHILS # 0.1 10^3/ul (0.0-0.5); EOSINOPHILS % 0.9 % (0.0-7.0); HEMATOCRIT 29.1 % (42.0-52.0); HEMOGLOBIN 9.3 g/dl (14.0-18.0); LYMPHOCYTES # 0.6 10^3/ul (0.8-2.9); LYMPHOCYTES % 10.4 % (15.0-51.0); MEAN CORPUSCULAR HEMOGLOBIN 31.4 pg (29.0-33.0); MEAN CORPUSCULAR VOLUME 98.3 fl (82.0-101.0); MEAN PLATELET VOLUME 10.9 fl (7.4-10.4); MONOCYTE # 0.8 10^3/ul (0.3-0.9); MONOCYTES % 13.5 % (0.0-11.0); NEUTROPHIL # 4.1 10^3/ul (1.6-7.5); NEUTROPHILS % 72.6 % (39.0-77.0); NUCLEATED RED BLOOD CELLS% 0.4 /100WBC (0.0-0.0); RED BLOOD COUNT 2.96 10^6/ul (4.70-6.10); RED CELL DISTRIBUTION WIDTH 16.1 % (11.5-14.5); WHITE BLOOD COUNT 5.7 10^3/ul (4.8-10.8)
[2017-01-11 06:54] LABS: PLATELET COUNT 87 10^3/UL (140-415)
[2017-01-11 07:17] LABS: MAGNESIUM 1.9 mg/dl (1.7-2.5); PHOSPHORUS 2.1 mg/dl (2.5-4.9)
[2017-01-11 07:20] LABS: ALBUMIN 3.4 g/dl (3.3-4.9); ALBUMIN/GLOBULIN RATIO 1.41; BILIRUBIN,INDIRECT 1.4 mg/dl (0-1.1); BILIRUBIN,TOTAL 1.4 mg/dl (0.2-1.3); CREATININE 0.97 mg/dl (0.61-1.24); POTASSIUM 3.7 mmol/L (3.5-5.1); TOTAL PROTEIN 5.8 g/dl (6.1-8.1)
[2017-01-11 07:24] LABS: INR 1.68; PROTIME 19.9 Sec (12.2-14.2); PT RATIO 1.6
[2017-01-11 07:25] LABS: PARTIAL THROMBOPLASTIN TIME 30.3 Sec (25.0-35.0)
[2017-01-11] MEDS: LACTULOSE 30ML CUP PO SCH (09:00)
[2017-01-11] MEDS: RIFAXIMIN 550 MG TAB PO SCH ×2 (09:00→20:28)
--- NOTE | 2017-01-11 10:18 | PN ---
Date/Time of Note Date/Time of Note DATE: 01/11/17 TIME: 10:00 Assessment/Plan VTE Prophylaxis VTE Prophylaxis Intervention: SCD's Lines/Catheters IV Catheter Type (from Nrs): PICC Line Central line still needed: Yes (for IV access ) Urinary Cath still in place: Yes Reason Cath still needed: other (indicate) (monitor UOP ) Assessment/Plan Assessment/Plan 56-year-old male: 1. Hepatic encephalopathy, Ammonia level on admission. Known Cirrhosis/ESLD, HepC. Finally having multiple BMs and rectal tube in place Now Ammonia at 22 today, back on Rifaximin and Lactulose and much more responsive but still lethargic post extubation. 2. Acute respiratory failure with Severe Encephalopathy and Acute renal failure and also Shock state. All resolving currently. S/p extubation Lethargic but easily arousable and follows commands when awake. On Meropenem Blood cx and Urine Cx NGTD 3. Acute Renal Failure, likely pre renal secondary to dehydration VS ATN with Severe Hyperkalemia. Resolved Dr Brown following from Nephrology S/p emergent HD on admission, now seems hypovolemic with Hypernatremia. Will need IVF if fails swallow eval today. 4. Severe hyperkalemia. Resolved post Emergent HD on admission 5. Metabolic acidosis in setting on of ARF, s/p HD on admission. Resolved with improving renal function. Nephrology following 6. End-stage alcoholic liver disease, with also known Hep C, cirrhosis with Hepatic Encephalopathy and also coagulopathy. Stabilizing On Rifaximin and Lactulose. Correcting coagulopathy with FFP prn. 7. Hypernatremia, with Na up to [address] with tube feedings ongoing Increased Free h20 to 300 cc q4. Monitor Nephrology, Dr Brown following 8. Acute on chronic anemia, no acute bleeding seen. s/p 1 units pRBC H/H stable so far. Prophylaxis: on PPI for GI ppx and SCDs for DVT ppx Disposition: Extubated x 36 hrs, failed swallow eval due to lethargy and NGT in place. Fair prognosis. Follow up Nephro and Pulmonary recs May transfer to Telemetry front bed today. Subjective 24 Hr Interval Summary Free Text/Dictation Patient remains hemodynamically stable Still significantly lethargic even with Ammonia level, correcting hypernatremia Exam/Review of Systems Vital Signs Vitals Vital Signs Date Time Temp Pulse Resp B/P Pulse Ox O2 Delivery O2 Flow Rate FiO2 01/11/17 09:00 108 14 120/82 100 Nasal Cannula 3.0 01/11/17 08:00 97.8 01/09/17 21:15 31 Intake and Output 01/10/17 01/10/17 01/11/17 15:00 23:00 07:00 Intake Total 30 ml 310 ml 620 ml Output Total 1005 ml 1080 ml 800 ml Balance -975 ml -770 ml -180 ml Exam Constitutional: frail (lethargic but easily arousable ), obese Respiratory: clear to auscultation, normal air movement Cardiovascular: nl pulses, regular rate and rhythm Gastrointestinal: non-tender, other (rectal tube in place ), soft Musculoskeletal: nl extremities to inspection (rectal tube in place ) Extremities: normal pulses, other (no edema, clubbing or cyanosis ) Neurological: 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 SPECIALIST II-XII 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, lethargic, other (generalised weakness ) Results Result Diagram: 01/11/1751901/11/17 0520 Results 24 hrs Laboratory Tests Test 01/10/17 12:01 01/10/17 13:10 01/10/17 17:42 01/10/17 21:26 Lab Scanned Report REFERENCE LAB Bedside Glucose 112 101 101 Test 01/11/17 01:22 01/11/17 05:20 01/11/17 05:24 01/11/17 08:52 Bedside Glucose 109 112 133 White Blood Count 5.7 Red Blood Count 2.96 L Hemoglobin 9.3 L Hematocrit 29.1 L Mean Corpuscular Volume 98.3 Mean Corpuscular Hemoglobin 31.4 Mean Corpuscular Hemoglobin Concent 32.0 Red Cell Distribution Width 16.1 H Platelet Count 87 L Mean Platelet Volume 10.9 H Neutrophils % 72.6 Lymphocytes % 10.4 L Monocytes % 13.5 H Eosinophils % 0.9 Basophils % 0.0 Nucleated Red Blood Cells % 0.4 H Neutrophils # 4.1 Lymphocytes # 0.6 L Monocytes # 0.8 Eosinophils # 0.1 Basophils # 0.0 Nucleated Red Blood Cells # 0.0 Prothrombin Time 19.9 H Prothrombin Time Ratio 1.6 INR International Normalized Ratio 1.68 Activated Partial Thromboplast Time 30.3 Sodium Level 156 H Potassium Level 3.7 Chloride Level 114 H Carbon Dioxide Level 34 H Anion Gap 12 Blood Urea Nitrogen 47 #H Creatinine 0.97 Glucose Level 108 Calcium Level 10.0 Phosphorus Level 2.1 L Magnesium Level 1.9 Total Bilirubin 1.4 H Direct Bilirubin 0.00 Indirect Bilirubin 1.4 H Aspartate Amino Transf (AST/SGOT) 110 H Alanine Aminotransferase (ALT/SGPT) 111 H Alkaline Phosphatase 98 Ammonia 22 Total Protein 5.8 L Albumin 3.4 Globulin 2.40 Albumin/Globulin Ratio 1.41 Medications Medications Current Medications Pantoprazole (Protonix Iv) 40 mg DAILY@06 IV Last administered on 01/11/17 06: 09; Admin Dose 40 MG; Start 01/03/17 at 06:00 Insulin Aspart (Novolog Insulin Pen) NOVOLOG *MODERATE* ALGORI... Q4 SC Last administered on 01/09/17 09:07; Admin Dose 1 UNIT; Start 01/03/17 at 13:00 Miscellaneous Information 1 ea NOTE XX ; Start 01/03/17 at 13:00 Glucose (Glutose) 15 gm Q15M PRN PO DECREASED GLUCOSE; Start 01/03/17 at 13:00 Glucose (Glutose) 22.5 gm Q15M PRN PO DECREASED GLUCOSE; Start 01/03/17 at 13:00 Dextrose (D50w Syringe) 25 ml Q15M PRN IV DECREASED GLUCOSE; Start 01/03/17 at 13:00 Dextrose (D50w Syringe) 50 ml Q15M PRN IV DECREASED GLUCOSE; Start 01/03/17 at 13:00 Glucagon (Glucagen) 1 mg Q15M PRN IM DECREASED GLUCOSE; Start 01/03/17 at 13:00 Glucose (Glutose) 15 gm Q15M PRN BUCCAL DECREASED GLUCOSE; Start 01/03/17 at 13: 00 Rifaximin 550 mg 550 mg BID PO Last administered on 01/11/17 09:00; Admin Dose 550 MG; Start 01/03/17 at 14:30 Meropenem (Merrem 1 Gm/100 ml (Pmx)) 100 ml @ 200 mls/hr Q24H IVPB Last administered on 01/09/17 09:45; Admin Dose 200 MLS/HR; Start 01/04/17 at 10:30 Morphine Sulfate (morphine) 2 mg Q4H PRN IV PAIN Last administered on 03:43; Admin Dose 2 MG; Start 01/06/17 at 11:30 Lorazepam (Ativan) 1 mg Q4H PRN IV AGITATION Last administered on 01/08/17 21: 35; Admin Dose 1 MG; Start 01/06/17 at 12:00 Acetaminophen 650 mg 650 mg Q6H PRN GTB PAIN AND OR ELEVATED TEMP Last administered on 01/08/17 14:00; Admin Dose 650 MG; Start 01/08/17 at 09:30 Norepinephrine/ Sodium Chloride (Levophed/NS) 250 ml @ 0.46 mls/hr TITRATE IV* Last administered on 01/09/17 07:50; Admin Dose 0.93 MLS/HR; Start 01/08/17 at 15:00 Hydrocortisone (Solu-Cortef) 50 mg Q8 IV Last administered on 01/11/17 06:09; Admin Dose 50 MG; Start 01/08/17 at 22:00 Lactulose (Enulose) 30 gm DAILY PO Last administered on 01/11/17 09:00; Admin Dose 30 GM; Start 01/10/17 at 09:00 IV Flush (NS 10 ml) 10 ml PRN PRN IV IV PROTOCOL; Start 01/10/17 at 17:30 SRIKANTH GALVAN Jan 11, 2017 10:13
--- NOTE | 2017-01-11 10:37 | CONS ---
Date/Time of Note Date/Time of Note DATE: 01/11/17 TIME: 10:35 Assessment/Plan Assessment/Plan Additional Assessment/Plan Assessment recommendations; 1. Patient admitted with septic shock and respiratory failure extubated 2 days ago with continually improving mental status. 2. Acute renal failure, status post 2 hemodialysis sessions. 3. Hyponatremia. 4. History of alcoholism and cirrhosis of liver. 5. Thrombocytopenia. 6. Anemia. Continue current treatment. Add free water via NG tube for correction of hypernatremia. Continue other supportive measures. Consultation Date/Type/Reason Admit Date/Time Jan 02, 2017 at 12:58 Initial Consult Date Type of Consultation: Pulmonary/critical care Referring Provider: REGINA GARCIA MD 24 HR Interval Summary Free Text/Dictation Patient condition is continually improving. He is much more awake alert. Still has episodes of confusion off and on. Patient however is awake and alert 2 this morning. Denies any shortness of breath, chest pain, abdominal pain, nausea vomiting. General exam; middle-aged male, morbidly obese, currently in no distress. Awake and alert. Exam/Review of Systems Vital Signs Vitals Vital Signs Date Time Temp Pulse Resp B/P Pulse Ox O2 Delivery O2 Flow Rate FiO2 01/11/17 09:00 108 14 120/82 100 Nasal Cannula 3.0 01/11/17 08:00 97.8 01/09/17 21:15 31 Intake and Output 01/10/17 01/10/17 01/11/17 15:00 23:00 07:00 Intake Total 30 ml 310 ml 620 ml Output Total 1005 ml 1080 ml 800 ml Balance -975 ml -770 ml -180 ml Exam HEENT exam; supple neck, JVD difficult to see because of short neck. No thyromegaly. Patient has good dentition. Pupils are equal and reactive to light bilaterally. No neck masses. No lymphadenopathy. Chest examination; diminished but clear breath sounds. S1-S2 audible, no murmurs. Regular rhythm. Abdomen examination; soft, protuberant. Nontender. Bowel sounds audible. Extremity exam; no peripheral edema. Pulses 1+ bilaterally. 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 Results Result Diagram: 01/11/17 0520 01/11/17 0520 Results 24 hrs Laboratory Tests Test 01/10/17 12:01 01/10/17 13:10 01/10/17 17:42 01/10/17 21:26 Lab Scanned Report REFERENCE LAB Bedside Glucose 112 101 101 Test 01/11/17 01:22 01/11/17 05:20 01/11/17 05:24 01/11/17 08:52 Bedside Glucose 109 112 133 White Blood Count 5.7 Red Blood Count 2.96 L Hemoglobin 9.3 L Hematocrit 29.1 L Mean Corpuscular Volume 98.3 Mean Corpuscular Hemoglobin 31.4 Mean Corpuscular Hemoglobin Concent 32.0 Red Cell Distribution Width 16.1 H Platelet Count 87 L Mean Platelet Volume 10.9 H Neutrophils % 72.6 Lymphocytes % 10.4 L Monocytes % 13.5 H Eosinophils % 0.9 Basophils % 0.0 Nucleated Red Blood Cells % 0.4 H Neutrophils # 4.1 Lymphocytes # 0.6 L Monocytes # 0.8 Eosinophils # 0.1 Basophils # 0.0 Nucleated Red Blood Cells # 0.0 Prothrombin Time 19.9 H Prothrombin Time Ratio 1.6 INR International Normalized Ratio 1.68 Activated Partial Thromboplast Time 30.3 Sodium Level 156 H Potassium Level 3.7 Chloride Level 114 H Carbon Dioxide Level 34 H Anion Gap 12 Blood Urea Nitrogen 47 #H Creatinine 0.97 Glucose Level 108 Calcium Level 10.0 Phosphorus Level 2.1 L Magnesium Level 1.9 Total Bilirubin 1.4 H Direct Bilirubin 0.00 Indirect Bilirubin 1.4 H Aspartate Amino Transf (AST/SGOT) 110 H Alanine Aminotransferase (ALT/SGPT) 111 H Alkaline Phosphatase 98 Ammonia 22 Total Protein 5.8 L Albumin 3.4 Globulin 2.40 Albumin/Globulin Ratio 1.41 Medications Medications Current Medications Pantoprazole (Protonix Iv) 40 mg DAILY@06 IV Last administered on 01/11/17 06: 09; Admin Dose 40 MG; Start 01/03/17 at 06:00 Insulin Aspart (Novolog Insulin Pen) NOVOLOG *MODERATE* ALGORI... Q4 SC Last administered on 01/09/17 09:07; Admin Dose 1 UNIT; Start 01/03/17 at 13:00 Miscellaneous Information 1 ea NOTE XX ; Start 01/03/17 at 13:00 Glucose (Glutose) 15 gm Q15M PRN PO DECREASED GLUCOSE; Start 01/03/17 at 13:00 Glucose (Glutose) 22.5 gm Q15M PRN PO DECREASED GLUCOSE; Start 01/03/17 at 13:00 Dextrose (D50w Syringe) 25 ml Q15M PRN IV DECREASED GLUCOSE; Start 01/03/17 at 13:00 Dextrose (D50w Syringe) 50 ml Q15M PRN IV DECREASED GLUCOSE; Start 01/03/17 at 13:00 Glucagon (Glucagen) 1 mg Q15M PRN IM DECREASED GLUCOSE; Start 01/03/17 at 13:00 Glucose (Glutose) 15 gm Q15M PRN BUCCAL DECREASED GLUCOSE; Start 01/03/17 at 13: 00 Rifaximin 550 mg 550 mg BID PO Last administered on 01/11/17 09:00; Admin Dose 550 MG; Start 01/03/17 at 14:30 Meropenem (Merrem 1 Gm/100 ml (Pmx)) 100 ml @ 200 mls/hr Q24H IVPB Last administered on 01/09/17 09:45; Admin Dose 200 MLS/HR; Start 01/04/17 at 10:30 Morphine Sulfate (morphine) 2 mg Q4H PRN IV PAIN Last administered on 03:43; Admin Dose 2 MG; Start 01/06/17 at 11:30 Lorazepam (Ativan) 1 mg Q4H PRN IV AGITATION Last administered on 01/08/17 21: 35; Admin Dose 1 MG; Start 01/06/17 at 12:00 Acetaminophen 650 mg 650 mg Q6H PRN GTB PAIN AND OR ELEVATED TEMP Last administered on 01/08/17 14:00; Admin Dose 650 MG; Start 01/08/17 at 09:30 Norepinephrine/ Sodium Chloride (Levophed/NS) 250 ml @ 0.46 mls/hr TITRATE IV* Last administered on 01/09/17 07:50; Admin Dose 0.93 MLS/HR; Start 01/08/17 at 15:00 Lactulose (Enulose) 30 gm DAILY PO Last administered on 01/11/17 09:00; Admin Dose 30 GM; Start 01/10/17 at 09:00 IV Flush (NS 10 ml) 10 ml PRN PRN IV IV PROTOCOL; Start 01/10/17 at 17:30 Hydrocortisone (Solu-Cortef) 50 mg Q12 IV ; Start 6/13/17 at 21:00 TRENT SAUCEDA Jan 11, 2017 10:37
[2017-01-11] MEDS ORDERED: SOD CHLORIDE 0.9% 100 ML ONE (10:48)
[2017-01-11] MEDS: MEROPENEM 1 GM/100 ML (PMX) 100 ML IVPB SCH (11:00)
--- NOTE | 2017-01-11 20:28 | CONS ---
Date/Time of Note Date/Time of Note DATE: 01/11/17 TIME: 20:24 Assessment/Plan Assessment/Plan Additional Assessment/Plan 1. Acute hyperkalemia with a potassium of 7.6 on admission, s/p One session of Emergent HD 01/03/17- now improved 2. Severe metabolic acidosis s/p Bicarbonate drip, now stable 3. Acute kidney injury with a BUN of 127, creatinine of 8.9 on admission, likely secondary to acute tubular necrosis. 4. Acute respiratory failure secondary to possibly acute fluid overload and possibly pneumonia.intubated on ventilator s/p Extubation 5. History of liver cirrhosis from hepatitis C. 6. acute encephalopathy possibly hepatic encephalopathy from liver cirrhosis 7. 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 Hyponatremia > hypernatremia PLAN: S/p Emergent HD x 1 due to hyperkalemia, severe metabolic acidosis and resp failure- Cr normal, K normal, Na trending up- on Fee water 200 cc Q 4 hr - if continues to remaing Na high then we will start D5W by tomorrow Failed swallow study, currently on NG tube feeding Renal US negative for hydronephrosis, echogenicity c/w CKD , good urine output IV abx as per primary care team will follow up Consultation Date/Type/Reason Admit Date/Time Jan 02, 2017 at 12:58 Initial Consult Date Dec Type of Consultation: NEPHROLOGY Referring Provider: REGINA GARCIA MD 24 HR Interval Summary Free Text/Dictation no acute events, pt still remains confused, lethargic Exam/Review of Systems Vital Signs Vitals Vital Signs Date Time Temp Pulse Resp B/P Pulse Ox O2 Delivery O2 Flow Rate FiO2 01/11/17 20:02 Non Rebreather 3.0 01/11/17 20:00 117 19 01/11/17 19:00 98.0 124/91 100 01/09/17 21:15 31 Intake and Output 01/10/17 01/10/17 01/11/17 14:59 22:59 06:59 Intake Total 0 ml 320 ml 600 ml Output Total 960 ml 1000 ml 900 ml Balance -960 ml -680 ml -300 ml Exam Constitutional: lethargic Respiratory: decreased BS at bases, basilar rales Cardiovascular: nl pulses, regular rate and rhythm Gastrointestinal: non-tender, soft Musculoskeletal: nl extremities to inspection Extremities: 1+ LE Edema, no clubbing. 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, lethargic Results Result Diagram: 01/11/17 0520 01/11/17 0520 Results 24 hrs Laboratory Tests Test 01/10/17 21:26 01/11/17 01:22 01/11/17 05:20 01/11/17 05:24 Bedside Glucose 101 109 112 White Blood Count 5.7 Red Blood Count 2.96 L Hemoglobin 9.3 L Hematocrit 29.1 L Mean Corpuscular Volume 98.3 Mean Corpuscular Hemoglobin 31.4 Mean Corpuscular Hemoglobin Concent 32.0 Red Cell Distribution Width 16.1 H Platelet Count 87 L Mean Platelet Volume 10.9 H Neutrophils % 72.6 Lymphocytes % 10.4 L Monocytes % 13.5 H Eosinophils % 0.9 Basophils % 0.0 Nucleated Red Blood Cells % 0.4 H Neutrophils # 4.1 Lymphocytes # 0.6 L Monocytes # 0.8 Eosinophils # 0.1 Basophils # 0.0 Nucleated Red Blood Cells # 0.0 Prothrombin Time 19.9 H Prothrombin Time Ratio 1.6 INR International Normalized Ratio 1.68 Activated Partial Thromboplast Time 30.3 Sodium Level 156 H Potassium Level 3.7 Chloride Level 114 H Carbon Dioxide Level 34 H Anion Gap 12 Blood Urea Nitrogen 47 #H Creatinine 0.97 Glucose Level 108 Calcium Level 10.0 Phosphorus Level 2.1 L Magnesium Level 1.9 Total Bilirubin 1.4 H Direct Bilirubin 0.00 Indirect Bilirubin 1.4 H Aspartate Amino Transf (AST/SGOT) 110 H Alanine Aminotransferase (ALT/SGPT) 111 H Alkaline Phosphatase 98 Ammonia 22 Total Protein 5.8 L Albumin 3.4 Globulin 2.40 Albumin/Globulin Ratio 1.41 Test 01/11/17 08:52 01/11/17 12:03 01/11/17 16:15 Bedside Glucose 133 152 131 Medications Medications Current Medications Pantoprazole (Protonix Iv) 40 mg DAILY@06 IV Last administered on 01/11/17 06: 09; Admin Dose 40 MG; Start 01/03/17 at 06:00 Insulin Aspart (Novolog Insulin Pen) NOVOLOG *MODERATE* ALGORI... Q4 SC Last administered on 01/11/17 12:18; Admin Dose 2 UNIT; Start 01/03/17 at 13:00 Miscellaneous Information 1 ea NOTE XX ; Start 01/03/17 at 13:00 Glucose (Glutose) 15 gm Q15M PRN PO DECREASED GLUCOSE; Start 01/03/17 at 13:00 Glucose (Glutose) 22.5 gm Q15M PRN PO DECREASED GLUCOSE; Start 01/03/17 at 13:00 Dextrose (D50w Syringe) 25 ml Q15M PRN IV DECREASED GLUCOSE; Start 01/03/17 at 13:00 Dextrose (D50w Syringe) 50 ml Q15M PRN IV DECREASED GLUCOSE; Start 01/03/17 at 13:00 Glucagon (Glucagen) 1 mg Q15M PRN IM DECREASED GLUCOSE; Start 01/03/17 at 13:00 Glucose (Glutose) 15 gm Q15M PRN BUCCAL DECREASED GLUCOSE; Start 01/03/17 at 13: 00 Rifaximin 550 mg 550 mg BID PO Last administered on 01/11/17 09:00; Admin Dose 550 MG; Start 01/03/17 at 14:30 Meropenem (Merrem 1 Gm/100 ml (Pmx)) 100 ml @ 200 mls/hr Q24H IVPB Last administered on 01/11/17 11:00; Admin Dose 200 MLS/HR; Start 01/04/17 at 10:30 Morphine Sulfate (morphine) 2 mg Q4H PRN IV PAIN Last administered on 19:12; Admin Dose 2 MG; Start 01/06/17 at 11:30 Lorazepam (Ativan) 1 mg Q4H PRN IV AGITATION Last administered on 01/08/17 21: 35; Admin Dose 1 MG; Start 01/06/17 at 12:00 Acetaminophen (Tylenol Liquid) 650 mg Q6H PRN GTB PAIN AND OR ELEVATED TEMP Last administered on 01/08/17 14:00; Admin Dose 650 MG; Start 01/08/17 at 09:30 Lactulose (Enulose) 30 gm DAILY PO Last administered on 01/11/17 09:00; Admin Dose 30 GM; Start 01/10/17 at 09:00 IV Flush (NS 10 ml) 10 ml PRN PRN IV IV PROTOCOL; Start 01/10/17 at 17:30 Hydrocortisone (Solu-Cortef) 50 mg Q12 IV ; Start 01/11/17 at 21:00 MARII DALY MD Jan 11, 2017 20:28
[2017-01-12] VITALS (17 sets, daily range): BP systolic 113–163; BP diastolic 65–120; PULSE 112–124; RESP 17–22
[2017-01-12] MEDS: INSULIN ASPART [NOVOLOG] 3 ML PEN SC SCH ×5 (01:00→17:29)
[2017-01-12] MEDS: IPRATROPIUM (NEB) 0.5 MG/2.5 ML AMP HHN SCH ×4 (02:41→19:51)
[2017-01-12] MEDS: LEVALBUTEROL (NEB) 0.63 MG/3 ML AMP HHN SCH ×4 (02:41→19:51)
[2017-01-12] MEDS: PANTOPRAZOLE 40 MG INJ IV SCH (06:00)
[2017-01-12] MEDS: LACTULOSE 30ML CUP PO SCH (09:12)
[2017-01-12] MEDS: HYDROCORTISONE 100 MG INJ IV SCH ×2 (09:12→20:15)
[2017-01-12] MEDS: RIFAXIMIN 550 MG TAB PO SCH ×2 (09:12→20:13)
[2017-01-12] MEDS: MEROPENEM 1 GM/100 ML (PMX) 100 ML IVPB SCH ×2 (10:30→20:20)
--- NOTE | 2017-01-12 11:00 | CONS ---
Date/Time of Note Date/Time of Note DATE: 01/12/17 TIME: 10:58 Assessment/Plan Assessment/Plan Additional Assessment/Plan Assessment recommendations; 1. Patient admitted with septic shock status post extubation with continually improving clinical status. 2. History of cirrhosis of liver. 3. Anemia. 4. Thrombocytopenia. 5. Hypernatremia. Continue current treatment. Monitor serum sodium levels. Consultation Date/Type/Reason Admit Date/Time Jan 02, 2017 at 12:58 Type of Consultation: Pulmonary Referring Provider: REGINA GARCIA MD 24 HR Interval Summary Free Text/Dictation Patient condition is stable. Patient has been transferred out of ICU to telemetry unit. He remains awake but has episodes of lethargic. Patient has remained hemodynamically stable. No untoward events reported. General exam; elderly male, morbidly obese, currently in no distress. Readily arousable. Exam/Review of Systems Vital Signs Vitals Vital Signs Date Time Temp Pulse Resp B/P Pulse Ox O2 Delivery O2 Flow Rate FiO2 01/12/17 10:21 99.3 120 22 122/70 94 01/12/17 08:17 2.0 01/12/17 08:17 Nasal Cannula 01/09/17 21:15 31 Intake and Output 01/11/17 01/11/17 01/12/17 15:00 23:00 07:00 Intake Total 1020 ml 880 ml 540 ml Output Total 895 ml 540 ml 400 ml Balance 125 ml 340 ml 140 ml Exam HEENT examination; supple neck, no JVD. No lymphadenopathy. Midline trachea. No thyromegaly. Pharynx is clear. Pupils are midsize and reactive to light. Chest examination; diminished but clear vessel. No added sound. S1-S2 audible , no murmurs. Regular rhythm. Abdomen examination; soft, no organomegaly. Bowel sounds audible. No clubbing. Extremity examination; no peripheral edema. Pulses 1+ bilaterally. No clubbing. 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 Follows simple commands and moves all 4 extremities on command. Has generalized muscular weakness. Results Result Diagram: 01/11/17 0520 01/11/17 0520 Results 24 hrs Laboratory Tests Test 01/11/17 12:03 01/11/17 16:15 01/11/17 20:23 01/11/17 23:59 Bedside Glucose 152 131 106 115 Test 01/12/17 05:56 01/12/17 08:58 Bedside Glucose 127 104 Medications Medications Current Medications Pantoprazole (Protonix Iv) 40 mg DAILY@06 IV Last administered on 01/12/17 06: 00; Admin Dose 40 MG; Start 01/03/17 at 06:00 Insulin Aspart (Novolog Insulin Pen) NOVOLOG *MODERATE* ALGORI... Q4 SC Last administered on 01/11/17 12:18; Admin Dose 2 UNIT; Start 01/03/17 at 13:00 Miscellaneous Information 1 ea NOTE XX ; Start 01/03/17 at 13:00 Glucose (Glutose) 15 gm Q15M PRN PO DECREASED GLUCOSE; Start 01/03/17 at 13:00 Glucose (Glutose) 22.5 gm Q15M PRN PO DECREASED GLUCOSE; Start 01/03/17 at 13:00 Dextrose (D50w Syringe) 25 ml Q15M PRN IV DECREASED GLUCOSE; Start 01/03/17 at 13:00 Dextrose (D50w Syringe) 50 ml Q15M PRN IV DECREASED GLUCOSE; Start 01/03/17 at 13:00 Glucagon (Glucagen) 1 mg Q15M PRN IM DECREASED GLUCOSE; Start 01/03/17 at 13:00 Glucose (Glutose) 15 gm Q15M PRN BUCCAL DECREASED GLUCOSE; Start 01/03/17 at 13: 00 Rifaximin 550 mg 550 mg BID PO Last administered on 01/12/17 09:12; Admin Dose 550 MG; Start 01/03/17 at 14:30 Meropenem (Merrem 1 Gm/100 ml (Pmx)) 100 ml @ 200 mls/hr Q24H IVPB Last administered on 01/12/17 10:30; Admin Dose 200 MLS/HR; Start 01/04/17 at 10:30 Morphine Sulfate (morphine) 2 mg Q4H PRN IV PAIN Last administered on 19:12; Admin Dose 2 MG; Start 01/06/17 at 11:30 Lorazepam (Ativan) 1 mg Q4H PRN IV AGITATION Last administered on 01/08/17 21: 35; Admin Dose 1 MG; Start 01/06/17 at 12:00 Acetaminophen (Tylenol Liquid) 650 mg Q6H PRN GTB PAIN AND OR ELEVATED TEMP Last administered on 01/08/17 14:00; Admin Dose 650 MG; Start 01/08/17 at 09:30 Lactulose (Enulose) 30 gm DAILY PO Last administered on 01/12/17 09:12; Admin Dose 30 GM; Start 01/10/17 at 09:00 IV Flush (NS 10 ml) 10 ml PRN PRN IV IV PROTOCOL; Start 01/10/17 at 17:30 Hydrocortisone (Solu-Cortef) 50 mg Q12 IV Last administered on 01/12/17 09:12 ; Admin Dose 50 MG; Start 01/11/17 at 21:00 TRENT SAUCEDA 14, 2017 11:00
--- NOTE | 2017-01-12 12:15 | PN ---
Date/Time of Note Date/Time of Note DATE: 01/12/17 TIME: 12:13 Assessment/Plan VTE Prophylaxis VTE Prophylaxis Intervention: SCD's Lines/Catheters IV Catheter Type (from Nrsg): PICC Line Central line still needed: Yes (for IV access ) Urinary Cath still in place: Yes Reason Cath still needed: other (indicate) (JARRETT, monitor UOP) Assessment/Plan Assessment/Plan 56-year-old male: 1. Hepatic encephalopathy, Ammonia level on admission. Lethargic today still Known Cirrhosis/ESLD, HepC. Back on Rifaximin and Lactulose Follow up labs today. 2. Acute respiratory failure with Severe Encephalopathy and Acute renal failure and also Shock state. All resolving currently. S/p extubation Lethargic but easily arousable and follows commands when awake. On Meropenem Blood cx and Urine Cx NGTD Titrating Hydrocortisone down 3. Acute Renal Failure, likely pre renal secondary to dehydration VS ATN with Severe Hyperkalemia. Resolved Dr Brown following from Nephrology S/p emergent HD on admission, now seems hypovolemic with Hypernatremia. NGT placed and getting Free H2O 300 cc q4 hrs so far. 4. Severe hyperkalemia. Resolved post Emergent HD on admission 5. Metabolic acidosis in setting on of ARF, s/p HD on admission. Resolved with improving renal function. Nephrology following 6. End-stage alcoholic liver disease, with also known Hep C, cirrhosis with Hepatic Encephalopathy and also coagulopathy. Stabilizing On Rifaximin and Lactulose. Correcting coagulopathy with FFP prn. 7. Hypernatremia, with Na up to 156 yesterday, BMP pending this AM NGT in place with tube feedings and free H2O on. Monitor Nephrology, Dr Brown following 8. Acute on chronic anemia, no acute bleeding seen. s/p 1 units pRBC H/H stable so far. Prophylaxis: on PPI for GI ppx and SCDs for DVT ppx Disposition: Failed swallow eval due to lethargy and NGT in place. Fair prognosis. Follow up Nephro and Pulmonary recs. Subjective 24 Hr Interval Summary Free Text/Dictation Patient still encephalopathic, restraints on and complaining of pain Failed swallow eval and NGT in place for meds, nutrition Exam/Review of Systems Vital Signs Vitals Vital Signs Date Time Temp Pulse Resp B/P Pulse Ox O2 Delivery O2 Flow Rate FiO2 01/12/17 12:12 99.5 110 20 113/75 96 01/12/17 08:17 2.0 01/12/17 08:17 Nasal Cannula 01/09/17 21:15 31 Intake and Output 01/11/17 01/11/17 01/12/17 15:00 23:00 07:00 Intake Total 1020 ml 880 ml 540 ml Output Total 895 ml 540 ml 400 ml Balance 125 ml 340 ml 140 ml Exam Constitutional: obese, other (lethargic but easily arousable ) Respiratory: diminished breath sounds (bases b/l ) Cardiovascular: regular rate and rhythm (tachy ) Gastrointestinal: non-tender, other (rectal tuube in place ), soft Musculoskeletal: nl extremities to inspection Extremities: normal pulses, other (mild edema ) Neurological: [employer] II-XII intact, lethargic, other (slow to respond ) Results Result Diagram: 01/11/17 0520 01/11/17 0520 Results 24 hrs Laboratory Tests Test 01/11/17 16:15 01/11/17 20:23 01/11/17 23:59 01/12/17 05:56 Bedside Glucose 131 106 115 127 Test 01/12/17 08:58 Bedside Glucose 104 Medications Medications Current Medications Pantoprazole (Protonix Iv) 40 mg DAILY@06 IV Last administered on 01/12/17 06: 00; Admin Dose 40 MG; Start 01/03/17 at 06:00 Insulin Aspart (Novolog Insulin Pen) NOVOLOG *MODERATE* ALGORI... Q4 SC Last administered on 01/11/17 12:18; Admin Dose 2 UNIT; Start 01/03/17 at 13:00 Miscellaneous Information 1 ea NOTE XX ; Start 01/03/17 at 13:00 Glucose (Glutose) 15 gm Q15M PRN PO DECREASED GLUCOSE; Start 01/03/17 at 13:00 Glucose (Glutose) 22.5 gm Q15M PRN PO DECREASED GLUCOSE; Start 01/03/17 at 13:00 Dextrose (D50w Syringe) 25 ml Q15M PRN IV DECREASED GLUCOSE; Start 01/03/17 at 13:00 Dextrose (D50w Syringe) 50 ml Q15M PRN IV DECREASED GLUCOSE; Start 01/03/17 at 13:00 Glucagon (Glucagen) 1 mg Q15M PRN IM DECREASED GLUCOSE; Start 01/03/17 at 13:00 Glucose (Glutose) 15 gm Q15M PRN BUCCAL DECREASED GLUCOSE; Start 01/03/17 at 13: 00 Rifaximin 550 mg 550 mg BID PO Last administered on 01/12/17 09:12; Admin Dose 550 MG; Start 01/03/17 at 14:30 Meropenem (Merrem 1 Gm/100 ml (Pmx)) 100 ml @ 200 mls/hr Q24H IVPB Last administered on 01/12/17 10:30; Admin Dose 200 MLS/HR; Start 01/04/17 at 10:30 Morphine Sulfate (morphine) 2 mg Q4H PRN IV PAIN Last administered on 19:12; Admin Dose 2 MG; Start 01/06/17 at 11:30 Lorazepam (Ativan) 1 mg Q4H PRN IV AGITATION Last administered on 01/08/17 21: 35; Admin Dose 1 MG; Start 01/06/17 at 12:00 Acetaminophen (Tylenol Liquid) 650 mg Q6H PRN GTB PAIN AND OR ELEVATED TEMP Last administered on 01/08/17 14:00; Admin Dose 650 MG; Start 01/08/17 at 09:30 Lactulose (Enulose) 30 gm DAILY PO Last administered on 01/12/17 09:12; Admin Dose 30 GM; Start 01/10/17 at 09:00 IV Flush (NS 10 ml) 10 ml PRN PRN IV IV PROTOCOL; Start 01/10/17 at 17:30 Hydrocortisone (Solu-Cortef) 50 mg Q12 IV Last administered on 01/12/17 09:12 ; Admin Dose 50 MG; Start 01/11/17 at 21:00 SRIKANTH GALVAN Jan 12, 2017 12:15
[2017-01-12 13:25] LABS: ADD SCAN DIFF NO
[2017-01-12 13:27] LABS: ABNORMAL IP MESSAGE 1; BASOPHILS % 0.1 % (0.0-2.0); EOSINOPHILS % 0.4 % (0.0-7.0); HEMOGLOBIN 10.1 g/dl (14.0-18.0); LYMPHOCYTES # 0.5 10^3/ul (0.8-2.9); LYMPHOCYTES % 7.3 % (15.0-51.0); MEAN CORPUSCULAR HEMOGLOBIN 32.5 pg (29.0-33.0); MEAN CORPUSCULAR HGB CONC 32.6 g/dl (32.0-37.0); MEAN CORPUSCULAR VOLUME 99.7 fl (82.0-101.0); MEAN PLATELET VOLUME 10.8 fl (7.4-10.4); MONOCYTE # 0.4 10^3/ul (0.3-0.9); MONOCYTES % 5.9 % (0.0-11.0); NEUTROPHIL # 6.1 10^3/ul (1.6-7.5); NEUTROPHILS % 84.9 % (39.0-77.0); RED BLOOD COUNT 3.11 10^6/ul (4.70-6.10); RED CELL DISTRIBUTION WIDTH 16.4 % (11.5-14.5); WHITE BLOOD COUNT 7.2 10^3/ul (4.8-10.8)
[2017-01-12 13:31] LABS: PLATELET COUNT 82 10^3/UL (140-415)
[2017-01-12 13:43] LABS: CALCIUM 9.8 mg/dl (8.4-10.2); CREATININE 1.12 mg/dl (0.61-1.24); POTASSIUM 4.4 mmol/L (3.5-5.1)
[2017-01-12] MEDS ORDERED: LORAZEPAM 2 MG INJ IV PRN (14:30)
[2017-01-12] MEDS ORDERED: LORAZEPAM 1 MG TAB GTB PRN (14:30)
[2017-01-12 16:42] LABS: ALBUMIN 3.3 g/dl (3.3-4.9); ALBUMIN/GLOBULIN RATIO 1.26; BILIRUBIN,INDIRECT 1.7 mg/dl (0-1.1); BILIRUBIN,TOTAL 1.7 mg/dl (0.2-1.3); CALCIUM 9.8 mg/dl (8.4-10.2); CREATININE 1.15 mg/dl (0.61-1.24); MAGNESIUM 1.7 mg/dl (1.7-2.5); POTASSIUM 4.4 mmol/L (3.5-5.1); TOTAL PROTEIN 5.9 g/dl (6.1-8.1)
--- NOTE | 2017-01-12 18:29 | CONS ---
Date/Time of Note Date/Time of Note DATE: 01/12/17 TIME: 18:28 Assessment/Plan Assessment/Plan Additional Assessment/Plan 1. Acute hyperkalemia with a potassium of 7.6 on admission, s/p One session of Emergent HD 01/03/17- now improved 2. Severe metabolic acidosis s/p Bicarbonate drip, now stable 3. Acute kidney injury with a BUN of 127, creatinine of 8.9 on admission, likely secondary to acute tubular necrosis. 4. Acute respiratory failure secondary to possibly acute fluid overload and possibly pneumonia.intubated on ventilator s/p Extubation 5. History of liver cirrhosis from hepatitis C. 6. acute encephalopathy possibly hepatic encephalopathy from liver cirrhosis 7. 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 Hyponatremia > hypernatremia PLAN: S/p Emergent HD x 1 due to hyperkalemia, severe metabolic acidosis and resp failure- Cr normal, K normal, Na trending up- on Fee water 200 cc Q 4 hr - if continues to remain Na high then we will start D5W by tomorrow Failed swallow study, currently on NG tube feeding Renal US negative for hydronephrosis, echogenicity c/w CKD , good urine output IV abx as per primary care team will follow up Consultation Date/Type/Reason Admit Date/Time Jan 02, 2017 at 12:58 Initial Consult Date Dec Type of Consultation: NEPHROLOGY Referring Provider: REGINA GARCIA MD 24 HR Interval Summary Free Text/Dictation pt still lethargic, Na 155 Exam/Review of Systems Vital Signs Vitals Vital Signs Date Time Temp Pulse Resp B/P Pulse Ox O2 Delivery O2 Flow Rate FiO2 01/12/17 17:09 118 01/12/17 15:26 99.0 22 129/79 94 01/12/17 13:16 Nasal Cannula 2.0 01/09/17 21:15 31 Intake and Output 01/11/17 01/11/17 01/12/17 15:00 23:00 07:00 Intake Total 1020 ml 880 ml 540 ml Output Total 895 ml 540 ml 400 ml Balance 125 ml 340 ml 140 ml Exam Constitutional: lethargic Respiratory: decreased BS at bases, basilar rales Cardiovascular: nl pulses, regular rate and rhythm Gastrointestinal: non-tender, soft Musculoskeletal: nl extremities to inspection Extremities: 1+ LE Edema, no clubbing. 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, lethargic Results Result Diagram: 01/12/17 1305 01/12/17 1540 Results 24 hrs Laboratory Tests Test 01/11/17 20:23 01/11/17 23:59 01/12/17 05:56 01/12/17 08:58 Bedside Glucose 106 115 127 104 Test 01/12/17 12:34 01/12/17 13:05 01/12/17 15:40 01/12/17 17:25 Bedside Glucose 122 120 White Blood Count 7.2 # Red Blood Count 3.11 L Hemoglobin 10.1 L Hematocrit 31.0 L Mean Corpuscular Volume 99.7 Mean Corpuscular Hemoglobin 32.5 Mean Corpuscular Hemoglobin Concent 32.6 Red Cell Distribution Width 16.4 H Platelet Count 82 L Mean Platelet Volume 10.8 H Neutrophils % 84.9 H Lymphocytes % 7.3 L Monocytes % 5.9 Eosinophils % 0.4 Basophils % 0.1 Nucleated Red Blood Cells % 0.0 Neutrophils # 6.1 Lymphocytes # 0.5 L Monocytes # 0.4 Eosinophils # 0.0 Basophils # 0.0 Nucleated Red Blood Cells # 0.0 Sodium Level 157 H 155 H Potassium Level 4.4 4.4 Chloride Level 117 H 118 H Carbon Dioxide Level 34 H 33 H Anion Gap 10 8 Blood Urea Nitrogen 35 #H 35 H Creatinine 1.12 1.15 Glucose Level 134 132 Calcium Level 9.8 9.8 Ammonia 14 Phosphorus Level 2.0 L Magnesium Level 1.7 Total Bilirubin 1.7 H Direct Bilirubin 0.00 Indirect Bilirubin 1.7 H Aspartate Amino Transf (AST/SGOT) 98 H Alanine Aminotransferase (ALT/SGPT) 95 H Alkaline Phosphatase 94 Total Protein 5.9 L Albumin 3.3 Globulin 2.60 Albumin/Globulin Ratio 1.26 Medications Medications Current Medications Miscellaneous Information 1 ea NOTE XX ; Start 01/03/17 at 13:00 Glucose (Glutose) 15 gm Q15M PRN PO DECREASED GLUCOSE; Start 01/03/17 at 13:00 Glucose (Glutose) 22.5 gm Q15M PRN PO DECREASED GLUCOSE; Start 01/03/17 at 13:00 Dextrose (D50w Syringe) 25 ml Q15M PRN IV DECREASED GLUCOSE; Start 01/03/17 at 13:00 Dextrose (D50w Syringe) 50 ml Q15M PRN IV DECREASED GLUCOSE; Start 01/03/17 at 13:00 Glucagon (Glucagen) 1 mg Q15M PRN IM DECREASED GLUCOSE; Start 01/03/17 at 13:00 Glucose (Glutose) 15 gm Q15M PRN BUCCAL DECREASED GLUCOSE; Start 01/03/17 at 13: 00 Rifaximin (Xifaxan) 550 mg BID PO Last administered on 01/12/17 09:12; Admin Dose 550 MG; Start 01/03/17 at 14:30 Morphine Sulfate (morphine) 2 mg Q4H PRN IV PAIN Last administered on 19:12; Admin Dose 2 MG; Start 01/06/17 at 11:30 Acetaminophen (Tylenol Liquid) 650 mg Q6H PRN GTB PAIN AND OR ELEVATED TEMP Last administered on 01/08/17 14:00; Admin Dose 650 MG; Start 01/08/17 at 09:30 Lactulose (Enulose) 30 gm DAILY PO Last administered on 01/12/17 09:12; Admin Dose 30 GM; Start 01/10/17 at 09:00 IV Flush (NS 10 ml) 10 ml PRN PRN IV IV PROTOCOL; Start 01/10/17 at 17:30 Hydrocortisone 25 mg 25 mg Q12 IV ; Start 01/12/17 at 21:00 Meropenem (Merrem 1 Gm/100 ml (Pmx)) 100 ml @ 200 mls/hr Q12 IVPB ; Start 01/12 at 21:00 Lansoprazole (Prevacid) 30 mg DAILY@06 GTB ; Start 01/13/17 at 06:00 Lorazepam (Ativan) 1 mg Q4H PRN GTB AGITATION; Start 01/12/17 at 14:30 Insulin Aspart (Novolog Insulin Pen) NOVOLOG *MODERATE* ALGORI... Q6 SC ; Start 01/12/17 at 18:00 MARII DALY MD Jan 12, 2017 18:29
[2017-01-12] MEDS: ACETAMINOPHEN 650MG/20.3ML CUP GTB PRN (20:13)
[2017-01-13] VITALS (14 sets, daily range): BP systolic 123–138; BP diastolic 62–89; PULSE 85–111; RESP 16–20
[2017-01-13] MEDS: LEVALBUTEROL (NEB) 0.63 MG/3 ML AMP HHN SCH ×4 (01:34→20:29)
[2017-01-13] MEDS: IPRATROPIUM (NEB) 0.5 MG/2.5 ML AMP HHN SCH ×4 (01:35→20:29)
[2017-01-13] MEDS: LANSOPRAZOLE 30 MG CAP GTB SCH (05:37)
[2017-01-13] MEDS: INSULIN ASPART [NOVOLOG] 3 ML PEN SC SCH ×5 (05:42→23:34)
[2017-01-13] MEDS: RIFAXIMIN 550 MG TAB PO SCH ×2 (09:44→21:37)
[2017-01-13] MEDS: LACTULOSE 30ML CUP PO SCH (09:44)
[2017-01-13] MEDS: HYDROCORTISONE 100 MG INJ IV SCH ×2 (09:44→21:37)
--- NOTE | 2017-01-13 11:54 | CONS ---
Date/Time of Note Date/Time of Note DATE: 01/13/17 TIME: 11:51 Assessment/Plan Assessment/Plan Additional Assessment/Plan Assessment recommendations; 1. Patient admitted with sepsis and shock with marked overall clinical improvement. She waited several days ago and then transferred to telemetry unit. 2. Underlying severe cirrhosis of liver. 3. Anemia and thrombocytopenia. No overt bleeding noted. 4. Renal failure, status post hemodialysis sessions 2. 5. Severe hypernatremia. Refractory to supplemental water replacement. 6. Pneumonia. With interval improvement as well. Continue current treatment. Give the patient a trial of DDAVP 2 mcg subcutaneously every 12 hours at least for 4 doses. Monitor serum sodium level. Consultation Date/Type/Reason Admit Date/Time Jan 02, 2017 at 12:58 Type of Consultation: Pulmonary Referring Provider: REGINA GARCIA MD 24 HR Interval Summary Free Text/Dictation Patient's condition is tenuous at best. Has waxing and waning mental status. However the patient is readily arousable and follows simple commands. Denies any shortness of breath. Has remained hemodynamically stable. General exam; middle-aged male, morbidly obese, currently in no distress. Exam/Review of Systems Vital Signs Vitals Vital Signs Date Time Temp Pulse Resp B/P Pulse Ox O2 Delivery O2 Flow Rate FiO2 01/13/17 11:26 98.6 103 18 138/74 98 01/13/17 09:12 Nasal Cannula 2.0 01/13/17 01:45 27 Intake and Output 01/12/17 01/12/17 01/13/17 15:00 23:00 07:00 Intake Total 1480 ml 1380 ml Output Total 0 ml 850 ml 950 ml Balance 0 ml 630 ml 430 ml Exam HEENT examination; supple neck, JVD difficult to see because of short neck. Pupils are midsize and reactive to light. No neck masses. No lymphadenopathy. Chest examination; diminished but clear vessel. S1-S2 audible, no murmurs. Regular rhythm. Abdomen examination; soft, protuberant. Nontender. Bowel sounds audible. Organomegaly difficult to evaluate due to obesity. Extremity exam is; trace peripheral edema. Patient has a hemodialysis catheter in the right femoral area. FRONT END APPLICATION DEVELOPER examination; patient is awake but lethargic and follows simple commands and moves all 4 extremities on command. Results Result Diagram: 01/12/17 1305 01/12/17 1540 Results 24 hrs Laboratory Tests Test 01/12/17 12:34 01/12/17 13:05 01/12/17 15:40 01/12/17 17:25 Bedside Glucose 122 120 White Blood Count 7.2 # Red Blood Count 3.11 L Hemoglobin 10.1 L Hematocrit 31.0 L Mean Corpuscular Volume 99.7 Mean Corpuscular Hemoglobin 32.5 Mean Corpuscular Hemoglobin Concent 32.6 Red Cell Distribution Width 16.4 H Platelet Count 82 L Mean Platelet Volume 10.8 H Neutrophils % 84.9 H Lymphocytes % 7.3 L Monocytes % 5.9 Eosinophils % 0.4 Basophils % 0.1 Nucleated Red Blood Cells % 0.0 Neutrophils # 6.1 Lymphocytes # 0.5 L Monocytes # 0.4 Eosinophils # 0.0 Basophils # 0.0 Nucleated Red Blood Cells # 0.0 Sodium Level 157 H 155 H Potassium Level 4.4 4.4 Chloride Level 117 H 118 H Carbon Dioxide Level 34 H 33 H Anion Gap 10 8 Blood Urea Nitrogen 35 #H 35 H Creatinine 1.12 1.15 Glucose Level 134 132 Calcium Level 9.8 9.8 Ammonia 14 Phosphorus Level 2.0 L Magnesium Level 1.7 Total Bilirubin 1.7 H Direct Bilirubin 0.00 Indirect Bilirubin 1.7 H Aspartate Amino Transf (AST/SGOT) 98 H Alanine Aminotransferase (ALT/SGPT) 95 H Alkaline Phosphatase 94 Total Protein 5.9 L Albumin 3.3 Globulin 2.60 Albumin/Globulin Ratio 1.26 Test 01/13/17 03:03 01/13/17 05:40 Bedside Glucose 143 104 Medications Medications Current Medications Miscellaneous Information 1 ea NOTE XX ; Start 01/03/17 at 13:00 Glucose (Glutose) 15 gm Q15M PRN PO DECREASED GLUCOSE; Start 01/03/17 at 13:00 Glucose (Glutose) 22.5 gm Q15M PRN PO DECREASED GLUCOSE; Start 01/03/17 at 13:00 Dextrose (D50w Syringe) 25 ml Q15M PRN IV DECREASED GLUCOSE; Start 01/03/17 at 13:00 Dextrose (D50w Syringe) 50 ml Q15M PRN IV DECREASED GLUCOSE; Start 01/03/17 at 13:00 Glucagon (Glucagen) 1 mg Q15M PRN IM DECREASED GLUCOSE; Start 01/03/17 at 13:00 Glucose (Glutose) 15 gm Q15M PRN BUCCAL DECREASED GLUCOSE; Start 01/03/17 at 13: 00 Rifaximin (Xifaxan) 550 mg BID PO Last administered on 01/13/17 09:44; Admin Dose 550 MG; Start 01/03/17 at 14:30 Morphine Sulfate (morphine) 2 mg Q4H PRN IV PAIN Last administered on 19:12; Admin Dose 2 MG; Start 01/06/17 at 11:30 Acetaminophen (Tylenol Liquid) 650 mg Q6H PRN GTB PAIN AND OR ELEVATED TEMP Last administered on 01/12/17 20:13; Admin Dose 650 MG; Start 01/08/17 at 09:30 Lactulose (Enulose) 30 gm DAILY PO Last administered on 01/13/17 09:44; Admin Dose 30 GM; Start 01/10/17 at 09:00 IV Flush (NS 10 ml) 10 ml PRN PRN IV IV PROTOCOL; Start 01/10/17 at 17:30 Hydrocortisone 25 mg 25 mg Q12 IV Last administered on 01/13/17 09:44; Admin Dose 25 MG; Start 01/12/17 at 21:00 Meropenem (Merrem 1 Gm/100 ml (Pmx)) 100 ml @ 200 mls/hr Q12 IVPB Last administered on 01/12/17 20:20; Admin Dose 200 MLS/HR; Start 01/12/17 at 21:00 Lansoprazole (Prevacid) 30 mg DAILY@06 GTB Last administered on 01/13/17 05:37 ; Admin Dose 30 MG; Start 01/13/17 at 06:00 Lorazepam (Ativan) 1 mg Q4H PRN GTB AGITATION Last administered on 01/12/17 20 :13; Admin Dose 1 MG; Start 01/12/17 at 14:30 Insulin Aspart (Novolog Insulin Pen) NOVOLOG *MODERATE* ALGORI... Q6 SC ; Start 01/12/17 at 18:00 TRENT SAUCEDA Jan 13, 2017 11:54
[2017-01-13] MEDS: MEROPENEM 1 GM/100 ML (PMX) 100 ML IVPB SCH ×2 (12:10→21:39)
[2017-01-13] MEDS: DESMOPRESSIN 4 MCG INJ IV SCH ×2 (13:42→21:37)
--- NOTE | 2017-01-13 13:55 | PN ---
Date/Time of Note Date/Time of Note DATE: 01/13/17 TIME: 13:22 Assessment/Plan VTE Prophylaxis VTE Prophylaxis Intervention: SCD's Lines/Catheters IV Catheter Type (from Nrsg): PICC Line Central line still needed: Yes (for IV access ) Urinary Cath still in place: Yes Reason Cath still needed: other (indicate) (for UOP monitoring, JARRETT ) Assessment/Plan Assessment/Plan 56-year-old male: 1. Hepatic encephalopathy, Ammonia level on admission. Lethargic today still despite, improving Known Cirrhosis/ESLD, HepC. Back on Rifaximin and Lactulose Follow up labs daily. 2. Acute respiratory failure with Severe Encephalopathy and Acute renal failure and also Shock state. All resolving currently. S/p extubation Lethargic but easily arousable and follows commands when awake. On Meropenem Blood cx and Urine Cx NGTD Titrating Hydrocortisone down 3. Acute Renal Failure, likely pre renal secondary to dehydration VS ATN with Severe Hyperkalemia. Resolved Dr Brown following from Nephrology S/p emergent HD on admission, now seems hypovolemic with Hypernatremia. NGT placed and getting Free H2O 300 cc q4 hrs so far. 4. Severe hyperkalemia. Resolved post Emergent HD on admission 5. Metabolic acidosis in setting on of ARF, s/p HD on admission. Resolved with improving renal function. Nephrology following 6. End-stage alcoholic liver disease, with also known Hep C, cirrhosis with Hepatic Encephalopathy and also coagulopathy. Stabilizing On Rifaximin and Lactulose. Correcting coagulopathy with FFP prn. 7. Hypernatremia, with Na down to [address] with tube feedings and free H2O on. Monitor Nephrology, Dr Brown following 8. Acute on chronic anemia, no acute bleeding seen. s/p 1 units pRBC H/H stable so far. Prophylaxis: on PPI for GI ppx and SCDs for DVT ppx Disposition: Failed swallow eval due to lethargy and NGT in place. Fair prognosis. Follow up Nephro and Pulmonary recs. Subjective 24 Hr Interval Summary Free Text/Dictation Patient doing the same with still significant encephalopathy Ammonia down to 14 and Na trending down Removing Mark today and continue abx for now PT and ST eval Exam/Review of Systems Vital Signs Vitals Vital Signs Date Time Temp Pulse Resp B/P Pulse Ox O2 Delivery O2 Flow Rate FiO2 01/13/17 12:38 98 01/13/17 11:26 98.6 18 138/74 98 01/13/17 09:12 Nasal Cannula 2.0 01/13/17 01:45 27 Intake and Output 01/12/17 01/12/17 01/13/17 15:00 23:00 07:00 Intake Total 1480 ml 1380 ml Output Total 0 ml 850 ml 950 ml Balance 0 ml 630 ml 430 ml Exam Constitutional: alert, other (lethargic) Respiratory: diminished breath sounds (bases ), normal air movement Cardiovascular: nl pulses, regular rate and rhythm Gastrointestinal: non-tender, soft Musculoskeletal: nl extremities to inspection Extremities: normal pulses, other (no edema, clubbing or cyanosis ) 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, lethargic, other (more oriented ) Results Result Diagram: 01/12/17 1305 01/12/17 1540 Results 24 hrs Laboratory Tests Test 01/12/17 15:40 01/12/17 17:25 01/13/17 03:03 01/13/17 05:40 Sodium Level 155 H Potassium Level 4.4 Chloride Level 118 H Carbon Dioxide Level 33 H Anion Gap 8 Blood Urea Nitrogen 35 H Creatinine 1.15 Glucose Level 132 Calcium Level 9.8 Phosphorus Level 2.0 L Magnesium Level 1.7 Total Bilirubin 1.7 H Direct Bilirubin 0.00 Indirect Bilirubin 1.7 H Aspartate Amino Transf (AST/SGOT) 98 H Alanine Aminotransferase (ALT/SGPT) 95 H Alkaline Phosphatase 94 Total Protein 5.9 L Albumin 3.3 Globulin 2.60 Albumin/Globulin Ratio 1.26 Bedside Glucose 120 143 104 Test 01/13/17 12:08 Bedside Glucose 130 Medications Medications Current Medications Miscellaneous Information 1 ea NOTE XX ; Start 01/03/17 at 13:00 Glucose (Glutose) 15 gm Q15M PRN PO DECREASED GLUCOSE; Start 01/03/17 at 13:00 Glucose (Glutose) 22.5 gm Q15M PRN PO DECREASED GLUCOSE; Start 01/03/17 at 13:00 Dextrose (D50w Syringe) 25 ml Q15M PRN IV DECREASED GLUCOSE; Start 01/03/17 at 13:00 Dextrose (D50w Syringe) 50 ml Q15M PRN IV DECREASED GLUCOSE; Start 01/03/17 at 13:00 Glucagon (Glucagen) 1 mg Q15M PRN IM DECREASED GLUCOSE; Start 01/03/17 at 13:00 Glucose (Glutose) 15 gm Q15M PRN BUCCAL DECREASED GLUCOSE; Start 01/03/17 at 13: 00 Rifaximin (Xifaxan) 550 mg BID PO Last administered on 01/13/17 09:44; Admin Dose 550 MG; Start 01/03/17 at 14:30 Morphine Sulfate (morphine) 2 mg Q4H PRN IV PAIN Last administered on 19:12; Admin Dose 2 MG; Start 01/06/17 at 11:30 Acetaminophen (Tylenol Liquid) 650 mg Q6H PRN GTB PAIN AND OR ELEVATED TEMP Last administered on 01/12/17 20:13; Admin Dose 650 MG; Start 01/08/17 at 09:30 Lactulose (Enulose) 30 gm DAILY PO Last administered on 01/13/17 09:44; Admin Dose 30 GM; Start 01/10/17 at 09:00 IV Flush (NS 10 ml) 10 ml PRN PRN IV IV PROTOCOL; Start 01/10/17 at 17:30 Hydrocortisone 25 mg 25 mg Q12 IV Last administered on 01/13/17 09:44; Admin Dose 25 MG; Start 01/12/17 at 21:00 Meropenem (Merrem 1 Gm/100 ml (Pmx)) 100 ml @ 200 mls/hr Q12 IVPB Last administered on 01/13/17 12:10; Admin Dose 200 MLS/HR; Start 01/12/17 at 21:00 Lansoprazole (Prevacid) 30 mg DAILY@06 GTB Last administered on 01/13/17 05:37 ; Admin Dose 30 MG; Start 01/13/17 at 06:00 Lorazepam (Ativan) 1 mg Q4H PRN GTB AGITATION Last administered on 01/12/17 20 :13; Admin Dose 1 MG; Start 01/12/17 at 14:30 Insulin Aspart (Novolog Insulin Pen) NOVOLOG *MODERATE* ALGORI... Q6 SC ; Start 01/12/17 at 18:00 Desmopressin Acetate (Ddavp) 2 mcg BID IV ; Start 01/13/17 at 13:00 SRIKANTH GALVAN Jan 13, 2017 13:35
--- NOTE | 2017-01-13 17:45 | CONS ---
Date/Time of Note Date/Time of Note DATE: 01/13/17 TIME: 17:44 Assessment/Plan Assessment/Plan Additional Assessment/Plan 1. Acute hyperkalemia with a potassium of 7.6 on admission, s/p One session of Emergent HD 01/03/17- now improved 2. Severe metabolic acidosis s/p Bicarbonate drip, now stable 3. Acute kidney injury with a BUN of 127, creatinine of 8.9 on admission, likely secondary to acute tubular necrosis. 4. Acute respiratory failure secondary to possibly acute fluid overload and possibly pneumonia.intubated on ventilator s/p Extubation 5. History of liver cirrhosis from hepatitis C. 6. acute encephalopathy possibly hepatic encephalopathy from liver cirrhosis 7. 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 Hyponatremia > hypernatremia PLAN: S/p Emergent HD x 1 due to hyperkalemia, severe metabolic acidosis and resp failure- no chemistry today to follow up Failed swallow study, currently on NG tube feeding d/c misael Catheter today, HD Nurse informed to do it Renal US negative for hydronephrosis, echogenicity c/w CKD , good urine output IV abx as per primary care team will follow up Consultation Date/Type/Reason Admit Date/Time Jan 02, 2017 at 12:58 Initial Consult Date Dec Type of Consultation: NEPHROLOGY Referring Provider: REGINA GARCIA MD Exam/Review of Systems Vital Signs Vitals Vital Signs Date Time Temp Pulse Resp B/P Pulse Ox O2 Delivery O2 Flow Rate FiO2 01/13/17 16:27 109 01/13/17 15:48 20 96 Nasal Cannula 2.0 01/13/17 15:29 98.5 125/89 01/13/17 01:45 27 Intake and Output 01/12/17 01/12/17 01/13/17 15:00 23:00 07:00 Intake Total 1480 ml 1380 ml Output Total 0 ml 850 ml 950 ml Balance 0 ml 630 ml 430 ml Results Result Diagram: 01/12/17 1305 01/12/17 1540 Results 24 hrs Laboratory Tests Test 01/13/17 03:03 01/13/17 05:40 01/13/17 12:08 Bedside Glucose 143 104 130 Medications Medications Current Medications Miscellaneous Information 1 ea NOTE XX ; Start 01/03/17 at 13:00 Glucose (Glutose) 15 gm Q15M PRN PO DECREASED GLUCOSE; Start 01/03/17 at 13:00 Glucose (Glutose) 22.5 gm Q15M PRN PO DECREASED GLUCOSE; Start 01/03/17 at 13:00 Dextrose (D50w Syringe) 25 ml Q15M PRN IV DECREASED GLUCOSE; Start 01/03/17 at 13:00 Dextrose (D50w Syringe) 50 ml Q15M PRN IV DECREASED GLUCOSE; Start 01/03/17 at 13:00 Glucagon (Glucagen) 1 mg Q15M PRN IM DECREASED GLUCOSE; Start 01/03/17 at 13:00 Glucose (Glutose) 15 gm Q15M PRN BUCCAL DECREASED GLUCOSE; Start 01/03/17 at 13: 00 Rifaximin (Xifaxan) 550 mg BID PO Last administered on 01/13/17 09:44; Admin Dose 550 MG; Start 01/03/17 at 14:30 Morphine Sulfate (morphine) 2 mg Q4H PRN IV PAIN Last administered on 19:12; Admin Dose 2 MG; Start 01/06/17 at 11:30 Acetaminophen (Tylenol Liquid) 650 mg Q6H PRN GTB PAIN AND OR ELEVATED TEMP Last administered on 01/12/17 20:13; Admin Dose 650 MG; Start 01/08/17 at 09:30 Lactulose (Enulose) 30 gm DAILY PO Last administered on 01/13/17 09:44; Admin Dose 30 GM; Start 01/10/17 at 09:00 IV Flush (NS 10 ml) 10 ml PRN PRN IV IV PROTOCOL; Start 01/10/17 at 17:30 Hydrocortisone 25 mg 25 mg Q12 IV Last administered on 01/13/17 09:44; Admin Dose 25 MG; Start 01/12/17 at 21:00 Meropenem (Merrem 1 Gm/100 ml (Pmx)) 100 ml @ 200 mls/hr Q12 IVPB Last administered on 01/13/17 12:10; Admin Dose 200 MLS/HR; Start 01/12/17 at 21:00 Lansoprazole (Prevacid) 30 mg DAILY@06 GTB Last administered on 01/13/17 05:37 ; Admin Dose 30 MG; Start 01/13/17 at 06:00 Lorazepam (Ativan) 1 mg Q4H PRN GTB AGITATION Last administered on 01/12/17 20 :13; Admin Dose 1 MG; Start 01/12/17 at 14:30 Insulin Aspart (Novolog Insulin Pen) NOVOLOG *MODERATE* ALGORI... Q6 SC ; Start 01/12/17 at 18:00 Desmopressin Acetate (Ddavp) 2 mcg BID IV Last administered on 01/13/17 13:42 ; Admin Dose 2 MCG; Start 01/13/17 at 13:00 MARII DALY MD Jan 13, 2017 17:45
[2017-01-14] VITALS (17 sets, daily range): BP systolic 109–140; BP diastolic 57–87; PULSE 89–110; RESP 17–22
[2017-01-14] MEDS: IPRATROPIUM (NEB) 0.5 MG/2.5 ML AMP HHN SCH ×4 (01:58→19:11)
[2017-01-14] MEDS: LEVALBUTEROL (NEB) 0.63 MG/3 ML AMP HHN SCH ×4 (01:59→19:11)
[2017-01-14] MEDS: ACETAMINOPHEN 650MG/20.3ML CUP GTB PRN (02:35)
[2017-01-14] MEDS: LANSOPRAZOLE 30 MG CAP GTB SCH (05:45)
[2017-01-14] MEDS: INSULIN ASPART [NOVOLOG] 3 ML PEN SC SCH ×4 (05:46→23:56)
[2017-01-14 07:12] LABS: ADD SCAN DIFF NO
[2017-01-14 07:20] LABS: ABNORMAL IP MESSAGE 1; EOSINOPHILS # 0.1 10^3/ul (0.0-0.5); EOSINOPHILS % 0.6 % (0.0-7.0); HEMATOCRIT 30.4 % (42.0-52.0); HEMOGLOBIN 9.6 g/dl (14.0-18.0); LYMPHOCYTES % 12.6 % (15.0-51.0); MEAN CORPUSCULAR HEMOGLOBIN 31.9 pg (29.0-33.0); MEAN CORPUSCULAR HGB CONC 31.6 g/dl (32.0-37.0); MONOCYTE # 0.6 10^3/ul (0.3-0.9); MONOCYTES % 7.1 % (0.0-11.0); NEUTROPHIL # 6.2 10^3/ul (1.6-7.5); NEUTROPHILS % 79.3 % (39.0-77.0); RED BLOOD COUNT 3.01 10^6/ul (4.70-6.10); RED CELL DISTRIBUTION WIDTH 15.9 % (11.5-14.5); WHITE BLOOD COUNT 7.8 10^3/ul (4.8-10.8)
[2017-01-14 07:27] LABS: PLATELET COUNT 63 10^3/UL (140-415)
[2017-01-14 07:54] LABS: ALBUMIN 2.9 g/dl (3.3-4.9); ALBUMIN/GLOBULIN RATIO 1.07; BILIRUBIN,INDIRECT 1.7 mg/dl (0-1.1); BILIRUBIN,TOTAL 1.7 mg/dl (0.2-1.3); CALCIUM 9.6 mg/dl (8.4-10.2); CREATININE 0.99 mg/dl (0.61-1.24); POTASSIUM 4.6 mmol/L (3.5-5.1); TOTAL PROTEIN 5.6 g/dl (6.1-8.1)
[2017-01-14 08:08] LABS: MAGNESIUM 1.8 mg/dl (1.7-2.5); PHOSPHORUS 2.2 mg/dl (2.5-4.9)
[2017-01-14] MEDS: MEROPENEM 1 GM/100 ML (PMX) 100 ML IVPB SCH ×2 (10:43→21:19)
[2017-01-14] MEDS: RIFAXIMIN 550 MG TAB PO SCH ×2 (10:44→21:19)
[2017-01-14] MEDS: HYDROCORTISONE 100 MG INJ IV SCH (10:44)
[2017-01-14] MEDS: DESMOPRESSIN 4 MCG INJ IV SCH ×2 (10:45→22:38)
--- NOTE | 2017-01-14 13:07 | CONS ---
Date/Time of Note Date/Time of Note DATE: 01/14/17 TIME: 13:05 Assessment/Plan Assessment/Plan Additional Assessment/Plan Recommendations; 1. Patient admitted for severe sepsis with significant clinical improvement. 2. Acute renal failure, required 2 hemodialysis sessions of with improvement in renal function. Patient off hemodialysis now. 3. Advanced cirrhosis of liver with hepatic enteropathy with interval improvement. 4. Likely underlying sleep apnea. 5. Anemia and thrombocytopenia. 6. Sepsis. Continue current treatment. Patient responding well to current treatment regimen. Consultation Date/Type/Reason Admit Date/Time Jan 02, 2017 at 12:58 Type of Consultation: Pulmonary Referring Provider: REGINA GARCIA MD 24 HR Interval Summary Free Text/Dictation Patient condition is markedly improved compared to yesterday. With significant improvement in mental status. Patient is an almost more awake and alert. Denies any shortness of breath, chest pain. Any abdominal pain nausea vomiting. General exam; middle-aged male, awake alert currently in no distress. Appears morbidly obese. Exam/Review of Systems Vital Signs Vitals Vital Signs Date Time Temp Pulse Resp B/P Pulse Ox O2 Delivery O2 Flow Rate FiO2 01/14/17 12:45 99 01/14/17 11:16 99.6 22 122/67 97 01/14/17 08:20 2.0 01/14/17 06:00 Nasal Cannula 01/14/17 02:31 27 Intake and Output 01/13/17 01/13/17 01/14/17 15:00 23:00 07:00 Intake Total 1480 ml 1000 ml Output Total 800 ml 750 ml Balance 680 ml 250 ml Exam HEENT examination; supple neck, no JVD. No lymphadenopathy. Midline trachea. No thyromegaly. Pharynx is clear. Patient has fair dentition. Pupils are midsize and reactive to light. Chest examination; diminished but clear vessel. S1-S2 audible, no murmurs. Regular rhythm. Abdomen exam is; protuberant. Nontender. No organomegaly. Bowel sounds audible. Extremity exam is; no peripheral edema. Pulses 1+ bilaterally. 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 Results Result Diagram: 01/14/17 0540 01/14/17 0540 Results 24 hrs Laboratory Tests Test 01/13/17 17:43 01/13/17 23:33 01/14/17 05:40 01/14/17 05:44 Bedside Glucose 120 126 123 White Blood Count 7.8 Red Blood Count 3.01 L Hemoglobin 9.6 L Hematocrit 30.4 L Mean Corpuscular Volume 101.0 Mean Corpuscular Hemoglobin 31.9 Mean Corpuscular Hemoglobin Concent 31.6 L Red Cell Distribution Width 15.9 H Platelet Count 63 #L Mean Platelet Volume 11.0 H Neutrophils % 79.3 H Lymphocytes % 12.6 L Monocytes % 7.1 Eosinophils % 0.6 Basophils % 0.0 Nucleated Red Blood Cells % 0.0 Neutrophils # 6.2 Lymphocytes # 1.0 Monocytes # 0.6 Eosinophils # 0.1 Basophils # 0.0 Nucleated Red Blood Cells # 0.0 Sodium Level 154 H Potassium Level 4.6 Chloride Level 118 H Carbon Dioxide Level 30 Anion Gap 11 Blood Urea Nitrogen 33 H Creatinine 0.99 Glucose Level 112 Calcium Level 9.6 Phosphorus Level 2.2 L Magnesium Level 1.8 Total Bilirubin 1.7 H Direct Bilirubin 0.00 Indirect Bilirubin 1.7 H Aspartate Amino Transf (AST/SGOT) 109 H Alanine Aminotransferase (ALT/SGPT) 98 H Alkaline Phosphatase 94 Ammonia 34 H Total Protein 5.6 L Albumin 2.9 L Globulin 2.70 Albumin/Globulin Ratio 1.07 Test 01/14/17 12:58 Bedside Glucose 124 Medications Medications Current Medications Miscellaneous Information 1 ea NOTE XX ; Start 01/03/17 at 13:00 Glucose (Glutose) 15 gm Q15M PRN PO DECREASED GLUCOSE; Start 01/03/17 at 13:00 Glucose (Glutose) 22.5 gm Q15M PRN PO DECREASED GLUCOSE; Start 01/03/17 at 13:00 Dextrose (D50w Syringe) 25 ml Q15M PRN IV DECREASED GLUCOSE; Start 01/03/17 at 13:00 Dextrose (D50w Syringe) 50 ml Q15M PRN IV DECREASED GLUCOSE; Start 01/03/17 at 13:00 Glucagon (Glucagen) 1 mg Q15M PRN IM DECREASED GLUCOSE; Start 01/03/17 at 13:00 Glucose (Glutose) 15 gm Q15M PRN BUCCAL DECREASED GLUCOSE; Start 01/03/17 at 13: 00 Rifaximin (Xifaxan) 550 mg BID PO Last administered on 01/14/17t 10:44; Admin Dose 550 MG; Start 01/03/17 at 14:30 Morphine Sulfate (morphine) 2 mg Q4H PRN IV PAIN Last administered on 19:12; Admin Dose 2 MG; Start 01/06/17 at 11:30 Acetaminophen (Tylenol Liquid) 650 mg Q6H PRN GTB PAIN AND OR ELEVATED TEMP Last administered on 01/14/17 02:35; Admin Dose 650 MG; Start 01/08/17 at 09:30 IV Flush (NS 10 ml) 10 ml PRN PRN IV IV PROTOCOL; Start 01/10/17 at 17:30 Hydrocortisone 25 mg 25 mg Q12 IV Last administered on 01/14/17 10:44; Admin Dose 25 MG; Start 01/12/17 at 21:00 Meropenem (Merrem 1 Gm/100 ml (Pmx)) 100 ml @ 200 mls/hr Q12 IVPB Last administered on 01/14/17 10:43; Admin Dose 200 MLS/HR; Start 01/12/17 at 21:00 Lansoprazole (Prevacid) 30 mg DAILY@06 GTB Last administered on 01/14/17 05:45 ; Admin Dose 30 MG; Start 01/13/17 at 06:00 Lorazepam (Ativan) 1 mg Q4H PRN GTB AGITATION Last administered on 01/12/17 20 :13; Admin Dose 1 MG; Start 01/12/17 at 14:30 Insulin Aspart (Novolog Insulin Pen) NOVOLOG *MODERATE* ALGORI... Q6 SC ; Start 01/12/17 at 18:00 Desmopressin Acetate (Ddavp) 2 mcg BID IV Last administered on 01/14/17 10:45 ; Admin Dose 2 MCG; Start 01/13/17 at 13:00 Lactulose (Enulose) 30 gm Q8 NGT ; Start 01/14/17 at 14:00 TRENT SAUCEDA Jan 14, 2017 13:07
[2017-01-14] MEDS: LACTULOSE 30ML CUP NGT SCH ×2 (14:34→21:19)
--- NOTE | 2017-01-14 15:17 | PN ---
Date/Time of Note Date/Time of Note DATE: 01/14/17 TIME: 14:49 Assessment/Plan VTE Prophylaxis VTE Prophylaxis Intervention: SCD's Lines/Catheters IV Catheter Type (from Nrs): PICC Line Central line still needed: Yes (for IV access ) Urinary Cath still in place: Yes Reason Cath still needed: other (indicate) (monitor UOP ) Assessment/Plan Assessment/Plan 56-year-old male: 1. Hepatic encephalopathy, Ammonia much better and down to 34 today, still lethargic today still and also slow to respond and noted to have disconjugate gaze today Known Cirrhosis/ESLD, HepC. Continue Rifaximin and Lactulose Follow up labs daily. Repeat CT head today. And also added Thiamine 2. Acute respiratory failure with Severe Encephalopathy and Acute renal failure and also Shock state. All resolving currently. S/p extubation Lethargic but easily arousable and follows commands slowly when awake. On Meropenem Blood cx and Urine Cx NGTD Titrating Hydrocortisone down to daily today. 3. Acute Renal Failure, likely pre renal secondary to dehydration VS ATN with Severe Hyperkalemia. Resolved Dr Brown following from Nephrology S/p emergent HD on admission, now seems hypovolemic with Hypernatremia. NGT placed and increasing Free H2O 400 cc q4 hrs so far. 4. Severe hyperkalemia. Resolved post Emergent HD on admission 5. Metabolic acidosis in setting on of ARF, s/p HD on admission. Resolved with improving renal function. Nephrology following 6. End-stage alcoholic liver disease, with also known Hep C, cirrhosis with Hepatic Encephalopathy and also coagulopathy. Stabilizing On Rifaximin and Lactulose. Correcting coagulopathy with FFP prn. 7. Hypernatremia, with Na 154 today, patient has been on desmopressin per Pulmonary x 2 days total NGT in place with tube feedings and free H2O increased Continue to monitor Nephrology, Dr Brown following 8. Acute on chronic anemia, no acute bleeding seen. s/p 1 units pRBC H/H stable so far. Prophylaxis: on PPI for GI ppx and SCDs for DVT ppx Disposition: Failed swallow eval x 2 days at least due to lethargy, NGT in place. Fair prognosis. Follow up Nephro and Pulmonary recs. F/u repeat CT head today Subjective 24 Hr Interval Summary Free Text/Dictation Patient doing the same with ALOC, seems to be mostly slow to follow commands and respond, disconjugate gaze noted Afebrile and VSS CT head pending Ammonia down and Na trending down slowly Exam/Review of Systems Vital Signs Vitals Vital Signs Date Time Temp Pulse Resp B/P Pulse Ox O2 Delivery O2 Flow Rate FiO2 01/14/17 14:29 2.0 01/14/17 14:29 98 20 01/14/17 13:05 99.4 118/68 96 01/14/17 06:00 Nasal Cannula 01/14/17 02:31 27 Intake and Output 01/13/17 01/13/17 01/14/17 15:00 23:00 07:00 Intake Total 1480 ml 1000 ml Output Total 800 ml 750 ml Balance 680 ml 250 ml Exam Constitutional: frail, other (lethargic and slow to respond ) Respiratory: diminished breath sounds (bases much better air movement ), normal air movement Cardiovascular: nl pulses, regular rate and rhythm Gastrointestinal: non-tender, other (NGT in place and on Tube feeding), soft Musculoskeletal: nl extremities to inspection, other (no edema, clubbing or cyanosis ) Extremities: normal pulses Neurological: other (disconjugate gaze noted) Results Result Diagram: 01/14/17 0540 01/14/17 0540 Results 24 hrs Laboratory Tests Test 01/13/17 17:43 01/13/17 23:33 01/14/17 05:40 01/14/17 05:44 Bedside Glucose 120 126 123 White Blood Count 7.8 Red Blood Count 3.01 L Hemoglobin 9.6 L Hematocrit 30.4 L Mean Corpuscular Volume 101.0 Mean Corpuscular Hemoglobin 31.9 Mean Corpuscular Hemoglobin Concent 31.6 L Red Cell Distribution Width 15.9 H Platelet Count 63 #L Mean Platelet Volume 11.0 H Neutrophils % 79.3 H Lymphocytes % 12.6 L Monocytes % 7.1 Eosinophils % 0.6 Basophils % 0.0 Nucleated Red Blood Cells % 0.0 Neutrophils # 6.2 Lymphocytes # 1.0 Monocytes # 0.6 Eosinophils # 0.1 Basophils # 0.0 Nucleated Red Blood Cells # 0.0 Sodium Level 154 H Potassium Level 4.6 Chloride Level 118 H Carbon Dioxide Level 30 Anion Gap 11 Blood Urea Nitrogen 33 H Creatinine 0.99 Glucose Level 112 Calcium Level 9.6 Phosphorus Level 2.2 L Magnesium Level 1.8 Total Bilirubin 1.7 H Direct Bilirubin 0.00 Indirect Bilirubin 1.7 H Aspartate Amino Transf (AST/SGOT) 109 H Alanine Aminotransferase (ALT/SGPT) 98 H Alkaline Phosphatase 94 Ammonia 34 H Total Protein 5.6 L Albumin 2.9 L Globulin 2.70 Albumin/Globulin Ratio 1.07 Test 01/14/17 12:58 Bedside Glucose 124 Medications Medications Current Medications Miscellaneous Information 1 ea NOTE XX ; Start 01/03/17 at 13:00 Glucose (Glutose) 15 gm Q15M PRN PO DECREASED GLUCOSE; Start 01/03/17 at 13:00 Glucose (Glutose) 22.5 gm Q15M PRN PO DECREASED GLUCOSE; Start 01/03/17 at 13:00 Dextrose (D50w Syringe) 25 ml Q15M PRN IV DECREASED GLUCOSE; Start 01/03/17 at 13:00 Dextrose (D50w Syringe) 50 ml Q15M PRN IV DECREASED GLUCOSE; Start 01/03/17 at 13:00 Glucagon (Glucagen) 1 mg Q15M PRN IM DECREASED GLUCOSE; Start 01/03/17 at 13:00 Glucose (Glutose) 15 gm Q15M PRN BUCCAL DECREASED GLUCOSE; Start 01/03/17 at 13: 00 Rifaximin (Xifaxan) 550 mg BID PO Last administered on 01/14/17 10:44; Admin Dose 550 MG; Start 01/03/17 at 14:30 Morphine Sulfate (morphine) 2 mg Q4H PRN IV PAIN Last administered on 19:12; Admin Dose 2 MG; Start 01/06/17 at 11:30 Acetaminophen (Tylenol Liquid) 650 mg Q6H PRN GTB PAIN AND OR ELEVATED TEMP Last administered on 01/14/17 02:35; Admin Dose 650 MG; Start 01/08/17 at 09:30 IV Flush (NS 10 ml) 10 ml PRN PRN IV IV PROTOCOL; Start 01/10/17 at 17:30 Hydrocortisone 25 mg 25 mg Q12 IV Last administered on 01/14/17 10:44; Admin Dose 25 MG; Start 01/12/17 at 21:00 Meropenem (Merrem 1 Gm/100 ml (Pmx)) 100 ml @ 200 mls/hr Q12 IVPB Last administered on 01/14/17 10:43; Admin Dose 200 MLS/HR; Start 01/12/17 at 21:00 Lansoprazole (Prevacid) 30 mg DAILY@06 GTB Last administered on 01/14/17 05:45 ; Admin Dose 30 MG; Start 01/13/17 at 06:00 Lorazepam (Ativan) 1 mg Q4H PRN GTB AGITATION Last administered on 01/12/17 20 :13; Admin Dose 1 MG; Start 01/12/17 at 14:30 Insulin Aspart (Novolog Insulin Pen) NOVOLOG *MODERATE* ALGORI... Q6 SC ; Start 01/12/17 at 18:00 Desmopressin Acetate (Ddavp) 2 mcg BID IV Last administered on 01/14/17 10:45 ; Admin Dose 2 MCG; Start 01/13/17 at 13:00 Lactulose (Enulose) 30 gm Q8 NGT Last administered on 01/14/17 14:34; Admin Dose 30 GM; Start 01/14/17 at 14:00 SRIKANTH GALVAN Jan 14, 2017 15:01
--- NOTE | 2017-01-14 16:33 | RADRPT ---
PROCEDURE: XR Chest. CLINICAL INDICATION: Shortness of breath. TECHNIQUE: Single frontal view. COMPARISON: 01/10/2017. FINDINGS: The right arm PICC line and nasogastric tube remain in satisfactory position. There is mild atelect asis at the lung bases, worse than seen previously. The lungs are otherwise clear. The heart is enlarged. There is no pleural effusion. There is no pneumothorax. IMPRESSION: 1. Right arm PICC line and NG tube in satisfactory position. 2. Worse appearance of the lung bases. 3. Cardiomegaly. RPTAT: QQ .Jose Martin MD, MD Date Time Electronically viewed and signed by .Jose Martin MD, on 01/14/2017 16:33 .R/
[2017-01-14 16:52] LABS: HAAIG REFLEX REFLEX FILED
[2017-01-14 18:09] LABS: HEPATITIS B CORE ANTIBODY NEGATIVE (NEGATIVE)
--- NOTE | 2017-01-14 18:45 | RADRPT ---
PROCEDURE: CT Brain without. CLINICAL INDICATION: Altered mental status. Aphasia. TECHNIQUE: A CT of the brain was performed on multidetector high-resolution CT scanner utilizing a xial sections from the skull base through the vertex without contrast. The scan was reviewed in sof t tissue brain and high frequency resolution bone algorithm windows. Images were reviewed on a high -resolution PACS workstation. One or more the following does reduction techniques were utilized: Aut omated exposure control, adjustment of the mA/ or kV according to patient's size, or use of iterativ e reconstruction technique. The exam CTDI = 43.22 mGy and the DLP = 877.14 mGy-cm. COMPARISON: Brain CT 01/05/2017. FINDINGS: The ventricles and sulci are mildly prominent indicative of volume loss. There is no intracranial he morrhage, mass effect or midline shift. No abnormal intra-axial or extra-axial fluid collections ar e seen. The rdz/white matter differentiation is preserved. There are mild scattered foci of hypoattenuation in the white matter, which are nonspecific in etiol ogy but likely reflect chronic small vessel ischemic changes. There are mild intracranial vascular calcifications consistent with atherosclerosis. The visualized paranasal sinuses demonstrate mild sc attered mucosal thickening with small probable mucous retention cyst in the left maxillary sinus. Pa rtial opacification of bilateral mastoid air cells are noted. Partially visualized left nasal route tube is noted. IMPRESSION: 1. No acute intracranial hemorrhage, transcortical infarction or mass effect. Please note MRI is mo re sensitive for detection of acute ischemia and can be obtained as clinically warranted. 2. Mild intracranial atherosclerosis and chronic small vessel ischemic changes. 3. Mild generalized cerebral volume loss. 4. Partial opacification of bilateral mastoid air cells. RPTAT: HH .Eric Iyer MD, MD Date Time Electronically viewed and signed by .Eric Iyer MD, MD on 01/14/2017 18:45 .N/
[2017-01-14] MEDS: THIAMINE 100 MG TAB NGT SCH (19:08)
--- NOTE | 2017-01-14 19:50 | CONS ---
Date/Time of Note Date/Time of Note DATE: 01/14/17 TIME: 19:45 Assessment/Plan Assessment/Plan Additional Assessment/Plan 1. Acute hyperkalemia with a potassium of 7.6 on admission, s/p One session of Emergent HD 01/03/17- now improved 2. Severe metabolic acidosis s/p Bicarbonate drip, now stable 3. Acute kidney injury with a BUN of 127, creatinine of 8.9 on admission, likely secondary to acute tubular necrosis. 4. Acute respiratory failure secondary to possibly acute fluid overload and possibly pneumonia.intubated on ventilator s/p Extubation 5. History of liver cirrhosis from hepatitis C. 6. acute encephalopathy possibly hepatic encephalopathy from liver cirrhosis 7. 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 Hyponatremia > hypernatremia - has been desmopressin x 2 days so far PLAN: S/p Emergent HD x 1 due to hyperkalemia, severe metabolic acidosis and resp failure- now Improved renal funtion, temporary misael has been removed Failed swallow study, currently on NG tube feeding pt still lethargic, not alert depsite improvement in ammonia level, Plan for CT head today Renal US negative for hydronephrosis, echogenicity c/w CKD , good urine output Na 154 today, on desmopression, expecting Na to improve in next 1-2 days IV abx as per primary care team will follow up Consultation Date/Type/Reason Admit Date/Time Jan 02, 2017 at 12:58 Initial Consult Date Dec Type of Consultation: NEPHROLOGY Referring Provider: REGINA GARCIA MD 24 HR Interval Summary Free Text/Dictation s/p Removal of misael , still lethargic confused, despite improvement in ammonia level Exam/Review of Systems Vital Signs Vitals Vital Signs Date Time Temp Pulse Resp B/P Pulse Ox O2 Delivery O2 Flow Rate FiO2 01/14/17 19:14 2.0 01/14/17 19:14 101 20 94 Nasal Cannula 01/14/17 15:23 99.7 132/87 01/14/17 02:31 27 Intake and Output 01/13/17 01/13/17 01/14/17 14:59 22:59 06:59 Intake Total 1480 ml 1000 ml Output Total 800 ml 750 ml Balance 680 ml 250 ml Exam Constitutional: lethargic Respiratory: decreased BS at bases, basilar rales Cardiovascular: nl pulses, regular rate and rhythm Gastrointestinal: non-tender, soft Musculoskeletal: nl extremities to inspection Extremities: 1+ LE Edema, no clubbing. 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 intact, lethargic Results Result Diagram: 01/14/17 0540 01/14/17 0540 Results 24 hrs Laboratory Tests Test 01/13/17 23:33 01/14/17 05:40 01/14/17 05:44 01/14/17 12:58 Bedside Glucose 126 123 124 White Blood Count 7.8 Red Blood Count 3.01 L Hemoglobin 9.6 L Hematocrit 30.4 L Mean Corpuscular Volume 101.0 Mean Corpuscular Hemoglobin 31.9 Mean Corpuscular Hemoglobin Concent 31.6 L Red Cell Distribution Width 15.9 H Platelet Count 63 #L Mean Platelet Volume 11.0 H Neutrophils % 79.3 H Lymphocytes % 12.6 L Monocytes % 7.1 Eosinophils % 0.6 Basophils % 0.0 Nucleated Red Blood Cells % 0.0 Neutrophils # 6.2 Lymphocytes # 1.0 Monocytes # 0.6 Eosinophils # 0.1 Basophils # 0.0 Nucleated Red Blood Cells # 0.0 Sodium Level 154 H Potassium Level 4.6 Chloride Level 118 H Carbon Dioxide Level 30 Anion Gap 11 Blood Urea Nitrogen 33 H Creatinine 0.99 Glucose Level 112 Calcium Level 9.6 Phosphorus Level 2.2 L Magnesium Level 1.8 Total Bilirubin 1.7 H Direct Bilirubin 0.00 Indirect Bilirubin 1.7 H Aspartate Amino Transf (AST/SGOT) 109 H Alanine Aminotransferase (ALT/SGPT) 98 H Alkaline Phosphatase 94 Ammonia 34 H Total Protein 5.6 L Albumin 2.9 L Globulin 2.70 Albumin/Globulin Ratio 1.07 Test 01/14/17 16:30 01/14/17 18:05 Hepatitis B Surface Antigen NEGATIVE Hepatitis B Core Total Antibody NEGATIVE Hepatitis C Antibody REACTIVE H Bedside Glucose 112 Medications Medications Current Medications Miscellaneous Information 1 ea NOTE XX ; Start 01/03/17 at 13:00 Glucose (Glutose) 15 gm Q15M PRN PO DECREASED GLUCOSE; Start 01/03/17 at 13:00 Glucose (Glutose) 22.5 gm Q15M PRN PO DECREASED GLUCOSE; Start 01/03/17 at 13:00 Dextrose (D50w Syringe) 25 ml Q15M PRN IV DECREASED GLUCOSE; Start 01/03/17 at 13:00 Dextrose (D50w Syringe) 50 ml Q15M PRN IV DECREASED GLUCOSE; Start 01/03/17 at 13:00 Glucagon (Glucagen) 1 mg Q15M PRN IM DECREASED GLUCOSE; Start 01/03/17 at 13:00 Glucose (Glutose) 15 gm Q15M PRN BUCCAL DECREASED GLUCOSE; Start 01/03/17 at 13: 00 Rifaximin (Xifaxan) 550 mg BID PO Last administered on 01/14/17 10:44; Admin Dose 550 MG; Start 01/03/17 at 14:30 Morphine Sulfate (morphine) 2 mg Q4H PRN IV PAIN Last administered on 19:12; Admin Dose 2 MG; Start 01/06/17 at 11:30 Acetaminophen (Tylenol Liquid) 650 mg Q6H PRN GTB PAIN AND OR ELEVATED TEMP Last administered on 01/14/17 02:35; Admin Dose 650 MG; Start 01/08/17 at 09:30 IV Flush 10 ml 10 ml PRN PRN IV IV PROTOCOL; Start 01/10/17 at 17:30 Meropenem (Merrem 1 Gm/100 ml (Pmx)) 100 ml @ 200 mls/hr Q12 IVPB Last administered on 01/14/17 10:43; Admin Dose 200 MLS/HR; Start 01/12/17 at 21:00 Lansoprazole (Prevacid) 30 mg DAILY@06 GTB Last administered on 01/14/17 05:45 ; Admin Dose 30 MG; Start 01/13/17 at 06:00 Lorazepam (Ativan) 1 mg Q4H PRN GTB AGITATION Last administered on 01/12/17 20 :13; Admin Dose 1 MG; Start 01/12/17 at 14:30 Insulin Aspart (Novolog Insulin Pen) NOVOLOG *MODERATE* ALGORI... Q6 SC ; Start 01/12/17 at 18:00 Desmopressin Acetate (Ddavp) 2 mcg BID IV Last administered on 01/14/17 10:45 ; Admin Dose 2 MCG; Start 01/13/17 at 13:00 Lactulose (Enulose) 30 gm Q8 NGT Last administered on 01/14/17 14:34; Admin Dose 30 GM; Start 01/14/17 at 14:00 Thiamine HCl (Vitamin B1) 100 mg DAILY NGT Last administered on 01/14/17t 19:08 ; Admin Dose 100 MG; Start 01/14/17 at 15:30 Hydrocortisone (Solu-Cortef) 25 mg DAILY IV ; Start 01/15/17 at 09:00 MARII DALY MD Jan 14, 2017 19:50
[2017-01-15] VITALS (18 sets, daily range): BP systolic 102–144; BP diastolic 58–88; PULSE 91–104; RESP 16–22
[2017-01-15] MEDS: LEVALBUTEROL (NEB) 0.63 MG/3 ML AMP HHN SCH ×4 (01:25→21:31)
[2017-01-15] MEDS: IPRATROPIUM (NEB) 0.5 MG/2.5 ML AMP HHN SCH ×4 (01:25→21:31)
[2017-01-15] MEDS: INSULIN ASPART [NOVOLOG] 3 ML PEN SC SCH ×3 (06:00→18:00)
[2017-01-15 06:27] LABS: ADD SCAN DIFF NO
[2017-01-15 06:33] LABS: ABNORMAL IP MESSAGE 1; BASOPHILS % 0.1 % (0.0-2.0); EOSINOPHILS # 0.1 10^3/ul (0.0-0.5); EOSINOPHILS % 1.8 % (0.0-7.0); HEMATOCRIT 30.4 % (42.0-52.0); HEMOGLOBIN 9.9 g/dl (14.0-18.0); LYMPHOCYTES # 1.3 10^3/ul (0.8-2.9); LYMPHOCYTES % 16.6 % (15.0-51.0); MEAN CORPUSCULAR HEMOGLOBIN 32.7 pg (29.0-33.0); MEAN CORPUSCULAR HGB CONC 32.6 g/dl (32.0-37.0); MEAN CORPUSCULAR VOLUME 100.3 fl (82.0-101.0); MEAN PLATELET VOLUME 11.8 fl (7.4-10.4); MONOCYTE # 0.6 10^3/ul (0.3-0.9); MONOCYTES % 8.2 % (0.0-11.0); NEUTROPHIL # 5.5 10^3/ul (1.6-7.5); NEUTROPHILS % 72.5 % (39.0-77.0); PLATELET COUNT 69 10^3/UL (140-415); RED BLOOD COUNT 3.03 10^6/ul (4.70-6.10); RED CELL DISTRIBUTION WIDTH 16.1 % (11.5-14.5); WHITE BLOOD COUNT 7.6 10^3/ul (4.8-10.8)
[2017-01-15] MEDS: LACTULOSE 30ML CUP NGT SCH ×3 (06:40→20:53)
[2017-01-15] MEDS: LANSOPRAZOLE 30 MG CAP GTB SCH (06:41)
[2017-01-15 07:15] LABS: INR 1.69; PT RATIO 1.6
[2017-01-15 07:16] LABS: PARTIAL THROMBOPLASTIN TIME 29.7 Sec (25.0-35.0)
[2017-01-15 07:21] LABS: ALBUMIN/GLOBULIN RATIO 1.11; BILIRUBIN,INDIRECT 1.8 mg/dl (0-1.1); BILIRUBIN,TOTAL 1.8 mg/dl (0.2-1.3); CALCIUM 9.7 mg/dl (8.4-10.2); CREATININE 0.97 mg/dl (0.61-1.24); POTASSIUM 4.3 mmol/L (3.5-5.1); TOTAL PROTEIN 5.7 g/dl (6.1-8.1)
[2017-01-15 08:06] LABS: MAGNESIUM 1.8 mg/dl (1.7-2.5)
[2017-01-15] MEDS: MEROPENEM 1 GM/100 ML (PMX) 100 ML IVPB SCH ×2 (08:37→20:53)
[2017-01-15] MEDS: THIAMINE 100 MG TAB NGT SCH (08:38)
[2017-01-15] MEDS: ACETAMINOPHEN 650MG/20.3ML CUP GTB PRN ×2 (08:38→14:14)
[2017-01-15] MEDS: RIFAXIMIN 550 MG TAB PO SCH ×2 (08:38→20:54)
[2017-01-15] MEDS: DESMOPRESSIN 4 MCG INJ IV SCH ×2 (08:39→20:54)
[2017-01-15] MEDS: HYDROCORTISONE 100 MG INJ IV SCH (08:39)
--- NOTE | 2017-01-15 09:17 | PN ---
Date/Time of Note Date/Time of Note DATE: 01/15/17 TIME: 09:15 Assessment/Plan VTE Prophylaxis VTE Prophylaxis Intervention: contraindicated Lines/Catheters IV Catheter Type (from Nrs): PICC Line Central line still needed: Yes Urinary Cath still in place: Yes Reason Cath still needed: urinary retention Assessment/Plan Assessment/Plan a/p 1. gi: hep C and alcohoolic cirrhosis, severe (b) still encephalopathic, likely both hepatic encepohalopaqthy and toxic metabolic, slowly improving (c) failed swallow but tolerating NG feeds nad hydration 2. renal: acute renal failure secondary to ATN now resolved (b) hyperNa, improving, cont PO hydration 3. sepsis at time of presentation, continue with merropenem, source is unclear, plan 2 weeks total (b) fever this am, check ua, c diff, cxr, blood c/s (c) wean from desmopressin and hydrocortisone per pulm Subjective 24 Hr Interval Summary Free Text/Dictation resposnds to voice but does not answer questions Exam/Review of Systems Vital Signs Vitals Vital Signs Date Time Temp Pulse Resp B/P Pulse Ox O2 Delivery O2 Flow Rate FiO2 01/15/17 08:41 91 01/15/17 07:28 101.0 18 127/72 99 01/15/17 07:23 Nasal Cannula 2.0 01/14/17 02:31 27 Intake and Output 01/14/17 01/14/17 01/15/17 15:00 23:00 07:00 Intake Total 1100 ml 1200 ml Output Total 600 ml 450 ml Balance 500 ml 750 ml Exam Constitutional: non-verbal Respiratory: clear to auscultation Cardiovascular: regular rate and rhythm Gastrointestinal: non-tender, soft Results Result Diagram: 01/15/17 0539 01/15/17 0539 Results 24 hrs Laboratory Tests Test 01/14/17 12:58 01/14/17 16:30 01/14/17 16:52 01/14/17 18:05 Bedside Glucose 124 112 Hepatitis B Surface Antigen NEGATIVE Hepatitis B Core Total Antibody NEGATIVE Hepatitis C Antibody REACTIVE H Hepatitis A IgM Antibody NON-REACTIVE Test 01/14/17 21:16 01/14/17 23:29 01/15/17 05:39 01/15/17 06:35 Bedside Glucose 100 113 100 White Blood Count 7.6 Red Blood Count 3.03 L Hemoglobin 9.9 L Hematocrit 30.4 L Mean Corpuscular Volume 100.3 Mean Corpuscular Hemoglobin 32.7 Mean Corpuscular Hemoglobin Concent 32.6 Red Cell Distribution Width 16.1 H Platelet Count 69 L Mean Platelet Volume 11.8 H Neutrophils % 72.5 Lymphocytes % 16.6 Monocytes % 8.2 Eosinophils % 1.8 Basophils % 0.1 Nucleated Red Blood Cells % 0.0 Neutrophils # 5.5 Lymphocytes # 1.3 Monocytes # 0.6 Eosinophils # 0.1 Basophils # 0.0 Nucleated Red Blood Cells # 0.0 Prothrombin Time 20.0 H Prothrombin Time Ratio 1.6 INR International Normalized Ratio 1.69 Activated Partial Thromboplast Time 29.7 Sodium Level 152 H Potassium Level 4.3 Chloride Level 117 H Carbon Dioxide Level 28 Anion Gap 11 Blood Urea Nitrogen 28 H Creatinine 0.97 Glucose Level 104 Calcium Level 9.7 Phosphorus Level 2.0 L Magnesium Level 1.8 Total Bilirubin 1.8 H Direct Bilirubin 0.00 Indirect Bilirubin 1.8 H Aspartate Amino Transf (AST/SGOT) 115 H Alanine Aminotransferase (ALT/SGPT) 103 H Alkaline Phosphatase 97 Ammonia 39 H Total Protein 5.7 L Albumin 3.0 L Globulin 2.70 Albumin/Globulin Ratio 1.11 Medications Medications Current Medications Miscellaneous Information 1 ea NOTE XX ; Start 01/03/17 at 13:00 Glucose (Glutose) 15 gm Q15M PRN PO DECREASED GLUCOSE; Start 01/03/17 at 13:00 Glucose (Glutose) 22.5 gm Q15M PRN PO DECREASED GLUCOSE; Start 01/03/17 at 13:00 Dextrose (D50w Syringe) 25 ml Q15M PRN IV DECREASED GLUCOSE; Start 01/03/17 at 13:00 Dextrose (D50w Syringe) 50 ml Q15M PRN IV DECREASED GLUCOSE; Start 01/03/17 at 13:00 Glucagon (Glucagen) 1 mg Q15M PRN IM DECREASED GLUCOSE; Start 01/03/17 at 13:00 Glucose (Glutose) 15 gm Q15M PRN BUCCAL DECREASED GLUCOSE; Start 01/03/17 at 13: 00 Rifaximin (Xifaxan) 550 mg BID PO Last administered on 01/15/17t 08:38; Admin Dose 550 MG; Start 01/03/17 at 14:30 Morphine Sulfate (morphine) 2 mg Q4H PRN IV PAIN Last administered on 19:12; Admin Dose 2 MG; Start 01/06/17 at 11:30 Acetaminophen (Tylenol Liquid) 650 mg Q6H PRN GTB PAIN AND OR ELEVATED TEMP Last administered on 01/15/17 08:38; Admin Dose 650 MG; Start 01/08/17 at 09:30 IV Flush 10 ml 10 ml PRN PRN IV IV PROTOCOL; Start 01/10/17 at 17:30 Meropenem (Merrem 1 Gm/100 ml (Pmx)) 100 ml @ 200 mls/hr Q12 IVPB Last administered on 01/15/17 08:37; Admin Dose 200 MLS/HR; Start 01/12/17 at 21:00 Lansoprazole (Prevacid) 30 mg DAILY@06 GTB Last administered on 01/15/17 06:41 ; Admin Dose 30 MG; Start 01/13/17 at 06:00 Lorazepam (Ativan) 1 mg Q4H PRN GTB AGITATION Last administered on 01/12/17 20 :13; Admin Dose 1 MG; Start 01/12/17 at 14:30 Insulin Aspart (Novolog Insulin Pen) NOVOLOG *MODERATE* ALGORI... Q6 SC ; Start 01/12/17 at 18:00 Desmopressin Acetate (Ddavp) 2 mcg BID IV Last administered on 01/15/17 08:39 ; Admin Dose 2 MCG; Start 01/13/17 at 13:00 Lactulose (Enulose) 30 gm Q8 NGT Last administered on 01/15/17 06:40; Admin Dose 30 GM; Start 01/14/17 at 14:00 Thiamine HCl (Vitamin B1) 100 mg DAILY NGT Last administered on 01/15/17 08:38 ; Admin Dose 100 MG; Start 01/14/17 at 15:30 Hydrocortisone (Solu-Cortef) 25 mg DAILY IV Last administered on 01/15/17 08: 39; Admin Dose 25 MG; Start 01/15/17 at 09:00 BETHEL BARTLETT MD Jan 15, 2017 09:17
[2017-01-15] MEDS ORDERED: VANCOMYCIN IV PER PHARMACY XX SCH (09:30)
[2017-01-15] MEDS: VANCOMYCIN 1 GM (PMX) 250 ML IVPB SCH ×2 (12:04→14:14)
--- NOTE | 2017-01-15 12:36 | RADRPT ---
PROCEDURE: Chest 1 views. CLINICAL INDICATION: Shortness of breath TECHNIQUE: AP views of the chest was obtained. COMPARISON: Yesterday FINDINGS: The heart is large. Nasogastric tube is stable and appears in grossly appropriate location. Right-s ided PICC line is grossly unchanged. Central pulmonary vascular congestion and interstitial promine nce in both lungs is stable. Patchy perihilar infiltrates throughout the left lung are stable. Pat ricardo infiltrates throughout the right lung appear to have increased and/or combined with small to mod erate pleural effusion appear Osseous structures are unchanged. IMPRESSION: Cardiomegaly . Central pulmonary vascular congestion and interstitial prominence in both lungs. Stable patchy perihilar infiltrates in the left lung. Interval increase in patchy infiltrates throughout the right lung, combined with small to moderate p leural effusion. RPTAT: AA .Jean Carter MD, MD Date Time Electronically viewed and signed by .Jean Carter MD, MD on 01/15/2017 12:36 .P/
--- NOTE | 2017-01-15 14:47 | CONS ---
Date/Time of Note Date/Time of Note DATE: 01/15/17 TIME: 14:46 Assessment/Plan Assessment/Plan Additional Assessment/Plan 1. Acute hyperkalemia with a potassium of 7.6 on admission, s/p One session of Emergent HD 01/03/17- now improved 2. Severe metabolic acidosis s/p Bicarbonate drip, now stable 3. Acute kidney injury with a BUN of 127, creatinine of 8.9 on admission, likely secondary to acute tubular necrosis. 4. Acute respiratory failure secondary to possibly acute fluid overload and possibly pneumonia.intubated on ventilator s/p Extubation 5. History of liver cirrhosis from hepatitis C. 6. acute encephalopathy possibly hepatic encephalopathy from liver cirrhosis 7. 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 Hyponatremia > hypernatremia - has been desmopressin x 2 days so far PLAN: S/p Emergent HD x 1 due to hyperkalemia, severe metabolic acidosis and resp failure- now Improved renal funtion, temporary misael has been removed Failed swallow study, currently on NG tube feeding pt still lethargic, not alert depsite improvement in ammonia level, Renal US negative for hydronephrosis, echogenicity c/w CKD , good urine output Na 152 today, on desmopression, expecting Na to improve to normal in next 1-2 days IV abx as per primary care team will follow up Consultation Date/Type/Reason Admit Date/Time Jan 02, 2017 at 12:58 Initial Consult Date Dec Type of Consultation: NEPHROLOGY Referring Provider: REGINA GARCIA MD Exam/Review of Systems Vital Signs Vitals Vital Signs Date Time Temp Pulse Resp B/P Pulse Ox O2 Delivery O2 Flow Rate FiO2 01/15/17 12:37 91 01/15/17 11:46 2.0 01/15/17 11:21 100.5 16 122/64 96 01/15/17 10:00 Nasal Cannula 01/14/17 02:31 27 Intake and Output 01/14/17 01/14/17 01/15/17 15:00 23:00 07:00 Intake Total 1100 ml 1200 ml Output Total 600 ml 450 ml Balance 500 ml 750 ml Results Result Diagram: 01/15/17 0539 01/15/17 0539 Results 24 hrs Laboratory Tests Test 01/14/17 16:30 01/14/17 16:52 01/14/17 18:05 01/14/17 21:16 Hepatitis B Surface Antigen NEGATIVE Hepatitis B Core Total Antibody NEGATIVE Hepatitis C Antibody REACTIVE H Hepatitis A IgM Antibody NON-REACTIVE Bedside Glucose 112 100 Test 01/14/17 23:29 01/15/17 05:39 01/15/17 06:35 01/15/17 11:31 Bedside Glucose 113 100 124 White Blood Count 7.6 Red Blood Count 3.03 L Hemoglobin 9.9 L Hematocrit 30.4 L Mean Corpuscular Volume 100.3 Mean Corpuscular Hemoglobin 32.7 Mean Corpuscular Hemoglobin Concent 32.6 Red Cell Distribution Width 16.1 H Platelet Count 69 L Mean Platelet Volume 11.8 H Neutrophils % 72.5 Lymphocytes % 16.6 Monocytes % 8.2 Eosinophils % 1.8 Basophils % 0.1 Nucleated Red Blood Cells % 0.0 Neutrophils # 5.5 Lymphocytes # 1.3 Monocytes # 0.6 Eosinophils # 0.1 Basophils # 0.0 Nucleated Red Blood Cells # 0.0 Prothrombin Time 20.0 H Prothrombin Time Ratio 1.6 INR International Normalized Ratio 1.69 Activated Partial Thromboplast Time 29.7 Sodium Level 152 H Potassium Level 4.3 Chloride Level 117 H Carbon Dioxide Level 28 Anion Gap 11 Blood Urea Nitrogen 28 H Creatinine 0.97 Glucose Level 104 Calcium Level 9.7 Phosphorus Level 2.0 L Magnesium Level 1.8 Total Bilirubin 1.8 H Direct Bilirubin 0.00 Indirect Bilirubin 1.8 H Aspartate Amino Transf (AST/SGOT) 115 H Alanine Aminotransferase (ALT/SGPT) 103 H Alkaline Phosphatase 97 Ammonia 39 H Total Protein 5.7 L Albumin 3.0 L Globulin 2.70 Albumin/Globulin Ratio 1.11 Medications Medications Current Medications Miscellaneous Information 1 ea NOTE XX ; Start 01/03/17 at 13:00 Glucose (Glutose) 15 gm Q15M PRN PO DECREASED GLUCOSE; Start 01/03/17 at 13:00 Glucose (Glutose) 22.5 gm Q15M PRN PO DECREASED GLUCOSE; Start 01/03/17 at 13:00 Dextrose (D50w Syringe) 25 ml Q15M PRN IV DECREASED GLUCOSE; Start 01/03/17 at 13:00 Dextrose (D50w Syringe) 50 ml Q15M PRN IV DECREASED GLUCOSE; Start 01/03/17 at 13:00 Glucagon (Glucagen) 1 mg Q15M PRN IM DECREASED GLUCOSE; Start 01/03/17 at 13:00 Glucose (Glutose) 15 gm Q15M PRN BUCCAL DECREASED GLUCOSE; Start 01/03/17 at 13: 00 Rifaximin (Xifaxan) 550 mg BID PO Last administered on 01/15/17 08:38; Admin Dose 550 MG; Start 01/03/17 at 14:30 Morphine Sulfate (morphine) 2 mg Q4H PRN IV PAIN Last administered on 19:12; Admin Dose 2 MG; Start 01/06/17 at 11:30 Acetaminophen (Tylenol Liquid) 650 mg Q6H PRN GTB PAIN AND OR ELEVATED TEMP Last administered on 01/15/17 14:14; Admin Dose 650 MG; Start 01/08/17 at 09:30 IV Flush 10 ml 10 ml PRN PRN IV IV PROTOCOL; Start 01/10/17 at 17:30 Meropenem (Merrem 1 Gm/100 ml (Pmx)) 100 ml @ 200 mls/hr Q12 IVPB Last administered on 01/15/17 08:37; Admin Dose 200 MLS/HR; Start 01/12/17 at 21:00 Lansoprazole (Prevacid) 30 mg DAILY@06 GTB Last administered on 01/15/17 06:41 ; Admin Dose 30 MG; Start 01/13/17 at 06:00 Lorazepam (Ativan) 1 mg Q4H PRN GTB AGITATION Last administered on 01/12/17 20 :13; Admin Dose 1 MG; Start 01/12/17 at 14:30 Insulin Aspart (Novolog Insulin Pen) NOVOLOG *MODERATE* ALGORI... Q6 SC ; Start 01/12/17 at 18:00 Desmopressin Acetate (Ddavp) 2 mcg BID IV Last administered on 01/15/17 08:39 ; Admin Dose 2 MCG; Start 01/13/17 at 13:00 Lactulose (Enulose) 30 gm Q8 NGT Last administered on 01/15/17 14:14; Admin Dose 30 GM; Start 01/14/17 at 14:00 Thiamine HCl (Vitamin B1) 100 mg DAILY NGT Last administered on 01/15/17 08:38 ; Admin Dose 100 MG; Start 01/14/17 at 15:30 Hydrocortisone 25 mg 25 mg DAILY IV Last administered on 01/15/17t 08:39; Admin Dose 25 MG; Start 01/15/17 at 09:00 Vancomycin HCl (Vancocin) 250 ml @ 125 mls/hr Q12H IVPB ; Start 01/16/17 at 00: 00 MARII DALY MD Jan 15, 2017 14:47
[2017-01-15 15:12] LABS: ADD UMIC YES; UR BILIRUBIN (Dip) NEGATIVE (NEGATIVE); UR BLOOD (Dip) TRACE (NEGATIVE); UR CLARITY CLEAR (CLEAR); UR COLOR YELLOW (YELLOW); UR GLUCOSE (Dip) NEGATIVE (NEGATIVE); UR KETONES (Dip) TRACE (NEGATIVE); UR LEUKOCYTE ESTERASE (Dip) NEGATIVE (NEGATIVE); UR NITRITE (Dip) NEGATIVE (NEGATIVE); UR TOTAL PROTEIN (Dip) NEGATIVE (NEGATIVE); UR UROBILINOGEN (Dip) 2.0 E.U./dL (0.1-1.0)
[2017-01-15 15:18] LABS: URINE RBCS 0-2 /HPF (0)
[2017-01-16] VITALS (12 sets, daily range): BP systolic 116–142; BP diastolic 58–70; PULSE 90–103; RESP 16–18
[2017-01-16] MEDS: VANCOMYCIN 1 GM in NS 250 ML IVPB SCH ×2 (00:22→12:28)
[2017-01-16] MEDS: IPRATROPIUM (NEB) 0.5 MG/2.5 ML AMP HHN SCH ×4 (02:49→20:28)
[2017-01-16] MEDS: LEVALBUTEROL (NEB) 0.63 MG/3 ML AMP HHN SCH ×4 (02:49→20:27)
[2017-01-16] MEDS: LACTULOSE 30ML CUP NGT SCH ×3 (05:32→21:28)
[2017-01-16] MEDS: LANSOPRAZOLE 30 MG CAP GTB SCH (05:32)
[2017-01-16] MEDS: INSULIN ASPART [NOVOLOG] 3 ML PEN SC SCH ×4 (05:34→17:52)
[2017-01-16 07:46] LABS: ADD SCAN DIFF NO
[2017-01-16 07:50] LABS: ABNORMAL IP MESSAGE 1; BASOPHILS % 0.2 % (0.0-2.0); EOSINOPHILS # 0.2 10^3/ul (0.0-0.5); EOSINOPHILS % 2.6 % (0.0-7.0); HEMATOCRIT 29.2 % (42.0-52.0); HEMOGLOBIN 9.6 g/dl (14.0-18.0); LYMPHOCYTES # 1.1 10^3/ul (0.8-2.9); LYMPHOCYTES % 17.4 % (15.0-51.0); MEAN CORPUSCULAR HEMOGLOBIN 32.7 pg (29.0-33.0); MEAN CORPUSCULAR HGB CONC 32.9 g/dl (32.0-37.0); MEAN CORPUSCULAR VOLUME 99.3 fl (82.0-101.0); MEAN PLATELET VOLUME 12.2 fl (7.4-10.4); MONOCYTE # 0.6 10^3/ul (0.3-0.9); MONOCYTES % 9.3 % (0.0-11.0); NEUTROPHIL # 4.3 10^3/ul (1.6-7.5); NEUTROPHILS % 69.5 % (39.0-77.0); PLATELET COUNT 72 10^3/UL (140-415); RED BLOOD COUNT 2.94 10^6/ul (4.70-6.10); RED CELL DISTRIBUTION WIDTH 15.9 % (11.5-14.5); WHITE BLOOD COUNT 6.2 10^3/ul (4.8-10.8)
[2017-01-16 08:07] LABS: ALBUMIN 2.7 g/dl (3.3-4.9); ALBUMIN/GLOBULIN RATIO 1.03; BILIRUBIN,INDIRECT 1.6 mg/dl (0-1.1); BILIRUBIN,TOTAL 1.6 mg/dl (0.2-1.3); CALCIUM 9.3 mg/dl (8.4-10.2); CREATININE 0.91 mg/dl (0.61-1.24); POTASSIUM 4.3 mmol/L (3.5-5.1); TOTAL PROTEIN 5.3 g/dl (6.1-8.1)
[2017-01-16] MEDS: MEROPENEM 1 GM/100 ML (PMX) 100 ML IVPB SCH ×2 (08:43→21:27)
[2017-01-16] MEDS: THIAMINE 100 MG TAB NGT SCH (08:44)
[2017-01-16] MEDS: HYDROCORTISONE 100 MG INJ IV SCH (08:44)
[2017-01-16] MEDS: RIFAXIMIN 550 MG TAB PO SCH ×2 (08:44→21:28)
--- NOTE | 2017-01-16 09:58 | PN ---
Date/Time of Note Date/Time of Note DATE: 01/16/17 TIME: 09:54 Assessment/Plan VTE Prophylaxis VTE Prophylaxis Intervention: other (auto anticoag) Lines/Catheters IV Catheter Type (from Nrs): PICC Line Central line still needed: Yes (ongoing iv abx) Urinary Cath still in place: Yes Reason Cath still needed: other (indicate) (critical illness) Assessment/Plan Assessment/Plan a/p 1. gi: severe etoh and hep c cirrhosis (b) ongoing encephalopathy likely toxic metabolic, possible hepatic componenet. No bm despite lactulose PO, try lactulose enema 2. hyperNa, resolving '3. fever, await results of studies, tracy c diff, only low grade fever since yesterday Subjective 24 Hr Interval Summary Free Text/Dictation responds to voice, will follow commans briefly, no speaking Exam/Review of Systems Vital Signs Vitals Vital Signs Date Time Temp Pulse Resp B/P Pulse Ox O2 Delivery O2 Flow Rate FiO2 01/16/17 08:35 94 2.5 01/16/17 08:32 85 16 Nasal Cannula 01/16/17 07:30 100.4 116/58 01/14/17 02:31 27 Intake and Output 01/15/17 01/15/17 01/16/17 15:00 23:00 07:00 Intake Total 1400 ml 1290 ml Output Total 700 ml 700 ml Balance 700 ml 590 ml Exam Respiratory: clear to auscultation Gastrointestinal: non-tender, soft Results Result Diagram: 01/16/17 0628 01/16/17 0628 Results 24 hrs Laboratory Tests Test 01/15/17 11:22 01/15/17 11:31 01/15/17 20:51 01/16/17 00:20 Urine Color YELLOW Urine Clarity CLEAR Urine pH 6.0 Urine Specific [place] 1.015 Urine Ketones TRACE Urine Nitrite NEGATIVE Urine Bilirubin NEGATIVE Urine Urobilinogen 2.0 E.U./dL H Urine Leukocyte Esterase NEGATIVE Urine Microscopic RBC 0-2 Urine Microscopic WBC NONE SEEN Urine Hemoglobin TRACE Urine Glucose NEGATIVE Urine Total Protein NEGATIVE Bedside Glucose 124 102 106 Test 01/16/17 05:33 01/16/17 06:28 Bedside Glucose 102 White Blood Count 6.2 Red Blood Count 2.94 L Hemoglobin 9.6 L Hematocrit 29.2 L Mean Corpuscular Volume 99.3 Mean Corpuscular Hemoglobin 32.7 Mean Corpuscular Hemoglobin Concent 32.9 Red Cell Distribution Width 15.9 H Platelet Count 72 L Mean Platelet Volume 12.2 H Neutrophils % 69.5 Lymphocytes % 17.4 Monocytes % 9.3 Eosinophils % 2.6 Basophils % 0.2 Nucleated Red Blood Cells % 0.0 Neutrophils # 4.3 Lymphocytes # 1.1 Monocytes # 0.6 Eosinophils # 0.2 Basophils # 0.0 Nucleated Red Blood Cells # 0.0 Sodium Level 150 H Potassium Level 4.3 Chloride Level 116 H Carbon Dioxide Level 27 Anion Gap 11 Blood Urea Nitrogen 25 H Creatinine 0.91 Glucose Level 100 Calcium Level 9.3 Total Bilirubin 1.6 H Direct Bilirubin 0.00 Indirect Bilirubin 1.6 H Aspartate Amino Transf (AST/SGOT) 115 H Alanine Aminotransferase (ALT/SGPT) 111 H Alkaline Phosphatase 91 Total Protein 5.3 L Albumin 2.7 L Globulin 2.60 Albumin/Globulin Ratio 1.03 Medications Medications Current Medications Miscellaneous Information 1 ea NOTE XX ; Start 01/03/17 at 13:00 Glucose (Glutose) 15 gm Q15M PRN PO DECREASED GLUCOSE; Start 01/03/17 at 13:00 Glucose (Glutose) 22.5 gm Q15M PRN PO DECREASED GLUCOSE; Start 01/03/17 at 13:00 Dextrose (D50w Syringe) 25 ml Q15M PRN IV DECREASED GLUCOSE; Start 01/03/17 at 13:00 Dextrose (D50w Syringe) 50 ml Q15M PRN IV DECREASED GLUCOSE; Start 01/03/17 at 13:00 Glucagon (Glucagen) 1 mg Q15M PRN IM DECREASED GLUCOSE; Start 01/03/17 at 13:00 Glucose (Glutose) 15 gm Q15M PRN BUCCAL DECREASED GLUCOSE; Start 01/03/17 at 13: 00 Rifaximin (Xifaxan) 550 mg BID PO Last administered on 01/16/17 08:44; Admin Dose 550 MG; Start 01/03/17 at 14:30 Morphine Sulfate (morphine) 2 mg Q4H PRN IV PAIN Last administered on 19:12; Admin Dose 2 MG; Start 01/06/17 at 11:30 Acetaminophen (Tylenol Liquid) 650 mg Q6H PRN GTB PAIN AND OR ELEVATED TEMP Last administered on 01/15/17 14:14; Admin Dose 650 MG; Start 01/08/17 at 09:30 IV Flush 10 ml 10 ml PRN PRN IV IV PROTOCOL; Start 01/10/17 at 17:30 Meropenem (Merrem 1 Gm/100 ml (Pmx)) 100 ml @ 200 mls/hr Q12 IVPB Last administered on 01/16/17 08:43; Admin Dose 200 MLS/HR; Start 01/12/17 at 21:00 Lansoprazole (Prevacid) 30 mg DAILY@06 GTB Last administered on 01/16/17 05:32 ; Admin Dose 30 MG; Start 01/13/17 at 06:00 Lorazepam (Ativan) 1 mg Q4H PRN GTB AGITATION Last administered on 01/12/17 20 :13; Admin Dose 1 MG; Start 01/12/17 at 14:30 Insulin Aspart (Novolog Insulin Pen) NOVOLOG *MODERATE* ALGORI... Q6 SC ; Start 01/12/17 at 18:00 Desmopressin Acetate (Ddavp) 2 mcg BID IV Last administered on 01/15/17 20:54 ; Admin Dose 2 MCG; Start 01/13/17 at 13:00 Lactulose (Enulose) 30 gm Q8 NGT Last administered on 01/16/17 05:32; Admin Dose 30 GM; Start 01/14/17 at 14:00 Thiamine HCl (Vitamin B1) 100 mg DAILY NGT Last administered on 01/16/17 08:44 ; Admin Dose 100 MG; Start 01/14/17 at 15:30 Hydrocortisone 25 mg 25 mg DAILY IV Last administered on 01/16/17 08:44; Admin Dose 25 MG; Start 01/15/17 at 09:00 Vancomycin HCl (Vancocin) 250 ml @ 125 mls/hr Q12H IVPB Last administered on 00:22; Admin Dose 125 MLS/HR; Start 01/16/17 at 00:00 BETHEL BARTLETT MD Jan 16, 2017 09:58
[2017-01-16] MEDS: DESMOPRESSIN 4 MCG INJ IV SCH ×2 (10:03→21:28)
[2017-01-16] MEDS: ACETAMINOPHEN 650MG/20.3ML CUP GTB PRN (10:04)
[2017-01-16] MEDS ORDERED: LACTULOSE ENEMA 1,000 ML BTL PR ONE (11:00)
--- NOTE | 2017-01-16 14:21 | CONS ---
Date/Time of Note Date/Time of Note DATE: 01/16/17 TIME: 14:18 Assessment/Plan Assessment/Plan Additional Assessment/Plan Assessment recommendations; 1. Patient admitted for sepsis as well as severe appetite and some neuropathy. Patient did have significant improvement in mental status now has taken a turn for the worse again to the point where he is now completely unresponsive again. 2. History of acute renal failure, requiring 2 hemodialysis sessions. 3. Thrombocytopenia. 4. Bilateral pneumonia. 5. Anemia. Obtain a stat ABG. Patient likely will need to be transferred to ICU and may require intubation. Prognosis remains very poor on account of multiple comorbidities especially advanced liver failure. Consultation Date/Type/Reason Admit Date/Time Jan 02, 2017 at 12:58 Type of Consultation: Pulmonary Referring Provider: REGINA GARCIA MD 24 HR Interval Summary Free Text/Dictation Patient condition is tenuous at best. Now remains completely unresponsive. General examination; elderly male, morbidly obese, unresponsive. Exam/Review of Systems Vital Signs Vitals Vital Signs Date Time Temp Pulse Resp B/P Pulse Ox O2 Delivery O2 Flow Rate FiO2 01/16/17 13:39 89 15 93 Nasal Cannula 2.5 01/16/17 11:21 99.8 123/70 01/14/17 02:31 27 Intake and Output 01/15/17 01/15/17 01/16/17 15:00 23:00 07:00 Intake Total 1400 ml 1290 ml Output Total 700 ml 700 ml Balance 700 ml 590 ml Exam HEENT exam is; supple neck, no JVD. No lymphadenopathy. Midline trachea. No thyromegaly. Pupils are midsize and reactive to light. Chest examined; diminished breath sounds throughout. S1-S2 audible, no murmurs. Regular rhythm. Abdomen examination; grossly protuberant. Bowel sounds audible. No organomegaly. Extremity exam is; no peripheral edema. Pulses 1+ bilaterally. ELECTROLYTIC ETCHER examination; patient remains unresponsive. Results Result Diagram: 01/16/1762701/16/17627 Results 24 hrs Laboratory Tests Test 01/15/17 20:51 01/16/17 00:20 01/16/17 05:33 01/16/17 06:28 Bedside Glucose 102 106 102 White Blood Count 6.2 Red Blood Count 2.94 L Hemoglobin 9.6 L Hematocrit 29.2 L Mean Corpuscular Volume 99.3 Mean Corpuscular Hemoglobin 32.7 Mean Corpuscular Hemoglobin Concent 32.9 Red Cell Distribution Width 15.9 H Platelet Count 72 L Mean Platelet Volume 12.2 H Neutrophils % 69.5 Lymphocytes % 17.4 Monocytes % 9.3 Eosinophils % 2.6 Basophils % 0.2 Nucleated Red Blood Cells % 0.0 Neutrophils # 4.3 Lymphocytes # 1.1 Monocytes # 0.6 Eosinophils # 0.2 Basophils # 0.0 Nucleated Red Blood Cells # 0.0 Sodium Level 150 H Potassium Level 4.3 Chloride Level 116 H Carbon Dioxide Level 27 Anion Gap 11 Blood Urea Nitrogen 25 H Creatinine 0.91 Glucose Level 100 Calcium Level 9.3 Total Bilirubin 1.6 H Direct Bilirubin 0.00 Indirect Bilirubin 1.6 H Aspartate Amino Transf (AST/SGOT) 115 H Alanine Aminotransferase (ALT/SGPT) 111 H Alkaline Phosphatase 91 Total Protein 5.3 L Albumin 2.7 L Globulin 2.60 Albumin/Globulin Ratio 1.03 Test 01/16/17 12:28 Bedside Glucose 107 Medications Medications Current Medications Miscellaneous Information 1 ea NOTE XX ; Start 01/03/17 at 13:00 Glucose (Glutose) 15 gm Q15M PRN PO DECREASED GLUCOSE; Start 01/03/17 at 13:00 Glucose (Glutose) 22.5 gm Q15M PRN PO DECREASED GLUCOSE; Start 01/03/17 at 13:00 Dextrose (D50w Syringe) 25 ml Q15M PRN IV DECREASED GLUCOSE; Start 01/03/17 at 13:00 Dextrose (D50w Syringe) 50 ml Q15M PRN IV DECREASED GLUCOSE; Start 01/03/17 at 13:00 Glucagon (Glucagen) 1 mg Q15M PRN IM DECREASED GLUCOSE; Start 01/03/17 at 13:00 Glucose (Glutose) 15 gm Q15M PRN BUCCAL DECREASED GLUCOSE; Start 01/03/17 at 13: 00 Rifaximin (Xifaxan) 550 mg BID PO Last administered on 01/16/17 08:44; Admin Dose 550 MG; Start 01/03/17 at 14:30 Morphine Sulfate (morphine) 2 mg Q4H PRN IV PAIN Last administered on 19:12; Admin Dose 2 MG; Start 01/06/17 at 11:30 Acetaminophen (Tylenol Liquid) 650 mg Q6H PRN GTB PAIN AND OR ELEVATED TEMP Last administered on 01/16/17 10:04; Admin Dose 650 MG; Start 01/08/17 at 09:30 IV Flush 10 ml 10 ml PRN PRN IV IV PROTOCOL; Start 01/10/17 at 17:30 Meropenem (Merrem 1 Gm/100 ml (Pmx)) 100 ml @ 200 mls/hr Q12 IVPB Last administered on 01/16/17 08:43; Admin Dose 200 MLS/HR; Start 01/12/17 at 21:00 Lansoprazole (Prevacid) 30 mg DAILY@06 GTB Last administered on 01/16/17 05:32 ; Admin Dose 30 MG; Start 01/13/17 at 06:00 Insulin Aspart (Novolog Insulin Pen) NOVOLOG *MODERATE* ALGORI... Q6 SC ; Start 01/12/17 at 18:00 Desmopressin Acetate (Ddavp) 2 mcg BID IV Last administered on 01/16/17 10:03 ; Admin Dose 2 MCG; Start 01/13/17 at 13:00 Lactulose (Enulose) 30 gm Q8 NGT Last administered on 01/16/17 05:32; Admin Dose 30 GM; Start 01/14/17 at 14:00 Thiamine HCl (Vitamin B1) 100 mg DAILY NGT Last administered on 01/16/17 08:44 ; Admin Dose 100 MG; Start 01/14/17 at 15:30 Hydrocortisone 25 mg 25 mg DAILY IV Last administered on 01/16/17 08:44; Admin Dose 25 MG; Start 01/15/17 at 09:00 Vancomycin HCl (Vancocin) 250 ml @ 125 mls/hr Q12H IVPB Last administered on 12:28; Admin Dose 125 MLS/HR; Start 01/16/17 at 00:00 Miscellaneous Information (*Rx Drug Level Order Reminder*) VANCOMYCIN TROUGH AT 2300 ONCE ONCE XX ; Start 01/16/17 at 23:00; Stop 01/16/17 at 23:01 TRENT SAUCEDA 18, 2017 14:21
[2017-01-16 14:32] LABS: AADO2 Arterial 81.3 mmHg (7.0-24.0); Allen Test ACCEPTAB; Arterial Base Excess 0.8 mmol/L (-3.0-3); Arterial COHb 0.3 % (0.0-3.0); Arterial Fraction of Oxyhgb 94.4 % (93.0-99.0); Arterial MetHb 0.4 % (0.0-1.5); Arterial Total Hemglobin 10.9 g/dl (12.0-18.0); MODE NASAL CANNULA
--- NOTE | 2017-01-16 21:19 | CONS ---
Date/Time of Note Date/Time of Note DATE: 01/16/17 TIME: 21:17 Assessment/Plan Assessment/Plan Additional Assessment/Plan 1. Acute hyperkalemia with a potassium of 7.6 on admission, s/p One session of Emergent HD 01/03/17- now improved 2. Severe metabolic acidosis s/p Bicarbonate drip, now stable 3. Acute kidney injury with a BUN of 127, creatinine of 8.9 on admission, likely secondary to acute tubular necrosis. 4. Acute respiratory failure secondary to possibly acute fluid overload and possibly pneumonia.intubated on ventilator s/p Extubation 5. History of liver cirrhosis from hepatitis C. 6. acute encephalopathy possibly hepatic encephalopathy from liver cirrhosis 7. 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 Hyponatremia > hypernatremia - has been desmopressin x 2 days so far PLAN: S/p Emergent HD x 1 due to hyperkalemia, severe metabolic acidosis and resp failure- now Improved renal funtion, temporary misael has been removed Failed swallow study, currently on NG tube feeding pt still lethargic, not alert depsite improvement in ammonia level, Renal US negative for hydronephrosis, echogenicity c/w CKD , good urine output Na 150 today, on desmopression 2mcg iV BID, expecting Na to improve to normal in next 1-2 days IV abx as per primary care team will follow up Consultation Date/Type/Reason Admit Date/Time Jan 02, 2017 at 12:58 Initial Consult Date Dec Type of Consultation: NEPHROLOGY Referring Provider: REGINA GARCIA MD Exam/Review of Systems Vital Signs Vitals Vital Signs Date Time Temp Pulse Resp B/P Pulse Ox O2 Delivery O2 Flow Rate FiO2 01/16/17 20:34 2.0 01/16/17 20:30 91 16 98 Nasal Cannula 01/16/17 19:57 98.8 123/66 01/14/17 02:31 27 Intake and Output 01/15/17 01/15/17 01/16/17 15:00 23:00 07:00 Intake Total 1400 ml 1290 ml Output Total 700 ml 700 ml Balance 700 ml 590 ml Exam Constitutional: non-verbal Respiratory: clear to auscultation Cardiovascular: regular rate and rhythm Gastrointestinal: non-tender, soft Results Result Diagram: 01/16/17 0628 01/16/17 0628 Results 24 hrs Laboratory Tests Test 01/16/17 00:20 01/16/17 05:33 01/16/17 06:28 01/16/17 12:28 Bedside Glucose 106 102 107 White Blood Count 6.2 Red Blood Count 2.94 L Hemoglobin 9.6 L Hematocrit 29.2 L Mean Corpuscular Volume 99.3 Mean Corpuscular Hemoglobin 32.7 Mean Corpuscular Hemoglobin Concent 32.9 Red Cell Distribution Width 15.9 H Platelet Count 72 L Mean Platelet Volume 12.2 H Neutrophils % 69.5 Lymphocytes % 17.4 Monocytes % 9.3 Eosinophils % 2.6 Basophils % 0.2 Nucleated Red Blood Cells % 0.0 Neutrophils # 4.3 Lymphocytes # 1.1 Monocytes # 0.6 Eosinophils # 0.2 Basophils # 0.0 Nucleated Red Blood Cells # 0.0 Sodium Level 150 H Potassium Level 4.3 Chloride Level 116 H Carbon Dioxide Level 27 Anion Gap 11 Blood Urea Nitrogen 25 H Creatinine 0.91 Glucose Level 100 Calcium Level 9.3 Total Bilirubin 1.6 H Direct Bilirubin 0.00 Indirect Bilirubin 1.6 H Aspartate Amino Transf (AST/SGOT) 115 H Alanine Aminotransferase (ALT/SGPT) 111 H Alkaline Phosphatase 91 Total Protein 5.3 L Albumin 2.7 L Globulin 2.60 Albumin/Globulin Ratio 1.03 Test 01/16/17 13:54 01/16/17 17:51 Blood Gas Specimen Source Blood arterial Arterial Blood Date Drawn 01/16/2017 2:16:30 PM Arterial Blood pH (Temp corrected) 7.432 Arterial Blood pCO2 (Temp correct) 38.3 Arterial Blood pO2 (Temp corrected) 80.4 Arterial Blood HCO3 25.0 Arterial Blood Base Excess 0.8 Arterial Blood Oxygen Saturation 95.1 Jose Enrique Test ACCEPTAB Arterial Blood Gas Puncture Site Right Radial Arterial Blood Carboxyhemoglobin 0.3 Arterial Blood Methemoglobin 0.4 Blood Gas A-a O2 Differential 81.3 H Oxyhemoglobin Percent 94.4 Total Hemoglobin 10.9 L Blood Gas Temperature 37.0 Blood Gas Modality NASAL CANNULA FiO2 29.0 Blood Gas Notified Whom LS Blood Gas Notified Time 01/16/2017 2:32:43 PM Bedside Glucose 107 Medications Medications Current Medications Miscellaneous Information 1 ea NOTE XX ; Start 01/03/17 at 13:00 Glucose (Glutose) 15 gm Q15M PRN PO DECREASED GLUCOSE; Start 01/03/17 at 13:00 Glucose (Glutose) 22.5 gm Q15M PRN PO DECREASED GLUCOSE; Start 01/03/17 at 13:00 Dextrose (D50w Syringe) 25 ml Q15M PRN IV DECREASED GLUCOSE; Start 01/03/17 at 13:00 Dextrose (D50w Syringe) 50 ml Q15M PRN IV DECREASED GLUCOSE; Start 01/03/17 at 13:00 Glucagon (Glucagen) 1 mg Q15M PRN IM DECREASED GLUCOSE; Start 01/03/17 at 13:00 Glucose (Glutose) 15 gm Q15M PRN BUCCAL DECREASED GLUCOSE; Start 01/03/17 at 13: 00 Rifaximin (Xifaxan) 550 mg BID PO Last administered on 01/16/17 08:44; Admin Dose 550 MG; Start 01/03/17 at 14:30 Morphine Sulfate (morphine) 2 mg Q4H PRN IV PAIN Last administered on 19:12; Admin Dose 2 MG; Start 01/06/17 at 11:30 Acetaminophen (Tylenol Liquid) 650 mg Q6H PRN GTB PAIN AND OR ELEVATED TEMP Last administered on 01/16/17 10:04; Admin Dose 650 MG; Start 01/08/17 at 09:30 IV Flush 10 ml 10 ml PRN PRN IV IV PROTOCOL; Start 01/10/17 at 17:30 Meropenem (Merrem 1 Gm/100 ml (Pmx)) 100 ml @ 200 mls/hr Q12 IVPB Last administered on 01/16/17 08:43; Admin Dose 200 MLS/HR; Start 01/12/17 at 21:00 Lansoprazole (Prevacid) 30 mg DAILY@06 GTB Last administered on 01/16/17 05:32 ; Admin Dose 30 MG; Start 01/13/17 at 06:00 Insulin Aspart (Novolog Insulin Pen) NOVOLOG *MODERATE* ALGORI... Q6 SC ; Start 01/12/17 at 18:00 Desmopressin Acetate (Ddavp) 2 mcg BID IV Last administered on 01/16/17 10:03 ; Admin Dose 2 MCG; Start 01/13/17 at 13:00 Lactulose (Enulose) 30 gm Q8 NGT Last administered on 01/16/17 15:00; Admin Dose 30 GM; Start 01/14/17 at 14:00 Thiamine HCl (Vitamin B1) 100 mg DAILY NGT Last administered on 01/16/17 08:44 ; Admin Dose 100 MG; Start 01/14/17 at 15:30 Hydrocortisone 25 mg 25 mg DAILY IV Last administered on 01/16/17 08:44; Admin Dose 25 MG; Start 01/15/17 at 09:00 Vancomycin HCl (Vancocin) 250 ml @ 125 mls/hr Q12H IVPB Last administered on 12:28; Admin Dose 125 MLS/HR; Start 01/16/17 at 00:00 Miscellaneous Information (*Rx Drug Level Order Reminder*) VANCOMYCIN TROUGH AT 2300 ONCE ONCE XX ; Start 01/16/17 at 23:00; Stop 01/16/17 at 23:01 MARII DALY MD Jan 16, 2017 21:19
[2017-01-17] VITALS (12 sets, daily range): BP systolic 113–140; BP diastolic 61–83; PULSE 86–100; RESP 18–21
[2017-01-17] MEDS: VANCOMYCIN 1 GM in NS 250 ML IVPB SCH (01:16)
[2017-01-17] MEDS: IPRATROPIUM (NEB) 0.5 MG/2.5 ML AMP HHN SCH ×4 (01:38→19:29)
[2017-01-17] MEDS: LEVALBUTEROL (NEB) 0.63 MG/3 ML AMP HHN SCH ×4 (01:38→19:29)
[2017-01-17] MEDS: INSULIN ASPART [NOVOLOG] 3 ML PEN SC SCH ×4 (06:00→17:45)
[2017-01-17] MEDS: LACTULOSE 30ML CUP NGT SCH ×2 (06:03→17:45)
[2017-01-17] MEDS: LANSOPRAZOLE 30 MG CAP GTB SCH (06:04)
[2017-01-17 06:39] LABS: ADD SCAN DIFF NO
[2017-01-17 06:51] LABS: ABNORMAL IP MESSAGE 1; EOSINOPHILS # 0.2 10^3/ul (0.0-0.5); EOSINOPHILS % 2.6 % (0.0-7.0); HEMATOCRIT 31.3 % (42.0-52.0); HEMOGLOBIN 10.1 g/dl (14.0-18.0); LYMPHOCYTES # 1.1 10^3/ul (0.8-2.9); LYMPHOCYTES % 14.9 % (15.0-51.0); MEAN CORPUSCULAR HEMOGLOBIN 32.1 pg (29.0-33.0); MEAN CORPUSCULAR HGB CONC 32.3 g/dl (32.0-37.0); MEAN CORPUSCULAR VOLUME 99.4 fl (82.0-101.0); MEAN PLATELET VOLUME 12.2 fl (7.4-10.4); MONOCYTE # 0.7 10^3/ul (0.3-0.9); MONOCYTES % 9.9 % (0.0-11.0); NEUTROPHIL # 5.2 10^3/ul (1.6-7.5); NEUTROPHILS % 71.6 % (39.0-77.0); PLATELET COUNT 72 10^3/UL (140-415); RED BLOOD COUNT 3.15 10^6/ul (4.70-6.10); RED CELL DISTRIBUTION WIDTH 17.1 % (11.5-14.5); WHITE BLOOD COUNT 7.2 10^3/ul (4.8-10.8)
[2017-01-17 07:07] LABS: ALBUMIN 2.7 g/dl (3.3-4.9); ALBUMIN/GLOBULIN RATIO 0.96; BILIRUBIN,INDIRECT 1.8 mg/dl (0-1.1); BILIRUBIN,TOTAL 1.8 mg/dl (0.2-1.3); CALCIUM 9.3 mg/dl (8.4-10.2); CREATININE 0.79 mg/dl (0.61-1.24); POTASSIUM 4.2 mmol/L (3.5-5.1); TOTAL PROTEIN 5.5 g/dl (6.1-8.1)
[2017-01-17] MEDS: RIFAXIMIN 550 MG TAB PO SCH ×2 (08:39→21:19)
[2017-01-17] MEDS: THIAMINE 100 MG TAB NGT SCH (08:39)
[2017-01-17] MEDS: HYDROCORTISONE 100 MG INJ IV SCH (08:40)
[2017-01-17] MEDS: MEROPENEM 1 GM/100 ML (PMX) 100 ML IVPB SCH ×2 (08:40→21:19)
[2017-01-17] MEDS: DESMOPRESSIN 4 MCG INJ IV SCH (10:31)
[2017-01-17] MEDS: VANCOMYCIN 750 MG in SOD CHLORIDE 0.9% 150 ML IVPB SCH (12:21)
--- NOTE | 2017-01-17 15:00 | PN ---
Date/Time of Note Date/Time of Note DATE: 01/17/17 TIME: 14:44 Assessment/Plan VTE Prophylaxis VTE Prophylaxis Intervention: SCD's Lines/Catheters IV Catheter Type (from Nrs): PICC Line Central line still needed: Yes (for IV access ) Urinary Cath still in place: Yes Reason Cath still needed: other (indicate) (monitor UOP ) Assessment/Plan Assessment/Plan 56-year-old male: 1. Encephalopathy, still ongoing and today even less responsive. Known Cirrhosis /ESLD, HepC. CT head unchanged 01/16. Check Ammonia level, afebrile and labs stable with improving Na level Continue Rifaximin and Lactulose. Continue Thiamine. 2. Acute respiratory failure with Severe Encephalopathy and Acute renal failure and also Shock state. All resolving currently but concerns for recurrent episode as patient again more encephalopathic today. On Meropenem and Vanco added this weekend Blood cx and Urine Cx NGTD Should d/c hydrocortisone ... 3. Acute Renal Failure, likely pre renal secondary to dehydration VS ATN with Severe Hyperkalemia. Resolved Dr Brown following from Nephrology S/p emergent HD on admission, now seems hypovolemic with Hypernatremia. NGT placed and increasing Free H2O 400 cc q4 hrs so far. Na down 4. Severe hyperkalemia. Resolved post Emergent HD on admission 5. Metabolic acidosis in setting on of ARF, s/p HD on admission. Resolved with improving renal function. Nephrology following 6. End-stage alcoholic liver disease, with also known Hep C, cirrhosis with Hepatic Encephalopathy and also coagulopathy. Stabilizing but encephalopathy persistent On Rifaximin and Lactulose. Correcting coagulopathy with FFP prn. 7. Hypernatremia, Na down to 148 today, patient has been on desmopressin per Pulmonary along with tube feedings and free H2O. Continue to monitor Nephrology, Dr Brown following 8. Acute on chronic anemia, no acute bleeding seen. s/p 1 units pRBC H/H stable so far. Prophylaxis: on PPI for GI ppx and SCDs for DVT ppx Disposition: Failed swallow eval this AM again due to lethargy, NGT in place. Fair prognosis. Follow up Nephro and Pulmonary recs. F/u Ammonia level today Subjective 24 Hr Interval Summary Free Text/Dictation Patient lethargic and mostly unresponsive today, otherwise VSS and protecting airways Abx expended over the weekend Ammonia level pending Exam/Review of Systems Vital Signs Vitals Vital Signs Date Time Temp Pulse Resp B/P Pulse Ox O2 Delivery O2 Flow Rate FiO2 01/17/17 14:10 93 18 97 Nasal Cannula 2.0 01/17/17 11:35 98.9 130/83 01/14/17 02:31 27 Intake and Output 01/16/17 01/16/17 01/17/17 15:00 23:00 07:00 Intake Total 1200 ml 1360 ml Output Total 900 ml 700 ml Balance 300 ml 660 ml Exam Constitutional: non-verbal, other (mostly unresponsive ) Respiratory: clear to auscultation, normal air movement Cardiovascular: regular rate and rhythm Gastrointestinal: non-tender, soft Musculoskeletal: nl extremities to inspection Extremities: normal pulses, other (no edema, clubbing or cyanosis ) Neurological: lethargic, other (minimally responsive ) Results Result Diagram: 01/17/17 0606 01/17/17 0600 Results 24 hrs Laboratory Tests Test 01/16/17 17:51 01/16/17 22:50 01/17/17 01:10 01/17/17 06:00 Bedside Glucose 107 107 Vancomycin Level Trough 17.9 Sodium Level 148 H Potassium Level 4.2 Chloride Level 117 H Carbon Dioxide Level 25 Anion Gap 10 Blood Urea Nitrogen 23 H Creatinine 0.79 Glucose Level 100 Calcium Level 9.3 Total Bilirubin 1.8 H Direct Bilirubin 0.00 Indirect Bilirubin 1.8 H Aspartate Amino Transf (AST/SGOT) 105 H Alanine Aminotransferase (ALT/SGPT) 107 H Alkaline Phosphatase 100 Total Protein 5.5 L Albumin 2.7 L Globulin 2.80 Albumin/Globulin Ratio 0.96 Test 01/17/17 06:01 01/17/17 06:06 01/17/17 12:19 Bedside Glucose 98 110 White Blood Count 7.2 Red Blood Count 3.15 L Hemoglobin 10.1 L Hematocrit 31.3 L Mean Corpuscular Volume 99.4 Mean Corpuscular Hemoglobin 32.1 Mean Corpuscular Hemoglobin Concent 32.3 Red Cell Distribution Width 17.1 H Platelet Count 72 L Mean Platelet Volume 12.2 H Neutrophils % 71.6 Lymphocytes % 14.9 L Monocytes % 9.9 Eosinophils % 2.6 Basophils % 0.0 Nucleated Red Blood Cells % 0.0 Neutrophils # 5.2 Lymphocytes # 1.1 Monocytes # 0.7 Eosinophils # 0.2 Basophils # 0.0 Nucleated Red Blood Cells # 0.0 Medications Medications Current Medications Miscellaneous Information 1 ea NOTE XX ; Start 01/03/17 at 13:00 Glucose (Glutose) 15 gm Q15M PRN PO DECREASED GLUCOSE; Start 01/03/17 at 13:00 Glucose (Glutose) 22.5 gm Q15M PRN PO DECREASED GLUCOSE; Start 01/03/17 at 13:00 Dextrose (D50w Syringe) 25 ml Q15M PRN IV DECREASED GLUCOSE; Start 01/03/17 at 13:00 Dextrose (D50w Syringe) 50 ml Q15M PRN IV DECREASED GLUCOSE; Start 01/03/17 at 13:00 Glucagon (Glucagen) 1 mg Q15M PRN IM DECREASED GLUCOSE; Start 01/03/17 at 13:00 Glucose (Glutose) 15 gm Q15M PRN BUCCAL DECREASED GLUCOSE; Start 01/03/17 at 13: 00 Rifaximin (Xifaxan) 550 mg BID PO Last administered on 01/17/17 08:39; Admin Dose 550 MG; Start 01/03/17 at 14:30 Morphine Sulfate (morphine) 2 mg Q4H PRN IV PAIN Last administered on 19:12; Admin Dose 2 MG; Start 01/06/17 at 11:30 Acetaminophen (Tylenol Liquid) 650 mg Q6H PRN GTB PAIN AND OR ELEVATED TEMP Last administered on 01/16/17 10:04; Admin Dose 650 MG; Start 01/08/17 at 09:30 IV Flush 10 ml 10 ml PRN PRN IV IV PROTOCOL; Start 01/10/17 at 17:30 Meropenem (Merrem 1 Gm/100 ml (Pmx)) 100 ml @ 200 mls/hr Q12 IVPB Last administered on 01/17/17 08:40; Admin Dose 200 MLS/HR; Start 01/12/17 at 21:00 Lansoprazole (Prevacid) 30 mg DAILY@06 GTB Last administered on 01/17/17 06:04 ; Admin Dose 30 MG; Start 01/13/17 at 06:00 Insulin Aspart (Novolog Insulin Pen) NOVOLOG *MODERATE* ALGORI... Q6 SC ; Start 01/12/17 at 18:00 Desmopressin Acetate (Ddavp) 2 mcg BID IV Last administered on 01/17/17 10:31 ; Admin Dose 2 MCG; Start 01/13/17 at 13:00 Thiamine HCl (Vitamin B1) 100 mg DAILY NGT Last administered on 01/17/17 08:39 ; Admin Dose 100 MG; Start 01/14/17 at 15:30 Hydrocortisone 25 mg 25 mg DAILY IV Last administered on 01/17/17 08:40; Admin Dose 25 MG; Start 01/15/17 at 09:00 Vancomycin HCl/ Sodium Chloride (Vancocin/NS) 150 ml @ 75 mls/hr Q12H IVPB Last administered on 01/17/17 12:21; Admin Dose 75 MLS/HR; Start 01/17/17 at 13 :00 Lactulose (Enulose) 30 gm Q6 NGT ; Start 01/17/17 at 18:00 Procedures Procedures PROCEDURE: CT Brain without. CLINICAL INDICATION: Altered mental status. Aphasia. TECHNIQUE: A CT of the brain was performed on multidetector high-resolution CT scanner utilizing axial sections from the skull base through the vertex without contrast. The scan was reviewed in soft tissue brain and high frequency resolution bone algorithm windows. Images were reviewed on a high- resolution PACS workstation. One or more the following does reduction techniques were utilized: Automated exposure control, adjustment of the mA/ or kV according to patient's size, or use of iterative reconstruction technique. The exam CTDI = 43.22 mGy and the DLP = 877.14 mGy-cm. COMPARISON: Brain CT 01/05/2017. FINDINGS: The ventricles and sulci are mildly prominent indicative of volume loss. There is no intracranial hemorrhage, mass effect or midline shift. No abnormal intra- axial or extra-axial fluid collections are seen. The rdz/white matter differentiation is preserved. There are mild scattered foci of hypoattenuation in the white matter, which are nonspecific in etiology but likely reflect chronic small vessel ischemic changes. There are mild intracranial vascular calcifications consistent with atherosclerosis. The visualized paranasal sinuses demonstrate mild scattered mucosal thickening with small probable mucous retention cyst in the left maxillary sinus. Partial opacification of bilateral mastoid air cells are noted. Partially visualized left nasal route tube is noted. IMPRESSION: 1. No acute intracranial hemorrhage, transcortical infarction or mass effect. Please note MRI is more sensitive for detection of acute ischemia and can be obtained as clinically warranted. 2. Mild intracranial atherosclerosis and chronic small vessel ischemic changes. 3. Mild generalized cerebral volume loss. 4. Partial opacification of bilateral mastoid air cells. SRIKANTH GALVAN Jan 17, 2017 14:57
--- NOTE | 2017-01-17 15:15 | CONS ---
Date/Time of Note Date/Time of Note DATE: 01/17/17 TIME: 15:12 Assessment/Plan Assessment/Plan Additional Assessment/Plan Assessment recommendations; 1. Patient admitted with bilateral pneumonia currently on appropriate antibiotic regimen. 2. End-stage liver disease. 3. Hepatic/metabolic encephalopathy. 4. Thrombocytopenia. Continue current treatment. A CODE STATUS needs to be discussed with the family. Prognosis appears poor. Consultation Date/Type/Reason Admit Date/Time Jan 02, 2017 at 12:58 Type of Consultation: Pulmonary Referring Provider: REGINA GARCIA MD 24 HR Interval Summary Free Text/Dictation Patient condition remains unchanged. Remains essentially unresponsive. However an ABG was done yesterday afternoon which is adequate. Not indicative of underlying respiratory failure or any evidence of acidosis. General exam; middle-aged male, morbidly obese, unresponsive. Currently in no distress. Exam/Review of Systems Vital Signs Vitals Vital Signs Date Time Temp Pulse Resp B/P Pulse Ox O2 Delivery O2 Flow Rate FiO2 01/17/17 14:10 93 18 97 Nasal Cannula 2.0 01/17/17 11:35 98.9 130/83 01/14/17 02:31 27 Intake and Output 01/16/17 01/16/17 01/17/17 15:00 23:00 07:00 Intake Total 1200 ml 1360 ml Output Total 900 ml 700 ml Balance 300 ml 660 ml Exam HEENT exam; supple neck, no JVD. No lymphadenopathy. Midline trachea. No thyromegaly. Patient has fair dentition. Chest examination; clear to auscultation. S1-S2 audible, no murmurs. Regular rhythm. Abdomen examination; soft, protuberant. No organomegaly. Bowel sounds audible. Extremity examination; no peripheral edema. [employer] examination; patient remains unresponsive. Results Result Diagram: 01/17/17 0606 01/17/17 0600 Results 24 hrs Laboratory Tests Test 01/16/17 17:51 01/16/17 22:50 01/17/17 01:10 01/17/17 06:00 Bedside Glucose 107 107 Vancomycin Level Trough 17.9 Sodium Level 148 H Potassium Level 4.2 Chloride Level 117 H Carbon Dioxide Level 25 Anion Gap 10 Blood Urea Nitrogen 23 H Creatinine 0.79 Glucose Level 100 Calcium Level 9.3 Total Bilirubin 1.8 H Direct Bilirubin 0.00 Indirect Bilirubin 1.8 H Aspartate Amino Transf (AST/SGOT) 105 H Alanine Aminotransferase (ALT/SGPT) 107 H Alkaline Phosphatase 100 Total Protein 5.5 L Albumin 2.7 L Globulin 2.80 Albumin/Globulin Ratio 0.96 Test 01/17/17 06:01 01/17/17 06:06 01/17/17 12:19 Bedside Glucose 98 110 White Blood Count 7.2 Red Blood Count 3.15 L Hemoglobin 10.1 L Hematocrit 31.3 L Mean Corpuscular Volume 99.4 Mean Corpuscular Hemoglobin 32.1 Mean Corpuscular Hemoglobin Concent 32.3 Red Cell Distribution Width 17.1 H Platelet Count 72 L Mean Platelet Volume 12.2 H Neutrophils % 71.6 Lymphocytes % 14.9 L Monocytes % 9.9 Eosinophils % 2.6 Basophils % 0.0 Nucleated Red Blood Cells % 0.0 Neutrophils # 5.2 Lymphocytes # 1.1 Monocytes # 0.7 Eosinophils # 0.2 Basophils # 0.0 Nucleated Red Blood Cells # 0.0 Medications Medications Current Medications Miscellaneous Information 1 ea NOTE XX ; Start 01/03/17 at 13:00 Glucose (Glutose) 15 gm Q15M PRN PO DECREASED GLUCOSE; Start 01/03/17 at 13:00 Glucose (Glutose) 22.5 gm Q15M PRN PO DECREASED GLUCOSE; Start 01/03/17 at 13:00 Dextrose (D50w Syringe) 25 ml Q15M PRN IV DECREASED GLUCOSE; Start 01/03/17 at 13:00 Dextrose (D50w Syringe) 50 ml Q15M PRN IV DECREASED GLUCOSE; Start 01/03/17 at 13:00 Glucagon (Glucagen) 1 mg Q15M PRN IM DECREASED GLUCOSE; Start 01/03/17 at 13:00 Glucose (Glutose) 15 gm Q15M PRN BUCCAL DECREASED GLUCOSE; Start 01/03/17 at 13: 00 Rifaximin (Xifaxan) 550 mg BID PO Last administered on 01/17/17 08:39; Admin Dose 550 MG; Start 01/03/17 at 14:30 Morphine Sulfate (morphine) 2 mg Q4H PRN IV PAIN Last administered on 19:12; Admin Dose 2 MG; Start 01/06/17 at 11:30 Acetaminophen (Tylenol Liquid) 650 mg Q6H PRN GTB PAIN AND OR ELEVATED TEMP Last administered on 01/16/17 10:04; Admin Dose 650 MG; Start 01/08/17 at 09:30 IV Flush 10 ml 10 ml PRN PRN IV IV PROTOCOL; Start 01/10/17 at 17:30 Meropenem (Merrem 1 Gm/100 ml (Pmx)) 100 ml @ 200 mls/hr Q12 IVPB Last administered on 01/17/17 08:40; Admin Dose 200 MLS/HR; Start 01/12/17 at 21:00 Lansoprazole (Prevacid) 30 mg DAILY@06 GTB Last administered on 01/17/17 06:04 ; Admin Dose 30 MG; Start 01/13/17 at 06:00 Insulin Aspart (Novolog Insulin Pen) NOVOLOG *MODERATE* ALGORI... Q6 SC ; Start 01/12/17 at 18:00 Desmopressin Acetate (Ddavp) 2 mcg BID IV Last administered on 01/17/17 10:31 ; Admin Dose 2 MCG; Start 01/13/17 at 13:00 Thiamine HCl 100 mg 100 mg DAILY NGT Last administered on 01/17/17 08:39; Admin Dose 100 MG; Start 01/14/17 at 15:30 Vancomycin HCl/ Sodium Chloride (Vancocin/NS) 150 ml @ 75 mls/hr Q12H IVPB Last administered on 01/17/17 12:21; Admin Dose 75 MLS/HR; Start 01/17/17 at 13 :00 Lactulose (Enulose) 30 gm Q6 NGT ; Start 01/17/17 at 18:00 TRENT SAUCEDA Jan 17, 2017 15:15
--- NOTE | 2017-01-17 18:04 | CONS ---
Date/Time of Note Date/Time of Note DATE: 01/17/17 TIME: 18:00 Assessment/Plan Assessment/Plan Additional Assessment/Plan 1. Acute hyperkalemia with a potassium of 7.6 on admission, s/p One session of Emergent HD 01/03/17- now improved 2. Severe metabolic acidosis s/p Bicarbonate drip, now stable 3. Acute kidney injury with a BUN of 127, creatinine of 8.9 on admission, likely secondary to acute tubular necrosis. 4. Acute respiratory failure secondary to possibly acute fluid overload and possibly pneumonia.intubated on ventilator s/p Extubation 5. History of liver cirrhosis from hepatitis C. 6. acute encephalopathy possibly hepatic encephalopathy from liver cirrhosis 7. 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 Hyponatremia > hypernatremia - has been desmopressin x 2 days so far PLAN: S/p Emergent HD x 1 due to hyperkalemia, severe metabolic acidosis and resp failure- now Improved renal function, temporary misael has been removed Renal US negative for hydronephrosis, echogenicity c/w CKD , good urine output Na improving , on desmopression 2mcg iV BID, expecting Na to improve to normal in next 1-2 days- plan is to d/c it tomorrow IV abx as per primary care team will follow up Consultation Date/Type/Reason Admit Date/Time Jan 02, 2017 at 12:58 Initial Consult Date Dec Type of Consultation: NEPHROLOGY Referring Provider: REGINA GARCIA MD 24 HR Interval Summary Free Text/Dictation doing ok, BP stable,afebrile , sleepy Exam/Review of Systems Vital Signs Vitals Vital Signs Date Time Temp Pulse Resp B/P Pulse Ox O2 Delivery O2 Flow Rate FiO2 01/17/17 16:17 86 01/17/17 15:46 97.8 19 115/69 96 01/17/17 14:10 Nasal Cannula 2.0 01/14/17 02:31 27 Intake and Output 01/16/17 01/16/17 01/17/17 15:00 23:00 07:00 Intake Total 1200 ml 1360 ml Output Total 900 ml 700 ml Balance 300 ml 660 ml Exam Constitutional: non-verbal, sleepy Respiratory: clear to auscultation Cardiovascular: regular rate and rhythm Gastrointestinal: non-tender, soft Results Result Diagram: 01/17/17 0606 01/17/17 0600 Results 24 hrs Laboratory Tests Test 01/16/17 22:50 01/17/17 01:10 01/17/17 06:00 01/17/17 06:01 Vancomycin Level Trough 17.9 Bedside Glucose 107 98 Sodium Level 148 H Potassium Level 4.2 Chloride Level 117 H Carbon Dioxide Level 25 Anion Gap 10 Blood Urea Nitrogen 23 H Creatinine 0.79 Glucose Level 100 Calcium Level 9.3 Total Bilirubin 1.8 H Direct Bilirubin 0.00 Indirect Bilirubin 1.8 H Aspartate Amino Transf (AST/SGOT) 105 H Alanine Aminotransferase (ALT/SGPT) 107 H Alkaline Phosphatase 100 Total Protein 5.5 L Albumin 2.7 L Globulin 2.80 Albumin/Globulin Ratio 0.96 Test 01/17/17 06:06 01/17/17 12:19 01/17/17 14:40 01/17/17 17:39 White Blood Count 7.2 Red Blood Count 3.15 L Hemoglobin 10.1 L Hematocrit 31.3 L Mean Corpuscular Volume 99.4 Mean Corpuscular Hemoglobin 32.1 Mean Corpuscular Hemoglobin Concent 32.3 Red Cell Distribution Width 17.1 H Platelet Count 72 L Mean Platelet Volume 12.2 H Neutrophils % 71.6 Lymphocytes % 14.9 L Monocytes % 9.9 Eosinophils % 2.6 Basophils % 0.0 Nucleated Red Blood Cells % 0.0 Neutrophils # 5.2 Lymphocytes # 1.1 Monocytes # 0.7 Eosinophils # 0.2 Basophils # 0.0 Nucleated Red Blood Cells # 0.0 Bedside Glucose 110 101 Ammonia < 9 #L Thyroid Stimulating Hormone (TSH) 1.570 Free Thyroxine 1.10 Medications Medications Current Medications Miscellaneous Information 1 ea NOTE XX ; Start 01/03/17 at 13:00 Glucose (Glutose) 15 gm Q15M PRN PO DECREASED GLUCOSE; Start 01/03/17 at 13:00 Glucose (Glutose) 22.5 gm Q15M PRN PO DECREASED GLUCOSE; Start 01/03/17 at 13:00 Dextrose (D50w Syringe) 25 ml Q15M PRN IV DECREASED GLUCOSE; Start 01/03/17 at 13:00 Dextrose (D50w Syringe) 50 ml Q15M PRN IV DECREASED GLUCOSE; Start 01/03/17 at 13:00 Glucagon (Glucagen) 1 mg Q15M PRN IM DECREASED GLUCOSE; Start 01/03/17 at 13:00 Glucose (Glutose) 15 gm Q15M PRN BUCCAL DECREASED GLUCOSE; Start 01/03/17 at 13: 00 Rifaximin (Xifaxan) 550 mg BID PO Last administered on 01/17/17 08:39; Admin Dose 550 MG; Start 01/03/17 at 14:30 Morphine Sulfate (morphine) 2 mg Q4H PRN IV PAIN Last administered on 19:12; Admin Dose 2 MG; Start 01/06/17 at 11:30 Acetaminophen (Tylenol Liquid) 650 mg Q6H PRN GTB PAIN AND OR ELEVATED TEMP Last administered on 01/16/17 10:04; Admin Dose 650 MG; Start 01/08/17 at 09:30 IV Flush 10 ml 10 ml PRN PRN IV IV PROTOCOL; Start 01/10/17 at 17:30 Meropenem (Merrem 1 Gm/100 ml (Pmx)) 100 ml @ 200 mls/hr Q12 IVPB Last administered on 01/17/17 08:40; Admin Dose 200 MLS/HR; Start 01/12/17 at 21:00 Lansoprazole (Prevacid) 30 mg DAILY@06 GTB Last administered on 01/17/17 06:04 ; Admin Dose 30 MG; Start 01/13/17 at 06:00 Insulin Aspart (Novolog Insulin Pen) NOVOLOG *MODERATE* ALGORI... Q6 SC ; Start 01/12/17 at 18:00 Desmopressin Acetate (Ddavp) 2 mcg BID IV Last administered on 01/17/17 10:31 ; Admin Dose 2 MCG; Start 01/13/17 at 13:00 Thiamine HCl 100 mg 100 mg DAILY NGT Last administered on 01/17/17 08:39; Admin Dose 100 MG; Start 01/14/17 at 15:30 Vancomycin HCl/ Sodium Chloride (Vancocin/NS) 150 ml @ 75 mls/hr Q12H IVPB Last administered on 01/17/17 12:21; Admin Dose 75 MLS/HR; Start 01/17/17 at 13 :00 Lactulose (Enulose) 30 gm Q6 NGT Last administered on 01/17/17 17:45; Admin Dose 30 GM; Start 01/17/17 at 18:00 MARII DALY MD Jan 17, 2017 18:04
[2017-01-18] VITALS (11 sets, daily range): BP systolic 115–142; BP diastolic 57–79; PULSE 90–103; RESP 16–24
--- NOTE | 2017-01-18 00:14 | RADRPT ---
PROCEDURE: MRI Brain without contrast. CLINICAL INDICATION: Encephalopathy. Slurred speech and altered level of consciousness. TECHNIQUE: MRI of the brain was performed with the following sequences obtained: Sagittal, coronal and axial T1-weighted, axial T2-weighted, axial FLAIR, axial diffusion weighted (with ADC map), and coronal GRE. COMPARISON: CT brain 01/14/2017 FINDINGS: Restricted diffusion with associated hyperintense FLAIR and T2 signal is present within the princess. N o hemorrhage, mass effect or mass lesion is present. The extraaxial spaces are clear of collections . Prominence of the ventricular system and sulci is consistent with generalized cerebral atrophy th ere is advanced for the patient's provided age of 56 years. Equivocal restricted diffusion within t he insular cortex bilaterally is suggested. There is no cerebellar signal alteration, the fourth ventricle is midline. The craniocervical junct ion region is intact. The area of the sella is normal. The bony calvarium and skull base are intact. Fourth signal in the mastoid air cells is present venice aterally. Physiologic flow voids within the internal carotid and vertebral arteries are maintained. RPTAT:HJJR IMPRESSION: 1. Abnormal signal within the princess, midbrain and sub insular cortex bilaterally concerning for hepat ic encephalopathy or Wernicke's encephalopathy superimposed upon advanced atrophy for the patient's age. Findings are discussed by telephone with the patient's nurse, Leticia, at 12:12 am. 2. No evidence of hemorrhage, mass effect or hydrocephalous. 3. Bilateral mastoid air cell fluid. Physician Riley Date Time Electronically viewed and signed by Physician Riley on 01/18/2017 00:14 /
[2017-01-18] MEDS: DESMOPRESSIN 4 MCG INJ IV SCH ×3 (00:24→20:52)
[2017-01-18] MEDS: LACTULOSE 30ML CUP NGT SCH ×4 (00:24→17:44)
[2017-01-18] MEDS: VANCOMYCIN 750 MG in SOD CHLORIDE 0.9% 150 ML IVPB SCH ×2 (00:39→12:24)
[2017-01-18] MEDS: IPRATROPIUM (NEB) 0.5 MG/2.5 ML AMP HHN SCH ×4 (01:24→20:29)
[2017-01-18] MEDS: LEVALBUTEROL (NEB) 0.63 MG/3 ML AMP HHN SCH ×4 (01:24→20:29)
[2017-01-18] MEDS: INSULIN ASPART [NOVOLOG] 3 ML PEN SC SCH ×4 (06:00→17:38)
[2017-01-18] MEDS: LANSOPRAZOLE 30 MG CAP GTB SCH (06:23)
[2017-01-18 08:15] LABS: ADD SCAN DIFF NO
[2017-01-18 08:19] LABS: ABNORMAL IP MESSAGE 1; BASOPHILS % 0.1 % (0.0-2.0); EOSINOPHILS # 0.2 10^3/ul (0.0-0.5); EOSINOPHILS % 3.2 % (0.0-7.0); HEMATOCRIT 30.1 % (42.0-52.0); HEMOGLOBIN 10.1 g/dl (14.0-18.0); LYMPHOCYTES # 1.1 10^3/ul (0.8-2.9); LYMPHOCYTES % 15.7 % (15.0-51.0); MEAN CORPUSCULAR HEMOGLOBIN 32.7 pg (29.0-33.0); MEAN CORPUSCULAR HGB CONC 33.6 g/dl (32.0-37.0); MEAN CORPUSCULAR VOLUME 97.4 fl (82.0-101.0); MONOCYTE # 0.7 10^3/ul (0.3-0.9); MONOCYTES % 10.1 % (0.0-11.0); NEUTROPHIL # 4.8 10^3/ul (1.6-7.5); PLATELET COUNT 73 10^3/UL (140-415); RED BLOOD COUNT 3.09 10^6/ul (4.70-6.10); RED CELL DISTRIBUTION WIDTH 17.6 % (11.5-14.5); WHITE BLOOD COUNT 6.8 10^3/ul (4.8-10.8)
[2017-01-18] MEDS: MEROPENEM 1 GM/100 ML (PMX) 100 ML IVPB SCH ×2 (08:38→20:52)
[2017-01-18] MEDS: RIFAXIMIN 550 MG TAB PO SCH ×2 (08:38→20:52)
[2017-01-18] MEDS: THIAMINE 100 MG TAB NGT SCH (08:39)
[2017-01-18 08:45] LABS: ALBUMIN 2.7 g/dl (3.3-4.9); ALBUMIN/GLOBULIN RATIO 1.03; BILIRUBIN,INDIRECT 2.1 mg/dl (0-1.1); BILIRUBIN,TOTAL 2.1 mg/dl (0.2-1.3); CALCIUM 9.3 mg/dl (8.4-10.2); CREATININE 0.81 mg/dl (0.61-1.24); POTASSIUM 4.3 mmol/L (3.5-5.1); TOTAL PROTEIN 5.3 g/dl (6.1-8.1)
[2017-01-18 08:46] LABS: INR 1.46; PROTIME 17.8 Sec (12.2-14.2); PT RATIO 1.4
[2017-01-18 08:47] LABS: PARTIAL THROMBOPLASTIN TIME 29.7 Sec (25.0-35.0)
[2017-01-18 09:25] LABS: MAGNESIUM 1.8 mg/dl (1.7-2.5); PHOSPHORUS 2.6 mg/dl (2.5-4.9)
--- NOTE | 2017-01-18 12:22 | CONS ---
Date/Time of Note Date/Time of Note DATE: 01/18/17 TIME: 12:20 Assessment/Plan Assessment/Plan Additional Assessment/Plan Assessment recommendations; 1. Patient admitted with bilateral pneumonia. 2. Advanced hepatic encephalopathy. 3. Thrombocytopenia. Continue current treatment. Obtain follow-up chest x-ray. Consultation Date/Type/Reason Admit Date/Time Jan 02, 2017 at 12:58 Type of Consultation: Pulmonary Referring Provider: REGINA GARCIA MD 24 HR Interval Summary Free Text/Dictation Patient condition remains unchanged. Remains unresponsive. Patient however has remained hemodynamically stable. General exam; middle-aged male, morbidly obese, unresponsive. Currently in no distress. Exam/Review of Systems Vital Signs Vitals Vital Signs Date Time Temp Pulse Resp B/P Pulse Ox O2 Delivery O2 Flow Rate FiO2 01/18/17 11:17 98.4 99 18 117/58 94 01/18/17 10:09 Nasal Cannula 2.0 Intake and Output 01/17/17 01/17/17 01/18/17 15:00 23:00 07:00 Intake Total 1710 ml 1630 ml Output Total 700 ml 650 ml Balance 1010 ml 980 ml Exam HEENT exam is; supple neck, no JVD. No lymphadenopathy. Midline trachea. No thyromegaly. Chest examination; clear to auscultation. S1-S2 audible, no murmurs. Regular rhythm. Abdomen examination; soft, protuberant. No organomegaly. Bowel sounds audible. Extremity examination; no peripheral edema. 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 Results Result Diagram: 01/18/17 0648 01/18/17 0800 Results 24 hrs Laboratory Tests Test 01/17/17 14:40 01/17/17 17:39 01/18/17 00:22 01/18/17 06:26 Ammonia < 9 #L Thyroid Stimulating Hormone (TSH) 1.570 Free Thyroxine 1.10 Bedside Glucose 101 83 90 Test 01/18/17 06:48 01/18/17 08:00 01/18/17 11:41 White Blood Count 6.8 Red Blood Count 3.09 L Hemoglobin 10.1 L Hematocrit 30.1 L Mean Corpuscular Volume 97.4 Mean Corpuscular Hemoglobin 32.7 Mean Corpuscular Hemoglobin Concent 33.6 Red Cell Distribution Width 17.6 H Platelet Count 73 L Mean Platelet Volume 13.0 H Neutrophils % 70.0 Lymphocytes % 15.7 Monocytes % 10.1 Eosinophils % 3.2 Basophils % 0.1 Nucleated Red Blood Cells % 0.0 Neutrophils # 4.8 Lymphocytes # 1.1 Monocytes # 0.7 Eosinophils # 0.2 Basophils # 0.0 Nucleated Red Blood Cells # 0.0 Prothrombin Time 17.8 H Prothrombin Time Ratio 1.4 INR International Normalized Ratio 1.46 Activated Partial Thromboplast Time 29.7 Phosphorus Level 2.6 Magnesium Level 1.8 Ammonia 33 H Sodium Level 145 H Potassium Level 4.3 Chloride Level 114 H Carbon Dioxide Level 24 Anion Gap 11 Blood Urea Nitrogen 24 H Creatinine 0.81 Glucose Level 85 Calcium Level 9.3 Total Bilirubin 2.1 H Direct Bilirubin 0.00 Indirect Bilirubin 2.1 H Aspartate Amino Transf (AST/SGOT) 94 H Alanine Aminotransferase (ALT/SGPT) 108 H Alkaline Phosphatase 104 Total Protein 5.3 L Albumin 2.7 L Globulin 2.60 Albumin/Globulin Ratio 1.03 Bedside Glucose 111 Medications Medications Current Medications Miscellaneous Information 1 ea NOTE XX ; Start 01/03/17 at 13:00 Glucose (Glutose) 15 gm Q15M PRN PO DECREASED GLUCOSE; Start 01/03/17 at 13:00 Glucose (Glutose) 22.5 gm Q15M PRN PO DECREASED GLUCOSE; Start 01/03/17 at 13:00 Dextrose (D50w Syringe) 25 ml Q15M PRN IV DECREASED GLUCOSE; Start 01/03/17 at 13:00 Dextrose (D50w Syringe) 50 ml Q15M PRN IV DECREASED GLUCOSE; Start 01/03/17 at 13:00 Glucagon (Glucagen) 1 mg Q15M PRN IM DECREASED GLUCOSE; Start 01/03/17 at 13:00 Glucose (Glutose) 15 gm Q15M PRN BUCCAL DECREASED GLUCOSE; Start 01/03/17 at 13: 00 Rifaximin (Xifaxan) 550 mg BID PO Last administered on 01/18/17 08:38; Admin Dose 550 MG; Start 01/03/17 at 14:30 Morphine Sulfate (morphine) 2 mg Q4H PRN IV PAIN Last administered on 19:12; Admin Dose 2 MG; Start 01/06/17 at 11:30 Acetaminophen (Tylenol Liquid) 650 mg Q6H PRN GTB PAIN AND OR ELEVATED TEMP Last administered on 01/16/17 10:04; Admin Dose 650 MG; Start 01/08/17 at 09:30 IV Flush 10 ml 10 ml PRN PRN IV IV PROTOCOL; Start 01/10/17 at 17:30 Meropenem (Merrem 1 Gm/100 ml (Pmx)) 100 ml @ 200 mls/hr Q12 IVPB Last administered on 01/18/17 08:38; Admin Dose 200 MLS/HR; Start 01/12/17 at 21:00 Lansoprazole (Prevacid) 30 mg DAILY@06 GTB Last administered on 01/18/17 06:23 ; Admin Dose 30 MG; Start 01/13/17 at 06:00 Insulin Aspart (Novolog Insulin Pen) NOVOLOG *MODERATE* ALGORI... Q6 SC ; Start 01/12/17 at 18:00 Desmopressin Acetate (Ddavp) 2 mcg BID IV Last administered on 01/18/17 08:39 ; Admin Dose 2 MCG; Start 01/13/17 at 13:00 Thiamine HCl 100 mg 100 mg DAILY NGT Last administered on 01/18/17 08:39; Admin Dose 100 MG; Start 01/14/17 at 15:30 Vancomycin HCl/ Sodium Chloride (Vancocin/NS) 150 ml @ 75 mls/hr Q12H IVPB Last administered on 01/18/17 00:39; Admin Dose 75 MLS/HR; Start 01/17/17 at 13 :00 Lactulose (Enulose) 30 gm Q6 NGT Last administered on 01/18/17 11:43; Admin Dose 30 GM; Start 01/17/17 at 18:00 Miscellaneous Information (*Rx Drug Level Order Reminder*) 1 ONCE ONCE XX ; Start 01/19/17 at 00:00; Stop 01/19/17 at 00:01 TRENT SAUCEDA Jan 18, 2017 12:22
[2017-01-18] MEDS ORDERED: THIAMINE 200 MG INJ IV SCH (14:00)
--- NOTE | 2017-01-18 14:01 | PN ---
Date/Time of Note Date/Time of Note DATE: 01/18/17 TIME: 13:19 Assessment/Plan VTE Prophylaxis VTE Prophylaxis Intervention: SCD's Lines/Catheters IV Catheter Type (from Nrs): PICC Line Central line still needed: Yes (for IV access) Urinary Cath still in place: Yes (to monitor UOP ) Reason Cath still needed: other (indicate) (to monitor UOP ) Assessment/Plan Assessment/Plan 56-year-old male: 1. Encephalopathy, still ongoing and almost comatose at this point. Known Cirrhosis/ESLD, HepC. CT head unchanged 01/16. MRI brain last night consistent with Hepatic vs Wernicke's encephalopathy. Patient has been on Thiamine po Ammonia level lower so will change Thiamine to high dose IV 500 mg IV q8 x 3 days then 250 mg IV daily x 5 days then 100 mg IV daily Monitor MS. Continue Rifaximin and Lactulose. 2. Acute respiratory failure with Severe Encephalopathy and Acute renal failure and also Shock state. All resolving currently but concerns for recurrent episode as patient again more encephalopathic today. On Meropenem and Vanco added this weekend Blood cx and Urine Cx NGTD. 3. Acute Renal Failure, likely pre renal secondary to dehydration VS ATN with Severe Hyperkalemia. Resolved Dr Brown following from Nephrology S/p emergent HD on admission, now seems hypovolemic with Hypernatremia. NGT placed and increasing Free H2O 400 cc q4 hrs so far. Na down 4. Severe hyperkalemia. Resolved post Emergent HD on admission 5. Metabolic acidosis in setting on of ARF, s/p HD on admission. Resolved with improving renal function. Nephrology following 6. End-stage alcoholic liver disease, with also known Hep C, cirrhosis with Hepatic Encephalopathy and also coagulopathy. Stabilizing but encephalopathy persistent On Rifaximin and Lactulose. Correcting coagulopathy with FFP prn. 7. Hypernatremia, Na down to 145 today, off desmopressin. Continue tube feedings and free H2O. Continue to monitor Nephrology, Dr Brown following 8. Acute on chronic anemia, no acute bleeding seen. s/p 1 units pRBC H/H stable so far. Prophylaxis: on PPI for GI ppx and SCDs for DVT ppx Disposition: Based on MRI findings, treating for possible concomitant Wernicke' s Encephalopathy and Neurology consulted Continue NGT in place. Fair prognosis. Follow up Nephro and Pulmonary recs. F/u Ammonia, Mental status Subjective 24 Hr Interval Summary Free Text/Dictation Patient still severely encephalopathic and MRI with findings of Hepatic vs Wernicke's encephalopathy .. Already on Rifaximin and Lactulose and will change to IV high dose Thiamine and monitor closely. Exam/Review of Systems Vital Signs Vitals Vital Signs Date Time Temp Pulse Resp B/P Pulse Ox O2 Delivery O2 Flow Rate FiO2 01/18/17 13:04 2.0 01/18/17 13:04 99 20 95 Nasal Cannula 01/18/17 11:17 98.4 117/58 Intake and Output 01/17/17 01/17/17 01/18/17 15:00 23:00 07:00 Intake Total 1710 ml 1630 ml Output Total 700 ml 650 ml Balance 1010 ml 980 ml Exam Constitutional: other (unresponsive ) Respiratory: clear to auscultation, normal air movement Cardiovascular: nl pulses, regular rate and rhythm Gastrointestinal: non-tender, soft Musculoskeletal: nl extremities to inspection Extremities: normal pulses, other (no edema, clubbing or cyanosis ) Neurological: unresponsive (mostly, withdraws to pain ) Results Result Diagram: 01/18/17 0648 01/18/17 0800 Results 24 hrs Laboratory Tests Test 01/17/17 14:40 01/17/17 17:39 01/18/17 00:22 01/18/17 06:26 Ammonia < 9 #L Thyroid Stimulating Hormone (TSH) 1.570 Free Thyroxine 1.10 Bedside Glucose 101 83 90 Test 01/18/17 06:48 01/18/17 08:00 01/18/17 11:41 White Blood Count 6.8 Red Blood Count 3.09 L Hemoglobin 10.1 L Hematocrit 30.1 L Mean Corpuscular Volume 97.4 Mean Corpuscular Hemoglobin 32.7 Mean Corpuscular Hemoglobin Concent 33.6 Red Cell Distribution Width 17.6 H Platelet Count 73 L Mean Platelet Volume 13.0 H Neutrophils % 70.0 Lymphocytes % 15.7 Monocytes % 10.1 Eosinophils % 3.2 Basophils % 0.1 Nucleated Red Blood Cells % 0.0 Neutrophils # 4.8 Lymphocytes # 1.1 Monocytes # 0.7 Eosinophils # 0.2 Basophils # 0.0 Nucleated Red Blood Cells # 0.0 Prothrombin Time 17.8 H Prothrombin Time Ratio 1.4 INR International Normalized Ratio 1.46 Activated Partial Thromboplast Time 29.7 Phosphorus Level 2.6 Magnesium Level 1.8 Ammonia 33 H Sodium Level 145 H Potassium Level 4.3 Chloride Level 114 H Carbon Dioxide Level 24 Anion Gap 11 Blood Urea Nitrogen 24 H Creatinine 0.81 Glucose Level 85 Calcium Level 9.3 Total Bilirubin 2.1 H Direct Bilirubin 0.00 Indirect Bilirubin 2.1 H Aspartate Amino Transf (AST/SGOT) 94 H Alanine Aminotransferase (ALT/SGPT) 108 H Alkaline Phosphatase 104 Total Protein 5.3 L Albumin 2.7 L Globulin 2.60 Albumin/Globulin Ratio 1.03 Bedside Glucose 111 Medications Medications Current Medications Miscellaneous Information 1 ea NOTE XX ; Start 01/03/17 at 13:00 Glucose (Glutose) 15 gm Q15M PRN PO DECREASED GLUCOSE; Start 01/03/17 at 13:00 Glucose (Glutose) 22.5 gm Q15M PRN PO DECREASED GLUCOSE; Start 01/03/17 at 13:00 Dextrose (D50w Syringe) 25 ml Q15M PRN IV DECREASED GLUCOSE; Start 01/03/17 at 13:00 Dextrose (D50w Syringe) 50 ml Q15M PRN IV DECREASED GLUCOSE; Start 01/03/17 at 13:00 Glucagon (Glucagen) 1 mg Q15M PRN IM DECREASED GLUCOSE; Start 01/03/17 at 13:00 Glucose (Glutose) 15 gm Q15M PRN BUCCAL DECREASED GLUCOSE; Start 01/03/17 at 13: 00 Rifaximin (Xifaxan) 550 mg BID PO Last administered on 01/18/17 08:38; Admin Dose 550 MG; Start 01/03/17 at 14:30 Morphine Sulfate (morphine) 2 mg Q4H PRN IV PAIN Last administered on 19:12; Admin Dose 2 MG; Start 01/06/17 at 11:30 Acetaminophen (Tylenol Liquid) 650 mg Q6H PRN GTB PAIN AND OR ELEVATED TEMP Last administered on 01/16/17 10:04; Admin Dose 650 MG; Start 01/08/17 at 09:30 IV Flush 10 ml 10 ml PRN PRN IV IV PROTOCOL; Start 01/10/17 at 17:30 Meropenem (Merrem 1 Gm/100 ml (Pmx)) 100 ml @ 200 mls/hr Q12 IVPB Last administered on 01/18/17 08:38; Admin Dose 200 MLS/HR; Start 01/12/17 at 21:00 Lansoprazole (Prevacid) 30 mg DAILY@06 GTB Last administered on 01/18/17 06:23 ; Admin Dose 30 MG; Start 01/13/17 at 06:00 Insulin Aspart (Novolog Insulin Pen) NOVOLOG *MODERATE* ALGORI... Q6 SC ; Start 01/12/17 at 18:00 Desmopressin Acetate (Ddavp) 2 mcg BID IV Last administered on 01/18/17 08:39 ; Admin Dose 2 MCG; Start 01/13/17 at 13:00 Thiamine HCl 100 mg 100 mg DAILY NGT Last administered on 01/18/17 08:39; Admin Dose 100 MG; Start 01/14/17 at 15:30 Vancomycin HCl/ Sodium Chloride (Vancocin/NS) 150 ml @ 75 mls/hr Q12H IVPB Last administered on 01/18/17 12:24; Admin Dose 75 MLS/HR; Start 01/17/17 at 13 :00 Lactulose (Enulose) 30 gm Q6 NGT Last administered on 01/18/17 11:43; Admin Dose 30 GM; Start 01/17/17 at 18:00 Miscellaneous Information (*Rx Drug Level Order Reminder*) 1 ONCE ONCE XX ; Start 01/19/17 at 00:00; Stop 01/19/17 at 00:01 Procedures Procedures PROCEDURE: MRI Brain without contrast. CLINICAL INDICATION: Encephalopathy. Slurred speech and altered level of consciousness. TECHNIQUE: MRI of the brain was performed with the following sequences obtained : Sagittal, coronal and axial T1-weighted, axial T2-weighted, axial FLAIR, axial diffusion weighted (with ADC map), and coronal GRE. COMPARISON: CT brain 01/14/2017 FINDINGS: Restricted diffusion with associated hyperintense FLAIR and T2 signal is present within the princess. No hemorrhage, mass effect or mass lesion is present. The extraaxial spaces are clear of collections. Prominence of the ventricular system and sulci is consistent with generalized cerebral atrophy there is advanced for the patient's provided age of 56 years. Equivocal restricted diffusion within the insular cortex bilaterally is suggested. There is no cerebellar signal alteration, the fourth ventricle is midline. The craniocervical junction region is intact. The area of the sella is normal. The bony calvarium and skull base are intact. Fourth signal in the mastoid air cells is present bilaterally. Physiologic flow voids within the internal carotid and vertebral arteries are maintained. RPTAT:HJJR IMPRESSION: 1. Abnormal signal within the princess, midbrain and sub insular cortex bilaterally concerning for hepatic encephalopathy or Wernicke's encephalopathy superimposed upon advanced atrophy for the patient's age. Findings are discussed by telephone with the patient's nurse, Leticia, at 12:12 am. 2. No evidence of hemorrhage, mass effect or hydrocephalous. 3. Bilateral mastoid air cell fluid. Physician Riley Date Time Electronically viewed and signed by Physician Riley on 01/18/2017 00:14 SRIKANTH GALVAN Jan 18, 2017 13:29
[2017-01-18] MEDS: SOD CHLORIDE 0.9% IV SCH ×2 (16:02→22:02)
[2017-01-18] MEDS: THIAMINE IV SCH ×2 (16:02→22:02)
--- NOTE | 2017-01-18 18:44 | RADRPT ---
PROCEDURE: XR, Chest. CLINICAL INDICATION: Dyspnea. TECHNIQUE: AP chest COMPARISON: None available. FINDINGS: There is total opacification of the right chest due to combination of collapse of the right lower lo be and right pleural effusion. The left lung is clear. The heart is somewhat enlarged. The right PICC line and NG tube remain in good position. IMPRESSION: 1. Total opacification of the right chest due to combination of collapse of the right lower lobe an d right pleural effusion. Recommend noncontrast CT chest for further evaluation. 2. Mild cardiomegaly. RPTAT: GG .Allan Bailey MD, MD Date Time Electronically viewed and signed by .Allan Bailey MD, on 01/18/2017 18:44 .Y/
--- NOTE | 2017-01-18 21:30 | CONS ---
Date/Time of Note Date/Time of Note DATE: 01/18/17 TIME: 21:24 Assessment/Plan Assessment/Plan Additional Assessment/Plan 1. Acute hyperkalemia with a potassium of 7.6 on admission, s/p One session of Emergent HD 01/03/17- now improved 2. Severe metabolic acidosis s/p Bicarbonate drip, now stable 3. Acute kidney injury with a BUN of 127, creatinine of 8.9 on admission, likely secondary to acute tubular necrosis. 4. Acute respiratory failure secondary to possibly acute fluid overload and possibly pneumonia.intubated on ventilator s/p Extubation 5. History of liver cirrhosis from hepatitis C. 6. acute encephalopathy possibly hepatic encephalopathy from liver cirrhosis 7. 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 Hyponatremia > hypernatremia - has been desmopressin x 2 days so far- Na 145 today PLAN: S/p Emergent HD x 1 due to hyperkalemia, severe metabolic acidosis and resp failure- now Improved renal function, temporary misael has been removed Renal US negative for hydronephrosis, echogenicity c/w CKD , good urine output Na improving to 15 , on desmopression 2mcg iV BID, - plan is to d/c desmopressin it tomorrow IV abx as per primary care team will follow u Consultation Date/Type/Reason Admit Date/Time Jan 02, 2017 at 12:58 Initial Consult Date Dec Type of Consultation: NEPHROLOGY Referring Provider: REGINA GARCIA MD Exam/Review of Systems Vital Signs Vitals Vital Signs Date Time Temp Pulse Resp B/P Pulse Ox O2 Delivery O2 Flow Rate FiO2 01/18/17 20:30 2.0 01/18/17 20:30 90 22 94 Nasal Cannula 01/18/17 20:15 98.5 122/58 Intake and Output 01/17/17 01/17/17 01/18/17 15:00 23:00 07:00 Intake Total 1710 ml 1630 ml Output Total 700 ml 650 ml Balance 1010 ml 980 ml Results Result Diagram: 01/18/17 0648 01/18/17 0800 Results 24 hrs Laboratory Tests Test 01/18/17 00:22 01/18/17 06:26 01/18/17 06:48 01/18/17 08:00 Bedside Glucose 83 90 White Blood Count 6.8 Red Blood Count 3.09 L Hemoglobin 10.1 L Hematocrit 30.1 L Mean Corpuscular Volume 97.4 Mean Corpuscular Hemoglobin 32.7 Mean Corpuscular Hemoglobin Concent 33.6 Red Cell Distribution Width 17.6 H Platelet Count 73 L Mean Platelet Volume 13.0 H Neutrophils % 70.0 Lymphocytes % 15.7 Monocytes % 10.1 Eosinophils % 3.2 Basophils % 0.1 Nucleated Red Blood Cells % 0.0 Neutrophils # 4.8 Lymphocytes # 1.1 Monocytes # 0.7 Eosinophils # 0.2 Basophils # 0.0 Nucleated Red Blood Cells # 0.0 Prothrombin Time 17.8 H Prothrombin Time Ratio 1.4 INR International Normalized Ratio 1.46 Activated Partial Thromboplast Time 29.7 Phosphorus Level 2.6 Magnesium Level 1.8 Ammonia 33 H Sodium Level 145 H Potassium Level 4.3 Chloride Level 114 H Carbon Dioxide Level 24 Anion Gap 11 Blood Urea Nitrogen 24 H Creatinine 0.81 Glucose Level 85 Calcium Level 9.3 Total Bilirubin 2.1 H Direct Bilirubin 0.00 Indirect Bilirubin 2.1 H Aspartate Amino Transf (AST/SGOT) 94 H Alanine Aminotransferase (ALT/SGPT) 108 H Alkaline Phosphatase 104 Total Protein 5.3 L Albumin 2.7 L Globulin 2.60 Albumin/Globulin Ratio 1.03 Test 01/18/17 11:41 01/18/17 17:37 Bedside Glucose 111 105 Medications Medications Current Medications Miscellaneous Information 1 ea NOTE XX ; Start 01/03/17 at 13:00 Glucose (Glutose) 15 gm Q15M PRN PO DECREASED GLUCOSE; Start 01/03/17 at 13:00 Glucose (Glutose) 22.5 gm Q15M PRN PO DECREASED GLUCOSE; Start 01/03/17 at 13:00 Dextrose (D50w Syringe) 25 ml Q15M PRN IV DECREASED GLUCOSE; Start 01/03/17 at 13:00 Dextrose (D50w Syringe) 50 ml Q15M PRN IV DECREASED GLUCOSE; Start 01/03/17 at 13:00 Glucagon (Glucagen) 1 mg Q15M PRN IM DECREASED GLUCOSE; Start 01/03/17 at 13:00 Glucose (Glutose) 15 gm Q15M PRN BUCCAL DECREASED GLUCOSE; Start 01/03/17 at 13: 00 Rifaximin (Xifaxan) 550 mg BID PO Last administered on 01/18/17 20:52; Admin Dose 550 MG; Start 01/03/17 at 14:30 Morphine Sulfate (morphine) 2 mg Q4H PRN IV PAIN Last administered on 19:12; Admin Dose 2 MG; Start 01/06/17 at 11:30 Acetaminophen (Tylenol Liquid) 650 mg Q6H PRN GTB PAIN AND OR ELEVATED TEMP Last administered on 01/16/17 10:04; Admin Dose 650 MG; Start 01/08/17 at 09:30 IV Flush 10 ml 10 ml PRN PRN IV IV PROTOCOL; Start 01/10/17 at 17:30 Meropenem (Merrem 1 Gm/100 ml (Pmx)) 100 ml @ 200 mls/hr Q12 IVPB Last administered on 01/18/17 20:52; Admin Dose 200 MLS/HR; Start 01/12/17 at 21:00 Lansoprazole (Prevacid) 30 mg DAILY@06 GTB Last administered on 01/18/17 06:23 ; Admin Dose 30 MG; Start 01/13/17 at 06:00 Insulin Aspart (Novolog Insulin Pen) NOVOLOG *MODERATE* ALGORI... Q6 SC ; Start 01/12/17 at 18:00 Desmopressin Acetate 2 mcg 2 mcg BID IV Last administered on 01/18/17 20:52; Admin Dose 2 MCG; Start 01/13/17 at 13:00 Vancomycin HCl/ Sodium Chloride (Vancocin/NS) 150 ml @ 75 mls/hr Q12H IVPB Last administered on 01/18/17 12:24; Admin Dose 75 MLS/HR; Start 01/17/17 at 13 :00 Lactulose (Enulose) 30 gm Q6 NGT Last administered on 01/18/17 17:44; Admin Dose 30 GM; Start 01/17/17 at 18:00 Miscellaneous Information 1 ONCE ONCE XX ; Start 01/19/17 at 00:00; Stop at 00:01 Thiamine HCl 500 mg/Sodium Chloride 250 ml @ 250 mls/hr Q8H IV Last administered on 01/18/17 16:02; Admin Dose 250 MLS/HR; Start 01/18/17 at 14:00 ; Stop 01/21/17 at 13:59 Thiamine HCl 250 mg/Sodium Chloride 100 ml @ 100 mls/hr Q24H IV ; Start at 14:00; Stop 01/26/17 at 14:59 Thiamine HCl/ Sodium Chloride (Vitamin B1/NS) 50 ml @ 100 mls/hr Q24H IV ; Start 01/27/17 at 14:00 MARII DALY MD Jan 18, 2017 21:30
[2017-01-19] VITALS (13 sets, daily range): BP systolic 109–136; BP diastolic 51–69; PULSE 102–108; RESP 18–22
[2017-01-19] MEDS: LACTULOSE 30ML CUP NGT SCH ×5 (00:04→23:47)
[2017-01-19] MEDS: LEVALBUTEROL (NEB) 0.63 MG/3 ML AMP HHN SCH ×4 (01:37→20:49)
[2017-01-19] MEDS: IPRATROPIUM (NEB) 0.5 MG/2.5 ML AMP HHN SCH ×4 (01:37→20:49)
[2017-01-19] MEDS: VANCOMYCIN 750 MG in SOD CHLORIDE 0.9% 150 ML IVPB SCH ×2 (02:06→12:25)
[2017-01-19] MEDS: LANSOPRAZOLE 30 MG CAP GTB SCH (05:33)
[2017-01-19] MEDS: THIAMINE IV SCH ×3 (05:33→22:15)
[2017-01-19] MEDS: SOD CHLORIDE 0.9% IV SCH ×3 (05:33→22:15)
[2017-01-19] MEDS: INSULIN ASPART [NOVOLOG] 3 ML PEN SC SCH ×4 (06:00→17:50)
[2017-01-19 07:42] LABS: ADD SCAN DIFF NO
[2017-01-19 07:51] LABS: ABNORMAL IP MESSAGE 1; BASOPHILS % 0.1 % (0.0-2.0); EOSINOPHILS # 0.1 10^3/ul (0.0-0.5); EOSINOPHILS % 1.3 % (0.0-7.0); HEMATOCRIT 32.8 % (42.0-52.0); HEMOGLOBIN 10.9 g/dl (14.0-18.0); LYMPHOCYTES # 0.6 10^3/ul (0.8-2.9); LYMPHOCYTES % 7.5 % (15.0-51.0); MEAN CORPUSCULAR HGB CONC 33.2 g/dl (32.0-37.0); MEAN CORPUSCULAR VOLUME 96.2 fl (82.0-101.0); MEAN PLATELET VOLUME 12.9 fl (7.4-10.4); MONOCYTE # 0.8 10^3/ul (0.3-0.9); MONOCYTES % 10.3 % (0.0-11.0); NEUTROPHIL # 5.9 10^3/ul (1.6-7.5); PLATELET COUNT 83 10^3/UL (140-415); RED BLOOD COUNT 3.41 10^6/ul (4.70-6.10); RED CELL DISTRIBUTION WIDTH 18.1 % (11.5-14.5); WHITE BLOOD COUNT 7.4 10^3/ul (4.8-10.8)
[2017-01-19 08:06] LABS: INR 1.42; PARTIAL THROMBOPLASTIN TIME 30.1 Sec (25.0-35.0); PROTIME 17.4 Sec (12.2-14.2); PT RATIO 1.4
[2017-01-19] MEDS: MEROPENEM 1 GM/100 ML (PMX) 100 ML IVPB SCH ×2 (08:09→21:02)
[2017-01-19] MEDS: RIFAXIMIN 550 MG TAB PO SCH ×2 (08:10→21:01)
[2017-01-19 08:11] LABS: MAGNESIUM 1.9 mg/dl (1.7-2.5); PHOSPHORUS 2.6 mg/dl (2.5-4.9)
[2017-01-19 08:12] LABS: ALBUMIN 2.9 g/dl (3.3-4.9); ALBUMIN/GLOBULIN RATIO 1.03; BILIRUBIN,INDIRECT 2.4 mg/dl (0-1.1); BILIRUBIN,TOTAL 2.4 mg/dl (0.2-1.3); CALCIUM 9.2 mg/dl (8.4-10.2); CREATININE 0.84 mg/dl (0.61-1.24); POTASSIUM 4.6 mmol/L (3.5-5.1); TOTAL PROTEIN 5.7 g/dl (6.1-8.1)
[2017-01-19] MEDS: DESMOPRESSIN 4 MCG INJ IV SCH (10:22)
--- NOTE | 2017-01-19 12:00 | CONS ---
Date/Time of Note Date/Time of Note DATE: 01/19/17 TIME: 11:44 Assessment/Plan Assessment/Plan Chief Complaint/Hosp Course 56 year old male w hepatitis C, chronic alcohol abuse admitted with AMS, severe metabolic issues, respiratory failure requiring emergent dialysis with persistent encephalopathy. MRI Brain with bilateral pontine restricted diffusion, bilateral restricted diffusion sub-insular cortex more prominent on right than the left. FLAIR signal in bilateral princess. 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 due to presentation of severe metabolic issues and during admission has had periods of severe hyponatremia and severe hypernatremia along with underlying Wernicke's encephalopathy cerebral pontine myelinosis generally is associated with a poor prognosis, i have contacted radiology to review the MRI as well continue current medical management and goals of care discussion with family Problems: Consultation Date/Type/Reason Admit Date/Time Jan 02, 2017 at 12:58 Date of Consultation: Jan 19, 2017 Type of Consultation: Neurology Reason for Consultation evaluation for encephalopathy abnormal MRI suggestive of Wernicke's Referring Provider: SRIKANTH GALVAN Hx of Present Illness 56 year old male with a prolonged history of alcohol abuse, hepatitis C brought in by on 01/02 with AMS, respiratory distress and elevated ammonia with severe hyperkalemia requiring emergent dialysis with prolonged hospital course being managed by multiple consultants. He is being managed on Rifaximin, lactulose, was on oral thiamine recently switched to IV Thiamine, on meropenem and vancomycin, with ARF post emergent dialysis on admission with improving renal function. MRI Brain was pursued showed abnormal signal in princess, migraine, subinsular cortex bilaterally concerning for hepatic encephalopathy Wernicke's encephalopathy with advanced atrophy for age. Subjective hx not possible: pt non-verbal, pt critical Constitutional: requiring IVF, requiring O2 Psychological: nl mood/affect Past Surgical History Past Surgical Hx: cholecystectomy, other Social History Smoking Status: Former smoker Exam/Review of Systems Vital Signs Vitals Vital Signs Date Time Temp Pulse Resp B/P Pulse Ox O2 Delivery O2 Flow Rate FiO2 01/19/17 11:32 99.0 102 18 130/64 95 01/19/17 10:30 Nasal Cannula 2.0 Intake and Output 01/18/17 01/18/17 01/19/17 15:00 23:00 07:00 Intake Total 1955 ml 1680 ml Output Total 800 ml 650 ml Balance 1155 ml 1030 ml Exam unarousable off sedation with NGT unable to arouse to verbal stimuli or sternal rub CN: eyes forced open with disconjugate gaze, able to Doll's, left facial NLF flattening jaundiced appearance Motor: withdraws more on right arm and leg posturing type movement, upgoing toes when noxious stimuli applied Reflexes depressed throughout Results Result Diagram: 01/19/17 0601/19/17 0605 Results 24 hrs Laboratory Tests Test 01/18/17 17:37 01/18/17 23:47 01/19/17 00:30 01/19/17 06:05 Bedside Glucose 105 103 Vancomycin Level Trough 10.7 White Blood Count 7.4 Red Blood Count 3.41 L Hemoglobin 10.9 L Hematocrit 32.8 L Mean Corpuscular Volume 96.2 Mean Corpuscular Hemoglobin 32.0 Mean Corpuscular Hemoglobin Concent 33.2 Red Cell Distribution Width 18.1 H Platelet Count 83 L Mean Platelet Volume 12.9 H Neutrophils % 80.0 H Lymphocytes % 7.5 L Monocytes % 10.3 Eosinophils % 1.3 Basophils % 0.1 Nucleated Red Blood Cells % 0.0 Neutrophils # 5.9 Lymphocytes # 0.6 L Monocytes # 0.8 Eosinophils # 0.1 Basophils # 0.0 Nucleated Red Blood Cells # 0.0 Prothrombin Time 17.4 H Prothrombin Time Ratio 1.4 INR International Normalized Ratio 1.42 Activated Partial Thromboplast Time 30.1 Sodium Level 139 Potassium Level 4.6 Chloride Level 109 Carbon Dioxide Level 24 Anion Gap 11 Blood Urea Nitrogen 26 H Creatinine 0.84 Glucose Level 104 Calcium Level 9.2 Phosphorus Level 2.6 Magnesium Level 1.9 Total Bilirubin 2.4 H Direct Bilirubin 0.00 Indirect Bilirubin 2.4 H Aspartate Amino Transf (AST/SGOT) 108 H Alanine Aminotransferase (ALT/SGPT) 115 H Alkaline Phosphatase 117 Ammonia 32 H Total Protein 5.7 L Albumin 2.9 L Globulin 2.80 Albumin/Globulin Ratio 1.03 Test 01/19/17 07:04 Bedside Glucose 114 Medications Medications Current Medications Miscellaneous Information 1 ea NOTE XX ; Start 01/03/17 at 13:00 Glucose (Glutose) 15 gm Q15M PRN PO DECREASED GLUCOSE; Start 01/03/17 at 13:00 Glucose (Glutose) 22.5 gm Q15M PRN PO DECREASED GLUCOSE; Start 01/03/17 at 13:00 Dextrose (D50w Syringe) 25 ml Q15M PRN IV DECREASED GLUCOSE; Start 01/03/17 at 13:00 Dextrose (D50w Syringe) 50 ml Q15M PRN IV DECREASED GLUCOSE; Start 01/03/17 at 13:00 Glucagon (Glucagen) 1 mg Q15M PRN IM DECREASED GLUCOSE; Start 01/03/17 at 13:00 Glucose (Glutose) 15 gm Q15M PRN BUCCAL DECREASED GLUCOSE; Start 01/03/17 at 13: 00 Rifaximin (Xifaxan) 550 mg BID PO Last administered on 01/19/17 08:10; Admin Dose 550 MG; Start 01/03/17 at 14:30 Morphine Sulfate (morphine) 2 mg Q4H PRN IV PAIN Last administered on 19:12; Admin Dose 2 MG; Start 01/06/17 at 11:30 Acetaminophen (Tylenol Liquid) 650 mg Q6H PRN GTB PAIN AND OR ELEVATED TEMP Last administered on 01/16/17 10:04; Admin Dose 650 MG; Start 01/08/17 at 09:30 IV Flush 10 ml 10 ml PRN PRN IV IV PROTOCOL; Start 01/10/17 at 17:30 Meropenem (Merrem 1 Gm/100 ml (Pmx)) 100 ml @ 200 mls/hr Q12 IVPB Last administered on 01/19/17 08:09; Admin Dose 200 MLS/HR; Start 01/12/17 at 21:00 Lansoprazole (Prevacid) 30 mg DAILY@06 GTB Last administered on 01/19/17 05:33 ; Admin Dose 30 MG; Start 01/13/17 at 06:00 Insulin Aspart (Novolog Insulin Pen) NOVOLOG *MODERATE* ALGORI... Q6 SC ; Start 01/12/17 at 18:00 Desmopressin Acetate 2 mcg 2 mcg BID IV Last administered on 01/19/17 10:22; Admin Dose 2 MCG; Start 01/13/17 at 13:00 Vancomycin HCl/ Sodium Chloride (Vancocin/NS) 150 ml @ 75 mls/hr Q12H IVPB Last administered on 01/19/17 02:06; Admin Dose 75 MLS/HR; Start 01/17/17 at 13 :00 Lactulose 30 gm 30 gm Q6 NGT Last administered on 01/19/17 05:33; Admin Dose 30 GM; Start 01/17/17 at 18:00 Thiamine HCl 500 mg/Sodium Chloride 250 ml @ 250 mls/hr Q8H IV Last administered on 01/19/17 05:33; Admin Dose 250 MLS/HR; Start 01/18/17 at 14:00 ; Stop 01/21/17 at 13:59 Thiamine HCl 250 mg/Sodium Chloride 100 ml @ 100 mls/hr Q24H IV ; Start at 14:00; Stop 01/26/17 at 14:59 Thiamine HCl/ Sodium Chloride (Vitamin B1/NS) 50 ml @ 100 mls/hr Q24H IV ; Start 01/27/17 at 14:00 DENIZ LEBRON MD Jan 19, 2017 11:54
--- NOTE | 2017-01-19 13:54 | CONS ---
Date/Time of Note Date/Time of Note DATE: 01/19/17 TIME: 13:51 Assessment/Plan Assessment/Plan Additional Assessment/Plan Chest x-ray was reviewed from yesterday afternoon which is showing almost complete opacification of the right lung from developing atelectasis/pleural effusion. Assessment recommendations; 1. 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 2. History of alcoholism. 3. Thrombocytopenia. Continue current treatment. The primary care team will have a discussion with the patient's family regarding CODE STATUS. Prognosis appears extremely poor. Consultation Date/Type/Reason Admit Date/Time Jan 02, 2017 at 12:58 Type of Consultation: Pulmonary Referring Provider: SRIKANTH GALVAN 24 HR Interval Summary Free Text/Dictation Patient condition remains tenuous at best. Remains completely unresponsive. Patient however has remained hemodynamically stable. General exam; middle-aged male, morbidly obese, unresponsive. Exam/Review of Systems Vital Signs Vitals Vital Signs Date Time Temp Pulse Resp B/P Pulse Ox O2 Delivery O2 Flow Rate FiO2 01/19/17 13:46 88 24 96 Nasal Cannula 2.0 01/19/17 11:32 99.0 130/64 Intake and Output 01/18/17 01/18/17 01/19/17 15:00 23:00 07:00 Intake Total 1955 ml 1680 ml Output Total 800 ml 650 ml Balance 1155 ml 1030 ml Exam HEENT exam is; supple neck, no JVD. No lymphadenopathy. Midline trachea. No thyromegaly. Chest examined; diminished breath sounds throughout. S1-S2 audible, no murmurs. Regular rhythm. Abdomen examination; grossly protuberant. Bowel sounds audible. Extremity exam; trace generalized edema. Pulses 1+ bilaterally. [employer] examination; patient remains unresponsive. Results Result Diagram: 01/19/17 0605 01/19/17 0605 Results 24 hrs Laboratory Tests Test 01/18/17 17:37 01/18/17 23:47 01/19/17 00:30 01/19/17 06:05 Bedside Glucose 105 103 Vancomycin Level Trough 10.7 White Blood Count 7.4 Red Blood Count 3.41 L Hemoglobin 10.9 L Hematocrit 32.8 L Mean Corpuscular Volume 96.2 Mean Corpuscular Hemoglobin 32.0 Mean Corpuscular Hemoglobin Concent 33.2 Red Cell Distribution Width 18.1 H Platelet Count 83 L Mean Platelet Volume 12.9 H Neutrophils % 80.0 H Lymphocytes % 7.5 L Monocytes % 10.3 Eosinophils % 1.3 Basophils % 0.1 Nucleated Red Blood Cells % 0.0 Neutrophils # 5.9 Lymphocytes # 0.6 L Monocytes # 0.8 Eosinophils # 0.1 Basophils # 0.0 Nucleated Red Blood Cells # 0.0 Prothrombin Time 17.4 H Prothrombin Time Ratio 1.4 INR International Normalized Ratio 1.42 Activated Partial Thromboplast Time 30.1 Sodium Level 139 Potassium Level 4.6 Chloride Level 109 Carbon Dioxide Level 24 Anion Gap 11 Blood Urea Nitrogen 26 H Creatinine 0.84 Glucose Level 104 Calcium Level 9.2 Phosphorus Level 2.6 Magnesium Level 1.9 Total Bilirubin 2.4 H Direct Bilirubin 0.00 Indirect Bilirubin 2.4 H Aspartate Amino Transf (AST/SGOT) 108 H Alanine Aminotransferase (ALT/SGPT) 115 H Alkaline Phosphatase 117 Ammonia 32 H Total Protein 5.7 L Albumin 2.9 L Globulin 2.80 Albumin/Globulin Ratio 1.03 Test 01/19/17 07:04 01/19/17 12:23 Bedside Glucose 114 115 Medications Medications Current Medications Miscellaneous Information 1 ea NOTE XX ; Start 01/03/17 at 13:00 Glucose (Glutose) 15 gm Q15M PRN PO DECREASED GLUCOSE; Start 01/03/17 at 13:00 Glucose (Glutose) 22.5 gm Q15M PRN PO DECREASED GLUCOSE; Start 01/03/17 at 13:00 Dextrose (D50w Syringe) 25 ml Q15M PRN IV DECREASED GLUCOSE; Start 01/03/17 at 13:00 Dextrose (D50w Syringe) 50 ml Q15M PRN IV DECREASED GLUCOSE; Start 01/03/17 at 13:00 Glucagon (Glucagen) 1 mg Q15M PRN IM DECREASED GLUCOSE; Start 01/03/17 at 13:00 Glucose (Glutose) 15 gm Q15M PRN BUCCAL DECREASED GLUCOSE; Start 01/03/17 at 13: 00 Rifaximin (Xifaxan) 550 mg BID PO Last administered on 01/19/17 08:10; Admin Dose 550 MG; Start 01/03/17 at 14:30 Morphine Sulfate (morphine) 2 mg Q4H PRN IV PAIN Last administered on 19:12; Admin Dose 2 MG; Start 01/06/17 at 11:30 Acetaminophen (Tylenol Liquid) 650 mg Q6H PRN GTB PAIN AND OR ELEVATED TEMP Last administered on 01/16/17 10:04; Admin Dose 650 MG; Start 01/08/17 at 09:30 IV Flush 10 ml 10 ml PRN PRN IV IV PROTOCOL; Start 01/10/17 at 17:30 Meropenem (Merrem 1 Gm/100 ml (Pmx)) 100 ml @ 200 mls/hr Q12 IVPB Last administered on 01/19/17 08:09; Admin Dose 200 MLS/HR; Start 01/12/17 at 21:00 Lansoprazole (Prevacid) 30 mg DAILY@06 GTB Last administered on 01/19/17 05:33 ; Admin Dose 30 MG; Start 01/13/17 at 06:00 Insulin Aspart (Novolog Insulin Pen) NOVOLOG *MODERATE* ALGORI... Q6 SC ; Start 01/12/17 at 18:00 Desmopressin Acetate 2 mcg 2 mcg BID IV Last administered on 01/19/17 10:22; Admin Dose 2 MCG; Start 01/13/17 at 13:00 Vancomycin HCl/ Sodium Chloride (Vancocin/NS) 150 ml @ 75 mls/hr Q12H IVPB Last administered on 01/19/17 12:25; Admin Dose 75 MLS/HR; Start 01/17/17 at 13 :00 Lactulose 30 gm 30 gm Q6 NGT Last administered on 01/19/17 12:25; Admin Dose 30 GM; Start 01/17/17 at 18:00 Thiamine HCl 500 mg/Sodium Chloride 250 ml @ 250 mls/hr Q8H IV Last administered on 01/19/17 05:33; Admin Dose 250 MLS/HR; Start 01/18/17 at 14:00 ; Stop 01/21/17 at 13:59 Thiamine HCl 250 mg/Sodium Chloride 100 ml @ 100 mls/hr Q24H IV ; Start at 14:00; Stop 01/26/17 at 14:59 Thiamine HCl/ Sodium Chloride (Vitamin B1/NS) 50 ml @ 100 mls/hr Q24H IV ; Start 01/27/17 at 14:00 TRENT SAUCEDA 21, 2017 13:53
--- NOTE | 2017-01-19 13:56 | PN ---
Date/Time of Note Date/Time of Note DATE: 01/19/17 TIME: 13:17 Assessment/Plan VTE Prophylaxis VTE Prophylaxis Intervention: SCD's Lines/Catheters IV Catheter Type (from Nrsg): PICC Line Central line still needed: Yes (for IV access ) Urinary Cath still in place: Yes Reason Cath still needed: other (indicate) (to monitor UOP ) Assessment/Plan Assessment/Plan 56-year-old male: 1. Encephalopathy, still ongoing and comatose at this point. Known Cirrhosis/ ESLD, HepC. CT head unchanged 01/16. MRI brain consistent with Hepatic vs Wernicke's encephalopathy and also per Neurology seems to be consistent with cerebral pontine myelinosis which would be a poor/dismal prognosis Ammonia level lower Continuing Thiamine IV for now but patient already with poor airways protection Continuing Rifaximin and Lactulose. Ximena updated and on her way for discussion about comfort measures and hospice. Dr Eric consulted 2. Acute respiratory failure with Severe Encephalopathy and Acute renal failure and also Shock state. Patient with recurrent severe Encephalopathy despite correction of electrolytes. 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 On Meropenem and Vanco added this weekend Plan for meeting with today for comfort measures. 3. Acute Renal Failure, likely pre renal secondary to dehydration VS ATN with Severe Hyperkalemia. Resolved s/p emergent HD on admission, S/p episode Hypernatremi, resolving currently. Dr Brown following from Nephrology NGT placed and increasing Free H2O 400 cc q4 hrs so far. 4. Severe hyperkalemia. Resolved post Emergent HD on admission 5. Metabolic acidosis in setting on of ARF, s/p HD on admission. Resolved with improving renal function. Nephrology following 6. End-stage alcoholic liver disease, with also known Hep C, cirrhosis with Hepatic Encephalopathy and also coagulopathy. Stabilizing but encephalopathy persistent and with now additional findings on MRI, dismal prognosis On Rifaximin and Lactulose. 7. Hypernatremia, Na down to 139 today, d/c desmopressin. Continue tube feedings and free H2O until family meeting today. Nephrology, Dr Brown following 8. Acute on chronic anemia, no acute bleeding seen. s/p 1 units pRBC H/H stable so far. Prophylaxis: on PPI for GI ppx and SCDs for DVT ppx Disposition: Based on MRI findings, treating for possible concomitant Wernicke' s Encephalopathy but now with likely CPM too, prognosis is dismal, appreciate Neurology eval and recommendations, EEG ordered and Palliative care Dr Eric consulted. Subjective 24 Hr Interval Summary Free Text/Dictation Patient comatose at this time and with respiratory compromise likely impending respiratory failure MRI with likelihood of CPM too, prognosis dismal Awaiting for palliative care, comfort care Exam/Review of Systems Vital Signs Vitals Vital Signs Date Time Temp Pulse Resp B/P Pulse Ox O2 Delivery O2 Flow Rate FiO2 01/19/17 12:31 103 01/19/17 11:32 99.0 18 130/64 95 01/19/17 10:30 Nasal Cannula 2.0 Intake and Output 01/18/17 01/18/17 01/19/17 15:00 23:00 07:00 Intake Total 1955 ml 1680 ml Output Total 800 ml 650 ml Balance 1155 ml 1030 ml Exam Constitutional: other (comatose ) Respiratory: diminished breath sounds (R>>L ), other (shallow breathing ) Cardiovascular: nl pulses, regular rate and rhythm Gastrointestinal: non-tender, soft Musculoskeletal: nl extremities to inspection Extremities: normal pulses Neurological: other (comatose ), unresponsive Results Result Diagram: 01/19/17 0605 01/19/17 0605 Results 24 hrs Laboratory Tests Test 01/18/17 17:37 01/18/17 23:47 01/19/17 00:30 01/19/17 06:05 Bedside Glucose 105 103 Vancomycin Level Trough 10.7 White Blood Count 7.4 Red Blood Count 3.41 L Hemoglobin 10.9 L Hematocrit 32.8 L Mean Corpuscular Volume 96.2 Mean Corpuscular Hemoglobin 32.0 Mean Corpuscular Hemoglobin Concent 33.2 Red Cell Distribution Width 18.1 H Platelet Count 83 L Mean Platelet Volume 12.9 H Neutrophils % 80.0 H Lymphocytes % 7.5 L Monocytes % 10.3 Eosinophils % 1.3 Basophils % 0.1 Nucleated Red Blood Cells % 0.0 Neutrophils # 5.9 Lymphocytes # 0.6 L Monocytes # 0.8 Eosinophils # 0.1 Basophils # 0.0 Nucleated Red Blood Cells # 0.0 Prothrombin Time 17.4 H Prothrombin Time Ratio 1.4 INR International Normalized Ratio 1.42 Activated Partial Thromboplast Time 30.1 Sodium Level 139 Potassium Level 4.6 Chloride Level 109 Carbon Dioxide Level 24 Anion Gap 11 Blood Urea Nitrogen 26 H Creatinine 0.84 Glucose Level 104 Calcium Level 9.2 Phosphorus Level 2.6 Magnesium Level 1.9 Total Bilirubin 2.4 H Direct Bilirubin 0.00 Indirect Bilirubin 2.4 H Aspartate Amino Transf (AST/SGOT) 108 H Alanine Aminotransferase (ALT/SGPT) 115 H Alkaline Phosphatase 117 Ammonia 32 H Total Protein 5.7 L Albumin 2.9 L Globulin 2.80 Albumin/Globulin Ratio 1.03 Test 01/19/17 07:04 01/19/17 12:23 Bedside Glucose 114 115 Medications Medications Current Medications Miscellaneous Information 1 ea NOTE XX ; Start 01/03/17 at 13:00 Glucose (Glutose) 15 gm Q15M PRN PO DECREASED GLUCOSE; Start 01/03/17 at 13:00 Glucose (Glutose) 22.5 gm Q15M PRN PO DECREASED GLUCOSE; Start 01/03/17 at 13:00 Dextrose (D50w Syringe) 25 ml Q15M PRN IV DECREASED GLUCOSE; Start 01/03/17 at 13:00 Dextrose (D50w Syringe) 50 ml Q15M PRN IV DECREASED GLUCOSE; Start 01/03/17 at 13:00 Glucagon (Glucagen) 1 mg Q15M PRN IM DECREASED GLUCOSE; Start 01/03/17 at 13:00 Glucose (Glutose) 15 gm Q15M PRN BUCCAL DECREASED GLUCOSE; Start 01/03/17 at 13: 00 Rifaximin (Xifaxan) 550 mg BID PO Last administered on 01/19/17 08:10; Admin Dose 550 MG; Start 01/03/17 at 14:30 Morphine Sulfate (morphine) 2 mg Q4H PRN IV PAIN Last administered on 19:12; Admin Dose 2 MG; Start 01/06/17 at 11:30 Acetaminophen (Tylenol Liquid) 650 mg Q6H PRN GTB PAIN AND OR ELEVATED TEMP Last administered on 01/16/17 10:04; Admin Dose 650 MG; Start 01/08/17 at 09:30 IV Flush 10 ml 10 ml PRN PRN IV IV PROTOCOL; Start 01/10/17 at 17:30 Meropenem (Merrem 1 Gm/100 ml (Pmx)) 100 ml @ 200 mls/hr Q12 IVPB Last administered on 01/19/17 08:09; Admin Dose 200 MLS/HR; Start 01/12/17 at 21:00 Lansoprazole (Prevacid) 30 mg DAILY@06 GTB Last administered on 01/19/17 05:33 ; Admin Dose 30 MG; Start 01/13/17 at 06:00 Insulin Aspart (Novolog Insulin Pen) NOVOLOG *MODERATE* ALGORI... Q6 SC ; Start 01/12/17 at 18:00 Desmopressin Acetate 2 mcg 2 mcg BID IV Last administered on 01/19/17 10:22; Admin Dose 2 MCG; Start 01/13/17 at 13:00 Vancomycin HCl/ Sodium Chloride (Vancocin/NS) 150 ml @ 75 mls/hr Q12H IVPB Last administered on 01/19/17 12:25; Admin Dose 75 MLS/HR; Start 01/17/17 at 13 :00 Lactulose 30 gm 30 gm Q6 NGT Last administered on 01/19/17 12:25; Admin Dose 30 GM; Start 01/17/17 at 18:00 Thiamine HCl 500 mg/Sodium Chloride 250 ml @ 250 mls/hr Q8H IV Last administered on 01/19/17 05:33; Admin Dose 250 MLS/HR; Start 01/18/17 at 14:00 ; Stop 01/21/17 at 13:59 Thiamine HCl 250 mg/Sodium Chloride 100 ml @ 100 mls/hr Q24H IV ; Start at 14:00; Stop 01/26/17 at 14:59 Thiamine HCl/ Sodium Chloride (Vitamin B1/NS) 50 ml @ 100 mls/hr Q24H IV ; Start 01/27/17 at 14:00 SRIKANTH GALVAN Jan 19, 2017 13:49
--- NOTE | 2017-01-19 16:52 | CONS ---
Date/Time of Note Date/Time of Note DATE: 01/19/17 TIME: 16:50 Assessment/Plan Assessment/Plan Additional Assessment/Plan 1. Acute hyperkalemia with a potassium of 7.6 on admission, s/p One session of Emergent HD 01/03/17- now improved 2. Severe metabolic acidosis s/p Bicarbonate drip, now stable 3. Acute kidney injury with a BUN of 127, creatinine of 8.9 on admission, likely secondary to acute tubular necrosis. 4. Acute respiratory failure secondary to possibly acute fluid overload and possibly pneumonia.intubated on ventilator s/p Extubation 5. History of liver cirrhosis from hepatitis C. 6. acute encephalopathy possibly hepatic encephalopathy from liver cirrhosis 7. 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 Hyponatremia > hypernatremia - has been desmopressin x 2 days so far- Na 145 today PLAN: S/p Emergent HD x 1 due to hyperkalemia, severe metabolic acidosis and resp failure- now Improved renal function, temporary misael has been removed Renal US negative for hydronephrosis, echogenicity c/w CKD , good urine output Na normal, D/c desmopressin IV abx as per primary care team will follow u Consultation Date/Type/Reason Admit Date/Time Jan 02, 2017 at 12:58 Initial Consult Date Dec Type of Consultation: NEPHROLOGY Referring Provider: SRIKANTH GALVAN Exam/Review of Systems Vital Signs Vitals Vital Signs Date Time Temp Pulse Resp B/P Pulse Ox O2 Delivery O2 Flow Rate FiO2 01/19/17 15:56 99.2 97 19 109/56 94 01/19/17 13:46 Nasal Cannula 2.0 Intake and Output 01/18/17 01/18/17 01/19/17 15:00 23:00 07:00 Intake Total 1955 ml 1680 ml Output Total 800 ml 650 ml Balance 1155 ml 1030 ml Exam Constitutional: other (comatose ) Respiratory: diminished breath sounds (R>>L ) Cardiovascular: nl pulses, regular rate and rhythm Gastrointestinal: non-tender, soft Musculoskeletal: nl extremities to inspection Extremities: normal pulses Neurological: other (comatose ), unresponsive Results Result Diagram: 01/19/17 0605 01/19/17 0605 Results 24 hrs Laboratory Tests Test 01/18/17 17:37 01/18/17 23:47 01/19/17 00:30 01/19/17 06:05 Bedside Glucose 105 103 Vancomycin Level Trough 10.7 White Blood Count 7.4 Red Blood Count 3.41 L Hemoglobin 10.9 L Hematocrit 32.8 L Mean Corpuscular Volume 96.2 Mean Corpuscular Hemoglobin 32.0 Mean Corpuscular Hemoglobin Concent 33.2 Red Cell Distribution Width 18.1 H Platelet Count 83 L Mean Platelet Volume 12.9 H Neutrophils % 80.0 H Lymphocytes % 7.5 L Monocytes % 10.3 Eosinophils % 1.3 Basophils % 0.1 Nucleated Red Blood Cells % 0.0 Neutrophils # 5.9 Lymphocytes # 0.6 L Monocytes # 0.8 Eosinophils # 0.1 Basophils # 0.0 Nucleated Red Blood Cells # 0.0 Prothrombin Time 17.4 H Prothrombin Time Ratio 1.4 INR International Normalized Ratio 1.42 Activated Partial Thromboplast Time 30.1 Sodium Level 139 Potassium Level 4.6 Chloride Level 109 Carbon Dioxide Level 24 Anion Gap 11 Blood Urea Nitrogen 26 H Creatinine 0.84 Glucose Level 104 Calcium Level 9.2 Phosphorus Level 2.6 Magnesium Level 1.9 Total Bilirubin 2.4 H Direct Bilirubin 0.00 Indirect Bilirubin 2.4 H Aspartate Amino Transf (AST/SGOT) 108 H Alanine Aminotransferase (ALT/SGPT) 115 H Alkaline Phosphatase 117 Ammonia 32 H Total Protein 5.7 L Albumin 2.9 L Globulin 2.80 Albumin/Globulin Ratio 1.03 Test 01/19/17 07:04 01/19/17 12:23 Bedside Glucose 114 115 Medications Medications Current Medications Miscellaneous Information 1 ea NOTE XX ; Start 01/03/17 at 13:00 Glucose (Glutose) 15 gm Q15M PRN PO DECREASED GLUCOSE; Start 01/03/17 at 13:00 Glucose (Glutose) 22.5 gm Q15M PRN PO DECREASED GLUCOSE; Start 01/03/17 at 13:00 Dextrose (D50w Syringe) 25 ml Q15M PRN IV DECREASED GLUCOSE; Start 01/03/17 at 13:00 Dextrose (D50w Syringe) 50 ml Q15M PRN IV DECREASED GLUCOSE; Start 01/03/17 at 13:00 Glucagon (Glucagen) 1 mg Q15M PRN IM DECREASED GLUCOSE; Start 01/03/17 at 13:00 Glucose (Glutose) 15 gm Q15M PRN BUCCAL DECREASED GLUCOSE; Start 01/03/17 at 13: 00 Rifaximin (Xifaxan) 550 mg BID PO Last administered on 01/19/17 08:10; Admin Dose 550 MG; Start 01/03/17 at 14:30 Morphine Sulfate (morphine) 2 mg Q4H PRN IV PAIN Last administered on 19:12; Admin Dose 2 MG; Start 01/06/17 at 11:30 Acetaminophen (Tylenol Liquid) 650 mg Q6H PRN GTB PAIN AND OR ELEVATED TEMP Last administered on 01/16/17 10:04; Admin Dose 650 MG; Start 01/08/17 at 09:30 IV Flush 10 ml 10 ml PRN PRN IV IV PROTOCOL; Start 01/10/17 at 17:30 Meropenem (Merrem 1 Gm/100 ml (Pmx)) 100 ml @ 200 mls/hr Q12 IVPB Last administered on 01/19/17 08:09; Admin Dose 200 MLS/HR; Start 01/12/17 at 21:00 Lansoprazole (Prevacid) 30 mg DAILY@06 GTB Last administered on 01/19/17 05:33 ; Admin Dose 30 MG; Start 01/13/17 at 06:00 Insulin Aspart (Novolog Insulin Pen) NOVOLOG *MODERATE* ALGORI... Q6 SC ; Start 01/12/17 at 18:00 Desmopressin Acetate 2 mcg 2 mcg BID IV Last administered on 01/19/17 10:22; Admin Dose 2 MCG; Start 01/13/17 at 13:00 Vancomycin HCl/ Sodium Chloride (Vancocin/NS) 150 ml @ 75 mls/hr Q12H IVPB Last administered on 01/19/17 12:25; Admin Dose 75 MLS/HR; Start 01/17/17 at 13 :00 Lactulose 30 gm 30 gm Q6 NGT Last administered on 01/19/17 12:25; Admin Dose 30 GM; Start 01/17/17 at 18:00 Thiamine HCl 500 mg/Sodium Chloride 250 ml @ 250 mls/hr Q8H IV Last administered on 01/19/17 15:09; Admin Dose 250 MLS/HR; Start 01/18/17 at 14:00 ; Stop 01/21/17 at 13:59 Thiamine HCl 250 mg/Sodium Chloride 100 ml @ 100 mls/hr Q24H IV ; Start at 14:00; Stop 01/26/17 at 14:59 Thiamine HCl/ Sodium Chloride (Vitamin B1/NS) 50 ml @ 100 mls/hr Q24H IV ; Start 01/27/17 at 14:00 MARII DALY MD Jan 19, 2017 16:52
[2017-01-20] VITALS (12 sets, daily range): BP systolic 111–142; BP diastolic 56–73; PULSE 94–104; RESP 16–20
[2017-01-20] MEDS: VANCOMYCIN 750 MG in SOD CHLORIDE 0.9% 150 ML IVPB SCH ×2 (01:19→13:32)
[2017-01-20] MEDS: IPRATROPIUM (NEB) 0.5 MG/2.5 ML AMP HHN SCH ×4 (03:07→19:58)
[2017-01-20] MEDS: LEVALBUTEROL (NEB) 0.63 MG/3 ML AMP HHN SCH ×4 (03:07→19:58)
[2017-01-20] MEDS: LANSOPRAZOLE 30 MG CAP GTB SCH (05:44)
[2017-01-20] MEDS: LACTULOSE 30ML CUP NGT SCH ×3 (05:44→17:28)
[2017-01-20] MEDS: SOD CHLORIDE 0.9% IV SCH ×3 (05:44→22:50)
[2017-01-20] MEDS: THIAMINE IV SCH ×3 (05:44→22:50)
[2017-01-20] MEDS: INSULIN ASPART [NOVOLOG] 3 ML PEN SC SCH ×4 (06:00→17:27)
[2017-01-20] MEDS: RIFAXIMIN 550 MG TAB PO SCH ×2 (09:39→21:24)
[2017-01-20] MEDS: MEROPENEM 1 GM/100 ML (PMX) 100 ML IVPB SCH ×2 (09:39→21:24)
--- NOTE | 2017-01-20 10:49 | CONS ---
Date/Time of Note Date/Time of Note DATE: 01/20/17 TIME: 10:45 Consult Date/Type/Reason Admit Date/Time Jan 02, 2017 at 12:58 Initial Consult Date 01/19/17 Type of Consultation: Neurology Reason for Consultation hepatic encephalopathy, Wernicke's Ordering Provider: SRIKANTH GALVAN Subjective remains obtunded unresponsive Objective Vital Signs Date Time Temp Pulse Resp B/P Pulse Ox O2 Delivery O2 Flow Rate FiO2 01/20/17 08:40 98 01/20/17 08:30 98 3.0 01/20/17 08:29 18 Nasal Cannula 01/20/17 07:40 99.4 142/67 Intake and Output 01/19/17 01/19/17 01/20/17 15:00 23:00 07:00 Intake Total 1500 ml 1730 ml Output Total 800 ml 950 ml Balance 700 ml 780 ml Exam off sedation with NGT unable to arouse to verbal stimuli or sternal rub CN: eyes forced open with disconjugate gaze, corneals are prsent, able to Doll's , left facial NLF flattening jaundiced appearance Motor: withdraws more on right arm and leg posturing type movement, upgoing toes when noxious stimuli applied Reflexes depressed throughout Results/Medications Result Diagram: 01/19/17 0605 01/19/17 0605 Results 24 hrs Laboratory Tests Test 01/19/17 12:23 01/19/17 17:49 01/20/17 01:32 01/20/17 07:52 Bedside Glucose 115 110 121 112 Medications Current Medications Miscellaneous Information 1 ea NOTE XX ; Start 01/03/17 at 13:00 Glucose (Glutose) 15 gm Q15M PRN PO DECREASED GLUCOSE; Start 01/03/17 at 13:00 Glucose (Glutose) 22.5 gm Q15M PRN PO DECREASED GLUCOSE; Start 01/03/17 at 13:00 Dextrose (D50w Syringe) 25 ml Q15M PRN IV DECREASED GLUCOSE; Start 01/03/17 at 13:00 Dextrose (D50w Syringe) 50 ml Q15M PRN IV DECREASED GLUCOSE; Start 01/03/17 at 13:00 Glucagon (Glucagen) 1 mg Q15M PRN IM DECREASED GLUCOSE; Start 01/03/17 at 13:00 Glucose (Glutose) 15 gm Q15M PRN BUCCAL DECREASED GLUCOSE; Start 01/03/17 at 13: 00 Rifaximin (Xifaxan) 550 mg BID PO Last administered on 01/20/17 09:39; Admin Dose 550 MG; Start 01/03/17 at 14:30 Morphine Sulfate (morphine) 2 mg Q4H PRN IV PAIN Last administered on 19:12; Admin Dose 2 MG; Start 01/06/17 at 11:30 Acetaminophen (Tylenol Liquid) 650 mg Q6H PRN GTB PAIN AND OR ELEVATED TEMP Last administered on 01/16/17 10:04; Admin Dose 650 MG; Start 01/08/17 at 09:30 IV Flush 10 ml 10 ml PRN PRN IV IV PROTOCOL; Start 01/10/17 at 17:30 Meropenem (Merrem 1 Gm/100 ml (Pmx)) 100 ml @ 200 mls/hr Q12 IVPB Last administered on 01/20/17 09:39; Admin Dose 200 MLS/HR; Start 01/12/17 at 21:00 Lansoprazole (Prevacid) 30 mg DAILY@06 GTB Last administered on 01/20/17 05:44 ; Admin Dose 30 MG; Start 01/13/17 at 06:00 Insulin Aspart NOVOLOG *MODERATE* ALGORI... Q6 SC ; Start 01/12/17 at 18:00 Vancomycin HCl/ Sodium Chloride (Vancocin/NS) 150 ml @ 75 mls/hr Q12H IVPB Last administered on 01/20/17 01:19; Admin Dose 75 MLS/HR; Start 01/17/17 at 13 :00 Lactulose 30 gm 30 gm Q6 NGT Last administered on 01/20/17 05:44; Admin Dose 30 GM; Start 01/17/17 at 18:00 Thiamine HCl 500 mg/Sodium Chloride 250 ml @ 250 mls/hr Q8H IV Last administered on 01/20/17 05:44; Admin Dose 250 MLS/HR; Start 01/18/17 at 14:00 ; Stop 01/21/17 at 13:59 Thiamine HCl 250 mg/Sodium Chloride 100 ml @ 100 mls/hr Q24H IV ; Start at 14:00; Stop 01/26/17 at 14:59 Thiamine HCl/ Sodium Chloride (Vitamin B1/NS) 50 ml @ 100 mls/hr Q24H IV ; Start 01/27/17 at 14:00 Assessment/Plan Chief Complaint/Hosp Course 56 year old male w hepatitis C, chronic alcohol abuse admitted with AMS, severe metabolic issues, respiratory failure requiring emergent dialysis with persistent encephalopathy. MRI Brain with bilateral pontine restricted diffusion, bilateral restricted diffusion sub-insular cortex more prominent on right than the left. FLAIR signal in bilateral princess. Imaging reviewed with Dr. 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 also insular involvement could be secondary to hypoxic injury. Recommendations: -Continue IV Thiamine supplementation i suspect he has a combination of central pontine myelinolysis due to presentation of severe metabolic issues and during admission has had severe metabolic issues that could precipitate this cerebral pontine myelinosis generally is associated with a poor prognosis continue current medical management and goals of care discussion with family, palliative care consultation Problems: DENIZ LEBRON MD Jan 20, 2017 10:49
[2017-01-20 11:11] LABS: CREATININE 0.76 mg/dl (0.61-1.24); POTASSIUM 3.9 mmol/L (3.5-5.1)
--- NOTE | 2017-01-20 11:33 | CONS ---
Date/Time of Note Date/Time of Note DATE: 01/20/17 TIME: 11:30 Assessment/Plan Assessment/Plan Additional Assessment/Plan 1. Acute hyperkalemia with a potassium of 7.6 on admission, s/p One session of Emergent HD 01/03/17- now improved 2. Severe metabolic acidosis s/p Bicarbonate drip, now stable 3. Acute kidney injury with a BUN of 127, creatinine of 8.9 on admission, likely secondary to acute tubular necrosis. 4. Acute respiratory failure secondary to possibly acute fluid overload and possibly pneumonia.intubated on ventilator s/p Extubation 5. History of liver cirrhosis from hepatitis C. 6. acute encephalopathy possibly hepatic encephalopathy from liver cirrhosis and possible CPM 7. 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 renal replacement therapy will continue to follow up call us if any questions Consultation Date/Type/Reason Admit Date/Time Jan 02, 2017 at 12:58 Initial Consult Date Dec Type of Consultation: NEPHROLOGY Referring Provider: SRIKANTH GALVAN 24 HR Interval Summary Free Text/Dictation no change in condition, not waking up, Pt is DNR Now Exam/Review of Systems Vital Signs Vitals Vital Signs Date Time Temp Pulse Resp B/P Pulse Ox O2 Delivery O2 Flow Rate FiO2 01/20/17 11:15 98.2 98 19 131/70 98 01/20/17 08:30 3.0 01/20/17 08:29 Nasal Cannula Intake and Output 01/19/17 01/19/17 01/20/17 15:00 23:00 07:00 Intake Total 1500 ml 1730 ml Output Total 800 ml 950 ml Balance 700 ml 780 ml Exam Constitutional: other (comatose ) Respiratory: diminished breath sounds (R>>L ) Cardiovascular: nl pulses, regular rate and rhythm Gastrointestinal: non-tender, soft Musculoskeletal: nl extremities to inspection Extremities: normal pulses Neurological: other (comatose ), unresponsive Results Result Diagram: 01/19/17 0605 01/20/17 0609 Results 24 hrs Laboratory Tests Test 01/19/17 12:23 01/19/17 17:49 01/20/17 01:32 01/20/17 06:09 Bedside Glucose 115 110 121 Sodium Level 140 Potassium Level 3.9 Chloride Level 112 H Carbon Dioxide Level 22 Anion Gap 10 Blood Urea Nitrogen 27 H Creatinine 0.76 Glucose Level 104 Calcium Level 9.0 Test 01/20/17 07:52 Bedside Glucose 112 Medications Medications Current Medications Miscellaneous Information 1 ea NOTE XX ; Start 01/03/17 at 13:00 Glucose (Glutose) 15 gm Q15M PRN PO DECREASED GLUCOSE; Start 01/03/17 at 13:00 Glucose (Glutose) 22.5 gm Q15M PRN PO DECREASED GLUCOSE; Start 01/03/17 at 13:00 Dextrose (D50w Syringe) 25 ml Q15M PRN IV DECREASED GLUCOSE; Start 01/03/17 at 13:00 Dextrose (D50w Syringe) 50 ml Q15M PRN IV DECREASED GLUCOSE; Start 01/03/17 at 13:00 Glucagon (Glucagen) 1 mg Q15M PRN IM DECREASED GLUCOSE; Start 01/03/17 at 13:00 Glucose (Glutose) 15 gm Q15M PRN BUCCAL DECREASED GLUCOSE; Start 01/03/17 at 13: 00 Rifaximin (Xifaxan) 550 mg BID PO Last administered on 01/20/17 09:39; Admin Dose 550 MG; Start 01/03/17 at 14:30 Morphine Sulfate (morphine) 2 mg Q4H PRN IV PAIN Last administered on 19:12; Admin Dose 2 MG; Start 01/06/17 at 11:30 Acetaminophen (Tylenol Liquid) 650 mg Q6H PRN GTB PAIN AND OR ELEVATED TEMP Last administered on 01/16/17 10:04; Admin Dose 650 MG; Start 01/08/17 at 09:30 IV Flush 10 ml 10 ml PRN PRN IV IV PROTOCOL; Start 01/10/17 at 17:30 Meropenem (Merrem 1 Gm/100 ml (Pmx)) 100 ml @ 200 mls/hr Q12 IVPB Last administered on 01/20/17 09:39; Admin Dose 200 MLS/HR; Start 01/12/17 at 21:00 Lansoprazole (Prevacid) 30 mg DAILY@06 GTB Last administered on 01/20/17 05:44 ; Admin Dose 30 MG; Start 01/13/17 at 06:00 Insulin Aspart NOVOLOG *MODERATE* ALGORI... Q6 SC ; Start 01/12/17 at 18:00 Vancomycin HCl/ Sodium Chloride (Vancocin/NS) 150 ml @ 75 mls/hr Q12H IVPB Last administered on 01/20/17 01:19; Admin Dose 75 MLS/HR; Start 01/17/17 at 13 :00 Lactulose 30 gm 30 gm Q6 NGT Last administered on 01/20/17 05:44; Admin Dose 30 GM; Start 01/17/17 at 18:00 Thiamine HCl 500 mg/Sodium Chloride 250 ml @ 250 mls/hr Q8H IV Last administered on 01/20/17 05:44; Admin Dose 250 MLS/HR; Start 01/18/17 at 14:00 ; Stop 01/21/17 at 13:59 Thiamine HCl 250 mg/Sodium Chloride 100 ml @ 100 mls/hr Q24H IV ; Start at 14:00; Stop 01/26/17 at 14:59 Thiamine HCl/ Sodium Chloride (Vitamin B1/NS) 50 ml @ 100 mls/hr Q24H IV ; Start 01/27/17 at 14:00 MARII DALY MD Jan 20, 2017 11:32
[2017-01-20] MEDS ORDERED: VITAMIN A & D 5 GM OINT PACKET TOP ONE (13:03)
--- NOTE | 2017-01-20 13:24 | PN ---
Date/Time of Note Date/Time of Note DATE: 01/20/17 TIME: 13:20 Assessment/Plan VTE Prophylaxis VTE Prophylaxis Intervention: SCD's Lines/Catheters IV Catheter Type (from Nrs): PICC Line Central line still needed: Yes (for IV access ) Urinary Cath still in place: Yes Assessment/Plan Assessment/Plan 56-year-old male: 1. Encephalopathy, still ongoing and comatose at this point. Known Cirrhosis/ ESLD, HepC. CT head unchanged 01/16. MRI brain consistent with Hepatic vs Wernicke's encephalopathy and also per Neurology seems to be consistent with cerebral pontine myelinosis which would be a poor/dismal prognosis Continuing Thiamine IV for now but patient already with poor airways protection Continuing Rifaximin and Lactulose. EEG pending Ximena updated and at bedside for discussion about comfort measures and hospice. Dr Eric consulted 2. Acute respiratory failure with Severe Encephalopathy and Acute renal failure and also Shock state. Patient with recurrent severe Encephalopathy despite correction of electrolytes. 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 On Meropenem and Vanco Plan for meeting with today for comfort measures after EEG done. 3. Acute Renal Failure, likely pre renal secondary to dehydration VS ATN with Severe Hyperkalemia. Resolved s/p emergent HD on admission, S/p episode Hypernatremia, resolving currently. Dr Brown following from Nephrology NGT placed and increasing Free H2O 400 cc q4 hrs so far. 4. Severe hyperkalemia. Resolved post Emergent HD on admission 5. Metabolic acidosis in setting on of ARF, s/p HD on admission. Resolved with improving renal function. Nephrology following 6. End-stage alcoholic liver disease, with also known Hep C, cirrhosis with Hepatic Encephalopathy and also coagulopathy. Stabilizing but encephalopathy persistent and with now additional findings on MRI, dismal prognosis On Rifaximin and Lactulose. 7. Hypernatremia, Na down to 140 today, of. Continue tube feedings and free H2O until family meeting today. Nephrology, Dr Brown following 8. Acute on chronic anemia, no acute bleeding seen. s/p 1 units pRBC H/H stable so far. Prophylaxis: on PPI for GI ppx and SCDs for DVT ppx Disposition: Based on MRI findings, treating for possible concomitant Wernicke' s Encephalopathy but now with likely CPM too, prognosis is dismal, appreciate Neurology eval and recommendations, EEG pending and Palliative care Dr Eric consulted. Subjective 24 Hr Interval Summary Free Text/Dictation Patient unchanged and unresponsive at this time for the past 5 days at least EEG today and palliative care eval Likely comfort care and hospice in the next 24 hrs Exam/Review of Systems Vital Signs Vitals Vital Signs Date Time Temp Pulse Resp B/P Pulse Ox O2 Delivery O2 Flow Rate FiO2 01/20/17 11:15 98.2 98 19 131/70 98 01/20/17 08:30 3.0 01/20/17 08:29 Nasal Cannula Intake and Output 01/19/17 01/19/17 01/20/17 15:00 23:00 07:00 Intake Total 1500 ml 1730 ml Output Total 800 ml 950 ml Balance 700 ml 780 ml Exam Constitutional: other (unresponsive ) Respiratory: diminished breath sounds (right lung ), other (almost ) Cardiovascular: nl pulses, regular rate and rhythm Gastrointestinal: non-tender, soft Musculoskeletal: nl extremities to inspection Extremities: normal pulses, other (no edema, clubbing or cyanosis ) Neurological: lethargic, unresponsive (mostly ) Results Result Diagram: 01/19/17 0605 01/20/17 0609 Results 24 hrs Laboratory Tests Test 01/19/17 17:49 01/20/17 01:32 01/20/17 06:09 01/20/17 07:52 Bedside Glucose 110 121 112 Sodium Level 140 Potassium Level 3.9 Chloride Level 112 H Carbon Dioxide Level 22 Anion Gap 10 Blood Urea Nitrogen 27 H Creatinine 0.76 Glucose Level 104 Calcium Level 9.0 Vitamin B12 Level > 1000 H Test 01/20/17 12:44 Bedside Glucose 117 Medications Medications Current Medications Miscellaneous Information 1 ea NOTE XX ; Start 01/03/17 at 13:00 Glucose (Glutose) 15 gm Q15M PRN PO DECREASED GLUCOSE; Start 01/03/17 at 13:00 Glucose (Glutose) 22.5 gm Q15M PRN PO DECREASED GLUCOSE; Start 01/03/17 at 13:00 Dextrose (D50w Syringe) 25 ml Q15M PRN IV DECREASED GLUCOSE; Start 01/03/17 at 13:00 Dextrose (D50w Syringe) 50 ml Q15M PRN IV DECREASED GLUCOSE; Start 01/03/17 at 13:00 Glucagon (Glucagen) 1 mg Q15M PRN IM DECREASED GLUCOSE; Start 01/03/17 at 13:00 Glucose (Glutose) 15 gm Q15M PRN BUCCAL DECREASED GLUCOSE; Start 01/03/17 at 13: 00 Rifaximin (Xifaxan) 550 mg BID PO Last administered on 01/20/17 09:39; Admin Dose 550 MG; Start 01/03/17 at 14:30 Morphine Sulfate (morphine) 2 mg Q4H PRN IV PAIN Last administered on 19:12; Admin Dose 2 MG; Start 01/06/17 at 11:30 Acetaminophen (Tylenol Liquid) 650 mg Q6H PRN GTB PAIN AND OR ELEVATED TEMP Last administered on 01/16/17 10:04; Admin Dose 650 MG; Start 01/08/17 at 09:30 IV Flush 10 ml 10 ml PRN PRN IV IV PROTOCOL; Start 01/10/17 at 17:30 Meropenem (Merrem 1 Gm/100 ml (Pmx)) 100 ml @ 200 mls/hr Q12 IVPB Last administered on 01/20/17 09:39; Admin Dose 200 MLS/HR; Start 01/12/17 at 21:00 Lansoprazole (Prevacid) 30 mg DAILY@06 GTB Last administered on 01/20/17 05:44 ; Admin Dose 30 MG; Start 01/13/17 at 06:00 Insulin Aspart NOVOLOG *MODERATE* ALGORI... Q6 SC ; Start 01/12/17 at 18:00 Vancomycin HCl/ Sodium Chloride (Vancocin/NS) 150 ml @ 75 mls/hr Q12H IVPB Last administered on 01/20/17 01:19; Admin Dose 75 MLS/HR; Start 01/17/17 at 13 :00 Lactulose 30 gm 30 gm Q6 NGT Last administered on 01/20/17 12:00; Admin Dose 30 GM; Start 01/17/17 at 18:00 Thiamine HCl 500 mg/Sodium Chloride 250 ml @ 250 mls/hr Q8H IV Last administered on 01/20/17 05:44; Admin Dose 250 MLS/HR; Start 01/18/17 at 14:00 ; Stop 01/21/17 at 13:59 Thiamine HCl 250 mg/Sodium Chloride 100 ml @ 100 mls/hr Q24H IV ; Start at 14:00; Stop 01/26/17 at 14:59 Thiamine HCl/ Sodium Chloride (Vitamin B1/NS) 50 ml @ 100 mls/hr Q24H IV ; Start 01/27/17 at 14:00 SRIKANTH GALVAN Jan 20, 2017 13:24
--- NOTE | 2017-01-20 14:16 | CONS ---
Date/Time of Note Date/Time of Note DATE: 01/20/17 TIME: 14:14 Assessment/Plan Assessment/Plan Additional Assessment/Plan Assessment recommendations; 1. Patient admitted with pneumonia. 2. Advanced hepatic enthesopathy. 3. Possibly central pontine myelinolysis. 4. Left lung atelectasis likely from poor cough reflex causing mucous plugging involving the left mainstem bronchus. 5. Thrombocytopenia. Continue current treatment. Consider hospice evaluation. Prognosis is extremely poor. Consultation Date/Type/Reason Admit Date/Time Jan 02, 2017 at 12:58 Type of Consultation: Pulmonary Referring Provider: SRIKANTH GALVAN 24 HR Interval Summary Free Text/Dictation Patient condition remains tenuous at best. Remains completely unresponsive. The family has decided for DNR status. General exam; middle-aged male, morbidly was, unresponsive. Exam/Review of Systems Vital Signs Vitals Vital Signs Date Time Temp Pulse Resp B/P Pulse Ox O2 Delivery O2 Flow Rate FiO2 01/20/17 12:30 96 01/20/17 11:15 98.2 19 131/70 98 01/20/17 08:30 3.0 01/20/17 08:29 Nasal Cannula Intake and Output 01/19/17 01/19/17 01/20/17 15:00 23:00 07:00 Intake Total 1500 ml 1730 ml Output Total 800 ml 950 ml Balance 700 ml 780 ml Exam HEENT examination; supple neck, no JVD. No lymphadenopathy. Midline trachea. No thyromegaly. Chest examined; diminished breath sounds throughout. S1-S2 audible, no murmurs. Regular rhythm. Abdomen examination; soft, non-distended. No organomegaly. Bowel sounds audible. Extremity examination; no peripheral edema. 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 Results Result Diagram: 01/19/17 0605 01/20/17 0609 Results 24 hrs Laboratory Tests Test 01/19/17 17:49 01/20/17 01:32 01/20/17 06:09 01/20/17 07:52 Bedside Glucose 110 121 112 Sodium Level 140 Potassium Level 3.9 Chloride Level 112 H Carbon Dioxide Level 22 Anion Gap 10 Blood Urea Nitrogen 27 H Creatinine 0.76 Glucose Level 104 Calcium Level 9.0 Vitamin B12 Level > 1000 H Test 01/20/17 12:44 Bedside Glucose 117 Medications Medications Current Medications Miscellaneous Information 1 ea NOTE XX ; Start 01/03/17 at 13:00 Glucose (Glutose) 15 gm Q15M PRN PO DECREASED GLUCOSE; Start 01/03/17 at 13:00 Glucose (Glutose) 22.5 gm Q15M PRN PO DECREASED GLUCOSE; Start 01/03/17 at 13:00 Dextrose (D50w Syringe) 25 ml Q15M PRN IV DECREASED GLUCOSE; Start 01/03/17 at 13:00 Dextrose (D50w Syringe) 50 ml Q15M PRN IV DECREASED GLUCOSE; Start 01/03/17 at 13:00 Glucagon (Glucagen) 1 mg Q15M PRN IM DECREASED GLUCOSE; Start 01/03/17 at 13:00 Glucose (Glutose) 15 gm Q15M PRN BUCCAL DECREASED GLUCOSE; Start 01/03/17 at 13: 00 Rifaximin (Xifaxan) 550 mg BID PO Last administered on 01/20/17 09:39; Admin Dose 550 MG; Start 01/03/17 at 14:30 Morphine Sulfate (morphine) 2 mg Q4H PRN IV PAIN Last administered on 19:12; Admin Dose 2 MG; Start 01/06/17 at 11:30 Acetaminophen (Tylenol Liquid) 650 mg Q6H PRN GTB PAIN AND OR ELEVATED TEMP Last administered on 01/16/17 10:04; Admin Dose 650 MG; Start 01/08/17 at 09:30 IV Flush 10 ml 10 ml PRN PRN IV IV PROTOCOL; Start 01/10/17 at 17:30 Meropenem (Merrem 1 Gm/100 ml (Pmx)) 100 ml @ 200 mls/hr Q12 IVPB Last administered on 01/20/17 09:39; Admin Dose 200 MLS/HR; Start 01/12/17 at 21:00 Lansoprazole (Prevacid) 30 mg DAILY@06 GTB Last administered on 01/20/17 05:44 ; Admin Dose 30 MG; Start 01/13/17 at 06:00 Insulin Aspart NOVOLOG *MODERATE* ALGORI... Q6 SC ; Start 01/12/17 at 18:00 Vancomycin HCl/ Sodium Chloride (Vancocin/NS) 150 ml @ 75 mls/hr Q12H IVPB Last administered on 01/20/17 13:32; Admin Dose 75 MLS/HR; Start 01/17/17 at 13 :00 Lactulose 30 gm 30 gm Q6 NGT Last administered on 01/20/17 12:00; Admin Dose 30 GM; Start 01/17/17 at 18:00 Thiamine HCl 500 mg/Sodium Chloride 250 ml @ 250 mls/hr Q8H IV Last administered on 01/20/17 05:44; Admin Dose 250 MLS/HR; Start 01/18/17 at 14:00 ; Stop 01/21/17 at 13:59 Thiamine HCl 250 mg/Sodium Chloride 100 ml @ 100 mls/hr Q24H IV ; Start at 14:00; Stop 01/26/17 at 14:59 Thiamine HCl/ Sodium Chloride (Vitamin B1/NS) 50 ml @ 100 mls/hr Q24H IV ; Start 01/27/17 at 14:00 TRENT SAUCEDA Jan 20, 2017 14:16
--- NOTE | 2017-01-20 16:00 | CONS ---
Date/Time of Note Date/Time of Note DATE: 01/20/17 TIME: 15:55 Assessment/Plan Assessment/Plan Additional Assessment/Plan CPM Wernicke's encephalopathy Delirium Fluid and electrolyte abnormality Past history of alcohol and drug use Respiratory failure End-stage renal disease We will have family conference to establish ongoing level of care. Consultation Date/Type/Reason Admit Date/Time Jan 02, 2017 at 12:58 Date of Consultation: Jan 19, 2017 Type of Consultation: Palliative Care Hx of Present Illness Hx of Present Illness Patient is a 56-year-old male with long-standing history of substance abuse and alcohol addiction who was admitted 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 Patient has numerous major comorbid medical problems including seizure disorder, delirium, hypothyroidism, bipolar disorder, type 2 diabetes. Patient is a non-historian asked to examine patient and speak to family members concerning goals of care. Patient has been seen by neurology consult workup consistent with CPM with Warnicke's encephalopathy. Cannot be obtained patient is encephalopathic Unable to obtain Constitutional: requiring IVF, requiring O2 Psychological: nl mood/affect Past Medical History Medical History: other (Refer to HPI) Past Surgical History Past Surgical Hx: cholecystectomy, other Social History Alcohol Use: heavy Smoking Status: Former smoker Exam/Review of Systems Vital Signs Vitals Vital Signs Date Time Temp Pulse Resp B/P Pulse Ox O2 Delivery O2 Flow Rate FiO2 01/20/17 15:46 98 3.0 01/20/17 15:44 95 16 Nasal Cannula 01/20/17 15:21 98.3 111/63 Intake and Output 01/19/17 01/19/17 01/20/17 15:00 23:00 07:00 Intake Total 1500 ml 1730 ml Output Total 800 ml 950 ml Balance 700 ml 780 ml Exam Constitutional: frail, non-verbal Head: atraumatic, normocephalic Eyes: EOMI, PERRL, nl conjunctiva, nl lids, nl sclera Neck: non-tender, supple Respiratory: congested cough, crackles/rales Cardiovascular: nl pulses, regular rate and rhythm Gastrointestinal: nl liver, spleen, non-tender, soft Neurological: unresponsive Results Result Diagram: 01/19/17 0605 01/20/17 0609 Results 24 hrs Laboratory Tests Test 01/19/17 17:49 01/20/17 01:32 01/20/17 06:09 01/20/17 07:52 Bedside Glucose 110 121 112 Sodium Level 140 Potassium Level 3.9 Chloride Level 112 H Carbon Dioxide Level 22 Anion Gap 10 Blood Urea Nitrogen 27 H Creatinine 0.76 Glucose Level 104 Calcium Level 9.0 Vitamin B12 Level > 1000 H Test 01/20/17 12:44 Bedside Glucose 117 Medications Medications Current Medications Miscellaneous Information 1 ea NOTE XX ; Start 01/03/17 at 13:00 Glucose (Glutose) 15 gm Q15M PRN PO DECREASED GLUCOSE; Start 01/03/17 at 13:00 Glucose (Glutose) 22.5 gm Q15M PRN PO DECREASED GLUCOSE; Start 01/03/17 at 13:00 Dextrose (D50w Syringe) 25 ml Q15M PRN IV DECREASED GLUCOSE; Start 01/03/17 at 13:00 Dextrose (D50w Syringe) 50 ml Q15M PRN IV DECREASED GLUCOSE; Start 01/03/17 at 13:00 Glucagon (Glucagen) 1 mg Q15M PRN IM DECREASED GLUCOSE; Start 01/03/17 at 13:00 Glucose (Glutose) 15 gm Q15M PRN BUCCAL DECREASED GLUCOSE; Start 01/03/17 at 13: 00 Rifaximin (Xifaxan) 550 mg BID PO Last administered on 01/20/17 09:39; Admin Dose 550 MG; Start 01/03/17 at 14:30 Morphine Sulfate (morphine) 2 mg Q4H PRN IV PAIN Last administered on 19:12; Admin Dose 2 MG; Start 01/06/17 at 11:30 Acetaminophen (Tylenol Liquid) 650 mg Q6H PRN GTB PAIN AND OR ELEVATED TEMP Last administered on 01/16/17 10:04; Admin Dose 650 MG; Start 01/08/17 at 09:30 IV Flush 10 ml 10 ml PRN PRN IV IV PROTOCOL; Start 01/10/17 at 17:30 Meropenem (Merrem 1 Gm/100 ml (Pmx)) 100 ml @ 200 mls/hr Q12 IVPB Last administered on 01/20/17 09:39; Admin Dose 200 MLS/HR; Start 01/12/17 at 21:00 Lansoprazole (Prevacid) 30 mg DAILY@06 GTB Last administered on 01/20/17 05:44 ; Admin Dose 30 MG; Start 01/13/17 at 06:00 Insulin Aspart NOVOLOG *MODERATE* ALGORI... Q6 SC ; Start 01/12/17 at 18:00 Vancomycin HCl/ Sodium Chloride (Vancocin/NS) 150 ml @ 75 mls/hr Q12H IVPB Last administered on 01/20/17 13:32; Admin Dose 75 MLS/HR; Start 01/17/17 at 13 :00 Lactulose 30 gm 30 gm Q6 NGT Last administered on 01/20/17 12:00; Admin Dose 30 GM; Start 01/17/17 at 18:00 Thiamine HCl 500 mg/Sodium Chloride 250 ml @ 250 mls/hr Q8H IV Last administered on 01/20/17 14:00; Admin Dose 250 MLS/HR; Start 01/18/17 at 14:00 ; Stop 01/21/17 at 13:59 Thiamine HCl 250 mg/Sodium Chloride 100 ml @ 100 mls/hr Q24H IV ; Start at 14:00; Stop 01/26/17 at 14:59 Thiamine HCl/ Sodium Chloride (Vitamin B1/NS) 50 ml @ 100 mls/hr Q24H IV ; Start 01/27/17 at 14:00 KEVYN RODRÍGUEZ Jan 20, 2017 16:00
--- NOTE | 2017-01-20 18:03 | SP ---
DATE OF PROCEDURE: 01/20/2017 HISTORY: This is a 56-year-old male with history of hepatitis C, chronic alcohol abuse, was admitte d with altered mental status and progressed to respiratory failure requiring emergent dialysis. EEG is to rule out encephalopathy or seizure disorder. CURRENT MEDICATIONS: Meropenem and Polaramine. PROCEDURE: Utilizing a 16-channel EEG machine, cap scalp electrodes were applied in accordance with International 10-20 system. [id number] and [id number] montages were displayed. Electrical i mpedances were measured and reported. DESCRIPTION: During the resting state, posterior dominant rhythm of about 5 to 6 Hz were seen bihem ispherically. Left central temporal sharps were noted at times during the tracing. Hyperventilatio n was not performed. Photic stimulation had no response. INTERPRETATION: This is an abnormal EEG due to presence of generalized bihemispheric background slo wing with left central temporal sharps consistent with encephalopathy with epileptiform activity. P sullyase correlate these findings with the patient's clinical picture. Dictated By: PAZ PIZANO/OZZY Conf#: [id number] DID#: [id number]
[2017-01-21] VITALS (12 sets, daily range): BP systolic 110–130; BP diastolic 56–70; PULSE 91–100; RESP 19–24
[2017-01-21] MEDS: VANCOMYCIN 750 MG in SOD CHLORIDE 0.9% 150 ML IVPB SCH (00:24)
[2017-01-21] MEDS: LACTULOSE 30ML CUP NGT SCH ×5 (00:24→23:10)
[2017-01-21] MEDS: LEVALBUTEROL (NEB) 0.63 MG/3 ML AMP HHN SCH ×4 (01:19→20:16)
[2017-01-21] MEDS: IPRATROPIUM (NEB) 0.5 MG/2.5 ML AMP HHN SCH ×4 (01:19→20:16)
[2017-01-21] MEDS: LANSOPRAZOLE 30 MG CAP GTB SCH (05:45)
[2017-01-21] MEDS: SOD CHLORIDE 0.9% IV SCH (05:46)
[2017-01-21] MEDS: THIAMINE IV SCH (05:46)
[2017-01-21] MEDS: INSULIN ASPART [NOVOLOG] 3 ML PEN SC SCH ×5 (05:46→23:10)
[2017-01-21] MEDS: MEROPENEM 1 GM/100 ML (PMX) 100 ML IVPB SCH ×2 (09:26→20:34)
[2017-01-21] MEDS: RIFAXIMIN 550 MG TAB PO SCH ×2 (09:26→20:31)
--- NOTE | 2017-01-21 12:28 | CONS ---
Date/Time of Note Date/Time of Note DATE: 01/21/17 TIME: 12:26 Assessment/Plan Assessment/Plan Additional Assessment/Plan Assessment recommendations; 1. Patient admitted with pneumonia with development of severe encephalopathy possibly from central pontine myelinolysis. 2. Thrombocytopenia. 3. Poor cough reflex with extensive atelectasis of the right lung. Likely from mucous plugging involving the right mainstem bronchus. 4. Morbid obesity. Next #5. History of alcohol abuse. Continue current supportive care. Prognosis is extremely poor. Patient's family has appropriately signed a DNR paper. Consultation Date/Type/Reason Admit Date/Time Jan 02, 2017 at 12:58 Type of Consultation: Pulmonary Referring Provider: SRIKANTH GALVAN 24 HR Interval Summary Free Text/Dictation Patient condition remains critical. Remains unresponsive. Patient however has remained hemodynamically stable. General exam; middle-aged male, morbidly was, unresponsive. Currently in no distress. Exam/Review of Systems Vital Signs Vitals Vital Signs Date Time Temp Pulse Resp B/P Pulse Ox O2 Delivery O2 Flow Rate FiO2 01/21/17 11:16 98.7 92 19 125/68 97 01/21/17 09:10 3.0 01/21/17 09:10 Nasal Cannula Intake and Output 01/20/17 01/20/17 01/21/17 15:00 23:00 07:00 Intake Total 1900 ml 2250 ml Output Total 600 ml 1600 ml Balance 1300 ml 650 ml Exam HEENT exam is; supple neck, no JVD. No lymphadenopathy. Midline trachea. No thyromegaly. Chest examination; diminished breath sounds throughout. S1-S2 audible, no murmurs. Abdomen examination; protuberant. No organomegaly. Bowel sounds audible. Extremity exam is; trace peripheral edema. 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 Results Result Diagram: 01/19/17 0605 01/20/17 0609 Results 24 hrs Laboratory Tests Test 01/20/17 12:44 01/20/17 17:27 01/21/17 00:22 01/21/17 05:44 Bedside Glucose 117 118 84 94 Test 01/21/17 09:23 01/21/17 12:02 Bedside Glucose 122 123 Medications Medications Current Medications Miscellaneous Information 1 ea NOTE XX ; Start 01/03/17 at 13:00 Glucose (Glutose) 15 gm Q15M PRN PO DECREASED GLUCOSE; Start 01/03/17 at 13:00 Glucose (Glutose) 22.5 gm Q15M PRN PO DECREASED GLUCOSE; Start 01/03/17 at 13:00 Dextrose (D50w Syringe) 25 ml Q15M PRN IV DECREASED GLUCOSE; Start 01/03/17 at 13:00 Dextrose (D50w Syringe) 50 ml Q15M PRN IV DECREASED GLUCOSE; Start 01/03/17 at 13:00 Glucagon (Glucagen) 1 mg Q15M PRN IM DECREASED GLUCOSE; Start 01/03/17 at 13:00 Glucose (Glutose) 15 gm Q15M PRN BUCCAL DECREASED GLUCOSE; Start 01/03/17 at 13: 00 Rifaximin (Xifaxan) 550 mg BID PO Last administered on 01/21/17 09:26; Admin Dose 550 MG; Start 01/03/17 at 14:30 Morphine Sulfate (morphine) 2 mg Q4H PRN IV PAIN Last administered on 19:12; Admin Dose 2 MG; Start 01/06/17 at 11:30 Acetaminophen (Tylenol Liquid) 650 mg Q6H PRN GTB PAIN AND OR ELEVATED TEMP Last administered on 01/16/17 10:04; Admin Dose 650 MG; Start 01/08/17 at 09:30 IV Flush 10 ml 10 ml PRN PRN IV IV PROTOCOL; Start 01/10/17 at 17:30 Meropenem (Merrem 1 Gm/100 ml (Pmx)) 100 ml @ 200 mls/hr Q12 IVPB Last administered on 01/21/17 09:26; Admin Dose 200 MLS/HR; Start 01/12/17 at 21:00 Lansoprazole (Prevacid) 30 mg DAILY@06 GTB Last administered on 01/21/17 05:45 ; Admin Dose 30 MG; Start 01/13/17 at 06:00 Insulin Aspart (Novolog Insulin Pen) NOVOLOG *MODERATE* ALGORI... Q6 SC ; Start 01/12/17 at 18:00 Lactulose 30 gm 30 gm Q6 NGT Last administered on 01/21/17 12:03; Admin Dose 30 GM; Start 01/17/17 at 18:00 Thiamine HCl 500 mg/Sodium Chloride 250 ml @ 250 mls/hr Q8H IV Last administered on 01/21/17t 05:46; Admin Dose 250 MLS/HR; Start 01/18/17 at 14:00 ; Stop 01/21/17 at 13:59 Thiamine HCl 250 mg/Sodium Chloride 100 ml @ 100 mls/hr Q24H IV ; Start at 14:00; Stop 01/26/17 at 14:59 Thiamine HCl/ Sodium Chloride (Vitamin B1/NS) 50 ml @ 100 mls/hr Q24H IV ; Start 01/27/17 at 14:00 TRENT SAUCEDA Jan 21, 2017 12:28
--- NOTE | 2017-01-21 13:17 | CONS ---
Date/Time of Note Date/Time of Note DATE: 01/21/17 TIME: 13:12 Assessment/Plan Assessment/Plan Chief Complaint/Hosp Course Altered mental status Problems: Additional Assessment/Plan 56 year old male w hepatitis C, chronic alcohol abuse admitted with AMS, severe metabolic issues, respiratory failure requiring emergent dialysis with persistent encephalopathy. MRI Brain with bilateral pontine restricted diffusion, bilateral restricted diffusion sub-insular cortex more prominent on right than the left. FLAIR signal in bilateral princess. Imaging reviewed with Dr. 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 also insular involvement could be secondary to hypoxic injury. EEG showed encephalopathy with epileptiform activity. Recommendations: -Continue IV Thiamine supplementation -Loaded with levetiracetam 1000 mg IV now and then will continue with 500 mg IV twice a day -Discussed with i suspect he has a combination of central pontine myelinolysis due to presentation of severe metabolic issues and during admission has had severe metabolic issues that could precipitate this cerebral pontine myelinosis generally is associated with a poor prognosis continue current medical management and goals of care discussion with family, palliative care consultation Consultation Date/Type/Reason Admit Date/Time Jan 02, 2017 at 12:58 Initial Consult Date 01/19/17 Type of Consultation: Pulmonary Referring Provider: SRIKANTH GALVAN 24 HR Interval Summary Free Text/Dictation Clinically unchanged. NG tube in place. EEG showed encephalopathy with epileptiform activity. Exam/Review of Systems Vital Signs Vitals Vital Signs Date Time Temp Pulse Resp B/P Pulse Ox O2 Delivery O2 Flow Rate FiO2 01/21/17 12:31 91 01/21/17 11:16 98.7 19 125/68 97 01/21/17 09:10 3.0 01/21/17 09:10 Nasal Cannula Intake and Output 01/20/17 01/20/17 01/21/17 14:59 22:59 06:59 Intake Total 1800 ml 2350 ml Output Total 600 ml 1600 ml Balance 1200 ml 750 ml Exam Constitutional: non-verbal Head: atraumatic, normocephalic Eyes: EOMI, nl conjunctiva, nl lids, nl sclera ENMT: mucosa pink and moist, nl external ears & nose, nl lips & teeth, nl nasal mucosa & septum Neck: non-tender, supple Respiratory: clear to auscultation, normal air movement Cardiovascular: nl pulses, regular rate and rhythm Gastrointestinal: nl liver, spleen, soft Extremities: normal pulses Neurological: other (Unresponsive, NG tube in place, does not withdraw to noxious stimuli, corneas are present, gag reflex is present, limited exam) Skin: nl turgor Results Result Diagram: 01/19/17 0605 01/20/17 0609 Results 24 hrs Laboratory Tests Test 01/20/17 17:27 01/21/17 00:22 01/21/17 05:44 01/21/17 09:23 Bedside Glucose 118 84 94 122 Test 01/21/17 12:02 Bedside Glucose 123 Medications Medications Current Medications Miscellaneous Information 1 ea NOTE XX ; Start 01/03/17 at 13:00 Glucose (Glutose) 15 gm Q15M PRN PO DECREASED GLUCOSE; Start 01/03/17 at 13:00 Glucose (Glutose) 22.5 gm Q15M PRN PO DECREASED GLUCOSE; Start 01/03/17 at 13:00 Dextrose (D50w Syringe) 25 ml Q15M PRN IV DECREASED GLUCOSE; Start 01/03/17 at 13:00 Dextrose (D50w Syringe) 50 ml Q15M PRN IV DECREASED GLUCOSE; Start 01/03/17 at 13:00 Glucagon (Glucagen) 1 mg Q15M PRN IM DECREASED GLUCOSE; Start 01/03/17 at 13:00 Glucose (Glutose) 15 gm Q15M PRN BUCCAL DECREASED GLUCOSE; Start 01/03/17 at 13: 00 Rifaximin (Xifaxan) 550 mg BID PO Last administered on 01/21/17 09:26; Admin Dose 550 MG; Start 01/03/17 at 14:30 Morphine Sulfate (morphine) 2 mg Q4H PRN IV PAIN Last administered on 19:12; Admin Dose 2 MG; Start 01/06/17 at 11:30 Acetaminophen (Tylenol Liquid) 650 mg Q6H PRN GTB PAIN AND OR ELEVATED TEMP Last administered on 01/16/17 10:04; Admin Dose 650 MG; Start 01/08/17 at 09:30 IV Flush 10 ml 10 ml PRN PRN IV IV PROTOCOL; Start 01/10/17 at 17:30 Meropenem (Merrem 1 Gm/100 ml (Pmx)) 100 ml @ 200 mls/hr Q12 IVPB Last administered on 01/21/17 09:26; Admin Dose 200 MLS/HR; Start 01/12/17 at 21:00 Lansoprazole (Prevacid) 30 mg DAILY@06 GTB Last administered on 01/21/17 05:45 ; Admin Dose 30 MG; Start 01/13/17 at 06:00 Insulin Aspart (Novolog Insulin Pen) NOVOLOG *MODERATE* ALGORI... Q6 SC ; Start 01/12/17 at 18:00 Lactulose 30 gm 30 gm Q6 NGT Last administered on 01/21/17 12:03; Admin Dose 30 GM; Start 01/17/17 at 18:00 Thiamine HCl 500 mg/Sodium Chloride 250 ml @ 250 mls/hr Q8H IV Last administered on 01/21/17 05:46; Admin Dose 250 MLS/HR; Start 01/18/17 at 14:00 ; Stop 01/21/17 at 13:59 Thiamine HCl 250 mg/Sodium Chloride 100 ml @ 100 mls/hr Q24H IV ; Start at 14:00; Stop 01/26/17 at 14:59 Thiamine HCl 100 mg/Sodium Chloride 50 ml @ 100 mls/hr Q24H IV ; Start at 14:00 Levetiracetam 100 ml @ 400 mls/hr Q12 IVPB ; Start 01/21/17 at 21:00; Status UNV Levetiracetam (Keppra 1,000mg/ 100ml (Pmx)) 100 ml @ 400 mls/hr ONCE ONCE IVPB ; Start 01/21/17 at 13:30; Stop 01/21/17 at 13:44; Status UNV Procedures Procedures MRI of the brain 01/18/2017 IMPRESSION: 1. Abnormal signal within the princess, midbrain and sub insular cortex bilaterally concerning for hepatic encephalopathy or Wernicke's encephalopathy superimposed upon advanced atrophy for the patient's age. Findings are discussed by telephone with the patient's nurse, Leticia, at 12:12 am. 2. No evidence of hemorrhage, mass effect or hydrocephalous. 3. Bilateral mastoid air cell fluid. Jasper Virk Physician Date Time Electronically viewed and signed by Jasper Virk Physician on 01/18/2017 00:14 PAZ PONCE MD Jan 21, 2017 13:17
--- NOTE | 2017-01-21 13:56 | PN ---
Date/Time of Note Date/Time of Note DATE: 01/21/17 TIME: 13:37 Assessment/Plan VTE Prophylaxis VTE Contraindication Reason: thrombocytopenia Lines/Catheters IV Catheter Type (from Nrsg): PICC Line Central line still needed: Yes (for IV access ) Urinary Cath still in place: Yes Reason Cath still needed: terminal illness/intractable pain, other (indicate) ( monitor UOP ) Assessment/Plan Assessment/Plan 56-year-old male: 1. Encephalopathy, still ongoing and comatose at this point. Known Cirrhosis/ ESLD, HepC. CT head unchanged 01/16. MRI brain consistent with Hepatic vs Wernicke's encephalopathy and also per Neurology seems to be consistent with cerebral pontine myelinosis which would be a poor/dismal prognosis EEG with some subclinical seizure activity, starting Keppra today. Continuing Thiamine IV for now. Continuing Rifaximin and Lactulose. DNR per Ximena, she has been updated by myself and Dr Brantley form Neurology , and she will be meeting with Dr Willett from Palliative care tomorrow at 8 AM for discussion about comfort measures and hospice if no improvements or further decline over the next 48hrs (by Tuesday). 2. Acute respiratory failure with Severe Encephalopathy and Acute renal failure and also Shock state. Patient with recurrent severe Encephalopathy despite correction of electrolytes. 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 On Meropenem and Vanco DNR 3. Acute Renal Failure, likely pre renal secondary to dehydration VS ATN with Severe Hyperkalemia. Resolved s/p emergent HD on admission, S/p episode Hypernatremia, resolving currently. Dr Brown following from Nephrology NGT placed and increasing Free H2O 400 cc q4 hrs so far. 4. Severe hyperkalemia. Resolved post Emergent HD on admission 5. Metabolic acidosis in setting on of ARF, s/p HD on admission. Resolved with improving renal function. Nephrology following 6. End-stage alcoholic liver disease, with also known Hep C, cirrhosis with Hepatic Encephalopathy and also coagulopathy. Stabilizing but severe encephalopathy persistent and with now additional findings on MRI, dismal prognosis On Rifaximin and Lactulose. 7. Hypernatremia, Na down to 140. Continue tube feedings and free H2O until family meeting today. Nephrology, Dr Brown following 8. Acute on chronic anemia, no acute bleeding seen. s/p 1 units pRBC H/H stable so far. 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 Subjective 24 Hr Interval Summary Free Text/Dictation Patient still mostly not responsive, moving right foot spontaneously with still upgoing toes. EEG with subclinical seizure activities so starting Keppra Re eval through weekend, palliative care meeting with Dr Eric tomorrow at 8AM and if no significant improvement by Tuesday or further decline in the next 48hrs definitely hospice placement and comfort measures, discussed with Ximena who is agreeable. Exam/Review of Systems Vital Signs Vitals Vital Signs Date Time Temp Pulse Resp B/P Pulse Ox O2 Delivery O2 Flow Rate FiO2 01/21/17 12:31 91 01/21/17 11:16 98.7 19 125/68 97 01/21/17 09:10 3.0 01/21/17 09:10 Nasal Cannula Intake and Output 01/20/17 01/20/17 01/21/17 15:00 23:00 07:00 Intake Total 1900 ml 2250 ml Output Total 600 ml 1600 ml Balance 1300 ml 650 ml Exam Constitutional: other (mostly unresponsive ) Respiratory: diminished breath sounds (b/l and also with almost agonal breathing at times ), normal air movement Cardiovascular: nl pulses, regular rate and rhythm Gastrointestinal: non-tender, other (on tube feedings ), soft Musculoskeletal: nl extremities to inspection Extremities: normal pulses, other (some diffuse anasarca ) Neurological: lethargic, other (mostly unresponsive ) Results Result Diagram: 01/19/17 0605 01/20/17 0609 Results 24 hrs Laboratory Tests Test 01/20/17 17:27 01/21/17 00:22 01/21/17 05:44 01/21/17 09:23 Bedside Glucose 118 84 94 122 Test 01/21/17 12:02 Bedside Glucose 123 Medications Medications Current Medications Miscellaneous Information 1 ea NOTE XX ; Start 01/03/17 at 13:00 Glucose (Glutose) 15 gm Q15M PRN PO DECREASED GLUCOSE; Start 01/03/17 at 13:00 Glucose (Glutose) 22.5 gm Q15M PRN PO DECREASED GLUCOSE; Start 01/03/17 at 13:00 Dextrose (D50w Syringe) 25 ml Q15M PRN IV DECREASED GLUCOSE; Start 01/03/17 at 13:00 Dextrose (D50w Syringe) 50 ml Q15M PRN IV DECREASED GLUCOSE; Start 01/03/17 at 13:00 Glucagon (Glucagen) 1 mg Q15M PRN IM DECREASED GLUCOSE; Start 01/03/17 at 13:00 Glucose (Glutose) 15 gm Q15M PRN BUCCAL DECREASED GLUCOSE; Start 01/03/17 at 13: 00 Rifaximin (Xifaxan) 550 mg BID PO Last administered on 01/21/17 09:26; Admin Dose 550 MG; Start 01/03/17 at 14:30 Morphine Sulfate (morphine) 2 mg Q4H PRN IV PAIN Last administered on 19:12; Admin Dose 2 MG; Start 01/06/17 at 11:30 Acetaminophen (Tylenol Liquid) 650 mg Q6H PRN GTB PAIN AND OR ELEVATED TEMP Last administered on 01/16/17 10:04; Admin Dose 650 MG; Start 01/08/17 at 09:30 IV Flush 10 ml 10 ml PRN PRN IV IV PROTOCOL; Start 01/10/17 at 17:30 Meropenem (Merrem 1 Gm/100 ml (Pmx)) 100 ml @ 200 mls/hr Q12 IVPB Last administered on 01/21/17 09:26; Admin Dose 200 MLS/HR; Start 01/12/17 at 21:00 Lansoprazole (Prevacid) 30 mg DAILY@06 GTB Last administered on 01/21/17 05:45 ; Admin Dose 30 MG; Start 01/13/17 at 06:00 Insulin Aspart (Novolog Insulin Pen) NOVOLOG *MODERATE* ALGORI... Q6 SC ; Start 01/12/17 at 18:00 Lactulose 30 gm 30 gm Q6 NGT Last administered on 01/21/17 12:03; Admin Dose 30 GM; Start 01/17/17 at 18:00 Thiamine HCl 500 mg/Sodium Chloride 250 ml @ 250 mls/hr Q8H IV Last administered on 01/21/17t 05:46; Admin Dose 250 MLS/HR; Start 01/18/17 at 14:00 ; Stop 01/21/17 at 13:59 Thiamine HCl 250 mg/Sodium Chloride 100 ml @ 100 mls/hr Q24H IV ; Start at 14:00; Stop 01/26/17 at 14:59 Thiamine HCl 100 mg/Sodium Chloride 50 ml @ 100 mls/hr Q24H IV ; Start at 14:00 Levetiracetam 100 ml @ 400 mls/hr Q12 IVPB ; Start 01/21/17 at 23:00 Levetiracetam (Keppra 1,000mg/ 100ml (Pmx)) 100 ml @ 400 mls/hr ONCE ONCE IVPB ; Start 01/21/17 at 14:00; Stop 01/21/17 at 14:14 SRIKANTH GALVAN Jan 21, 2017 13:47
[2017-01-21] MEDS ORDERED: LEVETIRACETAM 1000 MG (PMX) 100 ML IVPB ONE (14:00)
--- NOTE | 2017-01-21 17:08 | CONS ---
Date/Time of Note Date/Time of Note DATE: 01/21/17 TIME: 17:06 Assessment/Plan Assessment/Plan Additional Assessment/Plan 1. Acute hyperkalemia with a potassium of 7.6 on admission, s/p One session of Emergent HD 01/03/17- now improved 2. Severe metabolic acidosis s/p Bicarbonate drip, now stable 3. Acute kidney injury with a BUN of 127, creatinine of 8.9 on admission, likely secondary to acute tubular necrosis. 4. Acute respiratory failure secondary to possibly acute fluid overload and possibly pneumonia.intubated on ventilator s/p Extubation 5. History of liver cirrhosis from hepatitis C. 6. acute encephalopathy possibly hepatic encephalopathy from liver cirrhosis and possible CPM 7. 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 Hyponatremia > hypernatremia - has been desmopressin x 2 days so far- Na 145 today - Demopressin has been stopped on 01/19/2017 PLAN: S/p Emergent HD x 1 due to hyperkalemia, severe metabolic acidosis and resp failure- now Improved renal function, temporary misael has been removed Renal US negative for hydronephrosis, echogenicity c/w CKD , good urine output Desmopressin discontinued yesterday, BP stable, Electrolytes normal IV abx as per primary care team Neurology has been following, MRI brain has been showing signs of CPM( Central pontine myelonlysis)- Poor prognosis, not a candidate for long term care pharmacist renal replacement therapy- pt is still not waking up, palliative care has been consulted on the case will continue to follow up call us if any questions Consultation Date/Type/Reason Admit Date/Time Jan 02, 2017 at 12:58 Initial Consult Date Dec Type of Consultation: NEPHROLOGY Referring Provider: SRIKANTH GALVAN Exam/Review of Systems Vital Signs Vitals Vital Signs Date Time Temp Pulse Resp B/P Pulse Ox O2 Delivery O2 Flow Rate FiO2 01/21/17 16:17 91 01/21/17 15:24 98.8 19 130/68 94 01/21/17 14:48 Nasal Cannula 3.0 Intake and Output 01/20/17 01/20/17 01/21/17 15:00 23:00 07:00 Intake Total 1900 ml 2250 ml Output Total 600 ml 1600 ml Balance 1300 ml 650 ml Results Result Diagram: 01/19/17 0605 01/20/17 0609 Results 24 hrs Laboratory Tests Test 01/20/17 17:27 01/21/17 00:22 01/21/17 05:44 01/21/17 09:23 Bedside Glucose 118 84 94 122 Test 01/21/17 12:02 Bedside Glucose 123 Medications Medications Current Medications Miscellaneous Information 1 ea NOTE XX ; Start 01/03/17 at 13:00 Glucose (Glutose) 15 gm Q15M PRN PO DECREASED GLUCOSE; Start 01/03/17 at 13:00 Glucose (Glutose) 22.5 gm Q15M PRN PO DECREASED GLUCOSE; Start 01/03/17 at 13:00 Dextrose (D50w Syringe) 25 ml Q15M PRN IV DECREASED GLUCOSE; Start 01/03/17 at 13:00 Dextrose (D50w Syringe) 50 ml Q15M PRN IV DECREASED GLUCOSE; Start 01/03/17 at 13:00 Glucagon (Glucagen) 1 mg Q15M PRN IM DECREASED GLUCOSE; Start 01/03/17 at 13:00 Glucose (Glutose) 15 gm Q15M PRN BUCCAL DECREASED GLUCOSE; Start 01/03/17 at 13: 00 Rifaximin (Xifaxan) 550 mg BID PO Last administered on 01/21/17 09:26; Admin Dose 550 MG; Start 01/03/17 at 14:30 Morphine Sulfate (morphine) 2 mg Q4H PRN IV PAIN Last administered on 19:12; Admin Dose 2 MG; Start 01/06/17 at 11:30 Acetaminophen (Tylenol Liquid) 650 mg Q6H PRN GTB PAIN AND OR ELEVATED TEMP Last administered on 01/16/17 10:04; Admin Dose 650 MG; Start 01/08/17 at 09:30 IV Flush 10 ml 10 ml PRN PRN IV IV PROTOCOL; Start 01/10/17 at 17:30 Meropenem (Merrem 1 Gm/100 ml (Pmx)) 100 ml @ 200 mls/hr Q12 IVPB Last administered on 01/21/17 09:26; Admin Dose 200 MLS/HR; Start 01/12/17 at 21:00 Lansoprazole (Prevacid) 30 mg DAILY@06 GTB Last administered on 01/21/17 05:45 ; Admin Dose 30 MG; Start 01/13/17 at 06:00 Insulin Aspart (Novolog Insulin Pen) NOVOLOG *MODERATE* ALGORI... Q6 SC ; Start 01/12/17 at 18:00 Lactulose 30 gm 30 gm Q6 NGT Last administered on 01/21/17t 12:03; Admin Dose 30 GM; Start 01/17/17 at 18:00 Thiamine HCl 250 mg/Sodium Chloride 100 ml @ 100 mls/hr Q24H IV ; Start at 14:00; Stop 01/26/17 at 14:59 Thiamine HCl 100 mg/Sodium Chloride 50 ml @ 100 mls/hr Q24H IV ; Start at 14:00 Levetiracetam (Keppra 500 Mg/ 100ml (Pmx)) 100 ml @ 400 mls/hr Q12 IVPB ; Start 01/21/17 at 23:00 MARII DALY MD Jan 21, 2017 17:08
[2017-01-21] MEDS: LEVETIRACETAM 500 MG (PMX) 100 ML IVPB SCH (22:49)
[2017-01-22] VITALS (12 sets, daily range): BP systolic 115–131; BP diastolic 58–67; PULSE 86–97; RESP 16–20
[2017-01-22] MEDS: LEVALBUTEROL (NEB) 0.63 MG/3 ML AMP HHN SCH ×4 (02:32→19:15)
[2017-01-22] MEDS: IPRATROPIUM (NEB) 0.5 MG/2.5 ML AMP HHN SCH ×4 (02:32→19:15)
[2017-01-22] MEDS: LANSOPRAZOLE 30 MG CAP GTB SCH (05:16)
[2017-01-22] MEDS: LACTULOSE 30ML CUP NGT SCH ×4 (05:16→21:07)
[2017-01-22] MEDS: INSULIN ASPART [NOVOLOG] 3 ML PEN SC SCH ×3 (05:24→17:49)
[2017-01-22] MEDS: LEVETIRACETAM 500 MG (PMX) 100 ML IVPB SCH ×2 (10:02→21:08)
[2017-01-22] MEDS: MEROPENEM 1 GM/100 ML (PMX) 100 ML IVPB SCH ×2 (10:02→21:07)
[2017-01-22] MEDS: RIFAXIMIN 550 MG TAB PO SCH ×2 (10:02→21:08)
--- NOTE | 2017-01-22 11:06 | PN ---
DATE: 01/22/2017 PULMONARY FOLLOWUP SUBJECTIVE: Chart reviewed. Events noted. Patient currently on 3 L nasal cannula, saturating 96%. PHYSICAL EXAMINATION: VITAL SIGNS: Blood pressure 120/67, pulse 89, respirations 20, temperature 98.6. HEENT: Pupils are equal and react to light. Anicteric sclerae. NECK: Supple. No JVD noted, no cervical adenopathy noted, no carotid bruits heard. LUNGS: Few scattered rhonchi. CARDIOVASCULAR: S1, S2 normal. ABDOMEN: Soft, nontender. No organomegaly or masses noted. EXTREMITIES: No clubbing or cyanosis noted. Trace pretibial edema present. NEUROLOGIC: Encephalopathic. IMPRESSION: 1. Status post acute respiratory failure, status post extubation. 2. Acute renal failure, requiring brief hemodialysis. 3. Pneumonia. 4. Severe encephalopathy. 5. Atelectasis. 6. Obesity. 7. History of alcohol abuse. 8. History of hepatitis C. PLAN: 1. Continue oxygen. 2. Continue antibiotics. 3. Pulmonary toilet. 4. Nephrology followup noted. 5. Palliative eval requested. 6. Consider comfort-oriented care. Dictated By: RONNY MAZARIEGOS MD, MA/OZZY Conf#: [id number] DID#: [id number]
--- NOTE | 2017-01-22 12:38 | CONS ---
Date/Time of Note Date/Time of Note DATE: 01/22/17 TIME: 12:34 Assessment/Plan Assessment/Plan Additional Assessment/Plan 1. Acute hyperkalemia with a potassium of 7.6 on admission, s/p One session of Emergent HD 01/03/17- now improved 2. Severe metabolic acidosis s/p Bicarbonate drip, now stable 3. Acute kidney injury with a BUN of 127, creatinine of 8.9 on admission, likely secondary to acute tubular necrosis. 4. Acute respiratory failure secondary to possibly acute fluid overload and possibly pneumonia.intubated on ventilator s/p Extubation 5. History of liver cirrhosis from hepatitis C. 6. acute encephalopathy possibly hepatic encephalopathy from liver cirrhosis and possible CPM 7. 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 Hyponatremia > hypernatremia - has been desmopressin x 2 days so far- Na 145 today - Demopressin has been stopped on 01/19/2017 PLAN: S/p Emergent HD x 1 due to hyperkalemia, severe metabolic acidosis and resp failure- now Improved renal function, temporary misael has been removed Renal US negative for hydronephrosis, echogenicity c/w CKD , good urine output Desmopressin discontinued yesterday, BP stable, Electrolytes normal IV abx as per primary care team Neurology has been following, MRI brain has been showing signs of CPM( Central pontine myelonlysis)- Poor prognosis, not a candidate for intermediate frame tender renal replacement therapy- pt is still not waking up, palliative care has been consulted on the case will continue to follow up call us if any questions Consultation Date/Type/Reason Admit Date/Time Jan 02, 2017 at 12:58 Initial Consult Date Dec Type of Consultation: NEPHROLOGY Referring Provider: SRIKANTH GALVAN 24 HR Interval Summary Free Text/Dictation pt remains lethargic, BP stable Exam/Review of Systems Vital Signs Vitals Vital Signs Date Time Temp Pulse Resp B/P Pulse Ox O2 Delivery O2 Flow Rate FiO2 01/22/17 12:17 94 01/22/17 11:41 98.4 20 131/60 99 01/22/17 10:00 Nasal Cannula 2.0 Intake and Output 01/21/17 01/21/17 01/22/17 15:00 23:00 07:00 Intake Total 2020 ml 1780 ml Output Total 750 ml 1200 ml Balance 1270 ml 580 ml Exam Constitutional: other (comatose ) Respiratory: diminished breath sounds (R>>L ) Cardiovascular: nl pulses, regular rate and rhythm Gastrointestinal: non-tender, soft Musculoskeletal: nl extremities to inspection Extremities: normal pulses Neurological: other (comatose ), unresponsive Results Result Diagram: 01/19/17 0605 01/20/17 0609 Results 24 hrs Laboratory Tests Test 01/21/17 17:52 01/21/17 23:09 01/22/17 05:22 Bedside Glucose 124 103 97 Medications Medications Current Medications Miscellaneous Information 1 ea NOTE XX ; Start 01/03/17 at 13:00 Glucose (Glutose) 15 gm Q15M PRN PO DECREASED GLUCOSE; Start 01/03/17 at 13:00 Glucose (Glutose) 22.5 gm Q15M PRN PO DECREASED GLUCOSE; Start 01/03/17 at 13:00 Dextrose (D50w Syringe) 25 ml Q15M PRN IV DECREASED GLUCOSE; Start 01/03/17 at 13:00 Dextrose (D50w Syringe) 50 ml Q15M PRN IV DECREASED GLUCOSE; Start 01/03/17 at 13:00 Glucagon (Glucagen) 1 mg Q15M PRN IM DECREASED GLUCOSE; Start 01/03/17 at 13:00 Glucose (Glutose) 15 gm Q15M PRN BUCCAL DECREASED GLUCOSE; Start 01/03/17 at 13: 00 Rifaximin (Xifaxan) 550 mg BID PO Last administered on 01/22/17 10:02; Admin Dose 550 MG; Start 01/03/17 at 14:30 Morphine Sulfate (morphine) 2 mg Q4H PRN IV PAIN Last administered on 19:12; Admin Dose 2 MG; Start 01/06/17 at 11:30 Acetaminophen (Tylenol Liquid) 650 mg Q6H PRN GTB PAIN AND OR ELEVATED TEMP Last administered on 01/16/17 10:04; Admin Dose 650 MG; Start 01/08/17 at 09:30 IV Flush 10 ml 10 ml PRN PRN IV IV PROTOCOL; Start 01/10/17 at 17:30 Meropenem (Merrem 1 Gm/100 ml (Pmx)) 100 ml @ 200 mls/hr Q12 IVPB Last administered on 01/22/17 10:02; Admin Dose 200 MLS/HR; Start 01/12/17 at 21:00 Lansoprazole (Prevacid) 30 mg DAILY@06 GTB Last administered on 01/22/17 05:16 ; Admin Dose 30 MG; Start 01/13/17 at 06:00 Insulin Aspart (Novolog Insulin Pen) NOVOLOG *MODERATE* ALGORI... Q6 SC ; Start 01/12/17 at 18:00 Lactulose 30 gm 30 gm Q6 NGT Last administered on 01/22/17 05:16; Admin Dose 30 GM; Start 01/17/17 at 18:00 Thiamine HCl 250 mg/Sodium Chloride 100 ml @ 100 mls/hr Q24H IV ; Start at 14:00; Stop 01/26/17 at 14:59 Thiamine HCl 100 mg/Sodium Chloride 50 ml @ 100 mls/hr Q24H IV ; Start at 14:00 Levetiracetam (Keppra 500 Mg/ 100ml (Pmx)) 100 ml @ 400 mls/hr Q12 IVPB Last administered on 01/22/17 10:02; Admin Dose 400 MLS/HR; Start 01/21/17 at 23:00 MARII DALY MD Jan 22, 2017 12:37
[2017-01-22] MEDS ORDERED: SOD CHLORIDE 0.9% IV SCH ×4 (14:00)
[2017-01-22] MEDS ORDERED: THIAMINE IV SCH ×4 (14:00)
--- NOTE | 2017-01-22 14:56 | PN ---
Date/Time of Note Date/Time of Note DATE: 01/22/17 TIME: 14:43 Assessment/Plan VTE Prophylaxis VTE Prophylaxis Intervention: SCD's Lines/Catheters IV Catheter Type (from Nrsg): PICC Line Central line still needed: Yes Urinary Cath still in place: Yes Reason Cath still needed: terminal illness/intractable pain Assessment/Plan Assessment/Plan 56 year old with multiple medical problems and poor prognosis. 1. Encephalopathy, still ongoing and comatose at this point. Known Cirrhosis/ ESLD, HepC. CT head unchanged 01/16. MRI brain consistent with Hepatic vs Wernicke's encephalopathy and also per Neurology seems to be consistent with cerebral pontine myelinosis which would be a poor/dismal prognosis EEG with some subclinical seizure activity, starting Keppra today. Continuing Thiamine IV for now. Continuing Rifaximin and Lactulose. DNR per Ximena, she has been updated by myself and Dr Brantley form Neurology , and she will be meeting with Dr Eric and she is agreeable to hospice and prefers inpatient hospice. 2. Acute respiratory failure with Severe Encephalopathy and Acute renal failure and also Shock state. Patient with recurrent severe Encephalopathy despite correction of electrolytes. 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 On Meropenem and Vanco DNR 3. Acute Renal Failure, likely pre renal secondary to dehydration VS ATN with Severe Hyperkalemia. Resolved s/p emergent HD on admission, S/p episode Hypernatremia, resolving currently. Dr Brown following from Nephrology NGT placed and increasing Free H2O 400 cc q4 hrs so far. 4. Severe hyperkalemia. Resolved post Emergent HD on admission 5. Metabolic acidosis in setting on of ARF, s/p HD on admission. Resolved with improving renal function. Nephrology following 6. End-stage alcoholic liver disease, with also known Hep C, cirrhosis with Hepatic Encephalopathy and also coagulopathy. Stabilizing but severe encephalopathy persistent and with now additional findings on MRI, dismal prognosis On Rifaximin and Lactulose. 7. Hypernatremia, Na down to 140. Continue tube feedings and free H2O until family meeting today. Nephrology, Dr Brown following 8. Acute on chronic anemia, no acute bleeding seen. s/p 1 units pRBC H/H stable so far. 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 /family agreeable to hospice and hopefully, we will transfer him to hospice today. Subjective 24 Hr Interval Summary Free Text/Dictation Non-verbal and no events overnight. Family at bedside. Subjective hx not possible: pt non-verbal, pt critical status Exam/Review of Systems Vital Signs Vitals Vital Signs Date Time Temp Pulse Resp B/P Pulse Ox O2 Delivery O2 Flow Rate FiO2 01/22/17 14:33 3.0 01/22/17 12:17 94 01/22/17 11:41 98.4 20 131/60 99 01/22/17 10:00 Nasal Cannula Intake and Output 01/21/17 01/21/17 01/22/17 15:00 23:00 07:00 Intake Total 2020 ml 1780 ml Output Total 750 ml 1200 ml Balance 1270 ml 580 ml Exam Constitutional: non-verbal Psych: no complaints Head: normocephalic ENMT: nl external ears & nose Neck: supple Respiratory: clear to auscultation, crackles/rales Cardiovascular: regular rate and rhythm Gastrointestinal: distended, soft Extremities: edema, normal pulses Results Result Diagram: 01/19/17 0605 01/20/17 0609 Results 24 hrs Laboratory Tests Test 01/21/17 17:52 01/21/17 23:09 01/22/17 05:22 01/22/17 12:36 Bedside Glucose 124 103 97 117 Medications Medications Current Medications Miscellaneous Information 1 ea NOTE XX ; Start 01/03/17 at 13:00 Glucose (Glutose) 15 gm Q15M PRN PO DECREASED GLUCOSE; Start 01/03/17 at 13:00 Glucose (Glutose) 22.5 gm Q15M PRN PO DECREASED GLUCOSE; Start 01/03/17 at 13:00 Dextrose (D50w Syringe) 25 ml Q15M PRN IV DECREASED GLUCOSE; Start 01/03/17 at 13:00 Dextrose (D50w Syringe) 50 ml Q15M PRN IV DECREASED GLUCOSE; Start 01/03/17 at 13:00 Glucagon (Glucagen) 1 mg Q15M PRN IM DECREASED GLUCOSE; Start 01/03/17 at 13:00 Glucose (Glutose) 15 gm Q15M PRN BUCCAL DECREASED GLUCOSE; Start 01/03/17 at 13: 00 Rifaximin (Xifaxan) 550 mg BID PO Last administered on 01/22/17 10:02; Admin Dose 550 MG; Start 01/03/17 at 14:30 Morphine Sulfate (morphine) 2 mg Q4H PRN IV PAIN Last administered on 19:12; Admin Dose 2 MG; Start 01/06/17 at 11:30 Acetaminophen (Tylenol Liquid) 650 mg Q6H PRN GTB PAIN AND OR ELEVATED TEMP Last administered on 01/16/17 10:04; Admin Dose 650 MG; Start 01/08/17 at 09:30 IV Flush 10 ml 10 ml PRN PRN IV IV PROTOCOL; Start 01/10/17 at 17:30 Meropenem (Merrem 1 Gm/100 ml (Pmx)) 100 ml @ 200 mls/hr Q12 IVPB Last administered on 01/22/17 10:02; Admin Dose 200 MLS/HR; Start 01/12/17 at 21:00 Lansoprazole (Prevacid) 30 mg DAILY@06 GTB Last administered on 01/22/17 05:16 ; Admin Dose 30 MG; Start 01/13/17 at 06:00 Insulin Aspart (Novolog Insulin Pen) NOVOLOG *MODERATE* ALGORI... Q6 SC ; Start 01/12/17 at 18:00 Lactulose 30 gm 30 gm Q6 NGT Last administered on 01/22/17 12:38; Admin Dose 30 GM; Start 01/17/17 at 18:00 Thiamine HCl 250 mg/Sodium Chloride 100 ml @ 100 mls/hr Q24H IV Last administered on 01/22/17 14:18; Admin Dose 100 MLS/HR; Start 01/22/17 at 14:00 ; Stop 01/26/17 at 14:59 Thiamine HCl 100 mg/Sodium Chloride 50 ml @ 100 mls/hr Q24H IV ; Start at 14:00 Levetiracetam (Keppra 500 Mg/ 100ml (Pmx)) 100 ml @ 400 mls/hr Q12 IVPB Last administered on 01/22/17t 10:02; Admin Dose 400 MLS/HR; Start 01/21/17 at 23:00 DAVID MCKEON MD Jan 22, 2017 14:56
--- NOTE | 2017-01-22 15:15 | CONS ---
Date/Time of Note Date/Time of Note DATE: 01/22/17 TIME: 15:12 Assessment/Plan Assessment/Plan Chief Complaint/Hosp Course Altered mental status Problems: Additional Assessment/Plan 56 year old male w hepatitis C, chronic alcohol abuse admitted with AMS, severe metabolic issues, respiratory failure requiring emergent dialysis with persistent encephalopathy. MRI Brain with bilateral pontine restricted diffusion, bilateral restricted diffusion sub-insular cortex more prominent on right than the left. FLAIR signal in bilateral princess. Imaging reviewed with Dr. 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 also insular involvement could be secondary to hypoxic injury. EEG showed encephalopathy with epileptiform activity. 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 He was started on levetiracetam yesterday. Patient condition has been changed to hospice. Exam/Review of Systems Vital Signs Vitals Vital Signs Date Time Temp Pulse Resp B/P Pulse Ox O2 Delivery O2 Flow Rate FiO2 01/22/17 14:33 3.0 01/22/17 12:17 94 01/22/17 11:41 98.4 20 131/60 99 01/22/17 10:00 Nasal Cannula Intake and Output 01/21/17 01/21/17 01/22/17 15:00 23:00 07:00 Intake Total 2020 ml 1780 ml Output Total 750 ml 1200 ml Balance 1270 ml 580 ml Exam Constitutional: non-verbal Head: atraumatic, normocephalic Eyes: nl conjunctiva, nl lids ENMT: nl external ears & nose, nl lips & teeth, nl nasal mucosa & septum Neck: non-tender, supple Cardiovascular: regular rate and rhythm Gastrointestinal: non-tender, soft Neurological: other (Noncommunicative, very limited exam, NG tube in place, no withdrawal to noxious stimulus) Results Result Diagram: 01/19/17 0605 01/20/17 0609 Results 24 hrs Laboratory Tests Test 01/21/17 17:52 01/21/17 23:09 01/22/17 05:22 01/22/17 12:36 Bedside Glucose 124 103 97 117 Medications Medications Current Medications Miscellaneous Information 1 ea NOTE XX ; Start 01/03/17 at 13:00 Glucose (Glutose) 15 gm Q15M PRN PO DECREASED GLUCOSE; Start 01/03/17 at 13:00 Glucose (Glutose) 22.5 gm Q15M PRN PO DECREASED GLUCOSE; Start 01/03/17 at 13:00 Dextrose (D50w Syringe) 25 ml Q15M PRN IV DECREASED GLUCOSE; Start 01/03/17 at 13:00 Dextrose (D50w Syringe) 50 ml Q15M PRN IV DECREASED GLUCOSE; Start 01/03/17 at 13:00 Glucagon (Glucagen) 1 mg Q15M PRN IM DECREASED GLUCOSE; Start 01/03/17 at 13:00 Glucose (Glutose) 15 gm Q15M PRN BUCCAL DECREASED GLUCOSE; Start 01/03/17 at 13: 00 Rifaximin (Xifaxan) 550 mg BID PO Last administered on 01/22/17 10:02; Admin Dose 550 MG; Start 01/03/17 at 14:30 Morphine Sulfate (morphine) 2 mg Q4H PRN IV PAIN Last administered on 19:12; Admin Dose 2 MG; Start 01/06/17 at 11:30 Acetaminophen (Tylenol Liquid) 650 mg Q6H PRN GTB PAIN AND OR ELEVATED TEMP Last administered on 01/16/17 10:04; Admin Dose 650 MG; Start 01/08/17 at 09:30 IV Flush 10 ml 10 ml PRN PRN IV IV PROTOCOL; Start 01/10/17 at 17:30 Meropenem (Merrem 1 Gm/100 ml (Pmx)) 100 ml @ 200 mls/hr Q12 IVPB Last administered on 01/22/17 10:02; Admin Dose 200 MLS/HR; Start 01/12/17 at 21:00 Lansoprazole (Prevacid) 30 mg DAILY@06 GTB Last administered on 01/22/17 05:16 ; Admin Dose 30 MG; Start 01/13/17 at 06:00 Insulin Aspart (Novolog Insulin Pen) NOVOLOG *MODERATE* ALGORI... Q6 SC ; Start 01/12/17 at 18:00 Lactulose 30 gm 30 gm Q6 NGT Last administered on 01/22/17 12:38; Admin Dose 30 GM; Start 01/17/17 at 18:00 Thiamine HCl 250 mg/Sodium Chloride 100 ml @ 100 mls/hr Q24H IV Last administered on 01/22/17 14:18; Admin Dose 100 MLS/HR; Start 01/22/17 at 14:00 ; Stop 01/26/17 at 14:59 Thiamine HCl 100 mg/Sodium Chloride 50 ml @ 100 mls/hr Q24H IV ; Start at 14:00 Levetiracetam (Keppra 500 Mg/ 100ml (Pmx)) 100 ml @ 400 mls/hr Q12 IVPB Last administered on 01/22/17 10:02; Admin Dose 400 MLS/HR; Start 01/21/17 at 23:00 PAZ PONCE MD Jan 22, 2017 15:15
[2017-01-23] VITALS (11 sets, daily range): BP systolic 109–129; BP diastolic 58–67; PULSE 88–103; RESP 20–21
[2017-01-23] MEDS: LEVALBUTEROL (NEB) 0.63 MG/3 ML AMP HHN SCH ×2 (01:05→09:10)
[2017-01-23] MEDS: IPRATROPIUM (NEB) 0.5 MG/2.5 ML AMP HHN SCH ×2 (01:06→09:10)
[2017-01-23] MEDS: INSULIN ASPART [NOVOLOG] 3 ML PEN SC SCH ×3 (06:00→12:00)
[2017-01-23] MEDS: LANSOPRAZOLE 30 MG CAP GTB SCH (06:00)
[2017-01-23] MEDS: LACTULOSE 30ML CUP NGT SCH ×2 (06:00→10:10)
--- NOTE | 2017-01-23 06:33 | RADRPT ---
PROCEDURE: XR Chest. CLINICAL INDICATION: Pleural effusion and nasogastric tube TECHNIQUE: Portable single view of the chest COMPARISON: 01/18/2017 FINDINGS: There has been further opacification of the right hemithorax with no significant residual right lung aeration. Large right pleural effusion is again seen. Right PICC line is again seen. Nasogastric tube is again seen. The tip is within the stomach. The side-hole is likely near the gastroesophag eal junction. It may be helpful to advance this 7 or 8 cm. Reduced left lung volume with mild pulm onary vascular congestion. IMPRESSION: Complete opacification of the right hemithorax with mediastinal shift to the right and large right e ffusion. Tip of nasogastric tube in the stomach with side-hole likely at the GE junction. It may be helpful to advance this 7 or 8 cm RPTAT: [facility] Physician Jose Date Time Electronically viewed and signed by Pat Wood Physician on 01/23/2017 06:32 TONIA/
--- NOTE | 2017-01-23 09:30 | RADRPT ---
PROCEDURE: XR Chest. CLINICAL INDICATION: Shortness of breath, nasogastric tube placement TECHNIQUE: Single frontal view of the chest. COMPARISON: 01/23/2017 chest radiograph. FINDINGS: Sign: Nasogastric tube is within the region of the gastric fundus. Near-complete opacification of the right hemithorax likely due to combination of effusion and consol idation is similar in appearance with mild volume loss resulting in mild tracheal shift to the lower right is unchanged. No pneumothorax. Cardiac silhouette is partially obscured. Prominence of the pulmonary vasculature seen within the v isualized left lung. No acute osseous abnormalities. IMPRESSION: Nasogastric tube in satisfactory position. Near-complete opacification of the right hemithorax likely due to combination of effusion and consol idation is similar in appearance with mild volume loss resulting in mild tracheal shift to the lower right is unchanged. RPTAT: AADD .Ernesto Brown MD, MD Date Time Electronically viewed and signed by .Ernesto Brown MD, MD on 01/23/2017 09:30 .B/
[2017-01-23] MEDS: LEVETIRACETAM 500 MG (PMX) 100 ML IVPB SCH (10:12)
[2017-01-23] MEDS: RIFAXIMIN 550 MG TAB PO SCH (10:12)
[2017-01-23] MEDS: MEROPENEM 1 GM/100 ML (PMX) 100 ML IVPB SCH (10:12)
--- NOTE | 2017-01-23 13:49 | PN ---
Date/Time of Note Date/Time of Note DATE: 01/23/17 TIME: 13:43 Assessment/Plan VTE Prophylaxis VTE Prophylaxis Intervention: SCD's Lines/Catheters IV Catheter Type (from Nrs): PICC Line Central line still needed: Yes Urinary Cath still in place: Yes Reason Cath still needed: terminal illness/intractable pain Assessment/Plan Assessment/Plan 56 year old with multiple medical problems and poor prognosis awaiting acceptance into hospice. I spoke to Fito Lynne of [place] to have the patient safely transferred onto the hospice service today, likely [facility]. At this point, the patient's is agreeable to hospice, and is agreeable to stopping all medications, except those meds that help to keep him comfortable. 1. Encephalopathy, still ongoing and comatose at this point. Known Cirrhosis/ ESLD, HepC. CT head unchanged 01/16. MRI brain consistent with Hepatic vs Wernicke's encephalopathy and also per Neurology seems to be consistent with cerebral pontine myelinosis which would be a poor/dismal prognosis EEG with some subclinical seizure activity, starting Keppra today. Will d/c medications. DNR per Ximena, she prefers inpatient hospice. 2. Acute respiratory failure with Severe Encephalopathy and Acute renal failure and also Shock state. Patient with recurrent severe Encephalopathy despite correction of electrolytes. 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 On Meropenem and Vanco: will d/c these medications. DNR 3. Acute Renal Failure, likely pre renal secondary to dehydration VS ATN with Severe Hyperkalemia. Resolved s/p emergent HD on admission, S/p episode Hypernatremia, resolving currently. Dr Brown following from Nephrology Prophylaxis: on PPI for GI ppx and SCDs for DVT ppx Disposition: To [facility] hospice as soon as this can safely be arranged. Consult called on 01/22, so the patient should transfer today. /family agreeable to hospice and hopefully, we will transfer him to hospice today. Subjective 24 Hr Interval Summary Free Text/Dictation Somulent; unarousable. Subjective hx not possible: pt non-verbal, pt critical status Exam/Review of Systems Vital Signs Vitals Vital Signs Date Time Temp Pulse Resp B/P Pulse Ox O2 Delivery O2 Flow Rate FiO2 01/23/17 12:28 99 01/23/17 11:13 99.1 20 110/58 93 01/23/17 10:27 Nasal Cannula 2.0 Intake and Output 01/22/17 01/22/17 01/23/17 15:00 23:00 07:00 Intake Total 1555 ml 1200 ml Output Total 1300 ml 1400 ml Balance 255 ml -200 ml Exam Constitutional: non-verbal, other (comatose) Head: normocephalic Eyes: nl conjunctiva ENMT: nl external ears & nose Neck: supple Respiratory: diminished breath sounds, labored breathing Cardiovascular: regular rate and rhythm Gastrointestinal: soft Extremities: edema Results Result Diagram: 01/19/17 0605 01/20/17 0609 Results 24 hrs Laboratory Tests Test 01/22/17 17:21 01/22/17 23:42 01/23/17 06:08 01/23/17 11:57 Bedside Glucose 116 99 95 96 Medications Medications Current Medications Miscellaneous Information 1 ea NOTE XX ; Start 01/03/17 at 13:00 Glucose (Glutose) 15 gm Q15M PRN PO DECREASED GLUCOSE; Start 01/03/17 at 13:00 Glucose (Glutose) 22.5 gm Q15M PRN PO DECREASED GLUCOSE; Start 01/03/17 at 13:00 Dextrose (D50w Syringe) 25 ml Q15M PRN IV DECREASED GLUCOSE; Start 01/03/17 at 13:00 Dextrose (D50w Syringe) 50 ml Q15M PRN IV DECREASED GLUCOSE; Start 01/03/17 at 13:00 Glucagon (Glucagen) 1 mg Q15M PRN IM DECREASED GLUCOSE; Start 01/03/17 at 13:00 Glucose (Glutose) 15 gm Q15M PRN BUCCAL DECREASED GLUCOSE; Start 01/03/17 at 13: 00 Rifaximin (Xifaxan) 550 mg BID PO Last administered on 01/23/17 10:12; Admin Dose 550 MG; Start 01/03/17 at 14:30 Morphine Sulfate (morphine) 2 mg Q4H PRN IV PAIN Last administered on 19:12; Admin Dose 2 MG; Start 01/06/17 at 11:30 Acetaminophen (Tylenol Liquid) 650 mg Q6H PRN GTB PAIN AND OR ELEVATED TEMP Last administered on 01/16/17 10:04; Admin Dose 650 MG; Start 01/08/17 at 09:30 IV Flush 10 ml 10 ml PRN PRN IV IV PROTOCOL; Start 01/10/17 at 17:30 Meropenem (Merrem 1 Gm/100 ml (Pmx)) 100 ml @ 200 mls/hr Q12 IVPB Last administered on 01/23/17 10:12; Admin Dose 200 MLS/HR; Start 01/12/17 at 21:00 Lansoprazole (Prevacid) 30 mg DAILY@06 GTB Last administered on 01/22/17 05:16 ; Admin Dose 30 MG; Start 01/13/17 at 06:00 Insulin Aspart (Novolog Insulin Pen) NOVOLOG *MODERATE* ALGORI... Q6 SC ; Start 01/12/17 at 18:00 Lactulose 30 gm 30 gm Q6 NGT Last administered on 01/23/17 10:10; Admin Dose 30 GM; Start 01/17/17 at 18:00 Thiamine HCl 250 mg/Sodium Chloride 100 ml @ 100 mls/hr Q24H IV Last administered on 01/22/17 14:18; Admin Dose 100 MLS/HR; Start 01/22/17 at 14:00 ; Stop 01/26/17 at 14:59 Thiamine HCl 100 mg/Sodium Chloride 50 ml @ 100 mls/hr Q24H IV ; Start at 14:00 Levetiracetam (Keppra 500 Mg/ 100ml (Pmx)) 100 ml @ 400 mls/hr Q12 IVPB Last administered on 01/23/17 10:12; Admin Dose 400 MLS/HR; Start 01/21/17 at 23:00 DAVID MCKEON MD Jan 23, 2017 13:49
--- NOTE | 2017-01-23 15:30 | CONS ---
Date/Time of Note Date/Time of Note DATE: 01/23/17 TIME: 15:27 Assessment/Plan Assessment/Plan Additional Assessment/Plan 1. Acute hyperkalemia with a potassium of 7.6 on admission, s/p One session of Emergent HD 01/03/17- now improved 2. Severe metabolic acidosis s/p Bicarbonate drip, now stable 3. Acute kidney injury with a BUN of 127, creatinine of 8.9 on admission, likely secondary to acute tubular necrosis. 4. Acute respiratory failure secondary to possibly acute fluid overload and possibly pneumonia.intubated on ventilator s/p Extubation 5. History of liver cirrhosis from hepatitis C. 6. acute encephalopathy possibly hepatic encephalopathy from liver cirrhosis and possible CPM 7. 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 Hyponatremia > hypernatremia - has been desmopressin x 2 days so far- Na 145 today - Demopressin has been stopped on 01/19/2017 PLAN: S/p Emergent HD x 1 due to hyperkalemia -severe metabolic acidosis - resp failure- now Improved renal function -temporary quintan has been removed -Renal US negative for hydronephrosis, echogenicity c/w CKD , good urine output -Desmopressin discontinued yesterday, BP stable, Electrolytes normal -IV abx as per primary care team -Neurology has been following, MRI brain has been showing signs of CPM( Central pontine myelonlysis)- Poor prognosis, not a candidate for dental practice manager renal replacement therapy- pt is still not waking up, palliative care has been consulted on the case -will continue to follow up -call us if any questions Plan of care [place] Consultation Date/Type/Reason Admit Date/Time Jan 02, 2017 at 12:58 Type of Consultation: NEPHROLOGY Referring Provider: SRIKANTH GALVAN 24 HR Interval Summary Free Text/Dictation For Hospice eval today regarding weather patient qualify for inpatient hospice, , slightly febrile dw staff Subjective hx not possible: pt non-verbal Constitutional: requiring IVF Exam/Review of Systems Vital Signs Vitals Vital Signs Date Time Temp Pulse Resp B/P Pulse Ox O2 Delivery O2 Flow Rate FiO2 01/23/17 15:04 99.0 99 20 115/66 94 01/23/17 14:20 3.0 01/23/17 10:27 Nasal Cannula Intake and Output 01/22/17 01/22/17 01/23/17 15:00 23:00 07:00 Intake Total 1555 ml 1200 ml Output Total 1300 ml 1400 ml Balance 255 ml -200 ml Exam Respiratory: diminished breath sounds Cardiovascular: nl pulses, other, regular rate and rhythm (ST- HR- 99-110) Gastrointestinal: non-tender, soft Musculoskeletal: nl extremities to inspection Extremities: normal pulses Neurological: lethargic Results Result Diagram: 01/19/17 0605 01/20/17 0609 Results 24 hrs Laboratory Tests Test 01/22/17 17:21 01/22/17 23:42 01/23/17 06:08 01/23/17 11:57 Bedside Glucose 116 99 95 96 Medications Medications Current Medications Miscellaneous Information 1 ea NOTE XX ; Start 01/03/17 at 13:00 Morphine Sulfate (morphine) 2 mg Q4H PRN IV PAIN Last administered on 19:12; Admin Dose 2 MG; Start 01/06/17 at 11:30 Acetaminophen (Tylenol Liquid) 650 mg Q6H PRN GTB PAIN AND OR ELEVATED TEMP Last administered on 01/16/17 10:04; Admin Dose 650 MG; Start 01/08/17 at 09:30 IV Flush (NS 10 ml) 10 ml PRN PRN IV IV PROTOCOL; Start 01/10/17 at 17:30 GERBER ASHTON Jan 23, 2017 15:30
--- NOTE | 2017-01-23 15:45 | PN ---
DATE: 01/23/2017 SUBJECTIVE: Chart reviewed. The patient has now been placed on hospice care and will be transferre d. OBJECTIVE: VITAL SIGNS: Blood pressure 110/58, pulse 100, respirations 20, temperature 99.1. HEENT: Pupils are equal and reactive to light. NECK: Supple, no JVD noted, no cervical adenopathy noted, no carotid bruits heard. LUNGS: A few scattered rhonchi. CARDIOVASCULAR: S1, S2 normal. ABDOMEN: Soft, nontender, nondistended. Positive bowel sounds. EXTREMITIES: No clubbing or cyanosis noted. NEUROLOGIC: Encephalopathic. IMPRESSION: 1. Status post acute respiratory failure. 2. Acute renal failure. 3. Pneumonia. 4. Severe encephalopathy. 5. Atelectasis. 6. Obesity. 7. History of alcohol abuse. 8. History of hepatitis C. PLAN: 1. Hospice care. 2. We will see p.r.n. Dictated By: RONNY MAAZRIEGOS MD, MA/OZZY Conf#: [id number] DID#: [id number]
[2017-01-23] MEDS ORDERED: morphine (DRIP) 100 MG/100 ML 100 ML IV SCH (18:30)
[2017-01-24] MEDS: ATROPINE SULFATE 1% 5ML SL PRN ×2 (01:01→09:48)
--- NOTE | 2017-01-24 08:20 | CONS ---
Date/Time of Note Date/Time of Note DATE: 01/24/17 TIME: 08:15 Consult Date/Type/Reason Admit Date/Time Jan 02, 2017 at 12:58 Initial Consult Date 01/19/17 Type of Consultation: Palliative care Ordering Provider: SRIKANTH GALVAN Subjective Postdated note January 22 family conference Objective Vital Signs Date Time Temp Pulse Resp B/P Pulse Ox O2 Delivery O2 Flow Rate FiO2 01/23/17 20:50 98.6 91 20 109/62 97 01/23/17 20:00 Nasal Cannula 4.0 Intake and Output 01/23/17 01/23/17 01/24/17 15:00 23:00 07:00 Intake Total 600 ml Output Total 650 ml Balance -50 ml Results/Medications Result Diagram: 01/20/17 0609 Results 24 hrs Laboratory Tests Test 01/23/17 11:57 Bedside Glucose 96 Medications Current Medications Miscellaneous Information 1 ea NOTE XX ; Start 01/03/17 at 13:00 Morphine Sulfate (morphine) 2 mg Q4H PRN IV PAIN Last administered on 19:12; Admin Dose 2 MG; Start 01/06/17 at 11:30 Acetaminophen (Tylenol Liquid) 650 mg Q6H PRN GTB PAIN AND OR ELEVATED TEMP Last administered on 01/16/17 10:04; Admin Dose 650 MG; Start 01/08/17 at 09:30 IV Flush (NS 10 ml) 10 ml PRN PRN IV IV PROTOCOL; Start 01/10/17 at 17:30 Atropine Sulfate 2 drop 2 drop Q2H PRN SL for increased secretion Last administered on 01/24/17 01:01; Admin Dose 2 DROP; Start 01/23/17 at 17:30 Morphine Sulfate/ Sodium Chloride (morphine) 100 ml @ 1 mls/hr TITRATE IV Last administered on 01/23/17 22:49; Admin Dose 1 MLS/HR; Start 01/23/17 at 18:30 Assessment/Plan Chief Complaint/Hosp Course Hx of Present Illness Patient is a 56-year-old male with long-standing history of substance abuse and alcohol addiction who was admitted [facility] with sepsis syndrome pneumonia and acute encephalopathy .During his hospital admission he has been dialyzed for end-stage renal disease has had profound fluid and electrolyte abnormalities and has a 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 Patient has numerous major comorbid medical problems including seizure disorder, delirium, hypothyroidism, bipolar disorder, type 2 diabetes. Patient is a non-historian asked to examine patient and speak to family members concerning goals of care. Patient has been seen by neurology consult workup consistent with CPM with Warnicke's encephalopathy. Cannot be obtained patient is encephalopathic Problems: Additional Assessment/Plan Family conference with patient's and son. All issues have his current hospitalization his medical condition as well as prognosis had been explored. Patient's gave me a detailed past medical history and we have discussed each of his major medical problems in detail. They've made it very clear that he would not want to continue in a debilitated moribund condition. Therefore their decision is to discontinue this level of care interbreed with just comfort measures, prior to that decision all options were discussed in detail. Will make the referral to in-house hospice care it is impossible for family members to take care of Mr. Jaramillo at home KEVYN RODRÍGUEZ Jan 24, 2017 08:20
--- NOTE | 2017-01-24 08:50 | PN ---
Date/Time of Note Date/Time of Note DATE: 01/24/17 TIME: 08:47 Assessment/Plan VTE Prophylaxis VTE Prophylaxis Intervention: SCD's Lines/Catheters IV Catheter Type (from Nrsg): PICC Line Central line still needed: Yes Urinary Cath still in place: Yes Reason Cath still needed: terminal illness/intractable pain Assessment/Plan Assessment/Plan 56 year old with multiple medical problems and poor prognosis awaiting acceptance into hospice. I spoke to Fito Lara [place] to have the patient safely transferred onto the hospice service today, likely GIP. At this point, the patient's is agreeable to hospice, and is agreeable to stopping all medications, except those meds that help to keep him comfortable. He is less congested after atropine last night. Morphine gtt increased to 2 mg/hour. Case d/w with RN and ELLA to re-evaluate today. DNR per Ximena, she prefers inpatient hospice. /family agreeable to hospice and hopefully, we will transfer him to inpatient hospice today. Subjective 24 Hr Interval Summary Free Text/Dictation On morphine drip. Breathing is less labored. at bedside. Exam/Review of Systems Vital Signs Vitals Vital Signs Date Time Temp Pulse Resp B/P Pulse Ox O2 Delivery O2 Flow Rate FiO2 01/23/17 20:50 98.6 91 20 109/62 97 01/23/17 20:00 Nasal Cannula 4.0 Intake and Output 01/23/17 01/23/17 01/24/17 15:00 23:00 07:00 Intake Total 600 ml Output Total 650 ml Balance -50 ml Exam Constitutional: non-verbal Psych: no complaints Head: normocephalic Eyes: nl conjunctiva Respiratory: congested cough, labored breathing Cardiovascular: regular rate and rhythm Gastrointestinal: soft Extremities: edema Results Result Diagram: 01/20/17 0609 Results 24 hrs Laboratory Tests Test 01/23/17 11:57 Bedside Glucose 96 Medications Medications Current Medications Miscellaneous Information 1 ea NOTE XX ; Start 01/03/17 at 13:00 Morphine Sulfate (morphine) 2 mg Q4H PRN IV PAIN Last administered on t 19:12; Admin Dose 2 MG; Start 01/06/17 at 11:30 IV Flush (NS 10 ml) 10 ml PRN PRN IV IV PROTOCOL; Start 01/10/17 at 17:30 Atropine Sulfate 2 drop 2 drop Q2H PRN SL for increased secretion Last administered on 01/24/17 01:01; Admin Dose 2 DROP; Start 01/23/17 at 17:30 Morphine Sulfate/ Sodium Chloride 100 ml @ 1 mls/hr TITRATE IV Last administered on 01/23/17 22:49; Admin Dose 1 MLS/HR; Start 01/23/17 at 18:30 Acetaminophen (Ofirmev 1000mg/ 100ml Iv) 100 ml @ 400 mls/hr Q6H PRN IVPB ELEVATED TEMPERATURE; Start 01/24/17 at 09:00; Status DAVID ORTEGA MD Jan 24, 2017 08:50
[2017-01-24] MEDS ORDERED: ACETAMINOPHEN 1000MG/100ML IV 100 ML IVPB PRN (09:00)
[2017-01-24 10:39] VITALS: BP 104/59; RESP 24
[2017-01-24] MEDS ORDERED: DIMETHICONE STICK TOP PRN (11:30)
[2017-01-24] MEDS ORDERED: ARTIFICIAL TEARS 15 ML OPH BOTH EYES PRN (11:30)
[2017-01-24] MEDS ORDERED: ONDANSETRON 4 MG INJ IV PRN (12:00)
[2017-01-24] MEDS ORDERED: LORAZEPAM 2 MG INJ IV PRN (12:00)
[2017-01-24] MEDS ORDERED: BISACODYL 10 MG SUPP PR PRN (17:00)
--- NOTE | 2017-01-24 17:28 | CONS ---
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 Patient has numerous major comorbid medical problems including seizure disorder, delirium, hypothyroidism, bipolar disorder, type 2 diabetes. Patient is a non-historian asked to examine patient and speak to family members concerning goals of care. Patient has been seen by neurology consult workup consistent with CPM with Warnicke's encephalopathy. Cannot be obtained patient is encephalopathic Problems: Consultation Date/Type/Reason Admit Date/Time Jan 02, 2017 at 12:58 Initial Consult Date 01/19/17 Type of Consultation: Palliative care Reason for Consultation Error last note .. It is NOT possible for family to bring patient home for EOL care. Referring Provider: SRIKANTH GALVAN Exam/Review of Systems Vital Signs Vitals Vital Signs Date Time Temp Pulse Resp B/P Pulse Ox O2 Delivery O2 Flow Rate FiO2 01/24/17 11:08 93 10.0 01/24/17 10:39 98.9 100 24 104/59 01/24/17 08:00 Nasal Cannula Intake and Output 01/23/17 01/23/17 01/24/17 15:00 23:00 07:00 Intake Total 600 ml Output Total 650 ml Balance -50 ml Results Result Diagram: 01/20/17 0609 Medications Medications Current Medications Miscellaneous Information 1 ea NOTE XX ; Start 01/03/17 at 13:00 IV Flush (NS 10 ml) 10 ml PRN PRN IV IV PROTOCOL; Start 01/10/17 at 17:30 Atropine Sulfate 2 drop 2 drop Q2H PRN SL for increased secretion Last administered on 01/24/17 09:48; Admin Dose 2 DROP; Start 01/23/17 at 17:30 Morphine Sulfate/ Sodium Chloride 100 ml @ 1 mls/hr TITRATE IV Last administered on 01/23/17 22:49; Admin Dose 1 MLS/HR; Start 01/23/17 at 18:30 Acetaminophen (Ofirmev 1000mg/ 100ml Iv) 100 ml @ 400 mls/hr Q6H PRN IVPB TEMP ABOVE 100.5 OR PAIN; Start 01/24/17 at 09:00 Lorazepam (Ativan) 1 mg Q4H PRN IV ANXIETY/SEIZURES; Start 01/24/17 at 12:00 Ondansetron HCl (Zofran Inj) 4 mg Q6H PRN IV NAUSEA AND/OR VOMITING; Start at 12:00 Bisacodyl (Dulcolax Supp) 10 mg Q48H PRN PA CONSTIPATION; Start 01/24/17 at 17: 00 KEVYN RODRÍGUEZ Jan 24, 2017 17:28
--- NOTE | 2017-01-24 18:08 | CONS ---
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 Patient has numerous major comorbid medical problems including seizure disorder, delirium, hypothyroidism, bipolar disorder, type 2 diabetes. Patient is a non-historian asked to examine patient and speak to family members concerning goals of care. Patient has been seen by neurology consult workup consistent with CPM with Warnicke's encephalopathy. Cannot be obtained patient is encephalopathic Problems: Consultation Date/Type/Reason Admit Date/Time Jan 02, 2017 at 12:58 Initial Consult Date 01/19/17 Type of Consultation: Palliative care Referring Provider: SRIKANTH GALVAN 24 HR Interval Summary Free Text/Dictation Events of last evening discussed with Dr Avila. Pt is now on GIP and on comfort measures, his and son have been here all day. Plan Supportive care for patient and family Comfort meds per Hospice Exam/Review of Systems Vital Signs Vitals Vital Signs Date Time Temp Pulse Resp B/P Pulse Ox O2 Delivery O2 Flow Rate FiO2 01/24/17 11:08 93 10.0 01/24/17 10:39 98.9 100 24 104/59 01/24/17 08:00 Nasal Cannula Intake and Output 01/23/17 01/23/17 01/24/17 15:00 23:00 07:00 Intake Total 600 ml Output Total 650 ml Balance -50 ml Exam Constitutional: other (Obtunded non communicative , kussmal resp) Neurological: unresponsive Results Result Diagram: 01/20/17 0609 Medications Medications Current Medications Miscellaneous Information 1 ea NOTE XX ; Start 01/03/17 at 13:00 IV Flush (NS 10 ml) 10 ml PRN PRN IV IV PROTOCOL; Start 01/10/17 at 17:30 Atropine Sulfate 2 drop 2 drop Q2H PRN SL for increased secretion Last administered on 01/24/17t 09:48; Admin Dose 2 DROP; Start 01/23/17 at 17:30 Morphine Sulfate/ Sodium Chloride 100 ml @ 1 mls/hr TITRATE IV Last administered on 01/23/17t 22:49; Admin Dose 1 MLS/HR; Start 01/23/17 at 18:30 Acetaminophen (Ofirmev 1000mg/ 100ml Iv) 100 ml @ 400 mls/hr Q6H PRN IVPB TEMP ABOVE 100.5 OR PAIN; Start 01/24/17 at 09:00 Lorazepam (Ativan) 1 mg Q4H PRN IV ANXIETY/SEIZURES; Start 01/24/17 at 12:00 Ondansetron HCl (Zofran Inj) 4 mg Q6H PRN IV NAUSEA AND/OR VOMITING; Start at 12:00 Bisacodyl (Dulcolax Supp) 10 mg Q48H PRN NE CONSTIPATION; Start 01/24/17 at 17: 00 KEVYN RODRÍGUEZ Jan 24, 2017 18:08
--- NOTE | 2017-01-24 18:42 | CONS ---
Date/Time of Note Date/Time of Note DATE: 01/24/17 TIME: 18:40 Assessment/Plan Assessment/Plan Additional Assessment/Plan 1. Acute hyperkalemia with a potassium of 7.6 on admission, s/p One session of Emergent HD 01/03/17- now improved 2. Severe metabolic acidosis s/p Bicarbonate drip, now stable 3. Acute kidney injury with a BUN of 127, creatinine of 8.9 on admission, likely secondary to acute tubular necrosis. 4. Acute respiratory failure secondary to possibly acute fluid overload and possibly pneumonia.intubated on ventilator s/p Extubation 5. History of liver cirrhosis from hepatitis C. 6. acute encephalopathy possibly hepatic encephalopathy from liver cirrhosis and possible CPM 7. 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 Hyponatremia > hypernatremia - has been desmopressin x 2 days so far- Na 145 today - Demopressin has been stopped on 01/19/2017 PLAN: S/p Emergent HD x 1 due to hyperkalemia, severe metabolic acidosis and resp failure- now Improved renal function, temporary misael has been removed on comfort care palliative care service has been following patient Consultation Date/Type/Reason Admit Date/Time Jan 02, 2017 at 12:58 Initial Consult Date Dec Type of Consultation: NEPHROLOGY Referring Provider: SRIKANTH GALVAN Exam/Review of Systems Vital Signs Vitals Vital Signs Date Time Temp Pulse Resp B/P Pulse Ox O2 Delivery O2 Flow Rate FiO2 01/24/17 11:08 93 10.0 01/24/17 10:39 98.9 100 24 104/59 01/24/17 08:00 Nasal Cannula Intake and Output 01/23/17 01/23/17 01/24/17 15:00 23:00 07:00 Intake Total 600 ml Output Total 650 ml Balance -50 ml Results Result Diagram: 01/20/17 0609 Medications Medications Current Medications Miscellaneous Information 1 ea NOTE XX ; Start 01/03/17 at 13:00 IV Flush (NS 10 ml) 10 ml PRN PRN IV IV PROTOCOL; Start 01/10/17 at 17:30 Atropine Sulfate 2 drop 2 drop Q2H PRN SL for increased secretion Last administered on 01/24/17t 09:48; Admin Dose 2 DROP; Start 01/23/17 at 17:30 Morphine Sulfate/ Sodium Chloride 100 ml @ 1 mls/hr TITRATE IV Last administered on 01/23/17t 22:49; Admin Dose 1 MLS/HR; Start 01/23/17 at 18:30 Acetaminophen (Ofirmev 1000mg/ 100ml Iv) 100 ml @ 400 mls/hr Q6H PRN IVPB TEMP ABOVE 100.5 OR PAIN; Start 01/24/17 at 09:00 Lorazepam (Ativan) 1 mg Q4H PRN IV ANXIETY/SEIZURES; Start 01/24/17 at 12:00 Ondansetron HCl (Zofran Inj) 4 mg Q6H PRN IV NAUSEA AND/OR VOMITING; Start at 12:00 Bisacodyl (Dulcolax Supp) 10 mg Q48H PRN NE CONSTIPATION; Start 01/24/17 at 17: 00 MARII DALY MD Jan 24, 2017 18:42
--- NOTE | 2017-01-24 23:47 | HP ---
DATE OF ADMISSION: 01/02/2017 LEVEL OF CARE: [facility]. PRIMARY HOSPITAL DIAGNOSES: 1. End-stage liver disease secondary to hepatitis C and alcoholic liver disease. 2. Comorbid acute respiratory failure. 3. Acute kidney injury. CHIEF COMPLAINT AND HISTORY OF PRESENT ILLNESS: History is obtained from medical record and discuss ion with the hospice nurse as patient is nonverbal. The patient is a 56-year-old gentleman with kno wn history of alcohol abuse and hepatitis C, who was brought in to the hospital on 01/02/2017 due to altered mental status. For the last couple of days prior to admission, the patient had a gradual d ecline in his condition. The patient did not have any recent GI bleed. Ammonia level came back as 307. The patient also was in acute renal failure with BUN of 127, creatinine of 8.9. Potassium was 7.6, bicarbonate was 9. The patient was diagnosed with hepatic encephalopathy. The patient will a lso in respiratory failure and was admitted in ICU. The patient was seen by nephrology and pulmonol ogist. The patient continued to decline and also required vasopressor support. The patient had a n ormal CT of the head done. The patient initially was intubated and subsequently was extubated and elizabeth caraballo was taken off vasopressor. The patient was treated with broad spectrum IV antibiotic. The pa tient continued to decline and family requested hospice eval. The patient was admitted under hospic e care to provide comfort. REVIEW OF SYSTEMS: As above. PAST MEDICAL HISTORY: As stated above. The patient, in addition to above, has hypertension and [employer] D. ALLERGIES: NONE. SOCIAL HISTORY: History of alcohol abuse in the past. Details unavailable. FAMILY HISTORY: Noncontributory. REVIEW OF SYSTEMS: Could not be obtained due to patient's mental status. PHYSICAL EXAMINATION: GENERAL: The patient is nonverbal. VITAL SIGNS: Temperature 98.9, pulse 100, respirations 24, blood pressure 104/59, O2 saturation 93% on 10 liters facemask. HEENT: No eye discharge or redness. No nystagmus. Slightly icteric. NECK: No mass, no JVD. CHEST: Diminished air entry both bases. CARDIOVASCULAR: S1, S2 normal. Regular rate and rhythm. No murmur. ABDOMEN: Soft. EXTREMITIES: Edematous. NEUROLOGIC: The patient is nonverbal. RECENT LABORATORY DATA: WBC 7.4, hemoglobin 10.9, platelets 83. Coagulation profile revealed INR o f 1.4. Bilirubin 2.4, AST 108, ALT 115, ____ 132. Sodium 139, potassium 4.6, BUN 26, creatinine 0. 8. PLAN: The patient admitted under hospice care. The patient qualifies for [facility] level of care. The p atient has been started on morphine drip at 1 mg an hour, which has been titrated up to 2 mg an hour . The patient will also be started on atropine drops for secretions, IV Ativan for anxiety, Zofran for nausea, and Tylenol for fever. The patient remains terminally ill. Will continue to optimize c omfort care. Plan of care discussed with nursing staff at [facility] as well as cosme nurse. Dictated By: BRYANNA JENKINS/OZZY Conf#: [id number] DID#: [id number] CC: REGINA GARCIA MD;*EndCC*
[2017-01-25] MEDS: ATROPINE SULFATE 1% 5ML SL PRN ×2 (07:58→10:24)
[2017-01-25 08:02] VITALS: BP 135/66; PULSE 105; RESP 17
[2017-01-25 09:15] VITALS: BP 137/70; RESP 50
--- NOTE | 2017-01-25 13:36 | DS ---
Date/Time of Note Date/Time of Note DATE: 01/25/17 TIME: 13:32 Discharge Summary Admission/Discharge Info Admit Date/Time Jan 02, 2017 at 12:58 Discharge Date/Time 01/24/2017 Discharge Diagnosis 1. end stage liver disease secondary to alcohol and hepatitis c 2. hepatic encephalopathy 3. acute renal failure, resolved 4. hypernatremia improved 5. sepsis secondary to pneumonia 6. acute respiratory failure Patient Condition: Serious Hospital Course patient was admitted with altered mental status, he was found to be septic at that time and required IC U level of care. he was treated with antibiotics and improved somewhat. however, patient had a down turn during this hospitalization and his mental status worsened and he was eventually transferred on to [facility] under the care of dr salinas on 01/24/17. patient was noted to have acute renal failure at time of admission, but this improved with hydration patient has knwon cirrhosis secondary to alcohol and hepatitis c, this decompensate don this hospitalization and was a major contributor to the decision to commence hospice. Home Meds Active Scripts Lisinopril* (Lisinopril*) 20 Mg Tablet, 20 MG PO DAILY, #30 TAB Prov:SULY SHORT M.D. 11/06/16 Reported Medications Methocarbamol* (Methocarbamol*) 500 Mg Tablet, 500 MG PO BID, TAB 11/04/16 Nabumetone* (Nabumetone*) 500 Mg Tablet, 500 MG PO BID, TAB 11/04/16 Trazodone Hcl* (Trazodone Hcl*) 50 Mg Tablet, 50 MG PO QHS, #30 TAB 11/04/16 Albuterol Sulfate (Proair Respiclick) 90 Mcg Aer.pow.ba, 1 PUFF INHALATION Q4 Y for SHORTNESS OF BREATH, #1 BOTTLE 11/04/16 Omeprazole* (Omeprazole*) 20 Mg Capsule.dr, 20 MG PO BID, #60 CAP 11/04/16 Albuterol/Ipratropium* (Combivent Respimat*) 20-100 Mcg/Inh - 4 Gm Aer.w.adap, 1 PUFF INHALATION QID, #1 INHALER 03/02/16 Propranolol Hcl* (Propranolol Hcl*) 10 Mg Tablet, 10 MG PO BID, TAB 10/29/14 Lactulose* (Lactulose*) 20 Gm/30 Ml Solution, 20 GM PO BID, ML 10/29/14 Follow-up Plan transferred to [facility], remains on 4th floor at [facility] Primary Care Provider Alvaro Rachel MD Time spent on discharge: < 30 minutes BTEHEL BARTLETT MD Jan 25, 2017 13:36
[2017-01-27] MEDS ORDERED: THIAMINE IV SCH (14:00)
[2017-01-27] MEDS ORDERED: SOD CHLORIDE 0.9% IV SCH (14:00)
== END 2017-01-25 23:30 | disposition expired | DRG 870 ==
LOC: E/R 09:52 → ICU 12:58 → TEL 01-11 22:41 → MS1 01-23 18:37
PROVIDERS: ADMIT Internal Medicine; ATTEND Internal Medicine
PROC: 06HY33Z Insertion of Infusion Device into Lower Vein, Percutaneous Approach (ICD-10-PCS; principal; 2017-01-02)
PROC: 5A1955Z Respiratory Ventilation, Greater than 96 Consecutive Hours (ICD-10-PCS; 2017-01-02)
PROC: 0BH17EZ Insertion of Endotracheal Airway into Trachea, Via Natural or Artificial Opening (ICD-10-PCS; 2017-01-02)
PROC: 05HM33Z Insertion of Infusion Device into Right Internal Jugular Vein, Percutaneous Approach (ICD-10-PCS; 2017-01-02)
PROC: 5A1D60Z (ICD-10-PCS; 2017-01-02)
PROC: 30233K1 Transfusion of Nonautologous Frozen Plasma into Peripheral Vein, Percutaneous Approach (ICD-10-PCS; 2017-01-03)
PROC: 30233N1 Transfusion of Nonautologous Red Blood Cells into Peripheral Vein, Percutaneous Approach (ICD-10-PCS; 2017-01-08)
PROC: 02HV33Z Insertion of Infusion Device into Superior Vena Cava, Percutaneous Approach (ICD-10-PCS; 2017-01-10)
DX: A41.9 Sepsis, unspecified organism (principal); J96.00 Acute respiratory failure, unspecified whether with hypoxia or hypercapnia; K76.7 Hepatorenal syndrome; N17.0 Acute kidney failure with tubular necrosis; B17.11 Acute hepatitis C with hepatic coma; G92 Toxic encephalopathy; J69.0 Pneumonitis due to inhalation of food and vomit; J18.9 Pneumonia, unspecified organism; R65.21 Severe sepsis with septic shock; E72.20 Disorder of urea cycle metabolism, unspecified; E87.2 Acidosis; E51.2 Wernicke's encephalopathy; G37.2 Central pontine myelinolysis; K70.31 Alcoholic cirrhosis of liver with ascites; K70.40 Alcoholic hepatic failure without coma; E87.5 Hyperkalemia; D63.8 Anemia in other chronic diseases classified elsewhere; E87.70 Fluid overload, unspecified; K21.9 Gastro-esophageal reflux disease without esophagitis; E86.0 Dehydration; R40.2432 Glasgow coma scale score 3-8, at arrival to emergency department; Z66 Do not resuscitate; E66.01 Morbid (severe) obesity due to excess calories; Z68.33 Body mass index [BMI] 33.0-33.9, adult; D69.6 Thrombocytopenia, unspecified; Z87.891 Personal history of nicotine dependence
CPT/HCPCS: 31500; 36415; 36430; 36569; 36600; 70450; 70551; 71010; 74000; 74176; 76775; 76937; 80048; 80053; 80202; 81001; 81003; 82140; 82533; 82550; 82570; 82607; 82728; 82803; 82962; 83036; 83540; 83605; 83690; 83735; 84100; 84300; 84439; 84443; 84484; 84560; 85014; 85018; 85025; 85049; 85362; 85378; 85384; 85610; 85670; 85730; 86704; 86709; 86803; 86850; 86900; 86901; 86920; 87040; 87075; 87081; 87086; 87340; 89190; 90935; 92610; 93005; 94002; 94003; 94640; 94644; 94664; 94770; 95819; 96374; 96375; 97162; J1940; C1751; C1769; C9113; J0610; J1720; J1815; J1953; J2060; J2185; J2250; J2270; J2370; J3010; J3370; J3411; J3475; J7030; J7040; J7050; J7060; J7070; P9016; P9047; P9059